=== PATIENT | male | born 1950 | race Caucasian/White ===

== ENCOUNTER → 2018-03-21 10:14 | Outpatient (BNVA) | payer MEDICARE, BC, SELFPAY | PROVIDERS: PCP Nurse Practitioner Family; Visit Provider Student in an Organized Health Care Education/Training Program | DX: I25.10 Atherosclerotic heart disease of native coronary artery without angina pectoris (principal); I10 Essential (primary) hypertension; E78.5 Hyperlipidemia, unspecified | CPT/HCPCS: 99214 ==

== ENCOUNTER → 2018-05-04 09:01 | Outpatient (BNVA) | payer MEDICARE, BC, SELFPAY | PROVIDERS: PCP Nurse Practitioner Family; Visit Provider Student in an Organized Health Care Education/Training Program | DX: I25.810 Atherosclerosis of coronary artery bypass graft(s) without angina pectoris (principal); Z95.818 Presence of other cardiac implants and grafts; I10 Essential (primary) hypertension | CPT/HCPCS: 99214 ==

== ENCOUNTER 2018-11-01 08:28 | Outpatient (CLI) | payer MEDICARE, BC, SELFPAY ==
[2018-11-01 09:48] LABS: Anion Gap 5.4 mmol/L (3-11); BUN 15 mg/dL (7-18); CO2 30.6 mmol/L (21.0-32.0); CREATININE 1.19 mg/dL (0.70-1.30); Chloride 102 mmol/L (98-107); Cholesterol 136 mg/dL (50-200); Glucose 99 mg/dL (70-100); HDL Cholesterol 41 mg/dL (40-60); LDL CHOLESTEROL 83 mg/dL (<100); Potassium 4.2 mmol/L (3.5-5.1); Sodium 138 mmol/L (136-145); Triglyceride 59 mg/dL (30-150)
== END 2018-11-01 08:48 ==
PROVIDERS: PCP Nurse Practitioner Family; Visit Provider Nurse Practitioner Family
DX: I25.10 Atherosclerotic heart disease of native coronary artery without angina pectoris (principal); I10 Essential (primary) hypertension
CPT/HCPCS: 80048; 80061; 83721

== ENCOUNTER → 2018-12-21 14:04 | Outpatient (BNVA) | payer MEDICARE, BC, SELFPAY | PROVIDERS: PCP Nurse Practitioner Family; Visit Provider Student in an Organized Health Care Education/Training Program | DX: I20.8 Other forms of angina pectoris (principal); I25.10 Atherosclerotic heart disease of native coronary artery without angina pectoris; Z95.1 Presence of aortocoronary bypass graft; Z95.5 Presence of coronary angioplasty implant and graft; I10 Essential (primary) hypertension | CPT/HCPCS: 99214 ==

== ENCOUNTER 2019-12-19 03:48 | Outpatient (CLI) | payer MEDICARE, BC, SELFPAY ==
[2019-12-19 09:39] LABS: Anion Gap 5.3 mmol/L (3-11); BUN 19 mg/dL (7-18); CO2 31.7 mmol/L (21.0-32.0); CREATININE 1.14 mg/dL (0.70-1.30); Calcium 8.6 mg/dL (8.5-10.1); Calculated LDL 80 mg/dL (<100); Chloride 106 mmol/L (98-107); Cholesterol 140 mg/dL (<200); Glucose 103 mg/dL (74-106); HDL Cholesterol 46 mg/dL (40-60); Potassium 4.4 mmol/L (3.5-5.1); Sodium 143 mmol/L (136-145); Triglyceride 72 mg/dL (<150)
== END 2019-12-19 04:08 ==
PROVIDERS: PCP Nurse Practitioner Family; Visit Provider Nurse Practitioner Family
DX: I10 Essential (primary) hypertension (principal); E78.5 Hyperlipidemia, unspecified
CPT/HCPCS: 36415; 80048; 80061

== ENCOUNTER → 2019-12-28 11:09 | Outpatient (BNVA) | payer MEDICARE, BC, SELFPAY | PROVIDERS: PCP Nurse Practitioner Family; Referring Provider Nurse Practitioner Family; Visit Provider Internal Medicine Cardiovascular Disease | DX: I25.10 Atherosclerotic heart disease of native coronary artery without angina pectoris (principal); E78.5 Hyperlipidemia, unspecified; I10 Essential (primary) hypertension | CPT/HCPCS: 99204; 99215 ==

== ENCOUNTER 2020-04-10 02:58 | Outpatient (CLI) | payer MEDICARE, BC, SELFPAY ==
--- NOTE | 2020-04-10 15:49 | DI.RAD_ITS ---
EXAM: XR LUMBAR SPINE COMPLETE CLINICAL HISTORY: Pain after lifting, r/o compression fX,M54.5,LUMBAGO. TECHNIQUE: 2D digital imaging was performed. COMPARISON: No exams were available for comparison FINDINGS: The vertebral bodies are well maintained in height. There is mild narrowing of the L3-4 disc space. There are small endplate osteophytes at this level. There are mild facet joint degenerative changes . No spondylolysis, spondylolisthesis or scoliosis is seen. IMPRESSION: Degenerative disc changes at L 3- 4. DATA REPOSITORY: RADIATION DOSE DELIVERED:
== END 2020-04-10 03:18 ==
PROVIDERS: PCP Nurse Practitioner Family; Visit Provider Family Medicine
DX: M47.816 Spondylosis without myelopathy or radiculopathy, lumbar region (principal); M25.78 Osteophyte, vertebrae; M48.061 Spinal stenosis, lumbar region without neurogenic claudication
CPT/HCPCS: 72110

== ENCOUNTER → 2020-12-12 10:57 | Outpatient (BNVA) | payer MEDICARE, BC, SELFPAY | PROVIDERS: PCP Nurse Practitioner Family; Referring Provider Nurse Practitioner Family; Visit Provider Internal Medicine Cardiovascular Disease | DX: I25.10 Atherosclerotic heart disease of native coronary artery without angina pectoris (principal); E78.5 Hyperlipidemia, unspecified; I45.10 Unspecified right bundle-branch block; I10 Essential (primary) hypertension; Z79.899 Other long term (current) drug therapy | CPT/HCPCS: 99214 ==

== ENCOUNTER 2021-05-22 02:21 | Outpatient (CLI) | payer MEDICARE, BC, SELFPAY ==
[2021-05-22 07:26] LABS: HCT 45.2 % (40.0-50.0); HGB 14.9 g/dL (13.5-17.5); MCH 28.7 pg (27.0-33.0); MCV 86.9 fL (80-95); Platelet Count 252 10^3/uL (130-400); RDW 11.9 % (11.8-14.1); RDW-SD 38.2 fL; WBC 9.06 10^3/uL (4.4-10.8)
[2021-05-22 08:10] LABS: BUN 19 mg/dL (7-18); CREATININE 1.2 mg/dL (0.70-1.30); Calcium 8.8 mg/dL (8.5-10.1); Calculated LDL 72 mg/dL (<100); Chloride 102 mmol/L (98-107); Cholesterol 131 mg/dL (<200); Estimated GFR 59.86 (mL/min/1.73m2); Glucose 97 mg/dL (74-106); HDL Cholesterol 41 mg/dL (40-60); Potassium 4.4 mmol/L (3.5-5.1); Sodium 141 mmol/L (136-145); Triglyceride 92 mg/dL (<150)
== END 2021-05-22 02:22 | disposition home or self-care (01) ==
LOC: LBO 02:21
PROVIDERS: PCP Nurse Practitioner Family; Visit Provider Nurse Practitioner Family
DX: I10 Essential (primary) hypertension (principal); E78.5 Hyperlipidemia, unspecified; Z51.81 Encounter for therapeutic drug level monitoring
CPT/HCPCS: 36415; 80048; 80061; 85027

== ENCOUNTER → 2021-12-11 10:56 | Outpatient (BNVA) | payer MEDICARE, SELFPAY | PROVIDERS: PCP Nurse Practitioner Family; Visit Provider Internal Medicine Cardiovascular Disease | DX: I10 Essential (primary) hypertension (principal); I25.10 Atherosclerotic heart disease of native coronary artery without angina pectoris; Z71.89 Other specified counseling | CPT/HCPCS: 99214; 99213 ==

== ENCOUNTER 2022-05-21 08:50 | Outpatient (CLI) | payer MEDICARE, SELFPAY ==
[2022-05-21 08:23] LABS: Abs Immature Grans 0.03 10^3/uL (0.0-0.06); Absolute Basophil Count 0.06 10^3/uL (0.0-0.2); Absolute Eosinophil Count 0.32 10^3/uL (0.0-0.7); Absolute Lymphocyte Count 2.15 10^3/uL (1.2-3.4); Absolute Monocyte Count 0.71 10^3/uL (0.1-0.8); Absolute Neutrophil Count 5.36 10^3/uL (1.2-6.7); Basophils % 0.7; Eosinophils % 3.7; HCT 45.4 % (40.0-50.0); HGB 15.2 g/dL (13.5-17.5); Immature Grans % 0.3; Lymphocytes % 24.9; MCHC 33.5 % (32.0-36.0); MCV 87 fL (80-95); MPV 9.9 fL (8.0-11.0); Monocytes % 8.2; Neutrophils % 62.2; Platelet Count 219 10^3/uL (130-400); RBC 5.24 10^6/uL (4.36-5.78); RDW-SD 38.3 fL; WBC 8.63 10^3/uL (4.4-10.8)
[2022-05-21 08:52] LABS: Anion Gap 4.2 mmol/L (3-11); BUN 20 mg/dL (7-18); CO2 31.8 mmol/L (21.0-32.0); CREATININE 1.4 mg/dL (0.70-1.30); Calcium 8.8 mg/dL (8.5-10.1); Calculated LDL 67 mg/dL (<100); Chloride 100 mmol/L (98-107); Cholesterol 128 mg/dL (<200); Estimated GFR 53.74 (mL/min/1.73m2); Glucose 104 mg/dL (74-106); HDL Cholesterol 48 mg/dL (40-60); Potassium 3.8 mmol/L (3.5-5.1); Sodium 136 mmol/L (136-145); Triglyceride 67 mg/dL (<150)
--- OUTSIDE RECORDS SUMMARY | 2022-05-21 09:02 | XMS_ITS | Encounter Summary ---
:1950 Author Organization [facility] [place] [address] Care Team Providers Name Role Phone Yvonne Nolen MD, Rupert Bhatti Primary Care Provider Encounter Details Date Type Department Care Team Description 12/12/2014 [place] [facility] [place] Sanders, [place] [address] Social History Tobacco Use Types Packs/Day Years Used Date Never Smoker Smokeless Tobacco: Never Used Alcohol Use Standard Drinks/Week Comments Yes 3 (1 standard drink = 0.6 oz pure alcoho l) social Alcohol Habits Answer Date Recorded How often do you have a drink containing alcohol? Not asked How many drinks containing alcohol do you have on a typical Not asked day when you are drinking? How often do you have six or more drinks on one occasion? No t asked Comment: social 01/29/2014 Sex Assigned at Date Recorded Not on file documented as of this encounter Miscellaneous Notes Telephone Encounter - Darby Sanders RN - 12/12/2014 4:10 PM EDT Blayne had a CABG March 2014. He called to say he was doing fine except has a concern about hisincision. 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 Says the site is not red, does not have any grinding or clicking sounds. Feels the sternal bone is solid. Would like advise about what to do. Please call on home #. Not urgent. documented in this encounter Plan of Treatment Not on filedocumented as of this encounter Visit Diagnoses Not on filedocumented in this encounter Care Teams Systems Programmer Analyst Relationship Specialty Start Date End Date Rupert Russell Jr., MD PCP - General 06/03/10 07/21/[address] [facility] [address] [facility] [address] documented as of this encounter
--- OUTSIDE RECORDS SUMMARY | 2022-05-21 09:02 | XMS_ITS | Encounter Summary ---
:1950 Author Organization [facility] Address [address] [place] [address] Care Team Providers Name Role Phone Yvonne Nolen MD, Rupert Bhatti Primary Care Provider Encounter Details Date Type Department Care Team Description 04/24/2014 [place] [facility] [place] x [address] [place] [address] Social History Tobacco Use Types Packs/Day [...] on file documented as of this encounter Medications at Time of Discharge Medication Sig Dispensed Refills Start Date End Date acetaminophen (TYLENOL) Take 1,000 mg by 0 500 mg Tablet mouth every 6 hours as needed. ticagrelor (BRILINTA) 90 Take 1 tablet by 180 tablet 3 04/03 mg Tablet mouth 2 times daily. Psyllium Seed-Sucrose Take 36 g by mouth 0 Powder daily. atorvastatin (LIPITOR) 80 Take 1 tablet by 90 tablet 4 01/10 mg tablet mouth every evening. metoprolol tartrate Take 1 tablet by 60 tablet 12 01/22/2014 (LOPRESSOR) 25 mg tablet mouth 2 times daily. nitroGLYcerin (NITROSTAT) Place 1 tablet under 25 tablet 1 01/15/2014 0.4 mg SL tablet the tongue every 5 minutes as needed for Chest pain. X 3. aspirin 81 mg EC tablet Take 81 mg by mouth 0 daily. documented as of this encounter Plan of Treatment Not on filedocumented as of this encounter Procedures Procedure Name Priority Date/Time Associated Diagnosis Comme nts XR CHEST PA AND Routine 04/24/2014 1:15 PM S/P CABG x 1 Result s for this LATERAL EDT procedure are i n the results section. documented in this encounter Results XR chest routine PA & lateral (04/24/2014 1:15 PM EDT) Anatomical Region Laterality Modality Chest N/A Radiographic Imaging Specimen (Source) Anatomical Collection Method Collection Time Re ceived Time Location / / Volume Laterality 04/24/2014 1:15 PM EDT Narrative 04/24/2014 4:29 PM EDT Examination CHEST ROUTINE 2 VIEWS Clinical History s/p cabg Comparison PA and lateral chest radiograph on 04/01 ?? Technique PA and lateral chest radiograph Findings Improvement in size of bilateral pleural effusions. There is still a small residual left pleural effusion. Remainin g lungs are clear. The cardiomediastinal silhouette, laura, and pulmonary vasculature are unchanged. Again seen are the sternotomy wires and anterior mediastinal surgical clips which are unchanged. Impression Improvement in size of bilateral pleural effusions. Residual small left-sided pleural effusion. Film and interpretation reviewed by the attending Procedure Note Mariela Carpio MD - 04/24/2014Formatt ing of this note might be different from the original. Examination CHEST ROUTINE 2 VIEWS Clinical History s/p cabg Comparison PA and lateral chest radiograph on 04/01 Technique PA and lateral chest radiograph Findings Improvement in size of bilateral pleural effusions. There is still a small residual left pleural effusion. Remainin g lungs are clear. The cardiomediastinal silhouette, laura, and pulmonary vasculature are unchanged. Again seen are the sternotomy wires and anterior mediastinal surgical clips which are unchanged. Impression Improvement in size of bilateral pleural effusions. Residual small left-sided pleural effusion. Film and interpretation reviewed by the attending Pa Morejon MD IMG DX ORDERABLES documented in this encounter Visit Diagnoses Diagnosis S/P CABG x 1 Postsurgical aortocoronary bypass status documented in this encounter Care Teams Semiconductor Development Technician Relationship Specialty Start Date End Date Rupert Russell Jr., MD PCP - General 06/03/10 07/21/[address] [facility] [address] [facility] [address] documented as of this encounter
--- OUTSIDE RECORDS SUMMARY | 2022-05-21 09:02 | XMS_ITS | Encounter Summary ---
:1950 Author Organization [facility] [place] [address] Care Team Providers Name Role Phone Yvonne Nolen MD, Rupert Bhatti Primary Care Provider Reason for Visit Reason Onset Date Comments Other 02/26/2015 PT DECLINES CARDIOLO GY F/UP Encounter Details Date Type Department Care Team Description 02/26/2015 Telephone Cardiology [place] [facility] [place]iz Leal Other (PT DECLINES [facility] CARDIOLOG Y F/[place] [address] Social History Tobacco Use Types Packs/Day [...] this encounter Miscellaneous Notes Telephone Encounter - Moiz Leal - 02/26/2015 2:14 PM EDT I called patient to schedule his one year follow-up appointment. He declined, stating he has transferred his cardiac care to a local Home Economist. documented in this encounter Plan of Treatment Not on filedocumented as of this encounter Visit Diagnoses Not on filedocumented in this encounter Care Teams Capacity Planning Engineer Relationship Specialty Start Date End Date Rupert Russell Jr., MD PCP - General 06/03/10 07/21/[address] [facility] [address] [facility] [place] [phone] documented as of this encounter
--- OUTSIDE RECORDS SUMMARY | 2022-05-21 09:02 | XMS_ITS | Encounter Summary ---
:1950 Author Organization [facility] [place] [address] Care Team Providers Name Role Phone Yvonne Nolen MD, Rupert Bhatti Primary Care Provider Encounter Details Date Type Department Care Team Description 04/24/2014 Office Visit Cardiothoracic Surge ry Pa Morejon MD [facility] [place] [address] S/P CABG x 1 [facility] Yves Childers, MONI [facility] [place] [address] [place] [address] Social History Tobacco Use Types Packs/Day Years [...] on file documented as of this encounter Last Filed Vital Signs Vital Sign Reading Time Taken Comments Blood Pressure 104/70 04/24/2014 1:45 PM EDT Pulse 61 04/24/2014 1:45 PM EDT Temperature - - Respiratory Rate - - Oxygen Saturation 97% 04/24/2014 1:45 PM EDT Inhaled Oxygen Concentration - - Weight 74.4 kg (164 lb) 04/24/2014 1:45 PM EDT Height 175.3 cm (5' 9) 04/24/2014 1:45 PM EDT Body Mass Index 24.22 04/24/2014 1:45 PM EDT documented in this encounter Progress Notes Yves Arias PA - 04/24/2014 2:13 PM EDT Blayne Zapata is seeing me today for one month follow-up after having undergone SETHI-LAD CABG withDr. Morejon. HPI: Mr. Zapata has been doing very well since his discharge. He is increasing his activities. He still has some sternal pain. CXR shows no acute cardiopulmonary processes. EKG shows sinus rhythm with an old RBBB. Outpatient Prescriptions Marked as Taking for the 04/24/14 encounter (Office Visit) with Yves Arias PA Medication Sig Dispense Refill ??? acetaminophen (TYLENOL) 500 mg Tablet Take 1,000 mg by mouth every 6 hours as needed. ??? ticagrelor (BRILINTA) 90 mg Tablet Take 1 tablet by mouth 2 times daily. 180 tablet 3 ??? Psyllium Seed-Sucrose Powder Take 36 g by mouth daily. ??? atorvastatin (LIPITOR) 80 mg tablet Take 1 tablet by mouth every evening. 90 tablet 4 ??? metoprolol tartrate (LOPRESSOR) 25 mg tablet Take 1 tablet by mouth 2 times daily. 60 tablet 12 ??? nitroGLYcerin (NITROSTAT) 0.[address] 1 tablet under the tongue every 5 minutes as needed for Chest pain. X 3. 25 tablet 1 ??? aspirin 81 mg EC tablet Take 81 mg by mouth daily. Physical Examination: BP 104/70 Pulse 61 Ht 175.3 cm (5' 9) Wt 74.39 kg (164 lb) BMI 24.21 kg/m2 SpO2 97% General: appears well, can't sit still Lungs: ctab Heart: RRR, s1/s2 present, no m/r/g Abdomen: +bs Neuro: no focal deficits Extremities: no edema Incisions: healing well Assessment and Plan: Mr. Zapata may driving. He may lift up to 20 lbs for the next month and then will have no restrictions. He started cardiac rehab two weeks ago. He needs to follow up with his PCP. He has an appointment with his casing builder in two weeks. He does not have come back to see me unless any specific issues arise. documented in this encounter Plan of Treatment Not on filedocumented as of this encounter Procedures Procedure Name Priority Date/Time Associated Diagnosis Comme nts EKG 12-LEAD Routine 04/24/2014 1:47 PM S/P CABG x 1 Results f or this EDT procedure are i n the results section . documented in this encounter Results EKG 12 Lead (04/24/2014 1:47 PM EDT) Component Value Ref Range Test Analysis Performed Pathologis t Method Time At Signature Ventricular rate 60 BPM MUSE SYSTEM Atrial Rate 60 BPM MUSE SYSTEM P-R Interval 146 ms MUSE SYSTEM QRS Duration 126 ms MUSE SYSTEM Q-T Interval 420 ms MUSE SYSTEM QTC Calculated 420 ms MUSE SYSTEM (Bezet) Calculated P [place] 70 degrees MUSE SYSTEM Calculated R [place] 75 degrees MUSE SYSTEM Calculated T [place] 73 degrees MUSE SYSTEM INTERPRETATION Normal sinus rhythm MUSE SYSTEM Right bundle branch block Abnormal ECG When compared with ECG of 29-MAR-2014 11:23, No significant change was found Confirmed by MD ANTHONY, TOMÁS ([id number]) on 04/24/2014 9:25:13 PM Specimen Anatomical Collection Method Collection Time Receive d Time (Source) Location / / Volume Laterality 04/24/2014 1:47 PM 9:25 EDT PM EDT Pa Morejon MD ECG ORDERABLES Performing Organization Address City/State/ZIP Code Phon e Number MUSE SYSTEM documented in this encounter Visit Diagnoses Diagnosis S/P CABG x 1 Postsurgical aortocoronary bypass status documented in this encounter Care Teams Program Supervisor Relationship Specialty Start Date End Date Rupert Russell Jr., MD PCP - General 06/03/10 07/21/[address] [facility] [address] [facility] [address] documented as of this encounter
--- OUTSIDE RECORDS SUMMARY | 2022-05-21 09:02 | XMS_ITS | Encounter Summary ---
:1950 Author Organization [facility] [place] [address] Care Team Providers Name Role Phone Yvonne Nolen MD, Rupert Bhatti Primary Care Provider Encounter Details Date Type Department Care Team Description 04/06/2014 Telephone Cardiothoracic Surge ry Chandler Powell III, [facility] Mar MONTENEGRO [address] [phone] CARDIOTHORACIC S [place] [address] (Wo rk) Social History Tobacco Use Types Packs/Day Years [...] this encounter Miscellaneous Notes Telephone Encounter - Chandler Powell III, MONI - 04/06/2014 12:20 PM EDT Cardiac Surgery Routine Discharge Follow-up Call Note ID: [id number] 63 year old man. Primary Diagnoses: Coronary Artery Disease s/p cabg x 1 03/29/14 Blayne Zapata was called today at 1220. He indicates that his discharge occurred without issue. Hehas all necessary medications and instructions. He indicates that he is doing well overall. No issues identified. All new questions were answered. He will call our office with any problems. Signed: Chandler Powell III, MS, PA-C [facility] Section of Cardiothoracic Surgery Date: 04/06/2014 documented in this encounter Plan of Treatment Not on filedocumented as of this encounter Visit Diagnoses Not on filedocumented in this encounter Care Teams Script Writer Relationship Specialty Start Date End Date Rupert Russell Jr., MD PCP - General 06/03/10 07/21/[address] [facility] [address] [facility] [address] documented as of this encounter
--- OUTSIDE RECORDS SUMMARY | 2022-05-21 09:02 | XMS_ITS | Encounter Summary ---
:1950 Author Organization [facility] [place] [address] Care Team Providers Name Role Phone Yvonne Nolen MD, Rupert Bhatti Primary Care Provider Encounter Details Date Type Department Care Team Description 04/04/2014 Telephone Family Medicine at [facility] Josefina Wooten [address] [place] [address] Social History Tobacco Use Types Packs/Day Years [...] this encounter Miscellaneous Notes Telephone Encounter - Lilibeth Martinez LPN - 04/04/2014 4:32 PM EDT Called back and reached the answering service. Left message to return call to clinic. documented in this encounter Plan of Treatment Not on filedocumented as of this encounter Visit Diagnoses Not on filedocumented in this encounter Care Teams Warehouse Engineer Relationship Specialty Start Date End Date Rupert Russell Jr., MD PCP - General 06/03/10 07/21/[address] [facility] [address] [facility] [place] [address] documented as of this encounter
--- OUTSIDE RECORDS SUMMARY | 2022-05-21 09:02 | XMS_ITS | Encounter Summary ---
:1950 Author Organization [facility] [place] [address] Care Team Providers Name Role Phone Yvonne Nolen MD, Louis A Primary Care Provider Encounter Details Date Type Department Care Team Description 05/09/2014 Office Visit Family Medicine at [facility] CAD (co ronary artery disease) (Primary Dx); Arnold Grimm Jr., MD Anemia [address] [place] [address] [facility] [phone] PR[facility] [place] [id number] Social History Tobacco Use Types Packs/Day Years [...] Sign Reading Time Taken Comments Blood Pressure 109/77 05/09/2014 1:56 PM EDT Pulse 64 05/09/2014 1:56 PM EDT Temperature 36.3 ??C (97.3 ??F) 05/09/2014 1:56 PM EDT Respiratory Rate 14 05/09/2014 1:56 PM EDT Oxygen Saturation 99% 05/09/2014 1:56 PM EDT Inhaled Oxygen Concentration - - Weight 74.9 kg (165 lb 3.2 oz) 05/09/2014 1:56 PM EDT Height 174.5 cm (5' 8.7) 05/09/2014 1:56 PM EDT Body Mass Index 24.61 05/09/2014 1:56 PM EDT documented in this encounter Progress Notes Rupert Russell Jr., MD - 05/09/2014 4:07 PM EDT Subjective: Mr. Zapata is a 63-year-old who comes in with his for followup of open-heart surgery. Has an appointment in Cardiology today. Is pleased with his progress. He is regaining his stamina. Is meticulously compliant with his rehab program. Is making lifestyle changes. Always felt that he had a reasonably healthy diet and now is fine-tuning that. His has diabetes and so she is very careful about what she eats as well. They are reading some books about healthy eating. Will be going to [place] after and returning in October. Hopes to work his way back into jogging while there. Not excited about being on medication long-term. He would like to make changes to regain his health to where he may not need to be on medicine or not as much. Currently, without side effects except he notices a little decrease in his exercise tolerance, he is assuming is due to metoprolol. Objective: Appears well and in usual health. Blood pressure is 109/77. Pulse is 64 and regular. Respirations are 14. O2 sat 99%. Lungs are clear. Heart regular rate and rhythm without murmur. No S3 or S4. Carotids without bruits. Sternal scar is red, but narrow. Assessment: Doing well status post CABG. Plan: During this 40-minute visit, 36 minutes were spent [id number] in discussion of medical events this year, current treatment, what to expect in the coming months, and developing a shared future vision to work towards. He will add co-enzyme Q-10 supplementation. Will check CBC. He will avoid prolonged, strenuous exercise at the level he was doing years ago. Other lifestyle changes discussed in great detail. Questions answered. Supportive discussion. Follow up when he returns. [Scar pain. Re-examine when return from [place].] documented in this encounter Plan of Treatment Not on filedocumented as of this encounter Visit Diagnoses Diagnosis CAD (coronary artery disease) - Primary Coronary atherosclerosis of unspecified type of vessel, [place] or graft Anemia Anemia, unspecified documented in this encounter Care Teams Industrial Psychology Professor Relationship Specialty Start Date End Date Rupert Russell Jr., MD PCP - General 06/03/10 07/21/[address] [facility] [address] [facility] [place] [address] documented as of this encounter
--- OUTSIDE RECORDS SUMMARY | 2022-05-21 09:03 | XMS_ITS | Encounter Summary ---
:1950 Author Organization [facility] Address [facility] [place] [address] Care Team Providers Name Role Phone Yvonne Nolen MD, Rupert Bhatti Primary Care Provider Reason for Visit Reason Comments Chest Pain Encounter Details Date Type Department Care Team Description 01/22/2014 Office Visit Cardiology at [facility] Elías Zendejas, Bundle branch block (Primary Dx); [facility] [place] [address] CARDIOLOGY DEPT. [phone] [place], [place] [address] Social History Tobacco Use Types Packs/Day Years Used Date Never Smoker Smokeless Tobacco: Never Used Alcohol Use Standard Drinks/Week Comments Yes 3 (1 standard drink = 0.6 oz pure alcoho l) Sex Assigned at Date Recorded Not on file documented as of this encounter Last Filed Vital Signs Vital Sign Reading Time Taken Comments Blood Pressure 140/76 01/22/2014 1:12 PM EDT Pulse 65 01/22/2014 1:12 PM EDT reg Temperature - - Respiratory Rate 16 01/22/2014 1:12 PM EDT Oxygen Saturation 97% 01/22/2014 1:12 PM EDT Inhaled Oxygen Concentration - - Weight 75.3 kg (166 lb) 01/22/2014 1:12 PM EDT Height 174.6 cm (5' 8.75) 01/22/2014 1:12 PM EDT Body Mass Index 24.69 01/22/2014 1:12 PM EDT documented in this encounter Progress Notes Elías Zendejas MD - 01/22/2014 2:36 PM EDT Images from the original note were not included. Cardiology Staff Addendum: This patient was seen today and personally interviewed and examined. Agree with documentation by , which I have reviewed and independently confirmed. 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 He has been somewhat Inactive over the winter owing to changes in his lifestyle and having his parents movement. He has been more fatigued over the winter. About 2 weeks ago he began having episodic chest discomfort which has been occurring in his central chest and with moderate activities. It is been fairly stable. He was referred for a stress echocardiogram which was performed earlier today and which well not showing echocardiographic evidence of ischemia during submaximal exercise, didn't elicit typical symptoms, ST segment changes, and a 9 beat run of ventricular tachycardia which precipitated the discontinuation of the test. His past medical history is notable only for hypertension and hyperlipidemia. He is treated with Mevacor and Norvasc. His physical examination today is unremarkable. He has no jugular venous distention or bruits. His lungs are clear. His heart exam reveals a regular rhythm without murmurs, rubs, or gallops. Assessment: Although there is some uncertainty as result of his exercise echocardiogram showing no evidence of ischemia at peak exercise, his symptoms, clinical pattern, and EKG findings, as well as his ventricular tachycardia with exercise, are very concerning and do strongly suggest the possibility of underlying coronary artery disease. We reviewed the situation, including its vagaries, in detail. We recommend proceeding with heart catheterization and coronary angiography to definitively determinethe status of his coronary arteries. Elías Zendejas MD, FAHA, FACC Garret Moe MD - 01/22/2014 1:10 PM EDT CARDIOLOGY CLINIC INITIAL VISIT NOTE Blayne Zapata is a 63 y.o. male PCP: RUPERT RUSSELL JR, MD Cardiology Attending for today's visit: Reason for Visit: Exertional chest discomfort History of Present Illness: Blayne Zapata is a 63 y.o. male with h/o hypertension and hyperlipidemia who presents with exertional chest discomfort. About 10 days ago, while going up on a moderate uphill, he noticed soreness andtightness in lower substernal region. He stopped for a minute and started walking back and started feeling better within a minute or so. 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 He has had these symptoms a few times since than with similar activity. He denies any associated shortness of breath, palpitations or diaphoresis with these symptoms. He denies any chest pain with his other usual ADLs. His parents have recently moved to a [place] about 2 weeks. He was taking care of them for the last 5 months and thinks he was sleep deprived. He also admits to being under a lot of stress taking care of his parents. But he is now concerned that the chest pain has persisted even after his parents moved to a [place]. He also noticed dizziness when he gets up from lying down position. Denies any dizziness when sitting. Denies orthopnea or PND. He had an exercise stress echo last week where he did not reach target heart rate after 7mts of exercise. The test was terminated enedelia had an episode of non sustained vtach(9 beat run). He started noticing substernal chest pain while getting stress echo imaging, but his stress imaging did not show any new wall motion abnormalities.He also had 1.5mm down sloping ST depressions in leads II, V3-V6. His baseline echo was normal with normal LVEF and no wall motion or vavlular abnormalities. 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 He ran marathons on a regular basis. Recently he thinks he is out of shape a little bit and was not as active as he used to be this winter. He is getting tired more easily than usual. Prior cardiac testing: Stress echo/01/15/14 SUMMARY: 1. BASELINE: Normal global and segmental biventricular systolic function with an estimated left ventricular ejection fraction of 65%. 2. STRESS: Patient followed a Luis protocol. The patient exercised into stage 3. The total exercise duration was:7:01. The study was terminated because of arrhythmia. The study was terminated because of chest pain. Maximum heart rate achieved was 100, which is 64% of the maximum(157 beats/min). The target heart rate was not achieved. The patient expressed feelings of chest discomfort. The blood pressure response was normal. Exercise capacity was average. There were occasional atrial premature contractions. There were occasional ventricular premature beats. There was a run of ventricular tachycardia.9-beat run at approximately 150 bpm. There were ventricular couplets. There was ST segment depression noted.1.[address] depression in leads II, V3, V4, and V5. The electrocardiographic response is indeterminate for ischemia: failed to achieve target heart rate. 3. ECHOCARDIOGRAPHIC FINDINGS: There are no left ventricular segmental wall motion abnormalities. 4. IMPRESSION: Indeterminate exercise echocardiogram, target heart rate was not achieved. Test stopped prematurely for 9 beat run of NSVT which was self terminating. The patient reported chest discomfort during the arrythmia. There is no echocardiographic evidence of ischemia at this level of stress. Cardiac cath at [facility] in 2005 for chest pain: Non obstructive disease(mild diffuse), normal LVEF Patient Active Problem List Diagnosis ??? Health maintenance examination ??? Hypertension ??? RBBB ??? Dry eyes ??? Hyperopia with astigmatism and presbyopia ??? Amblyopia of right eye ??? PVD (posterior vitreous detachment) Past Medical History Diagnosis Date ??? Hyperlipidemia ??? Hypertension ??? Amblyopia OD w/ h/o patching Grandfather of heart attack in his late 60s, he was a smoker Family History Problem Relation Age of Onset ??? Cataracts Mother ??? Hypertension Mother ??? Hypertension Father ??? Amblyopia Neg Hx ??? Blindness Neg Hx ??? Cancer Neg Hx ??? Diabetes Neg Hx ??? Glaucoma Neg Hx ??? Macular Degeneration Neg Hx ??? Retinal Detachment Neg Hx ??? Strabismus Neg Hx ??? Stroke Neg Hx ??? Thyroid Disease Neg Hx ??? Heart Disease Neg Hx History Social History ??? Marital Status: Spouse Name: N/A Number of Children: N/A ??? Years of Education: N/A Occupational History ??? Not on file. Social History Main Topics ??? Smoking status: Never Smoker ??? Smokeless tobacco: Never Used ??? Alcohol Use: 1.8 oz/week 3 Glasses of wine per week ??? Drug Use: ??? Sexually Active: Other Topics Concern ??? Not on file Social History Narrative ??? No narrative on file No recreational drug use Medications: Norvasc 2.5mg qd Aspirin 81mg qd Lovastatin 10mg qd No Known Allergies ROS: Filed Vitals: 01/22/14 1312 BP: 140/76 Pulse: 65 Resp: 16 Constitutional: Appetite is good, no wt loss or wt gain. HEENT: No visual symptoms. No nasal or ear discharge. Denies any headaches.(- ) cough. CVS: as per HPI Pulmonary: (- )cough, ( -)shortness of breath, no wheezing. GI: Denies nasea, emesis, no abdominal pain, no diarrhea or constipation, no bleeding per rectum or black stools. Genitourinary: Denies dysuria, difficulty urination or blood in the urine Hematology: denies easy bruising or bleeding Musculoskeletal: (- ) Joint aches, ( -) Joint swelling, Denies any bony pain Endocrine: (+ ) Fatigue, No heat or cold intolerance, polyuria or polydypsia Neuro: denies any visual symptoms, no focal weakness or parasthesias. ( +) Dizziness. No involuntarymovements. Skin: No rashes or easy bruising Psychiatry: Denies being depressed, denies anxiety. Physical Constitutional: well built, lying in bed in no apparent distress HENT:head normocephalic, no evidence of trauma, no nasal or aural discharge, no exudates in oral cavity, oral mucosa appears moist Eyes: EOMI, no icterus or pallor, Neck: supple, no thyromegaly or lymphadenopathy CVS: RRR, normal S1and S2, no murmur, no gallop or rub, JVP not distended, Radial, femoral and pedalpulses 3+ bilaterally Pulmonary: good air entry bilaterally,CTAB. GI: abdomen soft, NTND, bowel sounds positive, no rebound or gaurding, no organomegaly Musculoskeletal: no joint swellings or deformities Extremities: no edema Skin: no rashes noted Neuro: no gross focal deficits on limited neuro exam Psych: mood and affect normal. Not anxious looking. Testing: Stress echo as above. EKG today: NSR, RBBB, no ischemic changes Impression: Blayne Zapata is a 63 y.o. male with hypertension, hyperlipidemia with new exertional chest discomfort relieved with rest. He had an incomplete stress echo as his peak heart rate was only in mid 60s,but with concerning EKG changes and an episode of non sustained VT. Surprisingly despite his chest pain, he did not have any WMAs on his stress echocardiogram. Overall, although there are some atypicalfeatures to his presentations(normal imaging despite chest pain), there are enough features that makes obstructive coronary artery disease reasonably possible(exertional chest pain relieved by rest, EKG changes and nonsustained vtach, age, risk factors). Given the above and after discussing options, he prefers cardiac cath as opposed to another modality of stress test like regadenoson nuclear scan. The indications, expected benefits and potential risks of heart catheterization were reviewed in detail with the patient. The potential for , heart attack, stroke, kidney failure, hemorrhage, allergic reaction, vascular complications and infection were reviewed in detail. The possibility of stenting and other percutaneous intervention with associated risk was reviewed. The possible need for emergent coronary artery bypass surgery was reviewed. After a discussion about the above, and having answered all questions posed, the patient was provided with a consent which was reviewed and signed. Plan: Exertional chest pain: cardiac cath as an outpatient. Will arrange through same day. Continue aspirin, norvasc, statin and start betablocker(given non sustained VT with stress test). The indications, expected benefits and potential risks of heart catheterization were reviewed in detail with the patient. The potential for , heart attack, stroke, kidney failure, hemorrhage, allergic reaction, vascular complications and infection were reviewed in detail. The possibility of stenting and other percutaneous intervention with associated risk was reviewed. The possible need for emergent coronary artery bypass surgery was reviewed. After a discussion about the above, and having answered all questions posed, the patient was provided with a consent which was reviewed and signed. garret Moe MD Deputy Brand Inspector Pager([id number]) documented in this encounter Plan of Treatment Not on filedocumented as of this encounter Procedures Procedure Name Priority Date/Time Associated Diagnosis Comme nts EKG 12-LEAD Routine 01/22/2014 1:27 PM Bundle branch block Re sults for this EDT procedure are i n the results section . documented in this encounter Results EKG 12 Lead (01/22/2014 1:27 PM EDT) Component Value Ref Range Test Analysis Performed Pathologis t Method Time At Signature Ventricular rate 58 BPM MUSE SYSTEM Atrial Rate 58 BPM MUSE SYSTEM P-R Interval 146 ms MUSE SYSTEM QRS Duration 134 ms MUSE SYSTEM Q-T Interval 414 ms MUSE SYSTEM QTC Calculated 406 ms MUSE SYSTEM (Bezet) Calculated P [place] 72 degrees MUSE SYSTEM Calculated R [place] 84 degrees MUSE SYSTEM Calculated T [place] 39 degrees MUSE SYSTEM INTERPRETATION Sinus bradycardia MUSE SY STEM Right bundle branch block Abnormal ECG When compared with ECG of 14-JAN-2006 08:56, No significant change was found Confirmed by MD ROMERO, LUIS ([id number]) on 01/22/2014 7:10:39 PM Specimen Anatomical Collection Method Collection Time Receive d Time (Source) Location / / Volume Laterality 01/22/2014 1:27 PM 4 7:10 EDT PM EDT Elías Zendejas MD ECG ORDERABLES Performing Organization Address City/State/ZIP Code Phon e Number MUSE SYSTEM documented in this encounter Visit Diagnoses Diagnosis Bundle branch block - Primary Bundle branch block, unspecified Chest pain Chest pain, unspecified documented in this encounter Care Teams Fender Mechanic Relationship Specialty Start Date End Date Rupert Russell Jr., MD PCP - General 06/03/10 07/21/17 [facility] [address] [facility] [place] [address] documented as of this encounter
--- OUTSIDE RECORDS SUMMARY | 2022-05-21 09:03 | XMS_ITS | Encounter Summary ---
:1950 Author Organization [facility] [place] [address] Care Team Providers Name Role Phone Yvonne Nolen MD, Rupert Bhatti Primary Care Provider Reason for Visit Reason Comments Coronary Artery Disease Encounter Details Date Type Department Care Team Description 03/05/2014 Office Visit Cardiothoracic Surge ry Pa Morejon CAD (coronary artery [facility] D sandro Yao MD disease) ([place] [address] [facility]) [phone] [facility] [place] [address] Social History Tobacco Use Types Packs/Day Years [...] Sign Reading Time Taken Comments Blood Pressure 110/72 03/05/2014 2:33 PM EDT Pulse 64 03/05/2014 2:33 PM EDT regular, radial Temperature - - Respiratory Rate - - Oxygen Saturation 98% 03/05/2014 2:33 PM EDT Inhaled Oxygen Concentration - - Weight 76.2 kg (168 lb) 03/05/2014 2:33 PM EDT Height 175.3 cm (5' 9) 03/05/2014 2:33 PM EDT Body Mass Index 24.81 03/05/2014 2:33 PM EDT documented in this encounter Progress Notes Pa Morejon MD - 03/05/2014 3:08 PM EDT This is a patient being referred by Dr. Zendejas and Dr. Orosco for consideration of coronary artery bypass grafting. Mr. Castrejon is a healthy gentleman who is retired and enjoys running but had been having increasing amounts of chest pressure and pain, and he was taken to cath ultimately and found to have severe disease of his right coronary artery, which Dr. Orosco put a stent in. However, his LAD lesion was so proximal and his left main was so short that stenting his LAD may create a left main stent as well as plaque shift into his circ. He was taken off the table for a thoughtful decision of whether a SETHI to LAD might be better for him. After speaking with Mr. Castrejon, his symptoms have not fully resolved, and certainly the beta-joni side effects are affecting him with fatigue, but he still does feel some chest pressure. His past medical history is significant for hypertension, hypercholesterolemia. No diabetes. He has not had any surgery except some oral surgery. He has no known drug allergies. He currently is on his aspirin and Brilinta, and he is one month out of his stent. 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 His vital signs are stable. On physical exam, he is a slender gentleman. His lungs are clear. I do not hear any murmurs. He has no pectus, no scars over his chest. He has no swelling in his legs, and no varicosities. His cardiac cath I described above. He has no , and his EF is normal. Impression: Mr. Castrejon has single-vessel disease and fresh stents in the right. He still has symptoms and is here for completion revascularization with a SETHI to LAD. He had the opportunity to ask questions and has elected to go with CABG surgery. The risks include but are not limited to bleeding, infection, organ failure, stroke, . I will talk to Dr. Orosco about the possibility of any further grafting, but it is both our understanding in looking at the angiogram that it will be a SETHI to LAD. documented in this encounter Miscellaneous Notes Addendum Note - Bc Kaiser - 03/05/2014 3:57 PM EDT Addended by: BC KAISER on: 03/05/2014 03:57 PM Modules accepted: Orders documented in this encounter Plan of Treatment Not on filedocumented as of this encounter Procedures Procedure Name Priority Date/Time Associated Diagnosis Comme nts HEMOGRAM Routine 03/05/2014 3:30 PM CAD (coronary artery R esults for this EDT disease) procedure are i n the results section. DIFFERENTIAL, Routine 03/05/2014 3:30 PM CAD (coronary artery Results for this AUTOMATED EDT disease) procedure are i n the results section. TYPE AND SCREEN, Routine 03/05/2014 3:30 PM CAD (coronary glenn ry SDP (FUTURE EDT disease) SURGERY, [facility] SAME DAY PROGRAM ONLY) ABO/RH TYPING Routine 03/05/2014 3:30 PM CAD (coronary artery Results for this EDT disease) procedure are i n the results section. CBC (WITH DIFF) Routine 03/05/2014 3:30 PM CAD (coronary arter y EDT disease) ANTIBODY SCREEN Routine 03/05/2014 3:30 PM CAD (coronary arter y Results for this EDT disease) procedure are i n the results section. @CABG,USING Routine 03/05/2014 3:01 PM CAD (coronary artery ARTERIAL EDT disease) GRAFT;SINGLE ARTERIAL GRAFT documented in this encounter Results EKG 12 Lead (03/05/2014 3:54 PM EDT) Component Value Ref Range Test Analysis Performed Pathologis t Method Time At Signature Ventricular rate 49 BPM MUSE SYSTEM Atrial Rate 49 BPM MUSE SYSTEM P-R Interval 156 ms MUSE SYSTEM QRS Duration 134 ms MUSE SYSTEM Q-T Interval 436 ms MUSE SYSTEM QTC Calculated 393 ms MUSE SYSTEM (Bezet) Calculated P [place] 74 degrees MUSE SYSTEM Calculated R [place] 78 degrees MUSE SYSTEM Calculated T [place] 46 degrees MUSE SYSTEM INTERPRETATION Marked sinus bradycardia MUSE SYSTEM Right bundle branch block Abnormal ECG When compared with ECG of 30-JAN-2014 13:36, No significant change was found Confirmed by MD Jayashree, Radha ([id number]) on 03/06/2014 6:4 0:32 PM Specimen Anatomical Collection Method Collection Time Receive d Time (Source) Location / / Volume Laterality 03/05/2014 3:54 PM 4 6:40 EDT PM EDT Pa Morejon MD ECG ORDERABLES Performing Organization Address City/State/ZIP Code Phon e Number MUSE SYSTEM (ABNORMAL) Differential, Automated (03/05/2014 3:30 PM EDT) [facility] gist Method Time Signature Neutrophils % 62.0 34.0 - [place] 71.0 % [place] Neutr Abs (ANC) 5.26 1.50 - [place] 6.30 [place] x10(3)/mcL Lymphocytes % 21.7 19.0 - [place] 53.0 % [place] Lymphocytes Abs 1.8 1.0 - 3.6 [place] x10(3)/mcL [place] Monocytes % 9.0 4.0 - 13.0 [place] % [place] Monocyte Abs 0.8 0.2 - 1.0 [place] x10(3)/mcL [place] Eosinophils % 6.6 0.0 - 7.0 [place] % [place] Eosinophils Abs 0.6 (H) 0.0 - 0.5 [place] x10(3)/mcL [place] Basophils % 0.6 0.0 - 2.0 [place] % [place] Basophils Abs 0.0 0.0 - 0.2 [place] x10(3)/mcL [place] Immature Gran % 0.10 0.00 - [place] 0.66 % [place] Comment: Immature granulocytes(IG's)percentage an d absolute count will include metamyelocytes, myelocytes, and promyelo cytes. Blood smears from CBCs yielding IG's will be scanned manually for concor dance. If this scan disagrees with the automated IG or if promyelocytes are not ed, a manual differential will be performed. Bell Gran Abs 0.01 0.00 - 0.05 x10(3)/mcL CER NER [place]UM Specimen Anatomical Collection Method Collection Time Receive d Time (Source) Location / / Volume Laterality Blood specimen 03/05/2014 3:30 PM 014 3:58 (specimen) EDT PM EDT Resulting Agency Comment Spec In Lab Pa Morejon MD HEMATOLOGY ORDERABLES Performing Organization Address City/[facility]/ZIP Code [place] [address] [facility] M[facility]NI[facility] Hemogram (03/05/2014 3:30 PM EDT) P athologist Signature WBC 8.5 4.0 - 10.0 [place] x10(3)/mcL [place] RBC 5.25 4.63 - 6.08 [place] x10(6)/mcL [place] Hemoglobin 15.6 13.7 - 17.5 [place] gm/dL [place] Hematocrit 45.8 40.0 - 51.0 [place] % [place] MCV 87.2 79.0 - 92.0 [place] fL [place] MCH 29.7 25.6 - 32.2 [place] pg [place] MCHC 34.1 32.0 - 36.5 [place] gm/dL [place] Platelets 189 145 - 370 [place] x10(3)/mcL [place] RDWSD 39.8 35.0 - 46.0 [place] fL [place] RDWCV 12.6 10.9 - 14.4 [place] % [facility] MPV 10.8 9.0 - 12.0 [facility] fL [place] Specimen Anatomical Collection Method Collection Time Receive d Time (Source) Location / / Volume Laterality Blood specimen 03/05/2014 3:30 PM 014 3:58 (specimen) EDT PM EDT Resulting Agency Comment Spec In Lab Pa Morejon MD HEMATOLOGY ORDERABLES Performing Organization Address City/State/ZIP Code [place] [address] [facility] MILLENNIUM Antibody screen (03/05/2014 3:30 PM EDT) Analysis Performed At Patho logist Time Signature Ab Screen Negative [facility] Interp MILLENNIUM Expires at [phone] [facility] on: [place] Specimen Anatomical Collection Method Collection Time Receive d Time (Source) Location / / Volume Laterality Blood specimen 03/05/2014 3:30 PM 014 4:16 (specimen) EDT PM EDT Resulting Agency Comment Spec In Lab Pa Morejon MD BLOOD BANK ORDERABLES Performing Organization Address City/State/ZIP Code Phon e Number [address] [facility] ABO/Rh Typing (03/05/2014 3:30 PM EDT) athologist Signature ABORh Type A Pos [facility] Specimen Anatomical Collection Method Collection Time Receive d Time (Source) Location / / Volume Laterality Blood specimen 03/05/2014 3:30 PM 014 4:16 (specimen) EDT PM EDT Resulting Agency Comment Spec In Lab Pa Morejon MD BLOOD BANK ORDERABLES Performing Organization Address City/[facility]/ZIP Code Phon e Number [address] [facility] documented in this encounter Visit Diagnoses Diagnosis CAD (coronary artery disease) - Primary Coronary atherosclerosis of unspecified type of vessel, [place] or graft documented in this encounter Care Teams Manager Interventional Relationship Specialty Start Date End Date Rupert Russell Jr., MD PCP - General 06/03/10 07/21/[address] [facility] [address] [facility] [place] [address] documented as of this encounter
--- OUTSIDE RECORDS SUMMARY | 2022-05-21 09:03 | XMS_ITS | Encounter Summary ---
:1950 Author Organization [facility] [place] [address] Care Team Providers Name Role Phone Yvonne Nolen MD, Rupert Bhatti Primary Care Provider Encounter Details Date Type Department Care Team Description 03/02/2014 Telephone Cardiology Garret Moe MD [facility] [place] [id number] CARDIOLOGY DEPT [phone] [place] [id number] (Wo rk) Social History Tobacco Use Types [...] this encounter Miscellaneous Notes Telephone Encounter - Garret Moe MD - 03/02/2014 8:01 AM EDT Called and discussed upcoming appointment with for planning CABG. All questions answered. documented in this encounter Plan of Treatment Not on filedocumented as of this encounter Visit Diagnoses Not on filedocumented in this encounter Care Teams Implementation Manager Relationship Specialty Start Date End Date Rupert Russell Jr., MD PCP - General 06/03/10 07/21/[address] [facility] [address] [facility] [address] documented as of this encounter
--- OUTSIDE RECORDS SUMMARY | 2022-05-21 09:03 | XMS_ITS | Encounter Summary ---
:1950 Author Organization [place] [address] Care Team Providers Name Role Phone Yvonne Nolen MD, Rupert Bhatti Primary Care Provider Reason for Referral (Routine) - Closed by system - Referral Specialty Diagnoses / Procedures Referred By Contact Refer red To Contact Cardiac Rehabilitation Diagnoses S/P CABG x 1 Pa Morejon MD [facility] [place] [address] Referral ID Status Reason Start Expiration Visits Visits Date Date Requested Authorized [id number] Closed by Evaluate and 04/03/2014 09/30/2014 1 1 system - Treat Referral Encounter Details Date Type Department Care Team Description 03/29/2014 - Hospital Encounter Intermediate Cardiac Rikki Morejon (coronary artery disease); 04/03/2014 Care Unit Gabbi Yao MD S/P CABG x 1 [facility] [place] [id number] [phone] Social History Tobacco Use Types Packs/Day Years [...] Sign Reading Time Taken Comments Blood Pressure 112/72 04/03/2014 7:09 AM EDT Pulse 70 04/03/2014 7:09 AM EDT Temperature 37.1 ??C (98.8 ??F) 04/03/2014 7:09 AM EDT Respiratory Rate 18 04/03/2014 7:09 AM EDT Oxygen Saturation 97% 04/03/2014 7:09 AM EDT Inhaled Oxygen Concentration - - Weight 72.3 kg (159 lb 6.3 oz) 04/03/2014 5:29 AM EDT Height 175.3 cm (5' 9) 03/29/2014 6:14 AM EDT Body Mass Index 23.54 03/29/2014 6:14 AM EDT documented in this encounter Discharge Instructions Patient InstructionsCoteWilton PA - 04/03/2014 10:41 AM EDT Discharge Instructions: Call your doctor if: You have a fever of greater than 101 degrees, shaking chills, if you develop redness or drainage from your incision sites, or if you have questions. Please call your surgeon's office if you have any discharge or drainage from your chest incision. Your surgeon, Dr. Pa Morejon and/or the Cardiac Surgery Physician Physician Industrial Team may be reached at . Weight: Weigh yourself daily. Please call the office if you notice increasing weight, increasing fluid retention (edema), and/or SOB. Sternal (breast bone) precautions: No lifting greater than 7-10 pounds; no pushing or pulling with upper extremities; no excessive chest stretching for the first 4 weeks. Further instructions will be given to you at your follow-up appointment. Activity level: Walk three times a day. You should continue to increase your walks by 1-2 minutes each day. It is expected that you will be walking 20-30 minutes twice a day within 3-4 weeks after discharge to home. Rest between activities and after meals. Use common sense, don't exhaust yourself. Biking: You may use a stationary bicycle whenever you are comfortable enough to permit this. Tightenthe resistance slightly. Increase the amount of time on the bicycle as you would do for your walks, a minute or two each day. No biking outside until after your return appointment with Dr. Pa Morejon. You may use a [employer] or treadmill but avoid any pulling motion with the arms. Home activities: You may do light housework, e.g. dusting, setting the table, washing dishes, preparing a meal. Light carpentry and gardening are allowed. Avoid trying to open tight jars and stuck windows. No vacuuming, mopping, raking, shoveling, digging or hoeing until after your return visit with the surgeon. Sexual activity: You may engage in sexual activity when you feel ready. Use a position that protectsyour sternum (breastbone). Do not have your partner lie on your chest. Stairs: There are no restrictions on stair climbing. Use common sense. Don't exhaust yourself. Activities outside the home: After the first week home you may go out to dinner, visit friends, go to a movie, go to jehovah's witness, etc. Heavy activities: No hunting, skiing, jogging, snow shoveling, snowmobiling, lawn mowing, swimming, golf or tennis until after your return appointment with the surgeon. Do not ride motorcycles, [employer]'s tractors or horses. Avoid the use of a rifle with kickback against the shoulder for six months. Sleep: Try to establish normal sleep patterns. Long naps during the day may make it hard for you to sleep at night. Use the pain medication at bedtime for the first week at home. If you have nightmares, contact us. Some medications make this worse and these can be changed. Smoking: It is very important that you not smoke after surgery. Smoking cessation education was provided as appropriate. If you need further assistance with this please call and you will be referred toa smoking cessation specialist. Medications: Take only those medications listed on your discharge information. Keep your pain under control so you can be active, do your coughing and breathing exercises and sleep. Contact us if the pain medication isn't working for you. Do not take any herbal preparations until after you return to see the surgeon. DO NOT USE ANY IBUPROFEN (ADVIL, MOTRIN, ETC) OR OTHER NSAIDS (NONSTEROIDAL ANTI-INFLAMMATORY DRUGS)FOR A TOTAL OF 10 DAYS AFTER SURGERY. PLEASE CONTACT THE CARDIOTHORACIC SURGERY OFFICE IF YOU HAVE QUESTIONS ABOUT WHICH DRUGS YOU SHOULD NOT USE. . Diet: You should follow a regular diet until your appetite returns to normal. At that point in time you should resume a low fat, low cholesterol, [place] [employer] Diet. Driving: No driving until cleared by your surgeon. Avoid long trips if possible. If you must go on along trip, stop the car and walk every hour. Shower/Bath: You may shower daily. No baths, soaking, or swimming until cleared by your surgeon. Wound care: Wash your incisions daily with antibacterial soap and rinse well, pat dry. Assess for any signs of infection such as increased redness, pain, warmth or drainage. Please call your surgeon's office if you have any discharge or drainage from your chest incision. If there is a lot of swelling,apply nelly wraps during the day and remove at bedtime. Elevate your legs when you are sitting. Follow up appointments: You should arrange to see your primary care physician, RUPERT RUSSELL JR, MD,in two weeks or as soon as possible. You will return to clinic to see Dr. Pa Morejon or a Cardiac Surgery PA in ~4 weeks and will have a CXR andEKG at that time. A letter will be mailed to you with your appointment information. Cardiac Rehabilitation: Trav Hawkins was seen today regarding participation in outpatient Phase 2 Cardiac Rehabilitation at [facility] . A referral will be sent to this program. The patient was given contact information and should expect to be contacted by the program within 1-2 weeks after [place] [facility] documented in this encounter Medications at Time of Discharge Medication Sig Dispensed Refills Start Date End Date ticagrelor (BRILINTA) 90 Take 1 tablet by [...] times daily. nitroGLYcerin (NITROSTAT) Place 1 tablet 25 tablet 1 2013 0.4 mg SL tablet under the tongue every 5 minutes as needed for Chest pain. X 3. aspirin 81 mg EC tablet Take 81 mg by mouth 0 daily. acetaminophen (TYLENOL) Take 2 tablets by 0 04/0304/24/2014 500 mg Tablet mouth every 6 hours. oxyCODONE (ROXICODONE) 5 Take 1-2 tablets by 100 tablet 0 04/24/2014 mg Tablet mouth every 4 hours as needed for Pain. senna-docusate Take 2 tablets by 0 04/03/2014 (PERICOLACE) 8.6-50 mg mouth daily. Tablet documented as of this encounter Progress Notes Lloyd Agarwal RN - 04/03/2014 11:40 AM EDT Discharge orders written, patient understands instructions and follow up visits, patient discharge to home with . Chantell Thompson PTA - 04/03/2014 11:36 AM EDT Physical Therapy Treatment Note Visit #: 3 Patient Dx: Patient is a 63 y.o. male of Pa Crowe MD, admitted on 03/29/2014. Patient underwent CABG x 1 on 03/29/14. Post-op course remarkable for nausea and vomiting. Precautions: sternal (no lifting >7-10 lbs.; no pushing or pulling with UE's; no excessive chest stretching); anxiety; full code; potential to fall; universal. Staff communication/Mobility Recommendations: Ambulate frequently with supervision Interval History: no acute events S: I feel better than yesterday, still have low energy. O: Patient seen for 23 mins for transfers, gait, bed mobility, stairs and pt ed to address goals. Ptdemonstrated the following: ?? Supine><sit with HOB flat, no railings, indep within precautions. ?? Sit to stand without U/E indep ?? Ambulation with FWW, 100 feet with supervision/indep. ?? Up and down 3 steps with rail for balance with supervision/indep. ?? Pt and on sternal precautions and ambulating with FWW for now. Pain: just fatigue Education: Pt/family education ongoing. A: Pt has improved with ambulation although feels more comfortable with FWW, for longer distance. Bed to bathroom without AD, balance good. Only ambulating 100 feet with supervision. Understands sternal precautions. Bed mobility performed within precautions. Steps performed satisfactory. Physical Therapy Goals: To be achieved by 04/02/14. 1. Pt will ambulate independently >300 ft. without an assistive device to allow for a safe d/c. 2. Pt will perform all post op cardiac surgery exercises adequately.MET 3. Pt will demonstrate independence with incentive spirometer and/or threshold PEP to promote lung function. 4. Pt will demonstrate understanding of sternal precautions to allow for a safe d/c.MET 5. Pt will be able to transfer sit <-> stand independently while maintaining sternal precautions to allow for a safe d/c.MET 6. Pt will be able to go supine <-> sit independently while maintaining sternal precautions toallow for a safe d/c.MET 7. Pt will be able to go up and down 3 stairs using a rail for balance only independently to preparefor a safe d/c.MET Discharge Recommendations: D/C home with support. Pt has a FWW he can use. P: Cont per POC as outlined on 03/30/14. Total time spent with patient: 23 minutes Total timed interventions: 23 minutes Pager: [phone] CHANTELL THOMPSON PTA Physical Therapy Rehabilitation Department Alicia Gomez RN - 04/03/2014 9:47 AM EDT Office of Care Management (OCM) / Clinical Recruiter Account Manager (CRC)/ Initial Assessment Discussed patient with Provider Team and in multidisciplinary discharge-planning rounds. Reviewed record and interviewed patient. Introduced/reviewed CRC role and services accepted. 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 PRIMARY CARE PHYSICIAN: RUPERT RUSSELL JR, MD [facility]* [phone] POTENTIAL DISCHARGE NEEDS: Open to VN A list of analog ic design architect/DMEs which serve the geographic area which the patient resides or the geographic arearequested by the patient/customer retention representative was made available.Full Disclosure Statement provided, as appropriate. Patient requests referral to [facility] [employer]. PHONE: [phone] FAX: [phone] Referrals sent via [employer] by Law Office Assistant. VN Orders pended, demos to be e-faxed by RS office PATIENT/FAMILY EDUCATION NEEDS: Reinforce teaching regarding diagnosis, treatment plan and d/c planning. ANTICIPATED BARRIERS TO DISCHARGE: none TRANSPORTATION @ D/C: PLAN: CRC will continue to monitor progress, follow for continuity of care and assist with dischargeplanning while hospitalized . Wilton Lopez PA - 04/03/2014 8:23 AM EDT Cardiac Surgery Inpatient Progress Note ID: Trav Hawkins is a 63 y.o. male POD#5 s/p CABG x1. 24hr events: - no acute events overnight Subjective: Feels well, some burning w/ urination, no flank pain or fevers, pain controlled, no sob, n/v. Ambulating independently slowly. +BM O: Last value Range last 24hrs Temperature Temp: 37.1 ??C (98.8 ??F) Temp: [36.5 ??C (97.7 ??F)-37.4 ??C (99.3 ??F)] Heart Rate Heart Rate: 70 Heart Rate: [70-88] Blood Pressure BP: 112/72 mmHg BP: (101-121)/(64-79) Respiratory Rate Resp: 18 Resp: [16-18] SpO2 SpO2: 97 % SpO2: [95 %-98 %] on RA 04/02 07 - 04/03 0700 In: 860 [P.O.:860] Out: 1451 [Urine:1351] Patient Vitals for the past 168 hrs: Weight 04/03/14 0529 72.3 kg (159 lb 6.3 oz) 04/02/14 0649 73.4 kg (161 lb 13.1 oz) 04/01/14 0659 73.7 kg (162 lb 7.7 oz) 03/31/14 0614 75.5 kg (166 lb 7.2 oz) 03/30/14 0400 76.7 kg (169 lb 1.5 oz) 03/29/14 0614 73.5 kg (162 lb 0.6 oz) Physical Exam: General: NAD, in bed CVS: RRR, s1,s2, no m/r Incision: c/d/i Pulm: clear to auscultation bilaterally Abd: soft, non-tender, non-distended, no flank tenderness, suprapubic pain Skin: warm and dry Ext: no cyanosis or edema Neuro: CN II-XII grossly intact, moving all four extremities spontaneously Recent Labs Basename 04/01/14 0516 03/30/14 0417 03/29/14 1600 03/29/14 0958 WBC 13.5* 19.0* -- 7.8 HGB 12.7* 13.3* 13.4* -- HCT 38.4* 39.9* -- 23.9* PLATELET 144* 193 -- 100* Recent Labs Basename 04/02/14 0834 04/01/14 0516 03/31/14 0948 03/30/14 0417 01/30/14 0419 01/29/14 0836 NA -- 143 -- -- 140 141 K 3.4* 3.9 3.8 -- -- -- CL -- 103 -- -- 105 104 CO2 -- 32* -- -- 26 30 BUN -- 23* -- 16 19 -- CREATININE -- 1.04 -- 1.00 0.95 -- Recent Labs Basename 04/01/14 0516 CALCIUM 8.3* PHOS -- Recent Labs Basename 03/29/14 0958 PT 19.8* INR 1.6* PTT 39* NEW IMAGING: None ASSESSMENT: Trav Hawkins is a 63 y.o. male POD#5 s/p CABG x1, doing well, discharge home today. PLAN: NEURO: Tylenol and oxycodone for pain control. Ativan PRN for anxiety. CV: ASA 81mg daily and ticagrelor 90mg BID. Metoprolol 25mg BID. Holding home amlodipine. Continue atorvastatin 80mg daily. PULM: Sating well on RA. Encourage IS and ambulation GI: Regular diet : Lasix 20mg BID, adequate UOP FEK: Replete K for goal > 4 ID: Afebrile with no signs of infection. HEME: ASA and ticagrelor ENDO: No history of DM PROPHYLAXIS: Nexium DISPO: ICCU, home today Plan discussed with Dr. Morejon. Chantell Thompson, SCREEN PRINTING STENCIL PREPARER - 04/02/2014 4:20 PM EDT Physical Therapy Treatment Note Visit #: 2 Patient Dx: Patient is a 63 [address] of Dr. Morejon, Pa Yao MD, admitted on 03/29/2014. Patient underwent CABG x 1 on 03/29/14. Post-op course remarkable for nausea and vomiting. Precautions: sternal (no lifting >7-10 lbs.; no pushing or pulling with UE's; no excessive chest stretching); anxiety; full code; potential to fall; universal. Staff communication/Mobility Recommendations: Ambulate frequently with supervision Interval History: having some constipation. S: My belly hurt, I have no energy. O: Patient seen for 14 mins for transfers, gait, bed mobility, and pt ed to address goals. Pt demonstrated the following: ?? Supine><sit with HOB flat, no railings with supervision within precautions. ?? Ambulation with FWW, 50 feet with supervision. ?? Standing attempted to use urinal unable to urinate. ?? Into bathroom, unable to go, pt returned back to bed. Pain: just fatigue Education: Pt/family education ongoing. A: Pt having difficulties with ambulation distance secondary to belly discomfort and need to void. Pt very lethargic today. Pt will benefit from ongoing therapeutic interventions to achieve therapy goals Physical Therapy Goals: To be achieved by 04/02/14. 1. Pt will ambulate independently >300 ft. without an assistive device to allow for a safe d/c. 2. Pt will perform all post op cardiac surgery exercises adequately. 3. Pt will demonstrate independence with incentive spirometer and/or threshold PEP to promote lung function. 4. Pt will demonstrate understanding of sternal precautions to allow for a safe d/c. 5. Pt will be able to transfer sit <-> stand independently while maintaining sternal precautions to allow for a safe d/c. 6. Pt will be able to go supine <-> sit independently while maintaining sternal precautions toallow for a safe d/c. 7. Pt will be able to go up and down 3 stairs using a rail for balance only independently to preparefor a safe d/c. Discharge Recommendations: Will follow up with patient in AM, Hopefully is moving better at that point for D/C home. P: Cont per POC as outlined on 03/30/14. Total time spent with patient: 14 minutes Total timed interventions: 14 minutes Pager: [phone] CHANTELL THOMPSON PTA Physical Therapy Rehabilitation Department Lauren Griffin MD - 04/02/2014 7:13 AM EDT Cardiac Surgery Inpatient Progress Note ID: Trav Hawkins is a 63 y.o. male POD#4 s/p CABG x1. 24hr events: - PW removed - CXR yesterday - no acute events overnight Subjective: Reports that he had been feeling better overnight, ambulated. Nausea is improved, tolerating PO. Allyn lightheaded when OOB. Still has not had a bowel movement. O: Last value Range last 24hrs Temperature Temp: 37.1 ??C (98.8 ??F) Temp: [36.7 ??C (98.1 ??F)-37.3 ??C (99.1 ??F)] Heart Rate Heart Rate: 69 Heart Rate: [69-85] Blood Pressure BP: 113/74 mmHg BP: (97-113)/(60-74) Respiratory Rate Resp: 16 Resp: [16-18] SpO2 SpO2: 96 % SpO2: [94 %-97 %] on RA 04/01 0701 - 04/02 0700 In: 970 [P.O.:970] Out: 975 [Urine:975] Patient Vitals for the past 168 hrs: Weight 04/02/14 0649 73.4 kg (161 lb 13.1 oz) 04/01/14 0659 73.7 kg (162 lb 7.7 oz) 03/31/14 0614 75.5 kg (166 lb 7.2 oz) 03/30/14 0400 76.7 kg (169 lb 1.5 oz) 03/29/14 0614 73.5 kg (162 lb 0.6 oz) Physical Exam: General: NAD, sitting up in chair HEENT: no scleral icterus, moist mucous membranes CVS: regular rate and rhythm Incision: well approximated, c/d/i Pulm: clear to auscultation bilaterally Abd: soft, non-tender, non-distende Skin: warm and dry Ext: no cyanosis or edema Neuro: CN II-XII grossly intact, moving all four extremities spontaneously Recent Labs Basename 04/01/14 0516 03/30/14 0417 03/29/14 1600 03/29/14 0958 WBC 13.5* 19.0* -- 7.8 HGB 12.7* 13.3* 13.4* -- HCT 38.4* 39.9* -- 23.9* PLATELET 144* 193 -- 100* Recent Labs Basename 04/01/14 0516 03/31/14 0948 03/30/14 0417 01/30/14 0419 01/29/14 0836 NA 143 -- -- 140 141 K 3.9 3.8 4.7 -- -- CL 103 -- -- 105 104 CO2 32* -- -- 26 30 BUN 23* -- 16 19 -- CREATININE 1.04 -- 1.00 0.95 -- Recent Labs Basename 04/01/14 0516 CALCIUM 8.3* PHOS -- Recent Labs Basename 03/29/14 0958 PT 19.8* INR 1.6* PTT 39* NEW IMAGING: CXR (04/01/14): Lungs are well inflated and clear. There is small bilateral pleural effusions. There is no pneumothorax. Postsurgical changes of CABG are again noted with stable cardiomediastinal silhouette. Bones are unchanged. Impression: Small bilateral pleural effusions. ASSESSMENT: Trav Hawkins is a 63 y.o. male POD#4 s/p CABG x1, doing well, improving slowly. Has increased anxiety surrounding surgery. Need to have BM today. Will resume home ticagrelor since stentsnot bypassed. Plan to discharge home tomorrow. PLAN: NEURO: Tylenol and oxycodone for pain control. Ativan PRN for anxiety. CV: ASA 81mg daily and ticagrelor 90mg BID. Metoprolol 25mg BID. Holding home amlodipine. Continue atorvastatin 80mg daily. PULM: Sating well on RA. Encourage IS and ambulation GI: Regular diet : Lasix 20mg BID, adequate UOP FEK: Replete K for goal > 4 ID: Rocco-operative antibiotics completed. Post-op leukocytosis trending down. Remains afebrile with no signs of infection. HEME: ASA and ticagrelor ENDO: No history of DM PROPHYLAXIS: Nexium DISPO: ICCU, likely discharge home tomorrow Plan discussed with Dr. Morejon. LAUREN GRIFFIN MD Garry Guzmán MD - 04/01/2014 10:03 AM EDT Cardiac Surgery Progress Note: ID: [id number] 63 yo M POD 3 s/p CABG x 1, polanco-lad 24 Hour Events: -anxiety better controlled with ativan O: Temperature Temp: 36.3 ??C (97.3 ??F) Temp: [36.3 ??C (97.3 ??F)-37 ??C (98.6 ??F)] Heart Rate Heart Rate: 79 Heart Rate: [61-79] Blood Pressure BP: 108/74 mmHg BP: (97-126)/(58-82) Respiratory Rate Resp: 20 Resp: [18-22] SpO2 SpO2: 97 % SpO2: [91 %-98 %] In: 460-PO + 124-IV Out: 1.7-UOP Admit weight 73.50 kg Current Weight Weight - Scale: 73.7 kg (162 lb 7.7 oz) Patient Vitals for the past 168 hrs: Weight 04/01/14 0659 73.7 kg (162 lb 7.7 oz) 03/31/14 0614 75.5 kg (166 lb 7.2 oz) 03/30/14 0400 76.7 kg (169 lb 1.5 oz) 03/29/14 0614 73.5 kg (162 lb 0.6 oz) Physical exam: General: In chair, appears uncomfortable, conversant Neuro: Alert, moves all extremities Lungs: Decreased bases b/l, shallow inspiration Heart: RRR Abdomen: snt/nd, +BS Ext: Warm, 1+ b/l FATOU Incisions: Dressing c/d Tubes/Lines/Drains: morro COUCH PW LABS: Recent Labs Basename 04/01/1451503/30/1441603/29/14 1600 WBC 13.5* 19.0* -- HGB 12.7* 13.3* 13.4* HCT 38.4* 39.9* -- PLATELET 144* 193 -- PT -- -- -- INR -- -- -- PTT -- -- -- FIBRINOGEN -- -- -- Recent Labs Basename 04/01/14 0503/31/14 0948 03/30/1441603/29/14 1600 NA 143 -- -- -- K 3.9 -- 4.7 4.0 CL 103 -- -- -- CO2 32* -- -- -- BUN 23* -- 16 -- CREATININE 1.04 -- 1.00 -- GLUCOSE 99 -- -- -- CALCIUM 8.3* 8.8 -- -- MAGNESIUM -- -- -- -- PHOS -- -- -- -- ABG (Arterial Blood Gas) No results found for this basename: phart, po2art, [id number] Assessment/Plan: 63 yo M POD3 s/p CABG x 1, polanco-lad, pathway. Remove wires lasix 20'' Ana Morin - 03/31/2014 3:24 PM EDT Nutrition Services - Education Note Trav Hawkins : 1950 AGE: 63 y.o. Patient Active Problem List Diagnosis Date Noted ??? Health maintenance examination 09/04/2013 ??? Hypertension Chronic ??? RBBB Chronic ??? Dry eyes 09/30/2012 ??? Hyperopia with astigmatism and presbyopia 09/30/2012 ??? Amblyopia of right eye 05/20/2011 ??? PVD (posterior vitreous detachment) 05/20/2011 Reason for Nutrition Intervention: Consult Diet Order: Regular Appetite: fair Food allergies: NKFA Chewing/Swallowing difficulty: none Height: 175.3 cm Weight: 75.5 kg Body mass index is 24.57 kg/(m^2). Vitamins/Minerals: Tums noted Education: Nutrition After Heart Surgery dietary guidelines. Verbalized good understanding. Education material, with means of contact provided. Assessment: Patient ate all of his lunch, though it was a small lunch. His appetite is returning andhe nausea is resolving. Patient verbalized good understanding of protein needs following heart surgery. Provided patient with copy of Guidelines for a Heart Healthy Lifestyle booklet, with emphasis on the page, Nutrition After Heart Surgery. Patient requested snacks, denies need for supplements. No further questions or concerns at this time. Nutrition Plan: Continue Regular diet. Recommend Daily Multi Vitamins. Added high protein snacks. Encourage good po intake. Monitor weight. Support and encouragement provided. Nutrition services to follow weekly thru hospital course unless consulted in the interim. NGUYỄN MICHAEL Gregoria Merino MD - 03/31/2014 10:52 AM EDT Cardiac Surgery Progress Note: ID: [id number] 63 yo M POD 2 s/p CABG x 1, polanco-lad 24 Hour Events: -CT removed -transferred to floor S: Nauseated this a.m., some perioral numbness. Pain well controlled. +flatus/-BM. O: Temperature Temp: 36.7 ??C (98.1 ??F) Temp: [36.6 ??C (97.9 ??F)-36.9 ??C (98.4 ??F)] Heart Rate Heart Rate: 72 Heart Rate: [65-73] Blood Pressure BP: 118/75 mmHg BP: (102-122)/(61-77) Respiratory Rate Resp: 18 Resp: [16-18] SpO2 SpO2: 97 % SpO2: [91 %-100 %] In: 460-PO + 124-IV Out: 1.7-UOP Admit weight 73.50 kg Current Weight Weight - Scale: 75.5 kg (166 lb 7.2 oz) Patient Vitals for the past 168 hrs: Weight 03/31/14 0614 75.5 kg (166 lb 7.2 oz) 03/30/14 0400 76.7 kg (169 lb 1.5 oz) 03/29/14 0614 73.5 kg (162 lb 0.6 oz) Physical exam: General: In chair, appears uncomfortable, conversant Neuro: Alert, moves all extremities Lungs: Decreased bases b/l, shallow inspiration Heart: RRR Abdomen: snt/nd, +BS Ext: Warm, 1+ b/l FATOU Incisions: Dressing c/d Tubes/Lines/Drains: PIV, hooker, PW LABS: Recent Labs Basename 03/30/14 0417 03/29/14 1600 03/29/14 0958 03/29/14 0929 WBC 19.0* -- 7.8 -- HGB 13.3* 13.4* 8.2* 8.6* HCT 39.9* -- 23.9* 25.2* PLATELET 193 -- 100* 119* PT -- -- 19.8* -- INR -- -- 1.6* -- PTT -- -- 39* -- FIBRINOGEN -- -- 159* 165* Recent Labs Basename 03/31/14 0948 03/30/14 0417 03/29/14 1600 NA -- -- -- K -- 4.7 4.0 CL -- -- -- CO2 -- -- -- BUN -- 16 -- CREATININE -- 1.00 -- GLUCOSE -- -- -- CALCIUM 8.8 -- -- MAGNESIUM -- -- -- PHOS -- -- -- ABG (Arterial Blood Gas) No results found for this basename: phart, po2art, [id number] Assessment/Plan: 63 yo M POD 2 s/p CABG x 1, polanco-lad, pathway. Remove wires, hooker. Draw albumin and calcium to check ionized calcium causing perioral numbness. CXR tomorrow. Start home Ticagrelor. Neuro: Oxycodone, tylenol CV: metop 25'', lipitor 80. Start Ticagrelor Resp: RA GI: ADAT, nexium, rbo's : voiding spontaneously Renal: lasix 20'', K. Albumin and calcium to check ionized calcium ID: rocco-op abx Heme: ASA Endo: SSI Dispo: ICCU Lisa Escoto RN - 03/31/2014 9:41 AM EDT Pt sitting up in chair finishing breakfast reports feeling dizzy/lightheaded. Pt legs elevated back in chair, VS complete (see below). Pt coughing up clear, thick sputum. Pt pale and diaphoretic. Reports feeling numbness around mouth and nose. MD team notified and to bedside. Pt reports numbness is getting better with supine position. I think I might just be a bit anxious, I've felt this way since my surgery. Orders for labs, tums, and ativan. Call powell in reach. Will continue to monitor Primary RN notified on changes. . 03/31/14 0930 Adult Vital Signs Heart Rate 72 BP 118/75 mmHg BP Method Automatic Resp 18 SpO2 97 % Oxygen Therapy O2 Device RA Wilton Lopez PA - 03/30/2014 8:37 AM EDT Cardiac Surgery Progress Note: ID: [id number] 63 yo M POD s/p CABG x 1, polanco-lad 24 Hour Events: From OR Extubated at 1430 No acute events S: Nauseated this a.m., pain in back. O: Temperature Temp: 37.8 ??C (100 ??F) Temp: [35.4 ??C (95.7 ??F)-38.1 ??C (100.6 ??F)] Heart Rate Heart Rate: 73 Heart Rate: [54-85] Blood Pressure BP: 127/78 mmHg (left arm) BP: -- Respiratory Rate Resp: 16 Resp: [5-19] SpO2 SpO2: 96 % SpO2: [94 %-100 %] Drips: None I/O last 3 completed shifts: In: 3356.1 [P.O.:100; I.V.:1712.1; Blood:1344; IV Piggyback:200] Out: 2145 [Urine:250; Other:1895] I-3.4 O-2.2 Net +1.2 Admit weight 73.50 kg Current Weight Weight - Scale: 76.7 kg (169 lb 1.5 oz) Patient Vitals for the past 168 hrs: Weight 03/30/14 0400 76.7 kg (169 lb 1.5 oz) 03/29/14 0614 73.5 kg (162 lb 0.6 oz) Physical exam: General: In chair, appears uncomfortable, conversant Neuro: Alert, moves all extremities Lungs: Decreased bases b/l, shallow inspiration Heart: RRR Abdomen: snt/nd, +BS Ext: Warm, 1+ b/l FATOU Incisions: Dressing c/d Tubes/Lines/Drains: KHOA, ZULEMA hooker LABS: Recent Labs Basename 03/30/14 0417 03/29/14 1600 03/29/14 0958 03/29/14 0929 WBC 19.0* -- 7.8 -- HGB 13.3* 13.4* 8.2* 8.6* HCT 39.9* -- 23.9* 25.2* PLATELET 193 -- 100* 119* PT -- -- 19.8* -- INR -- -- 1.6* -- PTT -- -- 39* -- FIBRINOGEN -- -- 159* 165* Recent Labs Basename 03/30/14 0417 03/29/14 1600 NA -- -- K 4.7 4.0 CL -- -- CO2 -- -- BUN 16 -- CREATININE 1.00 -- GLUCOSE -- -- CALCIUM -- -- MAGNESIUM -- -- PHOS -- -- ABG (Arterial Blood Gas) Lab Results Component Value Date pH Art 7.41 03/29/2014 pO2 Art 174* 03/29/2014 pCO2 Art 34* 03/29/2014 Assessment/Plan: 63 yo M POD s/p CABG x 1, polanco-lad, pathway Neuro: Oxycodone, tylenol CV: metop 25'', lipitor 80 Resp: RA -d/c CT GI: ADAT, nexium, rbo's : Hooker Renal: lasix 20'', K ID: rocco-op abx Heme: ASA Endo: ins. gtt Dispo: transfer to floor documented in this encounter H&P Notes Pa Morejon MD - 03/29/2014 7:05 AM EDT No interval change. Pt seen and is ready. Source Note - Pa Morejon MD - 03/29/2014 7:05 AM EDT Mr. Castrejon is a healthy gentleman who [...] for a thoughtful decision of whether a POLANCO to LAD might be better for him. [...] is here for completion revascularization with a POLANCO to LAD. He had the opportunity to ask questions and has elected to go with CABG surgery. The risks include but are not limited to bleeding, infection, organ failure, stroke, . I will talk to Dr. Orosco about the possibility of any further grafting, but it is both our understanding in looking at the angiogram that it will be a POLANCO to LAD. Pa Morejon MD - 03/29/2014 7:05 AM EDT Mr. Castrejon is a healthy gentleman who [...] for a thoughtful decision of whether a POLANCO to LAD might be better for him. [...] is here for completion revascularization with a POLANCO to LAD. He had the opportunity to ask questions and has elected to go with CABG surgery. The risks include but are not limited to bleeding, infection, organ failure, stroke, . I will talk to Dr. Orosco about the possibility of any further grafting, but it is both our understanding in looking at the angiogram that it will be a POLANCO to LAD. documented in this encounter Procedure Notes Provider, Scanning - 04/04/2014 12:45 PM EDTAssociated Order(s): SCAN DOC: IT AUDITOR Provider, Scanning - 04/04/2014 12:45 PM EDTAssociated Order(s): SCAN DOC: LAB documented in this encounter Miscellaneous Notes Miscellaneous - Provider, Scanning - 04/04/2014 12:45 PM EDT Miscellaneous - Provider, Scanning - 04/04/2014 12:45 PM EDT Miscellaneous - Provider, Scanning - 04/04/2014 12:45 PM EDT Miscellaneous - Provider, Scanning - 04/04/2014 12:45 PM EDT Miscellaneous - Provider, Scanning - 04/04/2014 12:45 PM EDT Plan of Care - Fawn Valdez RN - 04/02/2014 3:53 PM EDT Problem: Cardiac Surgery (Adult) Intervention: Bowel Function Promotion Mr. Hawkins was up in chair at 0800 and reported feeling constipated w/some cramping. Pt was given scheduled MOM and a prn Dulcolax suppository. He sat on the commode for a period of time and drank warm prune juice mixed w/apple juice. No results. Pt encouraged to walk but felt too weak. Subsequently ptreceived a soap-suds enema (approx. 400 ml). Pt able to retain some but not all of enema. Transferred to BSC when pt felt urge. Again, no results. reports giving pt a second cup of prune juice. 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 Pt educated about the importance of ambulation s/p surgery. Pt able to ambulate 45 feet using front-wheel walker. Stated he couldn't do more and ambulated back to bed. 1700) Pt passed several small, soft formed stools; updated. 1715) Pt reports having urge to void after urinating 100 ml; bladder scanned for 749 ml; MD updated; no new orders received. 1800) Pt had another small stool. Pt has voided x2 small amounts. Initial Assessments - Mi Pearson, PT - 03/30/2014 2:15 PM EDT Physical Therapy Evaluation Cardiac Surgery Patient Profile: Patient is a 63 y.o. male of Pa Crowe MD, admitted on 03/29/2014. Patient underwent CABG x 1 on 03/29/14. Post-op course remarkable for nausea and vomiting. PT consulted Precautions: sternal (no lifting >7-10 lbs.; no pushing or pulling with UE's; no excessive chest stretching); anxiety; full code; potential to fall; universal. PMH: Past Medical History Diagnosis Date ??? Hyperlipidemia ??? Hypertension ??? Amblyopia OD w/ h/o patching Past Surgical History Procedure Date ??? Created by interface COLONOSCOPY (ENDO) Procedure Date: 02/08/2006 ??? Cabg, arterial, single 03/29/2014 @CABG, USING ARTERIAL GRAFT;SINGLE ARTERIAL GRAFT performed by Pa Morejon MD at [facility] MAIN OR PCI January 2014 Social History: Patient lives with their spouse in a one story home. 2 adult children. Stairs: 3 with a rail to enter. 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 Equipment at home: None Subjective: I am just starting to feel better. I vomited most of the morning. I better not push it.My anxiety is also getting the best of me. Objective: Seen for evaluation, pt ed, ex, mobility training, sternal precautions; deep breathing and splinted coughing. Pain: Sternal pain 4-5/10 Vital Signs/Cardiopulmonary Status: SpO2: >96% on RA HR: 70s BP 112/74 to 118/72 Incentive Spirometer: Volume: 750-1000 ml Quality: fair Mental Status/Behavior: alert, oriented to person, place, and time Skin: CDI sternal incision. No leg incisions as SVG not needed. Sensation: normal ROM: Cervical AROM wfls. SHoulder flex actively to 90 sittting and wfls, more distally. BLE AROM grossly wfls. Strength: moving extremities fair against gravity. Bed Mobility: Supine to Sit: HOB 50 degrees, rolling right to min assist.. Sit to Supine: same as above Pt needed cues to maintain sternal precautions. Transfers: Sit to Stand: min assist Stand to Sit: min assist Pt needed cues to maintain sternal precautions. Gait: Distance: Took ~3-4 steps to the right Device used: no assistive device Level of assist: minimal assist Balance: fair sitting. Needs min assist with standing. Informed Consent: The patient agrees to and understands the PT treatment plan and goals. Education: Pt was educated on post-op sternal precautions, use of incentive spirometer, splinted cough, the importance of deep breathing, and post-op cardiac exercises. Pt performed 3 reps of the following exercises today: head nod, head twist, shoulder flexion, knee extension, ankle circles, and ankle pumps. Pt was given a written list of exercises and precautions. Pt sat EOB for exercises. He was supine in bed prior to PT. Pt's status, treatment, and mobility recommendations were discussed with the nursing staff. Pt left in bed per request. Assessment: Pt is s/p CABG x 1, POD 1. Functional mobility is limited by post op pain and resolving nausea. Pt would benefit from continued physical therapy to maximize functional mobility, independence and safety. Pt has good rehab potential. Expect good progress with dc to home with 's support. Outpt cardiac rehab will be beneficial. Pt can progress ambulation with nursing on Wednesday and PT tofollow up Wednesday or Wednesday.. Equipment needs: none Goals: To be achieved by 04/02/14. 1. Pt will ambulate independently >300 ft. without an assistive device to allow for a safe d/c. 2. Pt will perform all post op cardiac surgery exercises adequately. 3. Pt will demonstrate independence with incentive spirometer and/or threshold PEP to promote lung function. 4. Pt will demonstrate understanding of sternal precautions to allow for a safe d/c. 5. Pt will be able to transfer sit <-> stand independently while maintaining sternal precautions to allow for a safe d/c. 6. Pt will be able to go supine <-> sit independently while maintaining sternal precautions toallow for a safe d/c. 7. Pt will be able to go up and down 3 stairs using a rail for balance only independently to preparefor a safe d/c. Treatment Plan: Pt to be seen 2-3x for patient and family/caregiver education and training on sternal precautions, functional mobility, gait, stairs, exercise, safety awareness, endurance & energy conservation, and d/c planning. Tentative D/C Plan: Home with support/assistance Pt understands and agrees with PT plan, goals, and tentative discharge plan: Yes Total time spent with patient: 25 minutes EV Total timed interventions: 0 minutes MI PEARSON, PT Pager: [phone] Physical Therapy Rehabilitation Department Discharge Summary - Wilton Lopez PA - 03/30/2014 12:39 PM EDT Inpatient - Discharge Summary Patient Name: Trav Hawkins Patient Age: 63 y.o. Birthdate: 1950 Language: Maldivian Race: White Ethnicity: Not nor Admit Date: 03/29/2014 Discharge Date and Time: 04/03/14 Attending Physician: Pa Morejon MD Follow-up Recommendations for Providers: Please continue routine management of cardiovascular risk factors including blood pressure, lipids, glucose, etc. Please note any changes to medications. Inpatient Provider Contact Information: [facility] Section of Cardiothoracic Surgery [facility] [place] [id number] FAX [phone] Discharge Diagnoses (Hospital Problems) Primary Diagnoses: Coronary Artery Disease s/p cabg x 1 03/29/14 Other Diagnoses (Chronic Problems): Active Non-Hospital Problems Diagnosis ??? Health maintenance examination ??? Hypertension Chronic ??? RBBB Chronic ??? Dry eyes ??? Hyperopia with astigmatism and presbyopia ??? Amblyopia of right eye ??? PVD (posterior vitreous detachment) Discharged to: Patient discharged to home Functional and Cognitive Status: Normal, alert Discharge Conditions/Prognosis: Stable, improving Past Medical History Diagnosis Date ??? Hyperlipidemia ??? Hypertension ??? Amblyopia OD w/ h/o patching Past Surgical History Procedure Date ??? Created by interface COLONOSCOPY (ENDO) Procedure Date: 02/08/2006 ??? Cabg, arterial, single 03/29/2014 @CABG, USING ARTERIAL GRAFT;SINGLE ARTERIAL GRAFT performed by Pa Morejon MD at [facility] MAIN OR Prior To Admission Medications Prescriptions prior to admission Medication Sig Dispense Refill ??? Psyllium Seed-Sucrose Powder Take 36 g by mouth daily. ??? [DISCONTINUED] chlorhexidine (HIBICLENS) 4 % external liquid Apply topically daily as needed. Shower from head to toe with Chlorhexidine the night before surgery . 120 mL 0 ??? atorvastatin (LIPITOR) 80 mg tablet Take 1 tablet by mouth every evening. 90 tablet 4 ??? [DISCONTINUED] ticagrelor (BRILINTA) 90 mg Tab tablet Take 1 tablet by mouth 2 times daily. 60 tablet 6 ??? amLODIPine (NORVASC) 10 mg tablet Take 2.5 mg by mouth daily. ??? metoprolol tartrate (LOPRESSOR) 25 mg tablet Take 1 tablet by mouth 2 times daily. 60 tablet 12 ??? nitroGLYcerin (NITROSTAT) 0.[address] 1 tablet under the tongue every 5 minutes as needed for Chest pain. X 3. 25 tablet 1 ??? aspirin 81 mg EC tablet Take 81 mg by mouth daily. Updated Allergies/ADRs: No Known Allergies History of Presentation: This is a patient being referred by Dr. Zendejas and Dr. Orosco for consideration of coronary artery bypass grafting. Mr. Castrejon is a healthy gentleman who is retired and enjoys running but had beenhaving increasing amounts of chest pressure and pain, and he was taken to cath ultimately and found to have severe disease of his right coronary artery, which Dr. Orosco put a stent in. However, his LADlesion was so proximal and his left main was so short that stenting his LAD may create a left main stent as well as plaque shift into his circ. He was taken off the table for a thoughtful decision of whether a POLANCO to LAD might be betterfor him. After speaking with Mr. Castrejon, his symptoms have not fully resolved, and certainly the beta-joni side effects are affecting him with fatigue, but he still does feel some chest pressure. Major Procedures/Operations: 03/29/14 Coronary Artery Bypass Grafting (POLANCO-LAD) Hospital Course: Trav Hawkins was admitted to [facility] on 03/29/2014 via the Same Day Program. He was brought to the operating room where Dr. Pa Morejon performed CABG x1. He tolerated the procedure and was brought to the Cardiovascular Intensive Care Unit for recovery. He initiallyrequired the pharmacologic support of intravenous neosynephrine. He was extubated from the ventilator on the day of surgery. Overnight he did well. Diuretics were started and he responded appropriately. He was started on betablockade and this was optimized. Routine postoperative and home medications were started and a diet was advanced. By postoperative day # 1 all drips were weaned to off and he was transferred to the Intermediate Cardiac Care Unit for continued rehabilitation. All tubes, lines, and epicardial pacing wires were removed without incident. He voided normally after his Hooker was removed. He was seen by Physical Therapy and Cardiac Rehabilitation. Sternal precaution education was provided. The remainder of the his hospital course was uneventful and by postoperative day #5 he had met all criteria for discharge to home. Pain was controlled on oral medications. He had walked 5 minutes and gone up and down stairs. He was tolerating a regular diet and had a bowel movement. Vital Signs at Discharge: Last set of vitals: BP 112/72 Pulse 70 Temp 37.1 ??C (98.8 ??F) (Oral) Resp 18 Ht 175.3 cm (5' 9) Wt 72.3 kg (159 lb 6.3 oz) BMI 23.53 kg/m2 SpO2 97% Patient Vitals for the past 168 hrs: Weight 04/03/14 0529 72.3 kg (159 lb 6.3 oz) 04/02/14 0649 73.4 kg (161 lb 13.1 oz) 04/01/14 0659 73.7 kg (162 lb 7.7 oz) 03/31/14 0614 75.5 kg (166 lb 7.2 oz) 03/30/14 0400 76.7 kg (169 lb 1.5 oz) 03/29/14 0614 73.5 kg (162 lb 0.6 oz) Current weight: 72.3 kg Admit weight: 73.5 kg Pertinent physical exam findings prior to discharge: General: NAD, in bed CVS: RRR, s1,s2, no m/r Incision: c/d/i Pulm: clear to auscultation bilaterally Abd: soft, non-tender, non-distended, no flank tenderness, suprapubic pain Skin: warm and dry Ext: no cyanosis or edema Neuro: CN II-XII grossly intact, moving all four extremities spontaneously Important Studies and Lab Data: Lab Results Component Value Date WBC 13.5* 04/01/2014 RBC 4.29* 04/01/2014 HGB 12.7* 04/01/2014 HCT 38.4* 04/01/2014 PLATELET 144* 04/01/2014 Recent Labs Basename 03/29/14 0958 INR 1.6* Lab Results Component Value Date NA 143 04/01/2014 K 3.9 04/03/2014 CL 103 04/01/2014 CO2 32* 04/01/2014 BUN 23* 04/01/2014 CREATININE 1.04 04/01/2014 Pending Studies and Lab Data: None Immunizations Given this Hospitalization: Immunization History Administered Date(s) Administered ??? Tdap Vaccine 09/07/2013 Smoking Status at Discharge: History Smoking status ??? Never Smoker Smokeless tobacco ??? Never Used Discharge Medications: Your Medications As of 04/03/2014 10:58 AM New Medications Dose Details acetaminophen 500 mg Tab Commonly known as: TYLENOL Take 2 tablets by mouth every 6 hours. 1000 mg Refills: 0 oxyCODONE 5 mg Tab Commonly known as: ROXICODONE Take 1-2 tablets by mouth every 4 hours as needed for Pain. 5-10 mg Quantity: 100 tablet Refills: 0 senna-docusate 8.6-50 mg Tab Commonly known as: PERICOLACE Take 2 tablets by mouth daily. 2 tablet Refills: 0 Continued medications, unchanged Dose Details aspirin 81 mg Tbec Take 81 mg by mouth daily. 81 mg Refills: 0 atorvastatin 80 mg Tab Commonly known as: LIPITOR Take 1 tablet by mouth every evening. 80 mg Quantity: 90 tablet Refills: 4 metoprolol tartrate 25 mg Tab Commonly known as: LOPRESSOR Take 1 tablet by mouth 2 times daily. 25 mg Quantity: 60 tablet Refills: 12 nitroGLYcerin 0.4 mg Subl Commonly known as: NITROSTAT Place 1 tablet under the tongue every 5 minutes as needed for Chest pain. X 3. 0.4 mg Quantity: 25 tablet Refills: 1 Psyllium Seed-Sucrose Powd Take 36 g by mouth daily. 36 g Refills: 0 ticagrelor 90 mg Tab Commonly known as: BRILINTA Take 1 tablet by mouth 2 times daily. 90 mg Quantity: 180 tablet Refills: 3 STOPPED Medications amLODIPine 10 mg Tab Commonly known as: NORVASC chlorhexidine 4 % Liqd Commonly known as: HIBICLENS Discharge Instructions: Call your doctor if: You have a fever of greater than 101 degrees, shaking chills, if you develop redness or drainage from your incision sites, or if you have questions. Please call your surgeon's office if you have any discharge or drainage from your chest incision. Your surgeon, Dr. Pa Morejon and/or the Cardiac Surgery Physician Physician Industrial Team may be reached at . Weight: Weigh yourself daily. Please call the office if you notice increasing weight, increasing fluid retention (edema), and/or SOB. Sternal (breast bone) precautions: No lifting greater than 7-10 pounds; no pushing or pulling with upper extremities; no excessive chest stretching for the first 4 weeks. Further instructions will be given to you at your follow-up appointment. Activity level: Walk three times a day. You should continue to increase your walks by 1-2 minutes each day. It is expected that you will be walking 20-30 minutes twice a day within 3-4 weeks after discharge to home. Rest between activities and after meals. Use common sense, don't exhaust yourself. Biking: You may use a stationary bicycle whenever you are comfortable enough to permit this. Tightenthe resistance slightly. Increase the amount of time on the bicycle as you would do for your walks, a minute or two each day. No biking outside until after your return appointment with Dr. Pa Morejon. You may use a [place] Track or treadmill but avoid any pulling motion with the arms. Home activities: You may do light housework, e.g. dusting, setting the table, washing dishes, preparing a meal. Light carpentry and gardening are allowed. Avoid trying to open tight jars and stuck windows. No vacuuming, mopping, raking, shoveling, digging or hoeing until after your return visit with the surgeon. Sexual activity: You may engage in sexual activity when you feel ready. Use a position that protectsyour sternum (breastbone). Do not have your partner lie on your chest. Stairs: There are no restrictions on stair climbing. Use common sense. Don't exhaust yourself. Activities outside the home: After the first week home you may go out to dinner, visit friends, go to a movie, go to jehovah's witness, etc. Heavy activities: No hunting, skiing, jogging, snow shoveling, snowmobiling, lawn mowing, swimming, golf or tennis until after your return appointment with the surgeon. Do not ride motorcycles, [employer] tractors or horses. Avoid the use of a rifle with kickback against the shoulder for six months. Sleep: Try to establish normal sleep patterns. Long naps during the day may make it hard for you to sleep at night. Use the pain medication at bedtime for the first week at home. If you have nightmares, contact us. Some medications make this worse and these can be changed. Smoking: It is very important that you not smoke after surgery. Smoking cessation education was provided as appropriate. If you need further assistance with this please call and you will be referred toa smoking cessation specialist. Medications: Take only those medications listed on your discharge information. Keep your pain under control so you can be active, do your coughing and breathing exercises and sleep. Contact us if the pain medication isn't working for you. Do not take any herbal preparations until after you return to see the surgeon. DO NOT USE ANY IBUPROFEN (ADVIL, MOTRIN, ETC) OR OTHER NSAIDS (NONSTEROIDAL ANTI-INFLAMMATORY DRUGS)FOR A TOTAL OF 10 DAYS AFTER SURGERY. PLEASE CONTACT THE CARDIOTHORACIC SURGERY OFFICE IF YOU HAVE QUESTIONS ABOUT WHICH DRUGS YOU SHOULD NOT USE. . Diet: You should follow a regular diet until your appetite returns to normal. At that point in time you should resume a low fat, low cholesterol, [place] [employer] Diet. Driving: No driving until cleared by your surgeon. Avoid long trips if possible. If you must go on along trip, stop the car and walk every hour. Shower/Bath: You may shower daily. No baths, soaking, or swimming until cleared by your surgeon. Wound care: Wash your incisions daily with antibacterial soap and rinse well, pat dry. Assess for any signs of infection such as increased redness, pain, warmth or drainage. Please call your surgeon's office if you have any discharge or drainage from your chest incision. If there is a lot of swelling,apply nelly wraps during the day and remove at bedtime. Elevate your legs when you are sitting. Follow up appointments: You should arrange to see your primary care physician, RUPERT RUSSELL JR, MD,in two weeks or as soon as possible. You will return to clinic to see Dr. Pa Morejon or a Cardiac Surgery PA in ~4 weeks and will have a CXR andEKG at that time. A letter will be mailed to you with your appointment information. Cardiac Rehabilitation: Trav Hawkins was seen today regarding participation in outpatient Phase 2 Cardiac Rehabilitation at [facility] . A referral will be sent to this program. The patient was given contact information and should expect to be contacted by the program within 1-2 weeks after [place] [facility] Future Appointments and Orders Future Appointments: Provider: Department: Dept Phone: Center: 05/09/2014 4:10 PM Garret Moe MD Cardiology [phone] [facility] Joint Appt Nurse One Cardiology Intake, ANDERS HAGAN [phone] [facility] Future Orders Please Complete By Expires XR chest routine PA & lateral [[id number] Custom] 05/03/14 04/03/15 Process Instructions: Scheduling Instructions: Comments: Questions: Responses: Portable exam? Reason for exam and clinical history: s/p cabg Other pertinent information: Where will study be performed? [facility] Radiology Stat read required? Should this service/procedure be billed to the research sponsor? Requested Time Date of injury if applicable: Referral to Cardiac Rehab [[id number] Custom] Process Instructions: If no progress note charted, please enter Clinical details in comments. Scheduling Instructions: Comments: Cardiac rehab @ [facility] Questions: Responses: My question or request is: s/p CABG Referral to Home Health - at DISCHARGE [[id number] CPT(R)] Process Instructions: Scheduling Instructions: Comments: DOCUMENTATION FOR VNA SERVICES (INCLUDING THOSE PATIENTS WITH MEDICARE COVERAGE REQUIRING HOME VNA SERVICES AND/OR HOSPICE SERVICES) PATIENT'S LOCATION: Trav Hawkins [address] [facility] [phone] (home) No relevant phone numbers on file. 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 In discussion with the attending physician, it is certified that this patient is under their care and that they, or a Nurse Practitioner, or Physician Physician Industrial who is working directly with them, had aface to face encounter that meets the physician face to face encounter requirements with this patient on 04/03/2014 The encounter with the patient was in whole, or in part, for the following medical condition, which is the primary reason for home health care services: CABGx1 In discussion with the provider, it is certified that, based on their findings, the following services are medically necessary for home health services. To provide the following care/treatments with the clinical findings supporting the need for servicesas follows: HOME HEALTH AGENCY: [facility] PHONE: [phone] FAX: [phone] RN orders: Cardiopulmonary assessment, incisional assessment, assess vital signs, assessment of rehab progress, medication management and effectiveness, home safety evaluation.1-2x/wk and prn PT ORDERS: Continue rehab for endurance, gait stability and strength with mobility and transfers. Home safety evaluation. Home exercise program if appropriate. Start of Care Date:24 hours after d/c SPECIAL INSTRUCTIONS: For any follow up questions, needs, or issues please call the Cardiac Surgery Office at [phone] FOR MEDICARE ONLY: (please delete this section if not Medicare) In discussion with the attending physician, it is certified that the clinical findings support that this patient is homebound i.e. absences from home require considerable and taxing effort due to: Restricted mobility and poor activity tolerance due to recent cardiac surgery Home Health agencies which cover the area of patient's residence have been reviewed, either verballyor in writing, and patient/family have chosen the agency as noted. . Questions: Responses: Agency name and contact information [facility] Patient location post discharge Home What services are requested Registered Nurse Physical Therapy Start date Responsible MD post discharge contact info CT team EKG 12 Lead [EKG1 Custom] 05/03/14 04/03/15 Process Instructions: Scheduling Instructions: Comments: Questions: Responses: Is a rhythm strip needed? No Which location will this be performed? [place] Should this service/procedure be billed to the research sponsor? If EKG Reason is Pre-op Evaluation, indicate diagnosis for surgery. Arrangements for VNA/home care: As above. VN RN OR PCP TO PLEASE REMOVE CHEST TUBE SUTURES ON OR AFTER 04/08/14. Home oxygen therapy: N/A Signed: Wilton Lopez PA-C [facility] Section of Cardiothoracic Surgery Date: 04/03/2014 CC: MD Cristiana MYERS JR, Jon, MD [facility] [place] [address] Consult Note - Hailee Holbrook RN - 03/30/2014 12:28 PM EDT [facility] Trav Hawkins was seen today regarding participation in outpatient Phase 2 Cardiac Rehabilitation at [facility] . A referral will be sent to this program. The patient was given contact information and should expect to be contacted by the program within 1-2 weeks after discharge [place] [facility] Op Note - Pa Morejon MD - 03/29/2014 10:43 AM EDT 03/29/2014 Trav Hawkins 1950 [id number] Preoperative Diagnosis: Coronary artery disease Stable Angina Postoperative Diagnosis: Coronary artery diseaseStable Angina Procedure: CABG times 1: POLANCO to LAD. Endoscopic vein harvest Surgeon: Pa Morejon M.D. Physician Industrial: Az Arias PA-C Anesthesia: General endotracheal anesthesia Drains: Two mediastinal tubes Pacing Wires: Two A-wires, two V-wires. EBL: 300 mL Findings: excellent target, excellent chelita, nl function Procedure: The patient was taken to the Operating Room and had a radial A-line placed. All the proper lines and monitors were placed by Anesthesia. The patient was then prepped and draped in the normalsterile fashion. The chest was opened along the midline. Cautery was used on the sternal edges and bone wax was lightly applied to the divided marrow of the sternum. The left jessica-sternum was elevated. The pleura were taken down, and the mammary artery was dissected free clipping all side branches. Heparin was given. Several minutes later the distal end of the mammary was clipped and tied on the chest wall, and the bleeding end had a bulldog placed across it. It was prepared for bypass by spatulating it open, injecting it with verapamil, and rolling it up into a nitroglycerin-soaked sponge. The CHELITA had excellent flow. The Rultract was removed. Two antibiotic-soaked towels were used to bumper the sternum. The sternal retractor was used to openthe sternum. The overlying pericardium was opened in an inverse-T fashion and hung to the edge of the sternal retractor. Full-dose heparin was given. The aorta was cannulated. The right atrium had the venous cannula placed through the IVC. A retrograde was placed through the right atrium into the coronary sinus. The antegrade was place mid ascending aorta which also doubled as the root vent. With theACT above 450, we went on bypass. The targets were inspected. The aorta was crossclamped and the heart was arrested with cold blood cardioplegia antegrade and retrograde. We drifted to 32 degrees Celsius. The bypasses were as follows: The chelita was taken out of the left chest and a slit was created in the L side of the pericardium making sure to identify the L phrenic nerve. The chelita was anastomosed to the LAD with a running 8-0 prolene. The bulldog was removed to test the graft then replaced. At this point, hotshots were given. The heart began beating in a sinus rhythm. The crossclamp was removed. The grafts were inspected. The heart was allowed to re-perfuse. The retrograde was removed andoversewn; so was the antegrade. An angled chest tube was placed behind the heart. Both chests were suctioned out, and the lungs were re-inflated. After a period of rewarming and allowing the heart to re-perfuse, we from bypass. The venous cannula was removed and the pursestring was tied downand oversewn. Protamine was given. The aortic cannula was removed. Both pursestrings were tied down and oversewn. We had no further bleeding. A straight chest tube was placed in front of the heart. Vanco paste was applied to the sternum. Interrupted steel cables were used to close the chest, several layers of Vicryl, and a 4-0 Monocryl were used to close the overlying soft tissue. Glue and clean dry sterile dressings were applied. The patient was transported to the [facility] on [address]. All counts were correct. OR Attestation - Pa Morejon MD - 03/29/2014 10:43 AM EDT Attestation: Case Date: 03/29/2014 I performed this procedure without the involvement of a resident. PA MOREJON MD 03/29/2014 Brief Op Note - Pa Morejon MD - 03/29/2014 10:41 AM EDT Brief Operative Note Patient Name: Trav Hawkins : [id number] MR#: [id number] Case Date: 03/29/2014 Surgeon: Surgeon(s) and Role: * Pa Morejon MD - Primary * Yves Arias PA - Physician Physician Industrial Preoperative diagnosis: cad Postoperative diagnosis: cad Procedure(s): @CABG, USING ARTERIAL GRAFT;SINGLE ARTERIAL GRAFT Anesthesia: General Findings: good target, good polanco Complications: none Fluids: 1 plts Estimated Blood Loss: 300cc Drains: 2 med tubes Disposition: taken directly to the ICU, intubated and in a critical condition. Condition: doing well without problems (Please see the Surgical Encounter Summary for any Implant and Specimen details pertinent to this patient.) Miscellaneous - Provider, Félix - 03/29/2014 7:43 AM EDT documented in this encounter Plan of Treatment Scheduled Referrals Name Type Priority Associated Diagnoses Order S chedule Referral to Outpatient Referral Routine S/P CABG x 1 Ordered: Cardiac Rehab 04/03/2014 documented as of this encounter Procedures Procedure Name Priority Date/Time Associated Comments Diagnosis LAB SCAN 04/04/2014 12:45 Results for this PM EDT procedure are i n the results section. IT AUDITOR SCAN 04/04/2014 12:45 Res ults for this PM EDT procedure are i n the results section. URINALYSIS WITH Routine 04/03/2014 9:39 AM Result s for this REFLEX CULTURE EDT procedure are in the results section. URINE CULTURE Routine 04/03/2014 9:38 AM Results for this EDT procedure are i n the results section. POTASSIUM STAT 04/03/2014 8:22 AM Results f or this EDT procedure are i n the results section. POCT GLUCOSE Routine 04/02/2014 7:48 PM Results f or this EDT procedure are i n the results section. POCT GLUCOSE Routine 04/02/2014 4:59 PM Results f or this EDT procedure are i n the results section. POCT GLUCOSE Routine 04/02/2014 11:57 Results for this AM EDT procedure are i n the results section. POTASSIUM STAT 04/02/2014 8:34 AM Results f or this EDT procedure are i n the results section. POCT GLUCOSE Routine 04/02/2014 8:08 AM Results f or this EDT procedure are i n the results section. POCT GLUCOSE Routine 04/02/2014 3:45 AM Results f or this EDT procedure are i n the results section. POCT GLUCOSE Routine 04/01/2014 11:49 Results for this PM EDT procedure are i n the results section. POCT GLUCOSE Routine 04/01/2014 7:58 PM Results f or this EDT procedure are i n the results section. POCT GLUCOSE Routine 04/01/2014 4:24 PM Results f or this EDT procedure are i n the results section. POCT GLUCOSE Routine 04/01/2014 11:20 Results for this AM EDT procedure are i n the results section. POCT GLUCOSE Routine 04/01/2014 7:13 AM Results f or this EDT procedure are i n the results section. XR CHEST PA AND Routine 04/01/2014 6:30 AM Result s for this LATERAL EDT procedure are i n the results section. HEMOGRAM Routine 04/01/2014 5:16 AM Results f or this EDT procedure are i n the results section. DIFFERENTIAL, Routine 04/01/2014 5:16 AM Results for this AUTOMATED EDT procedure are i n the results section. CBC (WITH DIFF) Routine 04/01/2014 5:16 AM EDT BASIC METABOLIC PANEL Routine 04/01/2014 5:16 AM Results for this (NON-FASTING) EDT procedure are in the results section. POCT GLUCOSE Routine 04/01/2014 3:59 AM Results f or this EDT procedure are i n the results section. POCT GLUCOSE Routine 03/31/2014 11:17 Results for this PM EDT procedure are i n the results section. POCT GLUCOSE Routine 03/31/2014 8:16 PM Results f or this EDT procedure are i n the results section. POCT GLUCOSE Routine 03/31/2014 4:04 PM Results f or this EDT procedure are i n the results section. POCT GLUCOSE Routine 03/31/2014 11:13 Results for this AM EDT procedure are i n the results section. POTASSIUM STAT 03/31/2014 9:48 AM Results f or this EDT procedure are i n the results section. CALCIUM STAT 03/31/2014 9:48 AM Results f or this EDT procedure are i n the results section. ALBUMIN LEVEL STAT 03/31/2014 9:48 AM Results for this EDT procedure are i n the results section. POCT GLUCOSE Routine 03/31/2014 7:35 AM Results f or this EDT procedure are i n the results section. POCT GLUCOSE Routine 03/31/2014 4:24 AM Results f or this EDT procedure are i n the results section. POCT GLUCOSE Routine 03/30/2014 11:51 Results for this PM EDT procedure are i n the results section. POCT GLUCOSE Routine 03/30/2014 7:42 PM Results f or this EDT procedure are i n the results section. POCT GLUCOSE Routine 03/30/2014 4:38 PM Results f or this EDT procedure are i n the results section. POCT GLUCOSE Routine 03/30/2014 10:48 Results for this AM EDT procedure are i n the results section. POCT GLUCOSE Routine 03/30/2014 9:02 AM Results f or this EDT procedure are i n the results section. POCT GLUCOSE Routine 03/30/2014 7:56 AM Results f or this EDT procedure are i n the results section. POCT GLUCOSE Routine 03/30/2014 6:00 AM Results f or this EDT procedure are i n the results section. POCT GLUCOSE Routine 03/30/2014 4:17 AM Results f or this EDT procedure are i n the results section. HEMOGRAM Routine 03/30/2014 4:17 AM Results f or this EDT procedure are i n the results section. DIFFERENTIAL, Routine 03/30/2014 4:17 AM Results for this AUTOMATED EDT procedure are i n the results section. CARDIAC ENZYMES Routine 03/30/2014 4:17 AM Result s for this (MC/CGP) EDT procedure are i n the results section. CREATININE Routine 03/30/2014 4:17 AM Results f or this EDT procedure are i n the results section. CBC (WITH DIFF) Routine 03/30/2014 4:17 AM EDT BUN Routine 03/30/2014 4:17 AM Results f or this EDT procedure are i n the results section. POTASSIUM Routine 03/30/2014 4:17 AM Results f or this EDT procedure are i n the results section. GLUCOSE, FASTING Routine 03/30/2014 4:17 AM Resul ts for this EDT procedure are i n the results section. POCT GLUCOSE Routine 03/30/2014 1:50 AM Results f or this EDT procedure are i n the results section. POCT GLUCOSE Routine 03/30/2014 12:35 Results for this AM EDT procedure are i n the results section. POCT GLUCOSE Routine 03/29/2014 11:02 Results for this PM EDT procedure are i n the results section. POCT GLUCOSE Routine 03/29/2014 10:12 Results for this PM EDT procedure are i n the results section. POCT GLUCOSE Routine 03/29/2014 8:01 PM Results f or this EDT procedure are i n the results section. POCT GLUCOSE Routine 03/29/2014 4:02 PM Results f or this EDT procedure are i n the results section. HEMOGLOBIN Routine 03/29/2014 4:00 PM Results f or this EDT procedure are i n the results section. POTASSIUM Routine 03/29/2014 4:00 PM Results f or this EDT procedure are i n the results section. EXTUBATE Routine 03/29/2014 2:29 PM EDT BLOOD GAS 2 ARTERIAL Routine 03/29/2014 2:25 PM R esults for this EDT procedure are i n the results section. BLOOD GAS 2 ARTERIAL Routine 03/29/2014 11:39 Res ults for this AM EDT procedure are i n the results section. EKG 12-LEAD STAT 03/29/2014 11:23 S/P CABG x 1 Results for this AM EDT procedure are i n the results section. XR CHEST ONE VIEW STAT 03/29/2014 11:18 Result s for this AM EDT procedure are i n the results section. CARDIAC SURGERY VENT Routine 03/29/2014 10:59 WEANING - PROTOCOL AM EDT PREPARE PLATELETS, STAT 03/29/2014 10:20 Resul ts for this APHERESIS AM EDT procedure are i n the results section. HEMOGRAM STAT 03/29/2014 9:58 AM Results f or this EDT procedure are i n the results section. DIFFERENTIAL, STAT 03/29/2014 9:58 AM Results for this AUTOMATED EDT procedure are i n the results section. APTT STAT 03/29/2014 9:58 AM Results f or this EDT procedure are i n the results section. THROMBIN TIME STAT 03/29/2014 9:58 AM Results for this EDT procedure are i n the results section. PROTHROMBIN TIME STAT 03/29/2014 9:58 AM Resul ts for this EDT procedure are i n the results section. FIBRINOGEN STAT 03/29/2014 9:58 AM Results f or this EDT procedure are i n the results section. BLOOD GAS 2 ARTERIAL Routine 03/29/2014 9:54 AM R esults for this EDT procedure are i n the results section. FIBRINOGEN STAT 03/29/2014 9:29 AM Results f or this EDT procedure are i n the results section. PLATELET COUNT STAT 03/29/2014 9:29 AM Results for this EDT procedure are i n the results section. HEMOGLOBIN STAT 03/29/2014 9:29 AM Results f or this EDT procedure are i n the results section. HEMATOCRIT STAT 03/29/2014 9:29 AM Results f or this EDT procedure are i n the results section. BLOOD GAS 2 ARTERIAL Routine 03/29/2014 9:21 AM R esults for this EDT procedure are i n the results section. BLOOD GAS 2 ARTERIAL Routine 03/29/2014 8:12 AM R esults for this EDT procedure are i n the results section. @CABG, USING ARTERIAL 03/29/2014 7:23 AM CAD (coronary GRAFT;SINGLE ARTERIAL EDT artery disease) GRAFT (WRVU 33.75) PREPARE RBC STAT 03/29/2014 6:40 AM Results f or this EDT procedure are i n the results section. documented in this encounter Results EKG 12 [...] 420 ms MUSE SYSTEM (Bezet) Calculated P [place] 70 degrees MUSE SYSTEM Calculated R [place] 75 degrees MUSE SYSTEM Calculated T [place] 73 degrees MUSE SYSTEM INTERPRETATION Normal sinus [...] City/State/ZIP Code Phon e Number MUSE SYSTEM XR chest routine PA & lateral (04/24/2014 [...] attending Pa Morejon MD IMG DX ORDERABLES SCAN DOC: IT AUDITOR (04/04/2014 12:45 PM EDT) Narrative 04/04/2014 1:11 PM EDT Procedure Note Provider, Scanning - 04/04/2014 12:45 PM EDT Scanning Provider MEDIA MGR SCAN EXT ORDR/RSLT SCAN DOC: LAB (04/04/2014 12:45 PM EDT) Narrative 04/04/2014 12:45 PM EDT Procedure Note Provider, Scanning - 04/04/2014 12:45 PM EDT Scanning Provider MEDIA MGR SCAN EXT ORDR/RSLT (ABNORMAL) Urinalysis with microscopic (04/03/2014 9:39 AM EDT) [facility] Method Time Signature Glucose UA Negative Negative CERNER mg/dL MILLENNIUM Protein UA 30 (A) Negative CERNER mg/dL MILLENNIUM Bilirubin UA Negative Negative CERNER mg/dL MILLENNIUM Comment: Clinical correlation required for positi ve Urine Bilirubin results as false positive may occur with some drugs and d rug related products. If a false positive is suspected a serum total bili bain should be considered if clinically indicated. Urobilinogen UA Normal Normal mg/dL CERNER MILL ENNIUM pH UA 7.0 5.0 - 8.0 CERNER MILLENNIUM Blood UA Negative Negative mg/dL CERNER MILLENNI UM Ketones UA 5 (A) Negative mg/dL CERNER MILLENN IUM Nitrite UA Negative Negative CERNER MILLENNIUM Leukocytes UA Negative Negative mcL CERNER EDWARD NIUM Appearance UA Clear Clear CERNER MILLENNIU M Spec [place] UA 1.024 1.002 - 1.030 CERNER MIL LENNIUM Color UA Yellow Yellow CERNER MILLENNIUM RBC UA 1 0 - 3 /HPF CERNER MILLENNIUM WBC UA 1 0 - 3 /HPF CERNER MILLENNIUM Squam Epith UA <1 <=4 /HPF CERNER MILLENNI UM Specimen Anatomical Collection Method Collection Time Receive d Time (Source) Location / / Volume Laterality Urine specimen 04/03/2014 9:39 AM 014 (specimen) EDT 10:04 AM EDT Resulting Agency Comment Spec In Lab Pa Morejon MD URINE ORDERABLES Performing Organization Address City/State/[place] [address] CERNER MILLENNIUM Urine culture Clean Catch Urine (04/03/2014 9:38 AM EDT) [facility] Method Time Signature Urine Culture CERNER ? Patient Name: TRAV HAWKINS ? O rdered By: PA MOREJON MILLENNIUM ? MR#: [id number] ?LOC: ??[facility] ? /Sex: ??1950 (63 years), ? Male ? PROCEDURE: Urine Culture ?SOURCE: U CC ? COLLECTED: 04/03/2014 09:38 ? STARTED: 04/03/2014 10:27 ? FINAL REPORT ? Final Report ? Verified:04/04/2014 07:51 ? No growth (Less than 1,000 cfu/ml). ? Specimen (Source) Anatomical Collection Method Collection Time Re ceived Time Location / / Volume Laterality Urine specimen 04/03/2014 9:38 04/03/2014 obtained by clean AM EDT 10:27 AM E DT catch procedure (specimen) Resulting Agency Comment Spec In Lab Pa Morjeon MD MICROBIOLOGY - GENERAL ORDER SCOTT Performing Organization Address City/[facility] Phon e Number [address] CERNER MILLENNIUM Potassium (04/03/2014 8:22 AM EDT) athologist Signature Potassium 3.9 3.5 - 5.0 CERNER mmol/L MILLENNIUM Comment: Please note: ??Patients with WBC >100,00 0 may have falsely elevated Potassium levels. ??For accurate Potassium quantif ication in these patients send serum separator tube (gold top) for subsequent determinations. ??Contact the Clinical Chemistry Laboratory if there are any qu estions. Specimen Anatomical Collection Method Collection Time Receive d Time (Source) Location / / Volume Laterality Blood specimen 04/03/2014 8:22 AM 014 8:36 (specimen) EDT AM EDT Resulting Agency Comment Spec In Lab Pa Morejon MD CHEMISTRY ORDERABLES Performing Organization Address [facility] Phon e Number [address] CERNER MILLENNIUM POCT Glucose (04/02/2014 7:48 PM EDT) athologist Signature POC Glucose 147 60 - 199 CERNER mg/dL MILLENNIUM Comment: Supplemental ranges: <140 mg/dL before meals <180 mg/dL all other times of the day Specimen Anatomical Collection Method Collection Time Receive d Time (Source) Location / / Volume Laterality Blood specimen 04/02/2014 7:48 PM 014 7:48 (specimen) EDT PM EDT Pa Morejon MD POINT OF CARE TEST ORDERABLE S Performing Organization Address City/State/ZIP Code Phon e Number [address] CERNER MILLENNIUM POCT Glucose (04/02/2014 4:59 PM EDT) athologist Signature POC Glucose 124 60 - 199 CERNER mg/dL ENNIUM Comment: Supplemental ranges: <140 mg/dL before meals <180 mg/dL all other times of the day Specimen Anatomical Collection Method Collection Time Receive d Time (Source) Location / / Volume Laterality Blood specimen 04/02/2014 4:59 PM 014 4:59 (specimen) EDT PM EDT Pa Morejon MD POINT OF CARE TEST ORDERABLE S Performing Organization Address City/[facility]/ZIP Code Phon e Number [address] CERNER MILLENNIUM POCT Glucose (04/02/2014 11:57 AM EDT) athologist Signature POC Glucose 162 60 - 199 [facility] mg[facility]dL [facility] Comment: Supplemental ranges: <140 mg/dL before meals <180 mg/dL all other times of the day Specimen Anatomical Collection Method Collection Time Receive d Time (Source) Location / / Volume Laterality Blood specimen 04/02/2014 11:57 4 (specimen) AM EDT 11:57 AM EDT Pa Morejon MD POINT OF CARE TEST ORDERABLE S Performing Organization Address City/State/ZIP Code Phon e Number [address] CERNER MILLENNIUM (ABNORMAL) Potassium (04/02/2014 8:34 AM EDT) athologist Signature Potassium 3.4 (L) 3.5 - 5.0 CERNER mmol/L MILLENNIUM Comment: Please note: ??Patients with WBC >100,00 0 may have falsely elevated Potassium levels. ??For accurate Potassium quantif ication in these patients send serum separator tube (gold top) for subsequent determinations. ??Contact the Clinical Chemistry Laboratory if there are any qu estions. Specimen Anatomical Collection Method Collection Time Receive d Time (Source) Location / / Volume Laterality Blood specimen 04/02/2014 8:34 AM 014 8:44 (specimen) EDT AM EDT Resulting Agency Comment Spec In Lab Pa Morejon MD CHEMISTRY ORDERABLES Performing Organization Address City/[facility]/ZIP [facility] Phon e Number [address] CERNER MILLENNIUM POCT Glucose (04/02/2014 8:08 AM EDT) athologist Signature POC Glucose 129 60 - 199 CERNER mg/dL MILLENNIUM Comment: Supplemental ranges: <140 mg/dL before meals <180 mg/dL all other times of the day Specimen Anatomical Collection Method Collection Time Receive d Time (Source) Location / / Volume Laterality Blood specimen 04/02/2014 8:08 AM 014 8:08 (specimen) EDT AM EDT Pa Morejon MD POINT OF CARE TEST ORDERABLE S Performing Organization Address [facility] Code Phon e Number [address] CERNER MILLENNIUM POCT Glucose (04/02/2014 3:45 AM EDT) athologist Signature POC Glucose 134 60 - 199 CERNER mg/dL MILLENNIUM Comment: Supplemental ranges: <140 mg/dL before meals <180 mg/dL all other times of the day Specimen Anatomical Collection Method Collection Time Receive d Time (Source) Location / / Volume Laterality Blood specimen 04/02/2014 3:45 AM 014 3:45 (specimen) EDT AM EDT Pa Morejon MD POINT OF CARE TEST ORDERABLE S Performing Organization Address City/[facility]/[place] [address] CERNER MILLENNIUM POCT Glucose (04/01/2014 11:49 PM EDT) athologist Signature POC Glucose 131 60 - 199 CERNER mg/dL MILLENNIUM Comment: Supplemental ranges: <140 mg/dL before meals <180 mg/dL all other times of the day Specimen Anatomical Collection Method Collection Time Receive d Time (Source) Location / / Volume Laterality Blood specimen 04/01/2014 11:49 4 (specimen) PM EDT 11:49 PM EDT Pa Morejon MD POINT OF CARE TEST ORDERABLE S Performing Organization Address City/State/ZIP Code Phon e Number [address] CERNER MILLENNIUM POCT Glucose (04/01/2014 7:58 PM EDT) athologist Signature POC Glucose 152 60 - 199 CERNER mg/dL MILLENNIUM Comment: Supplemental ranges: <140 mg/dL before meals <180 mg/dL all other times of the day Specimen Anatomical Collection Method Collection Time Receive d Time (Source) Location / / Volume Laterality Blood specimen 04/01/2014 7:58 PM 014 7:58 (specimen) EDT PM EDT Pa Morejon MD POINT OF CARE TEST ORDERABLE S Performing Organization Address City/[facility]/ZIP Code Phon e Number [address] CERNER MILLENNIUM POCT Glucose (04/01/2014 4:24 PM EDT) athologist Signature POC Glucose 126 60 - 199 CERNER mg/dL MILLENNIUM Comment: Supplemental ranges: <140 mg/dL before meals <180 mg/dL all other times of the day Specimen Anatomical Collection Method Collection Time Receive d Time (Source) Location / / Volume Laterality Blood specimen 04/01/2014 4:24 PM 014 4:24 (specimen) EDT PM EDT Pa Morejon MD POINT OF CARE TEST ORDERABLE S Performing Organization Address City/State/[place] [address] CERNER MILLENNIUM POCT Glucose (04/01/2014 11:20 AM EDT) athologist Signature POC Glucose 153 60 - 199 CERNER mg/dL [facility] Comment: Supplemental ranges: <140 mg/dL before meals <180 mg/dL all other times of the day Specimen Anatomical Collection Method Collection Time Receive d Time (Source) Location / / Volume Laterality Blood specimen 04/01/2014 11:20 4 (specimen) AM EDT 11:20 AM EDT Pa Morejon MD POINT OF CARE TEST ORDERABLE S Performing Organization Address City/[facility]/ZIP Code Phon e Number [address] CERNER MILLENNIUM POCT Glucose (04/01/2014 7:13 AM EDT) athologist Signature POC Glucose 160 60 - 199 CERNER mg/dL [facility] Comment: Supplemental ranges: <140 mg/dL before meals <180 mg/dL all other times of the day Specimen Anatomical Collection Method Collection Time Receive d Time (Source) Location / / Volume Laterality Blood specimen 04/01/2014 7:13 AM 014 7:13 (specimen) EDT AM EDT Pa Morejon MD POINT OF CARE TEST ORDERABLE S Performing Organization Address City/[facility]/ZIP Code Phon e Number [address] [facility] [employer]IUM XR chest routine PA & lateral (04/01/2014 6:30 AM EDT) Anatomical Region Laterality Modality Chest N/A Radiographic Imaging Specimen (Source) Anatomical Collection Method Collection Time Re ceived Time Location / / Volume Laterality 04/01/2014 6:30 AM EDT Narrative 04/01/2014 8:01 AM EDT Examination CHEST ROUTINE 2 VIEWS Clinical History pod 3 s/p cabg Comparison April 01 2014 Technique PA and lateral chest radiograph Findings Lungs are well inflated and clear. There is small bilateral pleural effusions. There is no pneumothorax. Postsurgical c hanges of CABG are again noted with stable cardiomediastinal silhouette. Bon es are unchanged. Impression Small bilateral pleural effusions. Procedure Note Yasmin Christopher MD - 04/01/2014 Examination CHEST ROUTINE 2 VIEWS Clinical History pod 3 s/p cabg Comparison April 01 2014 Technique PA and lateral chest radiograph Findings Lungs are well inflated and clear. There is small bilateral pleural effusions. There is no pneumothorax. Postsurgical c hanges of CABG are again noted with stable cardiomediastinal silhouette. Bon es are unchanged. Impression Small bilateral pleural effusions. Pa Morejon MD IMG DX ORDERABLES (ABNORMAL) Differential, Automated (04/01/2014 5:16 AM EDT) [facility] Method Time Signature Neutrophils % 77.5 (H) 34.0 - CERNER 71.0 % MILLENNIUM Neutr Abs (ANC) 10.48 (H) 1.50 - CERNER 6.30 MILLENNIUM x10(3)/mc L Lymphocytes % 13.2 (L) 19.0 - CERNER 53.0 % MILLENNIUM Lymphocytes Abs 1.8 1.0 - 3.6 CERNER x10(3)/mc MILLENNIUM L Monocytes % 8.0 4.0 - CERNER 13.0 % MILLENNIUM Monocyte Abs 1.1 (H) 0.2 - 1.0 CERNER x10(3)/mc MILLENNIUM L Eosinophils % 1.0 0.0 - 7.0 CERNER % MILLENNIUM Eosinophils Abs 0.1 0.0 - 0.5 CERNER x10(3)/mc MILLENNIUM L Basophils % 0.2 0.0 - 2.0 CERNER % MILLENNIUM Basophils Abs 0.0 0.0 - 0.2 CERNER x10(3)/mc MILLENNIUM L Immature Gran % 0.10 0.00 - CERNER [...] Location / / Volume Laterality Blood specimen 04/01/2014 5:16 AM 014 5:43 (specimen) EDT AM EDT Resulting Agency Comment Spec In Lab Pa Morejon MD HEMATOLOGY ORDERABLES Performing Organization Address City/[facility]/[place] [address] CERNER MILLENNIUM (ABNORMAL) Hemogram (04/01/2014 5:16 AM EDT) athologist Signature WBC 13.5 (H) 4.0 - 10.0 CERNER x10(3)/mcL MILLENNIUM RBC 4.29 (L) 4.63 - CERNER 6.08 MILLENNIUM x10(6)/mcL Hemoglobin 12.7 (L) 13.7 - CERNER 17.5 gm/dL MILLENNIUM Hematocrit 38.4 (L) 40.0 - CERNER 51.0 % MILLENNIUM MCV 89.5 79.0 - CERNER 92.0 fL MILLENNIUM MCH 29.6 25.6 - CERNER 32.2 pg MILLENNIUM MCHC 33.1 32.0 - CERNER 36.5 gm/dL MILLENNIUM Platelets 144 (L) 145 - 370 CERNER x10(3)/mcL MILLENNIUM RDWSD 43.1 35.0 - CERNER 46.0 fL MILLENNIUM RDWCV 13.3 10.9 - CERNER 14.4 % MILLENNIUM MPV 10.6 9.0 - 12.0 CERNER fL MILLENNIUM Specimen Anatomical Collection Method Collection Time Receive d Time (Source) Location / / Volume Laterality Blood specimen 04/01/2014 5:16 AM 014 5:43 (specimen) EDT AM EDT Resulting Agency Comment Spec In Lab Pa Morejon MD HEMATOLOGY ORDERABLES Performing Organization Address City/State/ZIP Code [place] [address] CERNER MILLENNIUM (ABNORMAL) Basic Metabolic Panel (non-fasting) (04/01/2014 5:16 AM EDT) athologist Signature Glucose Lvl 99 60 - 199 CERNER mg/dL MILLENNIUM Comment: Diabetes: >=200 mg/dL plus symp toms BUN 23 (H) 10 - 20 mg/dL CERNER MILLENNIU M Creatinine 1.04 0.80 - 1.50 mg/dL CERNER MILL ENNIUM Comment: Please note that the pediatric reference intervals supplied above were not validated at [facility] Results from pediatri c patients should be interpreted in conjunction to the patient's age, height and muscle mass. Sodium 143 135 - 145 mmol/L CERNER EDWARD NIUM Potassium 3.9 3.5 - 5.0 mmol/L CERNER EDWARD NIUM Comment: Please note: ??Patients with WBC >100,00 0 may have falsely elevated Potassium levels. ??For accurate Potassium quantif ication in these patients send serum separator tube (gold top) for subsequent determinations. ??Contact the Clinical Chemistry Laboratory if there are any qu estions. Chloride 103 98 - 107 mmol/L CERNER MILLENN IUM CO2 32 (H) 22 - 31 mmol/L CERNER MILLENNI UM Anion Gap 8 5 - 15 mmol/L CERNER MILLENNIU M Calcium 8.3 (L) 8.5 - 10.5 mg/dL CERNER EDWARD NIUM Estimated GFR >60 >=60 CERNER MILLENNIU M Comment: This estimated GFR (eGFR) value was calc ulated using the MDRD equation which has been validated on patients between t he ages of 18 and 70. The MDRD should not be used to assess kidney function in patients < 18 years of age or in patients with extremes of body mass, or in patients with acute kidney failure. This value should be multiplied by 1.2 f or patients. For further information please copy and past e the following links into your internet browser. [email or web address] Specimen Anatomical Collection Method Collection Time Receive d Time (Source) Location / / Volume Laterality Blood specimen 04/01/2014 5:16 AM 014 5:43 (specimen) EDT AM EDT Resulting Agency Comment Spec In Lab Pa Morejon MD CHEMISTRY ORDERABLES Performing Organization Address City/State/ZIP [place] [address] CERNER MILLENNIUM POCT Glucose (04/01/2014 3:59 AM EDT) athologist Signature POC Glucose 91 60 - 199 CERNER mg/dL MILLENNIUM Comment: Supplemental ranges: <140 mg/dL before meals <180 mg/dL all other times of the day Specimen Anatomical Collection Method Collection Time Receive d Time (Source) Location / / Volume Laterality Blood specimen 04/01/2014 3:59 AM 014 3:59 (specimen) EDT AM EDT Pa Morejon MD POINT OF CARE TEST ORDERABLE S Performing Organization Address City/State/[place] [address] CERNER MILLENNIUM POCT Glucose (03/31/2014 11:17 PM EDT) athologist Signature POC Glucose 117 60 - 199 CERNER mg/dL MILLENNIUM Comment: Supplemental ranges: <140 mg/dL before meals <180 mg/dL all other times of the day Specimen Anatomical Collection Method Collection Time Receive d Time (Source) Location / / Volume Laterality Blood specimen 03/31/2014 11:17 4 (specimen) PM EDT 11:17 PM EDT Pa Morejon MD POINT OF CARE TEST ORDERABLE S Performing Organization Address City/[facility]/ZIP Code Phon e Number [address] CERNER MILLENNIUM POCT Glucose (03/31/2014 8:16 PM EDT) athologist Signature POC Glucose 131 60 - 199 CERNER mg/dL MILLENNIUM Comment: Supplemental ranges: <140 mg/dL before meals <180 mg/dL all other times of the day Specimen Anatomical Collection Method Collection Time Receive d Time (Source) Location / / Volume Laterality Blood specimen 03/31/2014 8:16 PM 014 8:16 (specimen) EDT PM EDT Pa Morejon MD POINT OF CARE TEST ORDERABLE S Performing Organization Address City/State/[place] [address] CERNER MILLENNIUM POCT Glucose (03/31/2014 4:04 PM EDT) athologist Signature POC Glucose 196 60 - 199 CERNER mg/dL MILLENNIUM Comment: Supplemental ranges: <140 mg/dL before meals <180 mg/dL all other times of the day Specimen Anatomical Collection Method Collection Time Receive d Time (Source) Location / / Volume Laterality Blood specimen 03/31/2014 4:04 PM 014 4:04 (specimen) EDT PM EDT Pa Morejon MD POINT OF CARE TEST ORDERABLE S Performing Organization Address City/[facility] Phon e Number [address] CERNER MILLENNIUM POCT Glucose (03/31/2014 11:13 AM EDT) athologist Signature POC Glucose 132 60 - 199 [facility]ER mg/dL [facility] Comment: Supplemental ranges: <140 mg/dL before meals <180 mg/dL all other times of the day Specimen Anatomical Collection Method Collection Time Receive d Time (Source) Location / / Volume Laterality Blood specimen 03/31/2014 11:13 4 (specimen) AM EDT 11:13 AM EDT Pa Morejon MD POINT OF CARE TEST ORDERABLE S Performing Organization Address [facility] Phon e Number [address] CERNER MILLENNIUM Potassium (03/31/2014 9:48 AM EDT) athologist Signature Potassium 3.8 3.5 - 5.0 CERNER mmol/L [facility] Comment: Please note: ??Patients with WBC >100,00 0 may have falsely elevated Potassium levels. ??For accurate Potassium quantif ication in these patients send serum separator tube (gold top) for subsequent determinations. ??Contact the Clinical Chemistry Laboratory if there are any qu estions. Specimen Anatomical Collection Method Collection Time Receive d Time (Source) Location / / Volume Laterality Blood specimen 03/31/2014 9:48 AM 014 (specimen) EDT 10:06 AM EDT Resulting Agency Comment Spec In Lab Pa Morejon MD CHEMISTRY ORDERABLES Performing Organization Address City/State/[place] [address] CERNER MILLENNIUM (ABNORMAL) Albumin Level (03/31/2014 9:48 AM EDT) athologist Signature Albumin 2.9 (L) 3.2 - 5.2 CERNER gm/dL [facility] Specimen Anatomical Collection Method Collection Time Receive d Time (Source) Location / / Volume Laterality Blood specimen 03/31/2014 9:48 AM 014 (specimen) EDT 10:05 AM EDT Resulting Agency Comment Spec In Lab Pa Morejon MD CHEMISTRY ORDERABLES Performing Organization Address City/[facility]/ZIP Code Phon e Number [address] CERNER MILLENNIUM Calcium (03/31/2014 9:48 AM EDT) athologist Signature Calcium 8.8 8.5 - 10.5 CERNER mg/dL [facility] Specimen Anatomical Collection Method Collection Time Receive d Time (Source) Location / / Volume Laterality Blood specimen 03/31/2014 9:48 AM 014 (specimen) EDT 10:05 AM EDT Resulting Agency Comment Spec In Lab Pa Morejon MD CHEMISTRY ORDERABLES Performing Organization Address City/[facility]/ZIP Code Phon e Number [address] CERNER MILLENNIUM POCT Glucose (03/31/2014 7:35 AM EDT) athologist Signature POC Glucose 99 60 - 199 CERNER mg/dL [facility] Comment: Supplemental ranges: <140 mg/dL before meals <180 mg/dL all other times of the day Specimen Anatomical Collection Method Collection Time Receive d Time (Source) Location / / Volume Laterality Blood specimen 03/31/2014 7:35 AM 014 7:35 (specimen) EDT AM EDT Pa Morejon MD POINT OF CARE TEST ORDERABLE S Performing Organization Address City/State/[place] [address] CERNER MILLENNIUM POCT Glucose (03/31/2014 4:24 AM EDT) athologist Signature POC Glucose 99 60 - 199 CERNER mg/dL MILLENNIUM Comment: Supplemental ranges: <140 mg/dL before meals <180 mg/dL all other times of the day Specimen Anatomical Collection Method Collection Time Receive d Time (Source) Location / / Volume Laterality Blood specimen 03/31/2014 4:24 AM 014 4:24 (specimen) EDT AM EDT Pa Morejon MD POINT OF CARE TEST ORDERABLE S Performing Organization Address City/State/ZIP Code Phon e Number [address] CERNER MILLENNIUM POCT Glucose (03/30/2014 11:51 PM EDT) athologist Signature POC Glucose 125 60 - 199 CERNER mg/dL [facility] Comment: Supplemental ranges: <140 mg/dL before meals <180 mg/dL all other times of the day Specimen Anatomical Collection Method Collection Time Receive d Time (Source) Location / / Volume Laterality Blood specimen 03/30/2014 11:51 4 (specimen) PM EDT 11:51 PM EDT Pa Morejon MD POINT OF CARE TEST ORDERABLE S Performing Organization Address City/[facility]/ZIP Code Phon e Number [address] CERNER MILLENNIUM POCT Glucose (03/30/2014 7:42 PM EDT) athologist Signature POC Glucose 159 60 - 199 CERNER mg/dL [facility] Comment: Supplemental ranges: <140 mg/dL before meals <180 mg/dL all other times of the day Specimen Anatomical Collection Method Collection Time Receive d Time (Source) Location / / Volume Laterality Blood specimen 03/30/2014 7:42 PM 014 7:42 (specimen) EDT PM EDT Pa Morejon MD POINT OF CARE TEST ORDERABLE S Performing Organization Address City/State/[place] [address] CERNER MILLENNIUM POCT Glucose (03/30/2014 4:38 PM EDT) athologist Signature POC Glucose 129 60 - 199 CERNER mg/dL MILLENNIUM Comment: Supplemental ranges: <140 mg/dL before meals <180 mg/dL all other times of the day Specimen Anatomical Collection Method Collection Time Receive d Time (Source) Location / / Volume Laterality Blood specimen 03/30/2014 4:38 PM 014 4:38 (specimen) EDT PM EDT Pa Morejon MD POINT OF CARE TEST ORDERABLE S Performing Organization Address City/State/ZIP Code Phon e Number [address] CERNER MILLENNIUM POCT Glucose (03/30/2014 10:48 AM EDT) athologist Signature POC Glucose 158 60 - 199 CERNER mg/dL [facility] Comment: Supplemental ranges: <140 mg/dL before meals <180 mg/dL all other times of the day Specimen Anatomical Collection Method Collection Time Receive d Time (Source) Location / / Volume Laterality Blood specimen 03/30/2014 10:48 4 (specimen) AM EDT 10:48 AM EDT Pa Morejon MD POINT OF CARE TEST ORDERABLE S Performing Organization Address City/[facility]/ZIP Code Phon e Number [address] CERNER MILLENNIUM POCT Glucose (03/30/2014 9:02 AM EDT) athologist Signature POC Glucose 139 60 - 199 CERNER mg/dL [facility] Comment: Supplemental ranges: <140 mg/dL before meals <180 mg/dL all other times of the day Specimen Anatomical Collection Method Collection Time Receive d Time (Source) Location / / Volume Laterality Blood specimen 03/30/2014 9:02 AM 014 9:02 (specimen) EDT AM EDT aP Morejon MD POINT OF CARE TEST ORDERABLE S Performing Organization Address City/State/[place] [address] CERNER MILLENNIUM POCT Glucose (03/30/2014 7:56 AM EDT) athologist Signature POC Glucose 122 60 - 199 CERNER mg/dL MILLENNIUM Comment: Supplemental ranges: <140 mg/dL before meals <180 mg/dL all other times of the day Specimen Anatomical Collection Method Collection Time Receive d Time (Source) Location / / Volume Laterality Blood specimen 03/30/2014 7:56 AM 014 7:56 (specimen) EDT AM EDT Pa Morejon MD POINT OF CARE TEST ORDERABLE S Performing Organization Address City/[facility]/ZIP Code Phon e Number [address] CERNER MILLENNIUM POCT Glucose (03/30/2014 6:00 AM EDT) athologist Signature POC Glucose 112 60 - 199 CERNER mg/dL MILLENNIUM Comment: Supplemental ranges: <140 mg/dL before meals <180 mg/dL all other times of the day Specimen Anatomical Collection Method Collection Time Receive d Time (Source) Location / / Volume Laterality Blood specimen 03/30/2014 6:00 AM 014 6:00 (specimen) EDT AM EDT Pa Morejon MD POINT OF CARE TEST ORDERABLE S Performing Organization Address City/[facility]/[place] [address] CERNER MILLENNIUM (ABNORMAL) Differential, Automated (03/30/2014 4:17 AM EDT) [facility] gist Method Time Signature Neutrophils % 84.5 (H) 34.0 - CERNER 71.0 % MILLENNIUM Neutr Abs (ANC) 16.03 (H) 1.50 - CERNER 6.30 MILLENNIUM x10(3)/mc L Lymphocytes % 5.2 (L) 19.0 - CERNER 53.0 % MILLENNIUM Lymphocytes Abs 1.0 1.0 - 3.6 CERNER x10(3)/mc MILLENNIUM L Monocytes % 10.0 4.0 - CERNER 13.0 % MILLENNIUM Monocyte Abs 1.9 (H) 0.2 - 1.0 CERNER x10(3)/mc MILLENNIUM L Eosinophils % 0.0 0.0 - 7.0 CERNER % MILLENNIUM Eosinophils Abs 0.0 0.0 - 0.5 CERNER x10(3)/mc MILLENNIUM L Basophils % 0.1 0.0 - 2.0 CERNER % MILLENNIUM Basophils Abs 0.0 0.0 - 0.2 CERNER x10(3)/mc MILLENNIUM L Immature Gran % 0.20 0.00 - CERNER 0.66 % MILLENNIUM Comment: Immature granulocytes(IG's)percentage an d absolute count will include metamyelocytes, myelocytes, and promyelo cytes. Blood smears from CBCs yielding IG's will be scanned manually for concor dance. If this scan disagrees with the automated IG or if promyelocytes are not ed, a manual differential will be performed. Bell Gran Abs 0.03 0.00 - 0.05 x10(3)/mcL CER NER MILLENNIUM Specimen Anatomical Collection Method Collection Time Receive d Time (Source) Location / / Volume Laterality Blood specimen 03/30/2014 4:17 AM 014 4:26 (specimen) EDT AM EDT Resulting Agency Comment Spec In Lab Pa Morejon MD HEMATOLOGY ORDERABLES Performing Organization Address City/State/ZIP Code Phon e Number [place] [id number] CERNER MILLENNIUM (ABNORMAL) Hemogram (03/30/2014 4:17 AM EDT) P athologist Signature WBC 19.0 (H) 4.0 - 10.0 CERNER x10(3)/mcL MILLENNIUM RBC 4.53 (L) 4.63 - CERNER 6.08 MILLENNIUM x10(6)/mcL Hemoglobin 13.3 (L) 13.7 - CERNER 17.5 gm/dL MILLENNIUM Hematocrit 39.9 (L) 40.0 - CERNER 51.0 % MILLENNIUM MCV 88.1 79.0 - CERNER 92.0 fL MILLENNIUM MCH 29.4 25.6 - CERNER 32.2 pg MILLENNIUM MCHC 33.3 32.0 - CERNER 36.5 gm/dL MILLENNIUM Platelets 193 145 - 370 CERNER x10(3)/mcL [facility] RDWSD 42.4 35.0 - CERNER 46.0 fL [facility] RDWCV 13.2 10.9 - CERNER 14.4 % MILLENNIUM MPV 10.8 9.0 - 12.0 CERNER fL [facility] Specimen Anatomical Collection Method Collection Time Receive d Time (Source) Location / / Volume Laterality Blood specimen 03/30/2014 4:17 AM 014 4:26 (specimen) EDT AM EDT Resulting Agency Comment Spec In Lab Pa Morejon MD HEMATOLOGY ORDERABLES Performing Organization Address City/[facility]/ZIP Code Phon e Number [address] CERNER [facility] POCT Glucose (03/30/2014 4:17 AM EDT) athologist Signature POC Glucose 121 60 - 199 CERNER mg/dL [facility] Comment: Supplemental ranges: <140 mg/dL before meals <180 mg/dL all other times of the day Specimen Anatomical Collection Method Collection Time Receive d Time (Source) Location / / Volume Laterality Blood specimen 03/30/2014 4:17 AM 014 4:17 (specimen) EDT AM EDT Pa Morejon MD POINT OF CARE TEST ORDERABLE S Performing Organization Address City/[facility]/ZIP [facility] Phon e Number [address] [facility] Cardiac Enzymes (03/30/2014 4:17 AM EDT) athologist Signature Troponin-T 0.08 (H) <=0.03 CERNER ng/mL [facility] Comment: 0.03 ng/mL: Represents the 99th percenti le upper reference limit for normals. >0.03 ng/mL: Elevated cardiac troponin T level indicative of myocardial damage. Diagnosis of acute, evolving or recent M I requires a typical rise and gradual fall of cTnT with at least ONE of the fo llowing: a) Ischemic symptoms b) Development of pathologic Q waves on the ECG c) ECG changes indicative of eschemia (S -T segment elevation/depression) d) Coronary artery intervention Serial bloods should be obtained for lai ting on admission, at 6 to 9 hrs and again at 12 to 24 hrs if earlier samples are negative and the clinical index of suspicion is high. Reference: [Myocardial infarction redefined? a consensus document of the Joint Society of Cardiology/[place] Committee for the redefinition of myocardial infarction. ? ?Journal of the [employer] 2000; 36: 959-969] CK, Total 275 (H) 0 - 200 unit/L CERNER MILLENNI UM Specimen Anatomical Collection Method Collection Time Receive d Time (Source) Location / / Volume Laterality Blood specimen 03/30/2014 4:17 AM 014 4:26 (specimen) EDT AM EDT Resulting Agency Comment Spec In Lab Pa Morejon MD CHEMISTRY ORDERABLES Performing Organization Address [facility] [place] [address] CERNER MILLENNIUM Potassium (03/30/2014 4:17 AM EDT) athologist Signature Potassium 4.7 3.5 - 5.0 CERNER mmol/L [facility] Comment: Please note: ??Patients with WBC >100,00 0 may have falsely elevated Potassium levels. ??For accurate Potassium quantif ication in these patients send serum separator tube (gold top) for subsequent determinations. ??Contact the Clinical Chemistry Laboratory if there are any qu estions. Specimen Anatomical Collection Method Collection Time Receive d Time (Source) Location / / Volume Laterality Blood specimen 03/30/2014 4:17 AM 014 4:26 (specimen) EDT AM EDT Resulting Agency Comment Spec In Lab Pa Morejon MD CHEMISTRY ORDERABLES Performing Organization Address [facility] [place] [address] CERNER MILLENNIUM (ABNORMAL) Glucose, fasting (03/30/2014 4:17 AM EDT) P athologist Signature Glucose 133 (H) 65 - 99 CERNER Fasting mg/dL [facility] Comment: ?Fasting* Glucose Interpretive C riteria Normal ?65-99 mg/dL Impaired Fasting glucose ?100-125 mg/dL Consistent with Diabetes Mellitus ? >or= 126 mg/dL *Fasting is defined as no caloric intake for at least 8 hours In the absence of unequivocal hypergly cemia a plasma glucose value of >or= 126 mg/dL should be repeated on a subseq uent day. Diagnosis and Classification of Diabetes Mellitus, Position Statement from the [employer]. ??Diabete s Care, Volume 33, Supplement 1, Jul 2009 Specimen Anatomical Collection Method Collection Time Receive d Time (Source) Location / / Volume Laterality Blood specimen 03/30/2014 4:17 AM 014 4:26 (specimen) EDT AM EDT Resulting Agency Comment Spec In Lab Pa Morejon MD CHEMISTRY ORDERABLES Performing Organization Address City/State/[place] [address] IMANI MICHELLEUSAMAIUM Creatinine (03/30/2014 4:17 AM EDT) athologist Signature Creatinine 1.00 0.80 - 1.50 CERNER mg/dL MILLENNIUM Comment: Please note that the pediatric reference intervals supplied above were [place] [facility] Results from pediatri c patients should be interpreted in conjunction to the patient's age, height and muscle mass. Estimated GFR >60 >=60 IMANI Oliver Comment: This estimated GFR (eGFR) value was calc ulated using the MDRD equation which has been validated on patients between t he ages of 18 and 70. The MDRD should not be used to assess kidney function in patients < 18 years of age or in patients with extremes of body mass, or in patients with acute kidney failure. This value should be multiplied by 1.2 f or patients. For further information please copy and past e the following links into your internet browser. [email or web address] Specimen Anatomical Collection Method Collection Time Receive d Time (Source) Location / / Volume Laterality Blood specimen 03/30/2014 4:17 AM 014 4:26 (specimen) EDT AM EDT Resulting Agency Comment Spec In Lab Pa Morejon MD CHEMISTRY ORDERABLES Performing Organization Address City/[facility]/ZIP Code Phon e Number [address] CERNER MILLENNIUM BUN (03/30/2014 4:17 AM EDT) athologist Signature BUN 16 10 - 20 CERNER mg/dL MILLENNIUM Specimen Anatomical Collection Method Collection Time Receive d Time (Source) Location / / Volume Laterality Blood specimen 03/30/2014 4:17 AM 014 4:26 (specimen) EDT AM EDT Resulting Agency Comment Spec In Lab Pa Morejon MD CHEMISTRY ORDERABLES Performing Organization Address City/[facility] Phon e Number [address] CERNER MILLENNIUM POCT Glucose (03/30/2014 1:50 AM EDT) athologist Signature POC Glucose 118 60 - 199 CERNER mg/dL MILLENNIUM Comment: Supplemental ranges: <140 mg/dL before meals <180 mg/dL all other times of the day Specimen Anatomical Collection Method Collection Time Receive d Time (Source) Location / / Volume Laterality Blood specimen 03/30/2014 1:50 AM 014 1:50 (specimen) EDT AM EDT Pa Morejon MD POINT OF CARE TEST ORDERABLE S Performing Organization Address City/[facility]/ZIP [facility] Phon e Number [address] CERNER MILLENNIUM POCT Glucose (03/30/2014 12:35 AM EDT) athologist Signature POC Glucose 126 60 - 199 CERNER mg/dL MILLENNIUM Comment: Supplemental ranges: <140 mg/dL before meals <180 mg/dL all other times of the day Specimen Anatomical Collection Method Collection Time Receive d Time (Source) Location / / Volume Laterality Blood specimen 03/30/2014 12:35 4 (specimen) AM EDT 12:35 AM EDT Pa Morejon MD POINT OF CARE TEST ORDERABLE S Performing Organization Address City/State/ZIP Code Phon e Number [address] CERNER MILLENNIUM POCT Glucose (03/29/2014 11:02 PM EDT) athologist Signature POC Glucose 123 60 - 199 CERNER mg/dL MILLENNIUM Comment: Supplemental ranges: <140 mg/dL before meals <180 mg/dL all other times of the day Specimen Anatomical Collection Method Collection Time Receive d Time (Source) Location / / Volume Laterality Blood specimen 03/29/2014 11:02 4 (specimen) PM EDT 11:02 PM EDT Pa Morejon MD POINT OF CARE TEST ORDERABLE S Performing Organization Address City/[facility]/ZIP Code Phon e Number [address] CERNER MILLENNIUM POCT Glucose (03/29/2014 10:12 PM EDT) athologist Signature POC Glucose 122 60 - 199 CERNER mg/dL MILLENNIUM Comment: Supplemental ranges: <140 mg/dL before meals <180 mg/dL all other times of the day Specimen Anatomical Collection Method Collection Time Receive d Time (Source) Location / / Volume Laterality Blood specimen 03/29/2014 10:12 4 (specimen) PM EDT 10:12 PM EDT Pa Morejon MD POINT OF CARE TEST ORDERABLE S Performing Organization Address City/State/ZIP Code Phon e Number [address] CERNER MILLENNIUM POCT Glucose (03/29/2014 8:01 PM EDT) athologist Signature POC Glucose 114 60 - 199 CERNER mg/dL MILLENNIUM Comment: Supplemental ranges: <140 mg/dL before meals <180 mg/dL all other times of the day Specimen Anatomical Collection Method Collection Time Receive d Time (Source) Location / / Volume Laterality Blood specimen 03/29/2014 8:01 PM 014 8:01 (specimen) EDT PM EDT Pa Morejon MD POINT OF CARE TEST ORDERABLE S Performing Organization Address City/State/ZIP Code Phon e Number [address] CERNER MILLENNIUM POCT Glucose (03/29/2014 4:02 PM EDT) athologist Signature POC Glucose 152 60 - 199 [facility]ER mg/dL [facility] Comment: Supplemental ranges: <140 mg/dL before meals <180 mg/dL all other times of the day Specimen Anatomical Collection Method Collection Time Receive d Time (Source) Location / / Volume Laterality Blood specimen 03/29/2014 4:02 PM 014 4:02 (specimen) EDT PM EDT Pa Morejon MD POINT OF CARE TEST ORDERABLE S Performing Organization Address City/[facility]/ZIP Code Phon e Number [address] CERNER MILLENNIUM (ABNORMAL) Hemoglobin (03/29/2014 4:00 PM EDT) athologist Signature Hemoglobin 13.4 (L) 13.7 - CERNER 17.5 gm/dL MILLENNIUM Specimen Anatomical Collection Method Collection Time Receive d Time (Source) Location / / Volume Laterality Blood specimen 03/29/2014 4:00 PM 014 4:15 (specimen) EDT PM EDT Resulting Agency Comment Spec In Lab Pa Morejon MD HEMATOLOGY ORDERABLES Performing Organization Address City/State/[place] [address] CERNER MILLENNIUM Potassium (03/29/2014 4:00 PM EDT) athologist Signature Potassium 4.0 3.5 - 5.0 CERNER mmol/L MILLENNIUM Comment: Please note: ??Patients with WBC >100,00 0 may have falsely elevated Potassium levels. ??For accurate Potassium quantif ication in these patients send serum separator tube (gold top) for subsequent determinations. ??Contact the Clinical Chemistry Laboratory if there are any qu estions. Specimen Anatomical Collection Method Collection Time Receive d Time (Source) Location / / Volume Laterality Blood specimen 03/29/2014 4:00 PM 2 014 4:15 (specimen) EDT PM EDT Resulting Agency Comment Spec In Lab Pa Morejon MD CHEMISTRY ORDERABLES Performing Organization Address City/State/ZIP Code Phon e Number [place] [phone] CERNER MILLENNIUM (ABNORMAL) BLOOD GAS 2 ARTERIAL (03/29/2014 2:25 PM EDT) Analysis Performed At Patho logist Time Signature pH Art 7.41 7.35 - CERNER 7.45 MILLENNIUM pCO2 Art 34 (L) 35 - 45 CERNER mmHg MILLENNIUM pO2 Art 174 (H) 85 - 104 CERNER mmHg MILLENNIUM HCO3 Art 21.3 20.0 - CERNER 26.0 MILLENNIUM mmol/L BE Art -3.3 (L) -3.0 - 3.0 CERNER mmol/L MILLENNIUM Hgb Blood Gas 14.7 13.7 - CERNER 17.5 gm/dL MILLENNIUM O2HB Art 98.4 (H) 94.0 - CERNER 97.0 % MILLENNIUM COHB Art 0.2 % CERNER MILLENNIUM Comment: Nonsmokers: 0.5-1.5% COHB Smokers: Variable, but usually less than 10% Toxic: 20-30% COHB Lethal: Greater than 60% COHB METHB Art 0.5 <=1.5 % CERNER MILLENNIUM Na Whole Blood 138 135 - 145 mmol/L CERNER M ILLENNIUM K Whole Blood 3.9 3.5 - 5.0 mmol/L CERNER MD LLENNIUM Comment: Please note: Patients with WBC >100,000 may have falsely elevated Potassium levels. Contact the Clinical Chemistry L aboratory if there are any questions. ICa Whole Blood 1.11 (L) 1.15 - 1.33 mmol/L CERNE R MILLENNIUM Comment: Note: ??Total bilirubin higher than 20 m g/dL may lead to falsely low ionized calcium. CL Whole Blood 108 (H) 98 - 107 mmol/L CERNER MD LLENNIUM Gluc Whole Bld 150 60 - 199 mg/dL CERNER MIL LENNIUM Comment: Diabetes: >=200 mg/dL plus symp toms. FIO2 Art 40 % CERNER MILLENNIUM PF Ratio Art 435 CERNER MILLENNIUM Specimen Anatomical Collection Method Collection Time Receive d Time (Source) Location / / Volume Laterality Blood specimen 03/29/2014 2:25 PM 014 2:25 (specimen) EDT PM EDT Pa Morejon MD CHEMISTRY ORDERABLES Performing Organization Address City/State/ZIP [place] [address] CERNER MILLENNIUM (ABNORMAL) BLOOD GAS 2 ARTERIAL (03/29/2014 11:39 AM EDT) Analysis Performed At Patho logist Time Signature pH Art 7.41 7.35 - CERNER 7.45 MILLENNIUM pCO2 Art 36 35 - 45 CERNER mmHg MILLENNIUM pO2 Art 568 (H) 85 - 104 CERNER mmHg MILLENNIUM HCO3 Art 22.5 20.0 - CERNER 26.0 MILLENNIUM mmol/L BE Art -2.1 -3.0 - 3.0 CERNER mmol/L MILLENNIUM Hgb Blood Gas 12.9 (L) 13.7 - CERNER 17.5 gm/dL MILLENNIUM O2HB Art 99.1 (H) 94.0 - CERNER 97.0 % MILLENNIUM COHB Art 0.1 % CERNER MILLENNIUM Comment: Nonsmokers: 0.5-1.5% COHB Smokers: Variable, but usually less than 10% Toxic: 20-30% COHB Lethal: Greater than 60% COHB METHB Art 0.4 <=1.5 % CERNER MILLENNIUM Na Whole Blood 136 135 - 145 mmol/L CERNER M ILLENNIUM K Whole Blood 4.0 3.5 - 5.0 mmol/L CERNER MD LLENNIUM Comment: Please note: Patients with WBC >100,000 may have falsely elevated Potassium levels. Contact the Clinical Chemistry L aboratory if there are any questions. ICa Whole Blood 1.09 (L) 1.15 - 1.33 mmol/L CERNE R MILLENNIUM Comment: Note: ??Total bilirubin higher than 20 m g/dL may lead to falsely low ionized calcium. CL Whole Blood 108 (H) 98 - 107 mmol/L CERNER MD LLENNIUM Gluc Whole Bld 130 60 - 199 mg/dL CERNER MIL LENNIUM Comment: Diabetes: >=200 mg/dL plus symp toms. FIO2 Art 100 % CERNER MILLENNIUM PF Ratio Art 568 CERNER MILLENNIUM Temp Art 35.6 Celsius [facility] MILLEN[facility] Specimen Anatomical Collection Method Collection Time Receive d Time (Source) Location / / Volume Laterality Blood specimen 03/29/2014 11:39 4 (specimen) AM EDT 11:39 AM EDT Pa Morejon MD CHEMISTRY ORDERABLES Performing Organization Address City/State/[place] [address] [facility] [employer]IUM EKG 12 Lead (03/29/2014 11:23 AM EDT) Component Value Ref Range Test Analysis Performed Pathologis t Method Time At Signature Ventricular rate 55 BPM MUSE SYSTEM Atrial Rate 55 BPM MUSE SYSTEM P-R Interval 152 ms MUSE SYSTEM QRS Duration 128 ms MUSE SYSTEM Q-T Interval 456 ms MUSE SYSTEM QTC Calculated 436 ms MUSE SYSTEM (Bezet) Calculated P [place] 73 degrees MUSE SYSTEM Calculated R [place] 90 degrees MUSE SYSTEM Calculated T [place] 62 degrees MUSE SYSTEM INTERPRETATION Sinus bradycardia MUSE SY STEM Right bundle branch block Abnormal ECG When compared with ECG of 05-MAR-2014 15:54, No significant change was found Confirmed by MD ROD, BECCA ([id number]) on 03/29/2014 1:28:35 PM Specimen Anatomical Collection Method Collection Time Receive d Time (Source) Location / / Volume Laterality 03/29/2014 11:23 03/29/2014 1:28 AM EDT PM EDT Pa Morejon MD ECG ORDERABLES Performing Organization Address City/State/ZIP Code Phon e Number MUSE SYSTEM XR chest PA or AP- 1 view (03/29/2014 11:18 AM EDT) Anatomical Region Laterality Modality Chest N/A Radiographic Imaging Specimen (Source) Anatomical Collection Method Collection Time Re ceived Time Location / / Volume Laterality 03/29/2014 11:18 AM EDT Narrative 03/29/2014 11:24 AM EDT Examination CHEST ONE VIEW/XPORT Clinical History ETT, [place] placement *tn Comparison None Technique Portable AP chest radiograph on 03/29/20 14 at 1115 hours. Findings Endotracheal tube is 5 cm above the emilia na. ??Right IJ central venous line tip at the cavoatrial junction. ??There appe ar to be 2 subxiphoid drains, 1 of which appears to extend beyond the superior ma rgin of this radiograph, above the medial ends of the clavicles, by the tho racic inlet. ??The trajectory does not appear to be that of a nasogastric tube. Lung apices are excluded from the radiog raphic field of view, allowing for this, no pneumothorax is identified. No pleural effusion is seen. Unchanged cardiomediastinal silhouette, laura, and vasculature. ??Mediastinal surgical clips and intact median sternotomy wires , consistent with coronary bypass grafting. ?? Impression No pneumothorax seen, allowing for tiny amount of lung apices excluded from the radiographic field of view. Catheter that does not appear to be a na sogastric tube, but rather a subxiphoid drain that extends above the superior ma rgin of this radiograph by the thoracic inlet, thus the tip position is indeterm inate. Procedure Note Mariela Carpio MD - 03/29/2014Formatt ing of this note might be different from the original. Examination CHEST ONE VIEW/XPORT Clinical History ETT, [place] placement *tn Comparison None Technique Portable AP chest radiograph on 03/29/20 14 at 1115 hours. Findings Endotracheal tube is 5 cm above the emilia na. Right IJ central venous line tip at the cavoatrial junction. There appear to be 2 subxiphoid drains, 1 of which appears to extend beyond the superior ma rgin of this radiograph, above the medial ends of the clavicles, by the tho racic inlet. The trajectory does not appear to be that of a nasogastric tube. Lung apices are excluded from the radiog raphic field of view, allowing for this, no pneumothorax is identified. No pleural effusion is seen. Unchanged cardiomediastinal silhouette, laura, and vasculature. Mediastinal surgical clips and intact median sternotomy wires , consistent with coronary bypass grafting. Impression No pneumothorax seen, allowing for tiny amount of lung apices excluded from the radiographic field of view. Catheter that does not appear to be a na sogastric tube, but rather a subxiphoid drain that extends above the superior ma rgin of this radiograph by the thoracic inlet, thus the tip position is indeterm inate. Pa Morejon MD IMG DX ORDERABLES Prepare Platelets, Apheresis (03/29/2014 10:20 AM EDT) P athologist Signature Dispensed? Yes CERNER MILLENNIUM Specimen Anatomical Collection Method Collection Time Receive d Time (Source) Location / / Volume Laterality Blood specimen 03/29/2014 10:20 4 (specimen) AM EDT 10:17 AM EDT Pa Morejon MD BLOOD BANK ORDERABLES Performing Organization Address City/[facility]/[place] [address] CERNER MILLENNIUM Thrombin time (03/29/2014 9:58 AM EDT) P athologist Signature Thrombin Time 19 15 - 20 CERNER sec MILLENNIUM Specimen Anatomical Collection Method Collection Time Receive d Time (Source) Location / / Volume Laterality Blood specimen 03/29/2014 9:58 AM 014 9:59 (specimen) EDT AM EDT Resulting Agency Comment Spec In Lab Pa Morejon MD HEMATOLOGY ORDERABLES Performing Organization Address City/[facility]/[place] [address] CERNER MILLENNIUM (ABNORMAL) Fibrinogen (03/29/2014 9:58 AM EDT) P athologist Signature Fibrinogen 159 (L) 175 - 450 CERNER mg/dL MILLENNIUM Comment: Called by: CEDRIC, Read back by: Violette Ramirez, Date/Time:03/29/14 10:25. Specimen Anatomical Collection Method Collection Time Receive d Time (Source) Location / / Volume Laterality Blood specimen 03/29/2014 9:58 AM 014 9:59 (specimen) EDT AM EDT Resulting Agency Comment Spec In Lab Pa Morejon MD HEMATOLOGY ORDERABLES Performing Organization Address City/[facility]/ZIP [facility] [place] [address] CERNER MILLENNIUM (ABNORMAL) APTT (03/29/2014 9:58 AM EDT) P athologist Signature PTT 39 (H) 25 - 35 sec CERNER MILLENNIUM Comment: Recommended therapeutic PTT range for fu ll dose unfractionated heparin is 80-114 seconds. Specimen Anatomical Collection Method Collection Time Receive d Time (Source) Location / / Volume Laterality Blood specimen 03/29/2014 9:58 AM 014 9:59 (specimen) EDT AM EDT Resulting Agency Comment Spec In Lab Pa Morejon MD HEMATOLOGY ORDERABLES Performing Organization Address [facility] Phon e Number [address] CERNER MILLENNIUM (ABNORMAL) Prothrombin Time (03/29/2014 9:58 AM EDT) P athologist Signature PT 19.8 (H) 12.5 - 15.5 CERNER sec MILLENNIUM Comment: [facility] Transfusion Committee Guidelines: I NR less than 2.0, PTT less than OR equal to 43.5 seconds, or Fibrinogen gre ater than or equal to 100 mg/dl indicate adequate procoagulant activity for hemostasis in patients without underlying bleeding disorders. INR 1.6 (H) 0.9 - 1.1 CERNER MILLENNIUM Specimen Anatomical Collection Method Collection Time Receive d Time (Source) Location / / Volume Laterality Blood specimen 03/29/2014 9:58 AM 014 9:59 (specimen) EDT AM EDT Resulting Agency Comment Spec In Lab Pa Morejon MD HEMATOLOGY ORDERABLES Performing Organization Address [facility] Phon e Number [address] CERNER MILLENNIUM (ABNORMAL) Differential, Automated (03/29/2014 9:58 AM EDT) [facility] Method Time Signature Neutrophils % 79.0 (H) 34.0 - CERNER 71.0 % MILLENNIUM Neutr Abs (ANC) 6.19 1.50 - CERNER 6.30 MILLENNIUM x10(3)/mc L Lymphocytes % 19.2 19.0 - CERNER 53.0 % MILLENNIUM Lymphocytes Abs 1.5 1.0 - 3.6 CERNER x10(3)/mc MILLENNIUM L Monocytes % 0.5 (L) 4.0 - CERNER 13.0 % MILLENNIUM Monocyte Abs 0.0 (L) 0.2 - 1.0 CERNER x10(3)/mc MILLENNIUM L Eosinophils % 0.9 0.0 - 7.0 CERNER % MILLENNIUM Eosinophils Abs 0.1 0.0 - 0.5 CERNER x10(3)/mc MILLENNIUM L Basophils % 0.3 0.0 - 2.0 CERNER % MILLENNIUM Basophils Abs 0.0 0.0 - 0.2 CERNER x10(3)/mc MILLENNIUM L Immature Gran % 0.10 0.00 - CERNER [...] Location / / Volume Laterality Blood specimen 03/29/2014 9:58 AM 014 9:58 (specimen) EDT AM EDT Resulting Agency Comment Spec In Lab Pa Morejon MD HEMATOLOGY ORDERABLES Performing Organization Address City/State/ZIP Code Phon e Number [place] [phone] CERNER MILLENNIUM (ABNORMAL) Hemogram (03/29/2014 9:58 AM EDT) P athologist Signature WBC 7.8 4.0 - 10.0 CERNER x10(3)/mcL MILLENNIUM RBC 2.73 (L) 4.63 - CERNER 6.08 MILLENNIUM x10(6)/mcL Hemoglobin 8.2 (L) 13.7 - CERNER 17.5 gm/dL MILLENNIUM Hematocrit 23.9 (L) 40.0 - CERNER 51.0 % MILLENNIUM MCV 87.5 79.0 - CERNER 92.0 fL MILLENNIUM MCH 30.0 25.6 - CERNER 32.2 pg MILLENNIUM MCHC 34.3 32.0 - CERNER 36.5 gm/dL MILLENNIUM Platelets 100 (L) 145 - 370 CERNER x10(3)/mcL MILLENNIUM RDWSD 40.2 35.0 - CERNER 46.0 fL MILLENNIUM RDWCV 12.6 10.9 - CERNER 14.4 % MILLENNIUM MPV 10.7 9.0 - 12.0 CERNER fL MILLENNIUM Specimen Anatomical Collection Method Collection Time Receive d Time (Source) Location / / Volume Laterality Blood specimen 03/29/2014 9:58 AM 014 9:58 (specimen) EDT AM EDT Resulting Agency Comment Spec In Lab Pa Morejon MD HEMATOLOGY ORDERABLES Performing Organization Address City/State/ZIP Code Phon e Number [place] [phone]OS[address] CERNER MILLENNIUM (ABNORMAL) BLOOD GAS 2 ARTERIAL (03/29/2014 9:54 AM EDT) Analysis Performed At Patho logist Time Signature pH Art 7.41 7.35 - CERNER 7.45 MILLENNIUM pCO2 Art 40 35 - 45 CERNER mmHg MILLENNIUM pO2 Art 273 (H) 85 - 104 CERNER mmHg MILLENNIUM HCO3 Art 25.1 20.0 - CERNER 26.0 MILLENNIUM mmol/L BE Art 0.5 -3.0 - 3.0 CERNER mmol/L MILLENNIUM Hgb Blood Gas 8.6 (L) 13.7 - CERNER 17.5 gm/dL MILLENNIUM O2HB Art 98.3 (H) 94.0 - CERNER 97.0 % MILLENNIUM COHB Art 0.6 % CERNER MILLENNIUM Comment: Nonsmokers: 0.5-1.5% COHB Smokers: Variable, but usually less than 10% Toxic: 20-30% COHB Lethal: Greater than 60% COHB METHB Art 0.4 <=1.5 % CERNER MILLENNIUM Na Whole Blood 126 (L) 135 - 145 mmol/L CERNER M ILLENNIUM K Whole Blood 5.4 (H) 3.5 - 5.0 mmol/L CERNER MD LLENNIUM Comment: Please note: Patients with WBC >100,000 may have falsely elevated Potassium levels. Contact the Clinical Chemistry L aboratory if there are any questions. ICa Whole Blood 1.08 (L) 1.15 - 1.33 mmol/L [facility] Comment: Note: ??Total bilirubin higher than 20 m g/dL may lead to falsely low ionized calcium. CL Whole Blood 101 98 - 107 mmol/L [facility] LLENNIUM Gluc Whole Bld 190 60 - 199 mg/dL [facility] LENNIUM Comment: Diabetes: >=200 mg/dL plus symp toms. Specimen Anatomical Collection Method Collection Time Receive d Time (Source) Location / / Volume Laterality Blood specimen 03/29/2014 9:54 AM 014 9:54 (specimen) EDT AM EDT Pa Morejon MD CHEMISTRY ORDERABLES Performing Organization Address City/[facility]/ZIP Code Phon e Number [address] [facility] (ABNORMAL) Fibrinogen (03/29/2014 9:29 AM EDT) P athologist Signature Fibrinogen 165 (L) 175 - 450 CERNER mg/dL [facility] Comment: Called by: CEDRIC, Read back by: Violette Ramirez, Date/Time:03/29/14 09:47. Specimen Anatomical Collection Method Collection Time Receive d Time (Source) Location / / Volume Laterality Blood specimen 03/29/2014 9:29 AM 014 9:30 (specimen) EDT AM EDT Resulting Agency Comment Spec In Lab Pa Morejon MD HEMATOLOGY ORDERABLES Performing Organization Address City/[facility]/ZIP Code Phon e Number [address] [facility] (ABNORMAL) Platelet count (03/29/2014 9:29 AM EDT) P athologist Signature Platelets 119 (L) 145 - 370 CERNER x10(3)/mcL [facility] Specimen Anatomical Collection Method Collection Time Receive d Time (Source) Location / / Volume Laterality Blood specimen 03/29/2014 9:29 AM 014 9:29 (specimen) EDT AM EDT Resulting Agency Comment Spec In Lab Pa Morejon MD HEMATOLOGY ORDERABLES Performing Organization Address City/[facility]/ZIP Code Phon e Number [address] [facility] Hematocrit (03/29/2014 9:29 AM EDT) athologist Signature Hematocrit 25.2 (L) 40.0 - CERNER 51.0 % MILLENNIUM Specimen Anatomical Collection Method Collection Time Receive d Time (Source) Location / / Volume Laterality Blood specimen 03/29/2014 9:29 AM 014 9:29 (specimen) EDT AM EDT Resulting Agency Comment Spec In Lab Pa Morejon MD HEMATOLOGY ORDERABLES Performing Organization Address City/State/ZIP Code Phon e Number [address] CERNER MILLENNIUM (ABNORMAL) Hemoglobin (03/29/2014 9:29 AM EDT) athologist Signature Hemoglobin 8.6 (L) 13.7 - 17.5 CERNER gm/dL MILLENNIUM Specimen Anatomical Collection Method Collection Time Receive d Time (Source) Location / / Volume Laterality Blood specimen 03/29/2014 9:29 AM 014 9:29 (specimen) EDT AM EDT Resulting Agency Comment Spec In Lab Pa Morejon MD HEMATOLOGY ORDERABLES Performing Organization Address City/[facility]/ZIP Code Phon e Number [address] CERNER MILLENNIUM (ABNORMAL) BLOOD GAS 2 ARTERIAL (03/29/2014 9:21 AM EDT) Analysis Performed At Patho logist Time Signature pH Art 7.34 (L) 7.35 - CERNER 7.45 MILLENNIUM pCO2 Art 49 (H) 35 - 45 CERNER mmHg MILLENNIUM pO2 Art 246 (H) 85 - 104 CERNER mmHg MILLENNIUM HCO3 Art 26.0 20.0 - CERNER 26.0 MILLENNIUM mmol/L BE Art 0.3 -3.0 - 3.0 CERNER mmol/L MILLENNIUM Hgb Blood Gas 9.3 (L) 13.7 - CERNER 17.5 gm/dL MILLENNIUM O2HB Art 98.4 (H) 94.0 - CERNER 97.0 % MILLENNIUM COHB Art 0.5 % CERNER MILLENNIUM Comment: Nonsmokers: 0.5-1.5% COHB Smokers: Variable, but usually less than 10% Toxic: 20-30% COHB Lethal: Greater than 60% COHB METHB Art 0.4 <=1.5 % CERNER MILLENNIUM Na Whole Blood 128 (L) 135 - 145 mmol/L [facility] M ILLEN[facility]UM K Whole Blood 5.7 (H) 3.5 - 5.0 mmol/L [facility] LLENNIUM Comment: Please note: Patients with WBC >100,000 may have falsely elevated Potassium levels. Contact the Clinical Chemistry L aboratory if there are any questions. ICa Whole Blood 0.75 (Critical) 1.15 - 1.33 mmol/L [facility] MILLENNIUM Comment: Note: ??Total bilirubin higher than 20 m g/dL may lead to falsely low ionized calcium. CL Whole Blood 98 98 - 107 mmol/L [facility] LLENNIUM Gluc Whole Bld 203 (H) 60 - 199 mg/dL [facility] MIL LENNIUM Comment: Diabetes: >=200 mg/dL plus symp toms. Specimen Anatomical Collection Method Collection Time Receive d Time (Source) Location / / Volume Laterality Blood specimen 03/29/2014 9:21 AM 014 9:21 (specimen) EDT AM EDT Pa Morejon MD CHEMISTRY ORDERABLES Performing Organization Address City/State/ZIP Code Phon e Number [place] [phone] CERNER MILLENNIUM (ABNORMAL) BLOOD GAS 2 ARTERIAL (03/29/2014 8:12 AM EDT) Analysis Performed At Patho logist Time Signature pH Art 7.47 (H) 7.35 - CERNER 7.45 MILLENNIUM pCO2 Art 37 35 - 45 CERNER mmHg MILLENNIUM pO2 Art 401 (H) 85 - 104 CERNER mmHg MILLENNIUM HCO3 Art 26.5 (H) 20.0 - CERNER 26.0 MILLENNIUM mmol/L BE Art 2.9 -3.0 - 3.0 CERNER mmol/L MILLENNIUM Hgb Blood Gas 13.8 13.7 - CERNER 17.5 gm/dL MILLENNIUM O2HB Art 98.5 (H) 94.0 - CERNER 97.0 % MILLENNIUM COHB Art 0.8 % CERNER MILLENNIUM Comment: Nonsmokers: 0.5-1.5% COHB Smokers: Variable, but usually less than 10% Toxic: 20-30% COHB Lethal: Greater than 60% COHB METHB Art 0.4 <=1.5 % CERNER MILLENNIUM Na Whole Blood 138 135 - 145 mmol/L CERNER M ILLENNIUM K Whole Blood 3.8 3.5 - 5.0 mmol/L CERNER MD LLENNIUM Comment: Please note: Patients with WBC >100,000 may have falsely elevated Potassium levels. Contact the Clinical Chemistry L aboratory if there are any questions. ICa Whole Blood 1.12 (L) 1.15 - 1.33 mmol/L CERNE R MILLENNIUM Comment: Note: ??Total bilirubin higher than 20 m g/dL may lead to falsely low ionized calcium. CL Whole Blood 106 98 - 107 mmol/L CERNER MD LLENNIUM Gluc Whole Bld 89 60 - 199 mg/dL CERNER MIL LENNIUM Comment: Diabetes: >=200 mg/dL plus symp toms. Specimen Anatomical Collection Method Collection Time Receive d Time (Source) Location / / Volume Laterality Blood specimen 03/29/2014 8:12 AM 014 8:12 (specimen) EDT AM EDT Pa Morejon MD CHEMISTRY ORDERABLES Performing Organization Address City/[facility] [place] [address] CERNER MILLENNIUM Prepare RBC (03/29/2014 6:40 AM EDT) athologist Signature Dispensed? 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 bypass status documented in this encounter Administered Medications Inactive Administered Medications - up to 3 most recent administrations Medication Order MAR Action Action Date Dose Rate Site acetaminophen (TYLENOL) tablet Given 04/02/2014 5:58 AM EDT 1,00 0 mg 1,000 mg 1,000 mg, Oral, EVERY 6 HOURS SCHEDULED, First dose on Lindsey 03/29/14 at 1800, Until Discontinued, For pain when taking by mouth , Routine Given 04/02/2014 12:09 AM EDT 1,000 mg Given 04/01/2014 5:48 PM EDT 1,000 mg aspirin chewable tablet 81 mg Given 04/03/2014 9:09 AM EDT 81 mg 81 mg, Oral, DAILY, First dose on Wed03/30/14 at 0900, Until Discontinued, Start on post-op day 1 in the AM., Routine Given 04/02/2014 9:17 AM EDT 81 mg Given 04/01/2014 8:12 AM EDT 81 mg atorvastatin (LIPITOR) tablet 80 mg Given 04/02/2014 4:20 PM EDT 80 mg 80 mg, Oral, EVERY EVENING, First dose on Lindsey 03/29/14 at 1700, Until Discontinued, Routine Given 04/01/2014 5:49 PM EDT 80 mg Given 03/31/2014 6:19 PM EDT 80 mg bisacodyl (DULCOLAX) suppository 10 mg Given 04/02/2014 9:59 AM EDT 10 mg 10 mg, Rectal, DAILY PRN, Starting on Wed04/01/14 at 0000, Until Wed04/03/14 at 1343, Constipation, Starting post-op day 3., Routine calcium carbonate (TUMS) chewable tablet Given 03/30/2014 9:09 P M EDT 1,000 mg 1,000 mg 1,000 mg, Oral, ONCE, 1 dose, On Wed03/30/14 at 2115, STAT calcium carbonate (TUMS) chewable tablet Given 03/31/2014 12 :01 PM EDT 1,000 mg 1,000 mg 1,000 mg, Oral, EVERY 6 HOURS, First dose on 03/31/14 at 1000, Until Discontinued, Routine ceFURoxime (ZINACEF) 750mg vial Given 03/30/2014 9:10 AM EDT 750 mg 200 mL/hr attach to sodium chloride 0.9% 100 mL Mini-Bag Plus 750 mg, Intravenous, EVERY 8 HOURS, 3 doses, First dose on Lindsey 03/29/14 at 1730, Last dose on Wed03/30/14 at 0930, Administer over 30 Minutes, Attach to 100 mL sodium Chloride Mini-bag Plus. Give first dose at 8 hours after dose in operating room., Indication for (Active or Suspected): Prophylaxis Given 03/30/2014 1:30 AM EDT 750 mg 200 mL/hr Given 03/29/2014 5:08 PM EDT 750 mg 200 mL/hr chlorhexidine (PERIDEX) 0.12 % oral solution Given 9:00 PM EDT 15 mLs 15 mL 15 mL, Oral, EVERY 12 HOURS SCHEDULED (2 times per day), First dose on Lindsey 03/29/14 at 1200, Until Discontinued, Mcfaddin teeth., Routine Given 04/01/2014 9:00 AM EDT 15 mLs Given 03/30/2014 8:31 PM EDT 15 mLs esomeprazole (NexIUM) capsule 40 mg Given 04/03/2014 9:09 AM EDT 40 mg 40 mg, Oral, DAILY, First dose on [place] 03/29/14 at 1200, Until Discontinued, If unable to take PO, may give IV, Routine Given 04/02/2014 9:21 AM EDT 40 mg Given 04/01/2014 8:12 AM EDT 40 mg fentaNYL 50 mcg/mL infusion New Bag 03/30/2014 3:07 AM EDT 25 mcg/hr 0.5 mL/hr 0-100 mcg/hr (rounded to 0-2 mL/hr), Intravenous, CONTINUOUS, Starting on Lindsey 03/29/14 at 1115, Until Wed03/30/14 at 0849, Titrate to patient comfort. Dose not to exceed 100 mcg/hour Rate/Dose Verify 03/29/2014 10:00 PM EDT 50 mcg/hr 1 mL/hr Rate/Dose Verify 03/29/2014 8:00 PM EDT 50 mcg/hr 1 mL/hr furosemide (LASIX) injection 20 mg Given 04/02/2014 4:20 PM EDT 20 mg 20 mg, Intravenous, 2 TIMES DAILY, First dose on Wed03/30/14 at 1230, Until Discontinued Given 04/02/2014 9:19 AM EDT 20 mg Given 04/01/2014 5:49 PM EDT 20 mg lactated ringers infusion 1,000 New Bag 03/29/2014 7:20 AM EDT 1,000 mLs 100 mL/hr mL 1,000 mL, at 100 mL/hr, Intravenous, CONTINUOUS, Starting on Lindsey 03/29/14 at 0730, Until [place] 03/29/14 at 1059, Day of Surgery (Day of Procedure) LORazepam (ATIVAN) injection 0.5 mg Given 03/31/2014 10:18 AM EDT 0.5 mg 0.5 mg, Intravenous, ONCE, 1 dose, On 03/31/14 at 1000, Routine LORazepam (ATIVAN) injection 0.5 mg Given 03/31/2014 10:00 PM EDT 0.5 mg 0.5 mg, Intravenous, ONCE, 1 dose, On 03/31/14 at 2200, Routine LORazepam (ATIVAN) injection 0.5 mg Given 04/01/2014 10:30 AM EDT 0.5 mg 0.5 mg, Intravenous, ONCE, 1 dose, On 04/01/14 at 1030, Routine magnesium hydroxide (MILK OF MAGNESIA) oral Given 04/02/2014 9:18 AM EDT 10 mLs suspension 10 mL 10 mL, Oral, DAILY, First dose on 03/31/14 at 0900, Until Discontinued, Post-op day 2. Do not use with renal insufficiency., Routine Given 04/01/2014 8:12 AM EDT 10 mLs Given 03/31/2014 8:48 AM EDT 10 mLs metoprolol tartrate (LOPRESSOR) tablet 2 5 mg Given 04/03/2014 9:09 AM EDT 25 mg 25 mg, Oral, 2 TIMES DAILY, First dose on Wed03/30/14 at 1230, Until Discontinued, Routine Given 04/02/2014 8:42 PM EDT 25 mg Given 04/02/2014 9:18 AM EDT 25 mg nitroGLYcerin 50 mg in Rate/Dose Verify 03/29/2014 6:00 PM 50 mcg/min 15 mL/hr dextrose 5% 250 mL EDT infusion 0-200 mcg/min (rounded to 0-60 mL/hr), Intravenous, CONTINUOUS, Starting on [place] 03/29/14 at 1115, Until Wed03/30/14 at 0925, Titrate to keep systolic blood pressure less than 120 mmHg. Dose not to exceed 200 mcg/minute., Routine Rate/Dose Change 03/29/2014 5:00 PM EDT 50 mcg/min 15 mL/hr Rate/Dose Verify 03/29/2014 4:00 PM EDT 75 mcg/min 22.5 mL/hr ondansetron (ZOFRAN) injection 4 mg Given 04/02/2014 4:22 PM EDT 4 mg 4 mg, Intravenous, EVERY 8 HOURS PRN, Starting on Lindsey 03/29/14 at 1059, Until Wed04/03/14 at 1343, Nausea Given 03/31/2014 8:41 PM EDT 4 mg Given 03/30/2014 6:38 PM EDT 4 mg oxyCODONE (ROXICODONE) immediate release Given 03/30/2014 10:48 AM EDT 10 mg tablet 5-10 mg 5-10 mg, Oral, EVERY 4 HOURS PRN, Starting on Lindsey 03/29/14 at 1059, Until Wed04/03/14 at 1343, Pain, For pain when taking by mouth., Routine Given 03/30/2014 7:56 AM EDT 10 mg Given 03/30/2014 3:04 AM EDT 10 mg potassium chloride (K-DUR/KLOR-CON) extended Given 9:00 AM EDT 20 mEq release tablet 20 mEq 20 mEq, Oral, 2 TIMES DAILY, First dose on Wed04/02/14 at 1100, Until Discontinued, 20 mEq tablet may be dissolved in water for administration, Routine Given 04/02/2014 8:42 PM EDT 20 mEq Given 04/02/2014 4:14 PM EDT 20 mEq potassium chloride (K-DUR/KLOR-CON) extended Given 11:45 AM EDT 40 mEq release tablet 40 mEq 40 mEq, Oral, ONCE, 1 dose, On Wed04/02/14 at 1045, Routine propofol (DIPRIVAN) New Bag 03/29/2014 11:23 AM EDT 50 mcg/kg/min 22.1 mL/hr infusion 0-50 mcg/kg/min ? 73.5 kg (rounded to 0-22.1 mL/hr), Intravenous, CONTINUOUS, Starting on Lindsey 03/29/14 at 1115, Until Wed03/30/14 at 0849, Titrate to sedation level of RASS -1. Dose not to exceed 50 mcg/kg/minute. Discontinue upon extubation., Routine Rate/Dose Verify 03/29/2014 11:21 AM EDT 50 mcg/kg/min 22.1 mL/hr senna-docusate (PERICOLACE) 8.6-50 mg per Given 2013 8:42 PM EDT 2 tablets tablet 2 tablet 2 tablet, Oral, DAILY, First dose on Wed03/30/14 at 2100, Until Discontinued, Post-op day 1, Routine Given 04/01/2014 9:24 PM EDT 2 tablets Given 03/31/2014 9:09 PM EDT 2 tablets sodium chloride 0.9% Rate/Dose Verify 03/29/2014 6:00 PM 150 mL/hr 1 50 mL/hr infusion EDT 0-500 mL/hr, Intravenous, CONTINUOUS, Starting on [place] 03/29/14 at 1115, Until Wed03/30/14 at 0849, As needed for volume replacement to maintain cardiac index greater than or equal to 2.0 L/min/M2. Call warehouse order puller for additional fluid orders: pager #[phone]. Rate/Dose Verify 03/29/2014 5:00 PM EDT 150 mL/hr 150 mL/hr Rate/Dose Verify 03/29/2014 4:00 PM EDT 150 mL/hr 150 mL/hr sodium chloride 0.9% Rate/Dose Verify 03/30/2014 10:00 AM 30 mL/hr 30 mL/hr infusion EDT 10-30 mL/hr, Intravenous, DAILY PRN, Starting on Lindsey 03/29/14 at 1059, Until 03/31/14 at 1058, Side port TKO rate Rate/Dose Verify 03/30/2014 8:00 AM EDT 30 mL/hr 30 mL/hr Rate/Dose Verify 03/30/2014 6:00 AM EDT 30 mL/hr 30 mL/hr ticagrelor (BRILINTA) tablet 90 mg Given 04/03/2014 9:10 AM EDT 90 mg 90 mg, Oral, 2 TIMES DAILY, First dose on 04/02/14 at 0900, Until Discontinued, After initial loading dose of aspirin (usually 325 mg), use ticagrelor with daily maintenance dose of aspirin of 81 mg, Routine, After the initial loading dose of aspirin (usually 325 mg), use ticagrelor with a daily maintenance dose of aspirin 81 mg. Is this patient on 81 mg of aspirin? Yes Given 04/02/2014 4:18 PM EDT 90 mg documented in this encounter Active and Recently Administered Medications Times are shown in EDT. Scheduled Medication Order 04/01/2014 04/02/2014 04/03/2014 acetaminophen (TYLENOL) tablet 1,000 mg 0521 (Given - Provider: Kd Henriquez RN)1200 (Not Given - Provider: Laurent Doyle RN - Reason: See comment - Comment: napping)1748 (Given - Provider: Sariah Sapp RN) 0009 (Given - Provider: Karol Anderson RN)0558 (Given - Provider: Karol Anderson RN)1200 (Not Given - Provider: Fawn Valdez RN - Reason: Patient/family refused - Comment: pt states not needed) 0000 (Not Given - Provider: Chandni Lovelace RN - Reason: Patient/family refused)0600 (Not Given - Provider: Chandni Lovelace RN - Reason: Patient/family refused) 1,000 mg, Oral, EVERY 6 HOURS SCHEDULED, First dose on Wed03/29/14 at 1800, Until Discontinued, For pain when taking by mouth , Routine 1800 (Not Given - Provider: Fawn Valdez RN - Reason: Patient/family refused) aspirin chewable tablet 81 mg (CANCELED) 0812 (Given - Provider: Laurent Doyle RN) 0917 (Given - Provider: Fawn Valdez RN) 0909 (Given - Provider: Lloyd Agarwal RN) 81 mg, Oral, DAILY, First dose on Wed at 0900, Until Discontinued, Start on post-op day 1 in the AM., Routine atorvastatin (LIPITOR) tablet 80 mg (CANCELED) 1749 (Sabina garciaen - Provider: Sariah Sapp, ANDERS) 1620 (Given - Provider: Fawn Valdez RN) 80 mg, Oral, EVERY EVENING, First dose o n [place] 03/29/14 at 1700, Until Discontinued, Routine chlorhexidine (PERIDEX) 0.12 % oral solution 15 mL (CA NCELED) 0900 (Given - Provider: Laurent Doyle RN)2100 (Given - Provider: Sariah Sapp RN) 0900 (Not Given - Provider: Fawn Valdez RN - Reason: Order parameters not met)2100 (Not Given - Provider: Sariah Sapp RN - Reason: Patient/family refused) 15 mL, Oral, EVERY 12 HOURS SCHEDULED (2 times per day), First dose on [place] 03/29/14 at 1200, Until Discontinued, Mcfaddin teeth., Routine esomeprazole (NexIUM) capsule 40 mg (CANCELED) 0812 (G iven - Provider: Laurent Doyle RN) 0921 (Given - Provider: Fawn Valdez RN) 0909 (Given - Provider: Lloyd Agarwal RN) 40 mg, Oral, DAILY, First dose on Lindsey at 1200, Until Discontinued, If unable to take PO, may give IV, Routine furosemide (LASIX) injection 20 mg (CANCELED) 0812 (Gi tasha - Provider: Laurent Doyle RN)1749 (Given - Provider: Sariah Sapp RN) 0919 (Given - Provider: Fawn Valdez RN)1620 (Given - Provider: Fawn Valdez RN) 20 mg, Intravenous, 2 TIMES DAILY, First dose on 03/30/14 at 1230, Until Discontinued, Routine LORazepam (ATIVAN) injection 0.5 mg (COMPLETED) 1030 ( Given - Provider: Laurent Doyle RN) 0.5 mg, Intravenous, ONCE, 1 dose, 04/01/14 at 1030, Routine magnesium hydroxide (MILK OF MAGNESIA) oral suspension 10 mL (CANCELED) 0812 (Given - Provider: Laurent Doyle RN) 0918 (Given - Provider: Fawn Valdez RN) 0900 (Not Given - Provider: Lloyd hart RN - Reason: Patient/family refused) 10 mL, Oral, DAILY, First dose on Wed at 0900, Until Discontinued, Post- op day 2. Do not use with renal insufficiency., Routine metoprolol tartrate (LOPRESSOR) tablet 25 mg (CANCELED ) 08 (Given - Provider: Laurent Doyle RN)2123 (Given - Provider: Sariah Sapp RN) 917 (Given - Provider: Fawn Valdez RN)2041 (Given - Provider: Sariah Sapp RN) 0909 (Given - Provider: Lloyd Agarwal, ANDERS) 25 mg, Oral, 2 TIMES DAILY, First dose o n Wed03/30/14 at 1230, Until Discontinued, Routine potassium chloride (K-DUR/KLOR-CON) extended release tablet 20 mEq (CANCELED) 1613 (Given - Provider: Fawn Valdez RN)2041 (Given - Provider: Sariah Sapp RN) 0900 (Given - Provider: Lloyd Agarwal RN) 20 mEq, Oral, 2 TIMES DAILY, First dose on Wed04/02/14 at 1100, Until Discontinued, 20 mEq tablet may be dissolved in water for administration, Routine potassium chloride (K-DUR/KLOR-CON) extended release tablet 40 mEq (COMPLETED) 1145 (Given - Provider: Fawn Valdez RN) 40 mEq, Oral, ONCE, 1 dose, Wed04/02/14 at 1045, Routine senna-docusate (PERICOLACE) 8.6-50 mg per tablet 2 tab let 2123 (Given - Provider: Sariah Sapp RN) 2041 (Given - Provider: Sariah Sapp RN) 2 tablet, Oral, DAILY, First dose on Wed03/30/14 at 2100, Until Discontinued, Post-op day 1, Routine ticagrelor (BRILINTA) tablet 90 mg (CANCELED) 0900 (Not Given - Provider: Fawn Valdez RN - Reason: Medication not available - Comment: updated)161 (Given - Provider: Fawn Valdez RN)2099 (Not Given - Provider: Sariah Sapp RN - Reason: Contraindicated) 0910 (Given - Provider: Lloyd Agarwal RN) 90 mg, Oral, 2 TIMES DAILY, First dose o n Wed04/02/14 at 0900, Until Discontinued, After initial loading dose of aspirin (usually 325 mg), use ticagrelor with daily maintenance dose of aspirin of 81 mg, Routine PRN Medication Order 04/01/2014 04/02/2014 04/03/2014 bisacodyl (DULCOLAX) suppository 10 mg (CANCELED) 0959 (Given - Provider: Fawn Valdez, RN) 10 mg, Rectal, DAILY PRN, Starting Sun at 0000, Until Tu04/03/14 at 1343, Constipation, Starting post-op day 3., Routine ondansetron (ZOFRAN) injection 4 mg (CANCELED) 1622 (Given - Provider: Fawn Valdez, ANDERS - Comment: nausea when taking pills) 4 mg, Intravenous, EVERY 8 HOURS PRN, [facility] 03/29/14 at 1059, Until Wed04/03/14 at 1343, Nausea, Routine oxyCODONE (ROXICODONE) immediate release tablet 5-10 mg 5-10 mg, Oral, EVERY 4 HOURS [facility], [facility] 03/[facility]14 at 1059, Until Wed04/03/14 at 1343, Pain, For pain when taking by mouth., Routine documented in this encounter Care Teams Non Morse Intercept Technician Relationship Specialty Start Date End Date Rupert Russell Jr., MD PCP - General 06/03/10 07/21/17 [facility] [place] [address] documented as of this encounter
--- OUTSIDE RECORDS SUMMARY | 2022-05-21 09:03 | XMS_ITS | Encounter Summary ---
:1950 Author Organization [facility] [place] [address] Care Team Providers Name Role Phone Yvonne Nolen MD, Rupert Bhatti Primary Care Provider Encounter Details Date Type Department Care Team Description 03/05/2014 Clinical Support Same Day at [facility] [place] (coronary artery [facility] disease) [place] [address] Social History Tobacco Use Types Packs/Day [...] on file documented as of this encounter Progress Notes Collins Mckeon RN - 03/05/2014 3:34 PM EDT PAT questionnaire reviewed with patient and while in Pre Admission testing. Patient had a coronary stent placed in January 2014. Pre-operative instruction booklet reviewed with patient. Reviewed importance of pain control and cough and deep breathing exercise during the post-operative period. Instructed patient on use of Hibiclens soap to shower with the night before surgery or the morning of surgery. Pt verbalizes good understanding of all information reviewed. PLAN Testing: Blood work, EKG, and will get a CXR following this appointment. Special medication instructions: Patient was instructed to stop his brilinta on 03-24-14. Procedure date: 9-18-14 documented in this encounter Plan of Treatment Not on filedocumented as of this encounter Procedures Procedure Name Priority Date/Time Associated Diagnosis Comme nts XR CHEST PA AND Routine 03/05/2014 4:12 PM Result s for this LATERAL EDT procedure are i n the results section. EKG 12-LEAD Routine 03/05/2014 3:54 PM CAD (coronary artery R esults for this EDT disease) procedure are i n the results section. documented in this encounter Results XR chest routine PA & lateral (03/05/2014 4:12 PM EDT) Anatomical Region Laterality Modality Chest N/A Radiographic Imaging Specimen (Source) Anatomical Collection Method Collection Time Re ceived Time Location / / Volume Laterality 03/05/2014 4:12 PM EDT Narrative 03/05/2014 4:50 PM EDT Examination CHEST ROUTINE 2 VIEWS Clinical History pre op HEART BYPASS SURGERY PER PATIENT Comparison 12/15/2005. Technique Findings The lungs are clear. ??The cardiomediast inal silhouette and laura appear normal. ?? No pleural effusion or other significant abnormality is seen. Impression No significant abnormality. Procedure Note Jared England MD - 03/05/2014Formatt ing of this note might be different from the original. Examination CHEST ROUTINE 2 VIEWS Clinical History pre op HEART BYPASS SURGERY PER PATIENT Comparison 12/15/2005. Technique Findings The lungs are clear. The cardiomediastin al silhouette and laura appear normal. No pleural effusion or other significant abnormality is seen. Impression No significant abnormality. Pa Morejon MD IMG DX ORDERABLES EKG 12 Lead (03/05/2014 3:54 PM EDT) Component Value Ref Range Test Analysis Performed Pathologis t Method Time At Signature Ventricular rate 49 BPM MUSE SYSTEM Atrial Rate 49 BPM MUSE SYSTEM P-R Interval 156 ms MUSE SYSTEM QRS Duration 134 ms MUSE SYSTEM Q-T Interval 436 ms MUSE SYSTEM QTC Calculated 393 ms MUSE SYSTEM (Bezet) Calculated P [place] 74 degrees MUSE SYSTEM Calculated R [place] 78 degrees MUSE SYSTEM Calculated T [place] 46 degrees MUSE SYSTEM INTERPRETATION Marked sinus bradycardia MUSE SYSTEM Right bundle branch block Abnormal ECG When compared with ECG of 30-JAN-2014 13:36, No significant change was found Confirmed by MD Jayashree, Radha ([id number]) on 03/06/2014 6:4 0:32 PM Specimen Anatomical Collection Method Collection Time Receive d Time (Source) Location / / Volume Laterality 03/05/2014 3:54 PM 4 6:40 EDT PM EDT Pa Morejon MD ECG ORDERABLES Performing Organization Address City/State/ZIP Code Phon e Number MUSE SYSTEM documented in this encounter Visit Diagnoses Diagnosis CAD (coronary artery disease) Coronary atherosclerosis of unspecified type of vessel, [place] or graft documented in this encounter Care Teams Jewelry Cutter Relationship Specialty Start Date End Date Rupert Russell Jr., MD PCP - General 06/03/10 07/21/[address] [facility] [address] [facility] [place] [address] documented as of this encounter
--- OUTSIDE RECORDS SUMMARY | 2022-05-21 09:03 | XMS_ITS | Encounter Summary ---
:1950 Author Organization [facility] Address [address] [facility] [place] [address] Care Team Providers Name Role Phone Yvonne Nolen MD, Rupert Bhatti Primary Care Provider Encounter Details Date Type Department Care Team Description 03/05/2014 Hospital Encounter XRay at [address] [place] [address] Social History Tobacco Use Types Packs/Day [...] Refills Start Date End Date ticagrelor (BRILINTA) Take 1 tablet by mouth 180 tablet 3 90 mg Tablet 2 times daily. Psyllium Seed-Sucrose Take 36 g by mouth 0 Powder daily. atorvastatin (LIPITOR) Take 1 tablet by mouth 90 tablet 4 0 01/30/2014 80 mg tablet every evening. metoprolol tartrate Take 1 tablet by mouth 60 tablet 12 01/09 (LOPRESSOR) 25 mg 2 times daily. tablet nitroGLYcerin Place 1 tablet under 25 tablet 1 01/15/2014 (NITROSTAT) 0.4 mg SL the tongue every 5 tablet minutes as needed for Chest pain. X 3. aspirin 81 mg EC Take 81 mg by mouth 0 tablet daily. acetaminophen Take 2 tablets by 0 04/03/201404/11 (TYLENOL) 500 mg mouth every 6 hours. Tablet oxyCODONE (ROXICODONE) Take 1-2 tablets by 100 tablet 0 03/1304/24/2014 5 mg Tablet mouth every 4 hours as needed for Pain. senna-docusate Take 2 tablets by 0 04/03/2014 (PERICOLACE) 8.6-50 mg mouth daily. Tablet chlorhexidine Apply topically daily 120 mL 0 03/05/2014 03/29/2014 (HIBICLENS) 4 % as needed. Shower from external head to toe with liquidIndications: CAD Chlorhexidine the (coronary artery night before surgery . disease) ticagrelor (BRILINTA) Take 1 tablet by mouth 60 tablet 6 04/03/2014 90 mg Tab tablet 2 times daily. amLODIPine (NORVASC) Take 2.5 mg by mouth 0 04/03/2014 10 mg tablet daily. documented as of this encounter Plan of Treatment Not on filedocumented as of this encounter Visit Diagnoses Not on filedocumented in this encounter Care Teams Sheet Metal Layout Mechanic Relationship Specialty Start Date End Date Rupert Russell Jr., MD PCP - General 06/03/10 07/21/[address] [facility] [address] [facility] [place] [address] documented as of this encounter
--- OUTSIDE RECORDS SUMMARY | 2022-05-21 09:03 | XMS_ITS | Encounter Summary ---
:1950 Author Organization [facility] [place] [address] Care Team Providers Name Role Phone Yvonne Nolen MD, Rupert Bhatti Primary Care Provider Encounter Details Date Type Department Care Team Description 01/29/2014 Hospital Encounter Laboratory Garret Moe Chest pain; [facility] MD [place], [place] CENTER [id number] CARDIOLOGY DEPT [phone] [place] [address] Social History Tobacco Use Types Packs/Day Years [...] Sig Dispensed Refills Start Date End Date atorvastatin (LIPITOR) 80 Take 1 tablet by [...] Take 81 mg by mouth 0 daily. ticagrelor (BRILINTA) 90 Take 1 tablet by 60 tablet 6 01/3004/03/2014 mg Tab tablet mouth 2 times daily. lovastatin (MEVACOR) 10 mg Take 10 mg by mouth 0 01/30/2014 tablet nightly. amLODIPine (NORVASC) 10 mg Take 2.5 mg by 0 04/03/2014 tablet mouth daily. amLODIPine (NORVASC) 5 mg Take 1 tablet by 90 tablet 4 08/1301/30/2014 tablet mouth daily. documented as of this encounter Plan of Treatment Not on filedocumented as of this encounter Procedures Procedure Name Priority Date/Time Associated Comments Diagnosis HEMOGRAM STAT 01/29/2014 8:36 AM Results f or this EDT procedure are i n the results section. DIFFERENTIAL, STAT 01/29/2014 8:36 AM Results for this AUTOMATED EDT procedure are i n the results section. APTT STAT 01/29/2014 8:36 AM Results f or this EDT procedure are i n the results section. PROTHROMBIN TIME STAT 01/29/2014 8:36 AM Resul ts for this EDT procedure are i n the results section. CBC (WITH DIFF) STAT 01/29/2014 8:36 AM EDT BASIC METABOLIC PANEL Routine 01/29/2014 8:36 AM Chest pain Results for this (NON-FASTING) EDT procedure are in the results section. documented in this encounter Results APTT (01/29/2014 8:36 AM EDT) P athologist Signature PTT 32 25 - 35 sec [facility] MILLENNIUM Comment: Recommended therapeutic PTT range for fu ll dose unfractionated heparin is 80-114 seconds. Specimen Anatomical Collection Method Collection Time Receive d Time (Source) Location / / Volume Laterality Blood specimen 01/29/2014 8:36 AM 014 8:42 (specimen) EDT AM EDT Resulting Agency Comment Spec In Lab Elías Zendejas MD HEMATOLOGY ORDERABLES Performing Organization Address City/State/[place] [address] CERNER MILLENNIUM (ABNORMAL) Differential, Automated (01/29/2014 8:36 AM EDT) [facility] Signature Neutrophils % 60.6 34.0 - CERNER 71.0 % MILLENNIUM Neutr Abs (ANC) 5.37 1.50 - CERNER 6.30 MILLENNIUM x10(3)/mcL Lymphocytes % 25.4 19.0 - CERNER 53.0 % MILLENNIUM Lymphocytes Abs 2.2 1.0 - 3.6 CERNER x10(3)/mcL MILLENNIUM Monocytes % 6.9 4.0 - 13.0 CERNER % MILLENNIUM Monocyte Abs 0.6 0.2 - 1.0 CERNER x10(3)/mcL MILLENNIUM Eosinophils % 6.4 0.0 - 7.0 CERNER % MILLENNIUM Eosinophils Abs 0.6 (H) 0.0 - 0.5 CERNER x10(3)/mcL MILLENNIUM Basophils % 0.5 0.0 - 2.0 CERNER % MILLENNIUM Basophils Abs 0.0 0.0 - 0.2 CERNER x10(3)/mcL MILLENNIUM Immature Gran % 0.20 0.00 - CERNER 0.66 % MILLENNIUM Comment: Immature granulocytes(IG's)percentage an d absolute count will include metamyelocytes, myelocytes, and promyelo cytes. Blood smears from CBCs yielding IG's will be scanned manually for concor dance. If this scan disagrees with the automated IG or if promyelocytes are not ed, a manual differential will be performed. Bell Gran Abs 0.02 0.00 - 0.05 x10(3)/mcL CER NER MILLENNIUM Specimen Anatomical Collection Method Collection Time Receive d Time (Source) Location / / Volume Laterality Blood specimen 01/29/2014 8:36 AM 014 8:43 (specimen) EDT AM EDT Resulting Agency Comment Spec In Lab Elías Zendejas MD HEMATOLOGY ORDERABLES Performing Organization Address City/State/[place] [address] CERNER MILLENNIUM Hemogram (01/29/2014 8:36 AM EDT) P athologist Signature WBC 8.9 4.0 - 10.0 CERNER x10(3)/mcL MILLENNIUM RBC 5.35 4.63 - 6.08 CERNER x10(6)/mcL MILLENNIUM Hemoglobin 16.2 13.7 - 17.5 CERNER gm/dL MILLENNIUM Hematocrit 46.4 40.0 - 51.0 CERNER % MILLENNIUM MCV 86.7 79.0 - 92.0 CERNER fL MILLENNIUM MCH 30.3 25.6 - 32.2 CERNER pg MILLENNIUM MCHC 34.9 32.0 - 36.5 CERNER gm/dL MILLENNIUM Platelets 200 145 - 370 CERNER x10(3)/mcL MILLENNIUM RDWSD 38.7 35.0 - 46.0 CERNER fL MILLENNIUM RDWCV 12.2 10.9 - 14.4 CERNER % MILLENNIUM MPV 10.3 9.0 - 12.0 CERNER fL MILLENNIUM Specimen Anatomical Collection Method Collection Time Receive d Time (Source) Location / / Volume Laterality Blood specimen 01/29/2014 8:36 AM 014 8:43 (specimen) EDT AM EDT Resulting Agency Comment Spec In Lab Elías Zendejas MD HEMATOLOGY ORDERABLES Performing Organization Address City/State/ZIP Code Phon e Number [place] [phone] CERNER MILLENNIUM Basic Metabolic Panel (non-fasting) (01/29/2014 8:36 AM EDT) athologist Signature Glucose Lvl 101 60 - 199 CERNER mg/dL MILLENNIUM Comment: Diabetes: >=200 mg/dL plus symp toms BUN 16 10 - 20 mg/dL CERNER MILLENNIU M Creatinine 1.04 0.80 - 1.50 mg/dL CERNER MILL ENNIUM Comment: Please note that the pediatric reference intervals supplied above were not validated at [facility]. Results from pediatri c patients should be interpreted in conjunction to the patient's age, height and muscle mass. Sodium 141 135 - 145 mmol/L CERNER EDWARD NIUM Potassium 5.0 3.5 - 5.0 mmol/L CERNER EDWARD NIUM Comment: Please note: ??Patients with WBC >100,00 0 may have falsely elevated Potassium levels. ??For accurate Potassium quantif ication in these patients send serum separator tube (gold top) for subsequent determinations. ??Contact the Clinical Chemistry Laboratory if there are any qu estions. Chloride 104 98 - 107 mmol/L CERNER MILLENN IUM CO2 30 22 - 31 mmol/L CERNER MILLENNI UM Anion Gap 7 5 - 15 mmol/L CERNER MILLENNIU M Calcium 9.4 8.5 - 10.5 mg/dL CERNER EDWARD NIUM [...] the following links into your internet browser. [email or web address] Specimen Anatomical Collection Method Collection Time Receive d Time (Source) Location / / Volume Laterality Blood specimen 01/29/2014 8:36 AM 014 8:43 (specimen) EDT AM EDT Resulting Agency Comment Spec In Lab Elías Zendejas MD CHEMISTRY ORDERABLES Performing Organization Address City/[facility]/ZIP Code [place] [address] BANNERROSY MICHELLEENNIUM Prothrombin Time (01/29/2014 8:36 AM EDT) P athologist Signature PT 13.2 12.5 - 15.5 [facility] MILLENNIUM Comment: [facility] Transfusion Committee Guidelines: I NR less than 2.0, PTT less than OR equal to 43.5 seconds, or Fibrinogen gre ater than or equal to 100 mg/dl indicate adequate procoagulant activity for hemostasis in patients without underlying bleeding disorders. INR 0.9 0.9 - 1.1 [facility] Specimen Anatomical Collection Method Collection Time Receive d Time (Source) Location / / Volume Laterality Blood specimen 01/29/2014 8:36 AM 014 8:42 (specimen) EDT AM EDT Resulting Agency Comment Spec In Lab Elías Zendejas MD HEMATOLOGY ORDERABLES Performing Organization Address City/State/ZIP Code Phon e Number [place] [address] [facility] documented in this encounter Visit Diagnoses Diagnosis Chest pain Chest pain, unspecified Bundle branch block Bundle branch block, unspecified documented in this encounter Care Teams Cpc Coder Relationship Specialty Start Date End Date Rupert Russell Jr., MD PCP - General 06/03/10 07/21/[address] [facility] [address] [facility] [place] [address] documented as of this encounter
--- OUTSIDE RECORDS SUMMARY | 2022-05-21 09:03 | XMS_ITS | Encounter Summary ---
:1950 Author Organization [facility] [place] [address] Care Team Providers Name Role Phone Yvonne Nolen MD, Rupert Bhatti Primary Care Provider Reason for Referral Rehabilitation (Routine) - Closed Specialty Diagnoses / Procedures Referred By Contact Refer red To Contact Cardiology Diagnoses Chest pain Rhonda Orosco MD [facility] Cardiac Rehab [facility] [place] [address] [place] [address] Referral ID Status Reason Start Date Expiration Date Visits V isits Requested Authorized [id number] Closed Evaluate and 01/30/2014 07/29/2014 1 1 Treat Encounter Details Date Type Department Care Team Description 01/29/2014 - Hospital Encounter Short Stay Unit at Jeffrey Orosco MD Chest pain 01/30/2014 [facility] CARDIOLOGY DE PT. [address] [phone] (Work) [phone] Social History Tobacco Use Types Packs/Day Years [...] Sign Reading Time Taken Comments Blood Pressure 108/68 01/30/2014 11:39 AM EDT Pulse 52 01/30/2014 11:39 AM EDT Temperature 36.9 ??C (98.4 ??F) 01/30/2014 11:39 AM EDT Respiratory Rate 14 01/30/2014 11:39 AM EDT Oxygen Saturation 95% 01/30/2014 11:39 AM EDT Inhaled Oxygen Concentration - - Weight 75.3 kg (166 lb) 01/29/2014 8:50 AM EDT Height 175.3 cm (5' 9) 01/29/2014 8:50 AM EDT Body Mass Index 24.51 01/29/2014 8:50 AM EDT documented in this encounter Discharge Instructions AttachmentsThe following attachments cannot be sent through Care Everywhere. CORONARY ANGIOGRAM : POSTOP (BRAZILIAN)documented in this encounter Medications at Time of [...] mg Tab tablet mouth 2 times daily. amLODIPine (NORVASC) 10 mg Take 2.5 mg by 0 04/03/2014 tablet mouth daily. documented as of this encounter Progress Notes Liv Cotter RN - 01/30/2014 3:10 PM EDT The patient has met discharge criteria per policy. Discharge instruction reviewed and patient discharged to responsible adult. Patient???s pain level has been assessed and patient states that his/her level is tolerable at this time. The After Visit Summary (AVS) and accompanying hand-outs have been reviewed with the patient; the patient verbalizes understanding at this time. Opportunity for clarification provided. All new medications have been reviewed with the patient and the appropriate hand-outs have been given to the patient. Reportable sign and symptoms have been reviewed with patient. Patient did not have further questions or concerns for CRC regarding new medications. Feels comfortable with insurance coverage. Nino Moe MD - 01/30/2014 2:10 PM EDT Inpatient Cardiology Discharge Day Note Patient Name: Blayne Zapata Service: cardiology Responsible Attending: Rhonda Orosco MD Reason for continued hospitalization: Post PCI monitoring Active Problems: ASCVD Hypertension Hyperlipidemia Interval History: Overnight he remained stable with no arrhythmias or hemodynamic instability. He did not have any episodes of chest pain. His troponins remained normal and his renal function was stable. discussed the pros and cons of various options of managing his proximal LAD disease including PCI and CABG with a SETHI. elected to pursue the option of CABG. His statin was changed from lovastatin tohigh dose atorvastatin and he will be discharged on ticagrelor 80mg BID at least for a months and upto a week before his planned CABG which will be decided at the time of his clinic appointment with CTsurgery. I have a made referral to CT surgery today. Review of Systems: Review of Systems Telemetry: HR: NSR and sinus bradycardia, no arrhythmias Meds: Scheduled Meds: ??? amLODIPine 5 mg Oral Daily ??? aspirin 81 mg Oral Daily ??? metoprolol tartrate 25 mg Oral BID ??? atorvastatin 80 mg Oral QPM ??? ticagrelor 90 mg Oral BID ??? [DISCONTINUED] diaZEPam 5 mg Oral Once ??? [DISCONTINUED] diphenhydrAMINE 25 mg Oral Once ??? [DISCONTINUED] sodium chloride 0.9 % 5 mL Intravenous Q12H ??? [DISCONTINUED] ticagrelor 90 mg Oral BID Physical Exam: Filed Vitals: 01/30/14 1139 BP: 108/68 Pulse: 52 Temp: 36.9 ??C (98.4 ??F) Resp: 14 Physical Exam Alert, o x 3, in no apparent distress CVS: RR, no murmur or gallop Lungs: clear, bilaterally Peripheral pulses: 3+ bilaterally, right radial pulse 2+ no swelling noted at right radial access site Neuro: alert, o x 3, no gross focal deficits Lab Comments: Recent Results (from the past 24 hour(s)) CARDIAC ENZYMES Component Value Range Troponin-T <0.03 <=0.03 ng/mL CK, Total 46 0 - 200 unit/L BMP W/FASTING GLUCOSE Component Value Range Glucose Fasting 96 65 - 99 mg/dL BUN 19 10 - 20 mg/dL Creatinine 0.95 0.80 - 1.50 mg/dL Sodium 140 135 - 145 mmol/L Potassium 4.7 3.5 - 5.0 mmol/L Chloride 105 98 - 107 mmol/L CO2 26 22 - 31 mmol/L Anion Gap 9 5 - 15 mmol/L Calcium 8.8 8.5 - 10.5 mg/dL Estimated GFR >60 >=60 LIPID PANEL (FASTING) Component Value Range Chol, Total 144 <=199 mg/dL Triglycerides 80 <=149 mg/dL HDL 36 (*) >=40 mg/dL LDL Cholesterol 92 <=99 mg/dL Chol/HDL Ratio 4.0 HEMOGLOBIN A1C Component Value Range Hemoglobin A1C 5.5 <=5.6 % Est Avg Gluc 111 HEMOGRAM Component Value Range WBC 10.6 (*) 4.0 - 10.0 x10(3)/mcL RBC 4.95 4.63 - 6.08 x10(6)/mcL Hemoglobin 15.2 13.7 - 17.5 gm/dL Hematocrit 42.9 40.0 - 51.0 % MCV 86.7 79.0 - 92.0 fL MCH 30.7 25.6 - 32.2 pg MCHC 35.4 32.0 - 36.5 gm/dL Platelets 179 145 - 370 x10(3)/mcL RDWSD 38.9 35.0 - 46.0 fL RDWCV 12.3 10.9 - 14.4 % MPV 10.2 9.0 - 12.0 fL DIFFERENTIAL, AUTOMATED Component Value Range Neutrophils % 70.3 34.0 - 71.0 % Neutr Abs (ANC) 7.47 (*) 1.50 - 6.30 x10(3)/mcL Lymphocytes % 18.5 (*) 19.0 - 53.0 % Lymphocytes Abs 2.0 1.0 - 3.6 x10(3)/mcL Monocytes % 6.2 4.0 - 13.0 % Monocyte Abs 0.7 0.2 - 1.0 x10(3)/mcL Eosinophils % 4.3 0.0 - 7.0 % Eosinophils Abs 0.5 0.0 - 0.5 x10(3)/mcL Basophils % 0.3 0.0 - 2.0 % Basophils Abs 0.0 0.0 - 0.2 x10(3)/mcL Immature Gran % 0.40 0.00 - 0.66 % Bell Gran Abs 0.04 0.00 - 0.05 x10(3)/mcL Pertinent Radiographic/Diagnostic Results: EKG 01/30/14: NSR, RBBB(old) Cardiac cath: 01/29/14: 90 % proximal RCA >> AVE to 0% 80% proximal LAD Mild diffuse disease of LCX Discharge Medication Checklist: Aspirin 81mg qd Ticagrelor 90mg BID Beta Silvia Toprol XL 25mg qd Lipid Lowering Atorvastatin 80mg qd Nitroglycerin 0.4mg sl as needed Assessment: Blayne Zapata is a 63 y.o. male Blayne Zapata is a 63 y.o. male with ASCVD, s/p PCI of RCA, with high grade proximal LAD disease that was not intervened on. After discussing options, he has choosen CABG over high risk PCI. He is other lugo hemodynamically stable with no complications periprocedurally. He has been started on ticagrelor and atorvastatin. CT surgery referral made. He has good double product control. Plan: Stable for discharge home. Continue aspirin 81 mg indefinitely, ticagrelor atleat least for a month or until definite plans forCABG are made. Continue atorvastatin 81mg qd, toprol XL 25mg qd Followup with CT surgery as an outpatient for evaluation for CABG. No SHANNA inhibitor as he has normalLVEF, has not had an [place] and his SBP is marginal. NINO MOE MD 01/30/2014 Alicia Gomez RN - 01/30/2014 10:45 AM EDT Care Management(OCM)/Clinical Coating Operator(CRC) CRC Service: Cardiology, Cardiothoracic and Thoracic Surgery QUYNH Her RN Pager # [phone] [phone]: CRC notifed by Dr. Meo that pt may need assistance with Brilinta; CRC obtained Brilinta Coupon from [employer] and gave it to the pt. CRC called pt's Pharmacy [facility], they have Brilinta in stock and will honor the coupon. [facility] will call pt to update him on his co-pay, and will page CRCif PA or other barriers arise. [facility]: [phone] Liv Cotter RN - 01/30/2014 7:16 AM EDT Cardiac walk this am: Pre walk-BP 116/77 HR 55 Sat 97% Post walk-BP 122/72 HR 61 Sat 96% No complaints of chest pain or SOB-no ectopy Rhonda Orosco MD - 01/29/2014 6:18 PM EDT Interventional Cardiology Staff Post-PCI check: Seen on the alicea after PCI to the RCA earlier today, Blayne Zapata appears comfortable. No complaints of chest pain at this time. R radial access site is clean and dry without hematoma. Distal pulses intact. Labs notable for normal initial post-procedure cTnT. Should be ready to mobilize this PM. continue Ticagrelor x minimum 1 month, could then undergo CABG with SETHI to LAD or PCI with AVE to LAD. RHONDA OROSCO MD Diane Garcia RN - 01/29/2014 4:16 PM EDT Pt arrived from cardiac cath recovery on stretcher, alert and oriented x 4, denies chest pain or dyspnea. Ambulated to BR, steady gait, no dizziness. Right radial dressing intact, denies pain numbness or tingling of right hand. Telemetry shows NSR. documented in this encounter H&P Notes Nino Moe MD - 01/29/2014 10:29 AM EDT Complete Adult Pre-Procedural H&P Patient Name: Blayne Zapata : [id number] 63 y.o. MR#: [id number] Chief Complaint: Fatigue and exertional chest discomfort Planned Procedure: Coronary angiogram History of Present Illness: HPI Please refer to clinic note dated 01/22/2014 for details of presentation.In summary, is a 63 y/o male with hypertension and hyperlipidemia, family history of CAD, who presents with exertional chest discomfort relieved by rest. He had positive stress EKG for ischemia with an episode of non sustained VT. I reviewed and updated as necessary the Medical, Surgical, Family, and Social History captured within the EMR. I reviewed and updated as necessary the patient's allergies and current medication list within the EMR. Review of Systems: Review of Systems Physical Exam: Filed Vitals: 01/29/14 0850 BP: 139/88 Pulse: 53 Temp: 36.3 ??C (97.3 ??F) TempSrc: Temporal Resp: 16 Height: 175.3 cm (5' 9) Weight: 75.297 kg (166 lb) SpO2: 99% Physical Exam Radial pulse 2+ bilaterally Femoral 3+ bilaterally Pedal pulses 2+ bilaterally Assessment and Plan: Blayne Zapata is a 63 y.o. male with exertional chest discomfort and positive EKG stress test, nonsustained VT, who presents for coronary angiogram and possible PCI. Labs reviewed. The indications, expected benefits and potential risks [...] a consent which was reviewed and signed. NINO MOE MD 01/29/2014 documented in this encounter Procedure Notes Provider, Scanning - 01/30/2014 10:48 PM EDTAssociated Order(s): SCAN DOC: BRASS CHASER Provider, Scanning - 01/29/2014 1:17 PM EDTAssociated Order(s): CARDIAC CATHETERIZATION documented in this encounter Miscellaneous Notes Miscellaneous - Provider, Scanning - 01/30/2014 10:36 PM EDT Discharge Summary - Nino Moe MD - 01/30/2014 1:38 PM EDT Discharge Summary Patient Name: Blayne Zapata Patient Age: 63 y.o. Language: Belarusian Race: White Ethnicity: Not nor Admit date: 01/29/2014 Discharge date and time: 01/30/14 Attending Physician: Rhonda Orosco MD Discharge Physician: Nino Moe MD Follow-up Recommendations for Providers: Follow up with CT surgery, patient will receive call from CT surgery office with appointment date. Inpatient Provider Contact Information: [phone] Discharge Diagnoses (Hospital Problems) and Secondary Diagnoses (Chronic Problems): ASCVD: s/p PCI to RCA Hyperlipidemia Hypertension Operations/Major Procedures: Procedure(s) with comments: CARDIAC CATHETERIZATION History of Presentation: Blayne Zapata is a 63 y.o. male with h/o hypertension, hyperlipidemia and family history of who was referred to coronary angiogram after a stress echocardiogram for symptoms of exertional chest pain and fatigue. Hospital Course: Blayne Zapata under went elective coronary angiogram as a same day procedure and was found to havehigh grade stenosis of his proximal RCA, collaterals to distal RCA from left system. He was also found to have high grade stenosis of his proximal LAD, close to were a large diag1 was taking off. Afterdiscussing all options, he underwent PCI of his Proximal RCA with a baremetal stent. The plan was tofurther discuss options of dealing with his LAD disease later. Overnight he remained stable with no arrhythmias or hemodynamic instability. His troponins remained normal and his renal function was stable. discussed the pros and cons of various options of managing his proximal LAD disease inclu ding PCI and CABG with a SETHI. elected to pursue the option of CABG. His statin was changedfrom lovastatin to high dose atorvastatin and he will be discharged on ticagrelor 80mg BID at least for a months and upto a week before his planned CABG which will be decided at the time of his clinic appointment with CT surgery. I have a made referral to CT surgery today. Functional and Cognitive Status: Alert and oriented and in no apparent distress. Important Studies and Lab Data: Labs: Lab Results Component Value Date WBC 10.6* 01/30/2014 HGB 15.2 01/30/2014 HCT 42.9 01/30/2014 PLATELET 179 01/30/2014 Recent Labs Basename 01/29/14 0836 INR 0.9 Lab Results Component Value Date NA 140 01/30/2014 K 4.7 01/30/2014 CL 105 01/30/2014 CO2 26 01/30/2014 BUN 19 01/30/2014 CREATININE 0.95 01/30/2014 No results found for this basename: TSH in the last 7068 hours Recent Labs Basename 01/30/14 0419 HA1C 5.5 Recent Labs Basename 01/30/14 0419 01/29/14 1230 CK 46 47 TROPONINT <0.03 <0.03 Lab Results Component Value Date CHLPL 144 01/30/2014 HDL 36* 01/30/2014 CHOLHDL 4.0 01/30/2014 TRIG 80 01/30/2014 LDLCHOL 92 01/30/2014 Studies: EKG: NSR, RBBB(old) Cardiac cath: 01/29/14: 90 % proximal RCA >> AVE to 0% 80% proximal LAD Mild diffuse disease of LCX Discharge Conditions/Prognosis: Stable. Discharge to: Home Updated Allergies/ADRs: No Known Allergies Immunizations Given this Hospitalization: Immunization History Administered Date(s) Administered ??? Tdap Vaccine 09/07/2013 Discharge Medications: Your Medications As of 01/30/2014 2:00 PM New Medications Dose Details atorvastatin 80 mg tablet Commonly known as: LIPITOR Take 1 tablet by mouth every evening. 80 mg Quantity: 90 tablet Refills: 4 ticagrelor 90 mg Tab tablet Commonly known as: BRILINTA Take 1 tablet by mouth 2 times daily. 90 mg Quantity: 60 tablet Refills: 6 Continued medications, unchanged Dose Details amLODIPine 10 mg tablet Commonly known as: NORVASC Take 2.5 mg by mouth daily. 2.5 mg Refills: 0 aspirin 81 mg EC tablet Take 81 mg by mouth daily. 81 mg Refills: 0 metoprolol tartrate 25 mg tablet Commonly known as: LOPRESSOR Take 1 tablet by mouth 2 times daily. 25 mg Quantity: 60 tablet Refills: 12 nitroGLYcerin 0.4 mg SL tablet Commonly known as: NITROSTAT Place 1 tablet under the tongue every 5 minutes as needed for Chest pain. X 3. 0.4 mg Quantity: 25 tablet Refills: 1 STOPPED Medications lovastatin 10 mg tablet Commonly known as: MEVACOR Smoking Status at Discharge: History Smoking status ??? Never Smoker Smokeless tobacco ??? Never Used Instructions Given to Patient at Discharge: You are advised not to exert for more than usual daily chores. Call your doctor if: Chest pain, dyspnea, pain or swelling in legs occurs. If you have non-emergent questions between now and the time of your follow up appointments: During 8am-5pm Wednesday through Wednesday call [phone] to speak with a nurse in the cardiology clinic All other times call [phone] and ask to speak to the cardiology technician phone triage specialist. Return to work: One week Driving: No driving for 48 hours after catheterization. Follow up Appointments: PCP Call for appointment in 1-2 weeks. Hotel Office Manager: You should be seen in 3-4 weeks for follow up. Please call for appointment after you are seen by CT surgery. Nino Moe MD Steel Wool Machine Operator. Consult Note - Angelic Nunez RN - 01/30/2014 8:54 AM EDT Blayne Zapata was seen today by Cardiac Rehabilitation for: ( ) An activity evaluation - Was performed by SS RN-see notes for details (x ) Educational packet regarding CAD, cardiac risk factors, and managing angina given to patient. Reviewed managing angina /use of sl nitroglycerin. Given parameters for home exercise. Mediterranean diet guidelines briefly reviewed. Pt will return in a few weeks for additional work (CABG vs PCI). We discussed importance of keeping his activity low and being quick to address any angina should s/s occur. He understands how to use NTG and the importance of keeping it with him at all times. (x Participation to the outpatient cardiac rehabilitation program at [facility] was discussed. A referral will be sent to the program and the patient will be contacted within 2 weeks. Miscellaneous - Provider, Scanning - 01/29/2014 3:02 PM EDT documented in this encounter Plan of Treatment Scheduled Referrals Name Type Priority Associated Diagnoses Order S chedule Referral to Outpatient Referral Routine Chest pain Ordered: Cardiac Rehab 01/30/2014 documented as of this encounter Procedures Procedure Name Priority Date/Time Associated Comments Diagnosis BRASS CHASER SCAN 01/30/2014 10:48 Res ults for this PM EDT procedure are i n the results section. EKG 12-LEAD Routine 01/30/2014 1:36 Chest pain Results for this PM EDT procedure are i n the results section. BMP W/FASTING GLUCOSE Routine 01/30/2014 4:19 Res ults for this AM EDT procedure are i n the results section. HEMOGRAM Routine 01/30/2014 4:19 Results for this AM EDT procedure are i n the results section. DIFFERENTIAL, AUTOMATED Routine 01/30/2014 4:19 R esults for this AM EDT procedure are i n the results section. CARDIAC ENZYMES Routine 01/30/2014 4:19 Results f or this [place] [place] AM EDT procedure are i n the results section. CBC (WITH DIFF) Routine 01/30/2014 4:19 AM EDT HEMOGLOBIN A1C Routine 01/30/2014 4:19 Results fo r this AM EDT procedure are i n the results section. LIPID PANEL (REFLEX Routine 01/30/2014 4:19 Resul ts for this DIRECT LDL) AM EDT procedure are i n the results section. EKG 12-LEAD Routine 01/29/2014 3:32 Chest pain Results for this PM EDT procedure are i n the results section. CARDIAC CATHETERIZATION Routine 01/29/2014 12:45 Results for this PM EDT procedure are i n the results section. CARDIAC ENZYMES STAT 01/29/2014 12:30 Results for this ([facility]) PM EDT procedure are i n the results section. documented in this encounter Results SCAN DOC: BRASS CHASER (01/30/2014 10:48 PM EDT) Narrative 01/30/2014 11:05 PM EDT Procedure Note Provider, Scanning - 01/30/2014 10:48 PM EDT Scanning Provider MEDIA MGR SCAN EXT ORDR/RSLT EKG 12 Lead (01/30/2014 1:36 PM EDT) Component Value Ref Range Test Analysis Performed Pathologis t Method Time At Signature Ventricular rate 59 BPM MUSE SYSTEM Atrial Rate 59 BPM MUSE SYSTEM P-R Interval 152 ms MUSE SYSTEM QRS Duration 134 ms MUSE SYSTEM Q-T Interval 420 ms MUSE SYSTEM QTC Calculated 415 ms MUSE SYSTEM (Bezet) Calculated P [place] 60 degrees MUSE SYSTEM Calculated R [place] 61 degrees MUSE SYSTEM Calculated T [place] 34 degrees MUSE SYSTEM INTERPRETATION Sinus bradycardia MUSE SY STEM Right bundle branch block Abnormal ECG When compared with ECG of 29-JAN-2014 15:32, No significant change was found Confirmed by MD ANTHONY, TOMÁS ([id number]) on 01/30/2014 3:52:09 PM Specimen Anatomical Collection Method Collection Time Receive d Time (Source) Location / / Volume Laterality 01/30/2014 1:36 PM 4 3:52 EDT PM EDT Rhonda Orosco MD ECG ORDERABLES Performing Organization Address City/State/ZIP Code Phon e Number MUSE SYSTEM (ABNORMAL) Differential, Automated (01/30/2014 4:19 AM EDT) Patholo gist Method Time Signature Neutrophils % 70.3 34.0 - [place] 71.0 % [facility] Neutr Abs (ANC) 7.47 (H) 1.50 - [place] 6.30 [place] x10(3)/mc L Lymphocytes % 18.5 (L) 19.0 - [place] 53.0 % [facility] Lymphocytes Abs 2.0 1.0 - 3.6 [place] x10(3)/mc [place] L Monocytes % 6.2 4.0 - [place] 13.0 % [facility] Monocyte Abs 0.7 0.2 - 1.0 [place] x10(3)/mc [place] L Eosinophils % 4.3 0.0 - 7.0 [place] % [place] Eosinophils Abs 0.5 0.0 - 0.5 [place] x10(3)/mc [place] L Basophils % 0.3 0.0 - 2.0 [place] % [place] Basophils Abs 0.0 0.0 - 0.2 [place] x10(3)/mc [facility] L Immature Gran % 0.40 0.00 - [place] 0.66 % [facility] Comment: Immature granulocytes(IG's)percentage an d absolute count will include metamyelocytes, myelocytes, and promyelo cytes. Blood smears from CBCs yielding IG's will be scanned manually for concor dance. If this scan disagrees with the automated IG or if promyelocytes are not ed, a manual differential will be performed. Bell Gran Abs 0.04 0.00 - 0.05 x10(3)/mcL CER NER [facility] Specimen Anatomical Collection Method Collection Time Receive d Time (Source) Location / / Volume Laterality Blood specimen 01/30/2014 4:19 AM 014 4:19 (specimen) EDT AM EDT Resulting Agency Comment Spec In Lab Rhonda Orosco MD HEMATOLOGY ORDERABLES Performing Organization Address City/State/[place] [address] [place] [facility]ENNIUM (ABNORMAL) Hemogram (01/30/2014 4:19 AM EDT) P athologist Signature WBC 10.6 (H) 4.0 - 10.0 [place] x10(3)/mcL [facility] RBC 4.95 4.63 - [place] 6.08 [facility] x10(6)/mcL Hemoglobin 15.2 13.7 - [place] 17.5 gm/dL [facility] Hematocrit 42.9 40.0 - [place] 51.0 % [facility] MCV 86.7 79.0 - [place] 92.0 fL [facility] MCH 30.7 25.6 - [place] 32.2 pg [facility]NIUM MCHC 35.4 32.0 - [place] 36.5 gm/dL [facility] Platelets 179 145 - 370 [place] x10(3)/mcL [facility] RDWSD 38.9 35.0 - C[facility] 46.0 fL [facility] RDWCV 12.3 10.9 - CERNER 14.4 % [facility] MPV 10.2 9.0 - 12.0 [facility] fL [facility] Specimen Anatomical Collection Method Collection Time Receive d Time (Source) Location / / Volume Laterality Blood specimen 01/30/2014 4:19 AM 014 4:19 (specimen) EDT AM EDT Resulting Agency Comment Spec In Lab Rhonda Orosco MD HEMATOLOGY ORDERABLES Performing Organization Address City/State/[place] [address] [facility] Hemoglobin A1c (01/30/2014 4:19 AM EDT) P athologist Signature Hemoglobin A1C 5.5 <=5.6 % [facility] Comment: Reference Range: 4.3 ? 5.6% 5.7 ? 6.4% - Increased Risk of Developing Diabetes Mellitus 6.5% - Consistent with diagnosis of Diab etes Mellitus In the absence of hyperglycemia (i.e. pl asma glucose > 200 mg/dL) or classic symptoms of hyperglycemia a repeat measu rement of HbA1c should be performed on a separate sample to confirm the diagnos is. Diagnosis and Classification of Diabetes Mellitus, Diabetes Care 2013; 36: Suppl. 1, S67-74 Est Avg Gluc 111 mg/dL [facility] Comment: eAG equivalents for HbA1c percentages: HbA1c(%) ?eAG(mg/dL) 6.0 ?126 6.5 ?140 7.0 ?154 7.5 ?169 8.0 ?183 8.5 ?197 9.0 ?212 9.5 ?226 10.0 ? 240 Limitations: The eAG calculation has not been validated on women, individuals below 18 years old and above 70 years old, and individuals with hemoglobinopathies. Additional resources are available on ADA website: http://[employer]/DHMCadacalc Kiko DEE, Ivis J, Santhosh R, et al. ??Tr anslating the A1C assay into estimated average glucose values. ??Diabetes Care 2008:31(8):4406-2184. Specimen Anatomical Collection Method Collection Time Receive d Time (Source) Location / / Volume Laterality Blood specimen 01/30/2014 4:19 AM 014 4:19 (specimen) EDT AM EDT Resulting Agency Comment Spec In Lab Rhonda Orosco MD CHEMISTRY ORDERABLES Performing Organization Address City/State/[place] [address] [facility] (ABNORMAL) Lipid panel (fasting) (01/30/2014 4:19 AM EDT) athologist Signature Chol, Total 144 <=199 mg/dL [facility] Comment: Recommendations of the NCEP Adult Treatm ent Panel for the following risk cutoff thresholds for the [place] populatio n: Desirable: <200 mg/dL Borderline High: 200-239 mg/dL High: > or = 240 mg/dL Triglycerides 80 <=149 mg/dL [facility] Comment: Reference Range: Normal triglycerides: ??<150 mg/dL Borderline high: ??150-199 mg/dL High: ??200-499 mg/dL Very high: ??>hx=568 mg/dL KEITH 2001; 285(19):8116-4802 HDL 36 (L) >=40 mg/dL IM[facility] SIMMONS Comment: Reference range: ??Low HDL: ?? < 40 mg/dL ??Normal: ?40-60 mg/dL ??Desirable: > 60 mg/dL KEITH 2001; 285(19):6748-6482 LDL Cholesterol 92 <=99 mg/dL IMANI MCGINNIS Comment: Reference range: ?? Optimal: ?<100 mg/dL ?? Near Optimal/Above Optimal: ?? 100-1 29 mg/dL ?? Borderline high: ?130-159 mg/dL ?? High: ? 160-189 mg/dL ?? Very high: ?>jf=015 mg/dL KEITH 2001: 285(19):5788-1312 Chol/HDL Ratio 4.0 ratio IMANI CEBALLOS UM Comment: A Cholesterol to HDL ratio below 4:1 is desirable. ??Studies suggest that increased CAD risk occurs at ratios abov e 5 for females and above 6 for men. ? [place] [employer] Association ??(htt p://www.americanheart.org) ? Blossom Int Med, 1994; 121:641 ? AM J Med, 1998; 105(1A):48S Specimen Anatomical Collection Method Collection Time Receive d Time (Source) Location / / Volume Laterality Blood specimen 01/30/2014 4:19 AM 014 4:19 (specimen) EDT AM EDT Resulting Agency Comment Spec In Lab Rhonda Orosco MD CHEMISTRY ORDERABLES Performing Organization Address City/State/[place] [address] IMANI SIMMONS BMP w/fasting Glucose (01/30/2014 4:19 AM EDT) P athologist Signature Glucose 96 65 - 99 CERNER Fasting mg/dL MILLENNIUM Comment: ?Fasting* Glucose Interpretive C riteria Normal [...] of Diabetes Mellitus, Position Statement from the [place] [employer]. ??Diabete s Care, Volume 33, Supplement 1, Jul 2009 BUN 19 10 - 20 mg/dL CERNER MILLENNIU M Creatinine 0.95 0.80 - 1.50 mg/dL CERNER MILL ENNIUM Comment: Please note that the pediatric reference intervals supplied above were not validated at [facility]. Results from pediatri c patients should be interpreted in conjunction to the patient's age, height and muscle mass. Sodium 140 135 - 145 mmol/L CERNER EDWARD NIUM Potassium 4.7 3.5 - 5.0 mmol/L CERNER EDWARD NIUM Comment: Please note: ??Patients with WBC >100,00 0 may have falsely elevated Potassium levels. ??For accurate Potassium quantif ication in these patients send serum separator tube (gold top) for subsequent determinations. ??Contact the Clinical Chemistry Laboratory if there are any qu estions. Chloride 105 98 - 107 mmol/L CERNER MILLENN IUM CO2 26 22 - 31 mmol/L CERNER MILLENNI UM Anion Gap 9 5 - 15 mmol/L CERNER MILLENNIU M Calcium 8.8 8.5 - 10.5 mg/dL CERNER EDWARD NIUM [...] the following links into your internet browser. http://[employer]/DHnkdep http://[employer]/DHMCnkf Specimen Anatomical Collection Method Collection Time Receive d Time (Source) Location / / Volume Laterality Blood specimen 01/30/2014 4:19 AM 014 4:19 (specimen) EDT AM EDT Resulting Agency Comment Spec In Lab Rhonda Orosco MD CHEMISTRY ORDERABLES Performing Organization Address City/State/[place] [address] IMANI MobuiIUM Cardiac Enzymes (01/30/2014 4:19 AM EDT) P athologist Signature Troponin-T <0.03 <=0.03 CERNER ng/mL [employer] Comment: 0.03 ng/mL: Represents the 99th percenti [...] consensus document of the Joint Society of Cardiology/[place] College o f Cardiology Committee for the redefinition of myocardial infarction. ? ?Journal of the [place] College of [employer]iology 2000; 36: 959-969] CK, Total 46 0 - 200 unit/L ContractuallyROSY MobuiI UM Specimen Anatomical Collection Method Collection Time Receive d Time (Source) Location / / Volume Laterality Blood specimen 01/30/2014 4:19 AM 014 4:19 (specimen) EDT AM EDT Resulting Agency Comment Spec In Lab Rhonda Orosco MD CHEMISTRY ORDERABLES Performing Organization Address City/State/[place] [address] IMANI MobuiIUM EKG 12 Lead (01/29/2014 3:32 PM EDT) Component Value Ref Range Test Analysis Performed Pathologis t Method Time At Signature Ventricular rate 51 BPM MUSE SYSTEM Atrial Rate 51 BPM MUSE SYSTEM P-R Interval 170 ms MUSE SYSTEM QRS Duration 132 ms MUSE SYSTEM Q-T Interval 432 ms MUSE SYSTEM QTC Calculated 398 ms MUSE SYSTEM (Bezet) Calculated P [place] 78 degrees MUSE SYSTEM Calculated R [place] 60 degrees MUSE SYSTEM Calculated T [place] 27 degrees MUSE SYSTEM INTERPRETATION Sinus bradycardia MUSE SY STEM Right bundle branch block Abnormal ECG When compared with ECG of 22-JAN-2014 13:27, No significant change was found Confirmed by MD ANTHONY, TOMÁS ([id number]) on 01/29/2014 10:26:05 PM Specimen Anatomical Collection Method Collection Time Receive d Time (Source) Location / / Volume Laterality 01/29/2014 3:32 PM 4 EDT 10:26 PM EDT Rhonda Orosco MD ECG ORDERABLES Performing Organization Address City/State/ZIP Code Phon e Number MUSE SYSTEM Cardiac Catheterization (01/29/2014 12:45 PM EDT) Anatomical Region Laterality Modality Other Specimen (Source) Anatomical Location Collection Method / Collectio n Time Received Time / Laterality Volume Narrative This result has an attachment that is no t available. Procedure Note Rhonda Orosco MD - 01/29/2014 [facility] Cardiac Catheterization/Intervention Re port Patient Name: Blayne Zapata Procedure Date: 01/29/2014 A #: [id number] Primary Physician: Rhonda Orosco Case #: [id number] File Name: [id number] Catheterization Order Number: [id number] [facility] [employer] Attendant [facility] Final Report [place], [place] Patient Name: Blayne Zapata ID#: [id number] : 1950 Procedure Date: January 29, 2014 Case #: [id number] Room: 2 Case Physician: Rhonda Orosco M.D. Star t: 10:54 Fellow: Nino Moe M.D. Admission: 01/29/2014 Procedures: * Coronary Angiography * Left Heart Catheterization * Coronary Stent Insertion History Blayne Zapata is a 63 year old man. He has hypertension and a family history of coronary artery disease. The patient has hypercholesterolemia managed with lipid therapy. He has unst able angina, unknown troponin and a history of chest pain. The patient vargas s a history of ventricular tachycardia/ventricular fibrillation. Gisel chapman also has a history of an abnormal stress test. Prior to the init iation of this procedure, the patient was designated as ASA Class IV. Patient Status at Catheterization: The patient presented with: unstable an ros. [place] [employer] angina class was III. This stella ent was on beta blockers and calcium thao blockers prior to the pr ocedure. An echo stress test was performed and results were Indeterminan t. Technique: A 6Fr sheath was inserted in the right radial artery utilizing the Seldinger technique. The left coronary artery was injected utilizing a 5Fr TIG 4.0 catheter. A 5Fr TIG 4.0 cat heter was used to inject the right coronary artery. Left ventricular press ure was performed with a 5Fr TIG 4.0 catheter. Coronary stent insertion was performed and the equipment utilized will be described in the inter vention summary section. 8,000 units of heparin were administered. A t otal of 200cc of Omnipaque were opened, 105cc of Omnipaque were adminis tered and 95cc of Omnipaque were wasted. Radiation: Fluoro time was 14.1 minutes, dose area product was 65,051 mGYcm2 and air kerma was 1,384 m GY. The patient received the following medi cations prior to and during the procedure: Aspirin (any), Ticagrelor an d Unfractionated heparin. Hemodynamics: Left Heart Pressures Resting: Syst Diast EDP a v m Ao 124 64 88 LV 130 13 Post Contrast: Syst Diast EDP a v m Ao 133 74 97 LV 131 12 Coronary Angiography: Dominance: Right Left Main The left main was normal. Left Anterior Descending There was an 80% eccentric and calcifie d single discrete stenosis of the ostial segment of the left anterior descending artery (LAD). The proximal segment of the LAD had mil d diffuse disease. There also was mild diffuse disease of the mi d segment of the LAD. There was mild diffuse disease of the p roximal segment of the first diagonal branch (Diag 1) of the LAD. Th e Diag 1 was large. Left Circumflex There was a 20% single discrete stenosi s of the ostial segment of the left circumflex artery (LCX). The p roximal segment of the LCX had mild diffuse disease. There was mild diffuse disease of the p roximal segment of the first obtuse marginal branch (OM1) of the LCX . The OM1 was large. There were multiple discrete 30% stenos es of the proximal segment of the second obtuse marginal branch (OM2) of the LCX. The OM2 was moderate in size. Right Coronary Artery There was mild diffuse disease of the e ntire vessel segment of the right coronary artery (RCA). The proxim al segment of the RCA had a long segmental 90% stenosis. Distal caty w was via the [place] vessel and collaterals from the LCX. Indication for Intervention: Coronary intervention was indicated for treatment of unstable angina. Left ventricular Ejection Fraction was estimated at 65 percent. The priority for the procedure was Elective . The [facility] indication for the procedure was PCI for high risk Non-[place]ESUS [place] or unstable angina. Intervention Summary: Right Coronary Artery Proximal 90% Stent insertion was performed on the 90 % stenosis in the proximal segment of the RCA. This was a de janae lesion. According to the ACC/AHA classification system, this lesion was a type B2 moderate risk lesion. [facility] prevention of restenosis was the indication for stent insertion. Vessel flow pre intervention was JIMMY 2. Stent insertion was accomplished throug h a 6 Fr. JR 4.0 guide. The lesion was predilated with a 2.5mm Sprinter Legend 15mm balloon with a maximum inflation pressu re of 8 atmospheres. A premounted 4.0 x 30 mm Integrity (BMS) was deployed with a maximum inflation pressure of 14 atmosp heres. Following stent deployment, the lesion was dilated usin g a 4.0mm Sprinter NC 15mm balloon with a maximum inflation p ressure of 18 atmospheres. The final outcome was defined as succes sful. There was no residual stenosis following this interv ention. The final JIMMY flow was 3. Typical chest pain with brief balloon i nflations. Conclusions: * Two vessel coronary artery disease (L AD and RCA) * Successful stent insertion of the pro ximal RCA lesion * Bare metal stent (BMS) implanted in R CA. Complications/Events: The patient had no complications during these procedures. Recommendations: The patient's medical regimen was umana ed as follows: Bare metal stent (BMS) implanted. Ticagrelor 180 mg PO a dministered in the supervisor dental laboratory. Continue ASA 81 mg po daily, ticagrelor 90 mg po twice daily x 1-3 mo. The attending physician was present for the entire procedure. Dr. Rhonda Orosco M.D. performed the c oronary angiography, left heart catheterization and [facility]. Rhonda Orosco M.D. Electronically Signed by: Rhonda Orosco M.D. Report Finalized: 01/29/2014 13:01 Transcriptions Provider, Scanning - 01/29/2014 1:17 PM EDT Rhonda Orosco MD CARDIAC CATH ORDERABLES Cardiac Enzymes (01/29/2014 12:30 PM EDT) P athologist Signature Troponin-T <0.03 <=0.03 CERNER ng/mL [facility] Comment: 0.03 ng/mL: Represents the 99th [...] consensus document of the Joint Society of Cardiology/[place] College o f Cardiology Committee for the redefinition of myocardial infarction. ? ?Journal of the [place] College of Cardiology 2000; 36: 959-969] CK, Total 47 0 - 200 unit/L IMANI MONTEZ UM Specimen Anatomical Collection Method Collection Time Receive d Time (Source) Location / / Volume Laterality Blood specimen 01/29/2014 12:30 4 (specimen) PM EDT 12:53 PM EDT Resulting Agency Comment Spec In Lab Rhonda Orosco MD CHEMISTRY ORDERABLES Performing Organization Address City/State/ZIP Code Phon e Number [place] [id number] [facility] documented in this encounter Visit Diagnoses Diagnosis Chest pain Chest pain, unspecified documented in this encounter Administered Medications Inactive Administered Medications - up to 3 most recent administrations Medication Order MAR Action Action Date Dose Rate Site amLODIPine (NORVASC) tablet 5 mg Given 01/30/2014 9:13 AM EDT 5 mg 5 mg, Oral, DAILY, First dose on Wed01/29/14 at 1800, Until Discontinued, Routine Given 01/29/2014 5:51 PM EDT 5 mg aspirin EC tablet 81 mg Given 01/30/2014 9:13 AM EDT 81 mg 81 mg, Oral, DAILY, First dose on Wed01/29/14 at 1800, Until Discontinued, Routine Given 01/29/2014 5:51 PM EDT 81 mg atorvastatin (LIPITOR) tablet 80 mg Given 01/29/2014 5:50 PM EDT 80 mg 80 mg, Oral, EVERY EVENING, First dose on Wed01/29/14 at 1700, Until Discontinued, Routine diaZEPam (VALIUM) tablet 5 mg Given 01/29/2014 9:30 AM EDT 5 mg 5 mg, Oral, ONCE, 1 dose, On Wed01/29/14 at 0930, Cath (Day of Procedure), Routine diphenhydrAMINE (BENADRYL) capsule 25 mg Given 01/29/2014 9:30 AM EDT 25 mg 25 mg, Oral, ONCE, 1 dose, On Wed01/29/14 at 0930, Cath (Day of Procedure), Routine metoprolol tartrate (LOPRESSOR) tablet 2 5 mg Given 01/30/2014 9:13 AM EDT 25 mg 25 mg, Oral, 2 TIMES DAILY, First dose on Wed01/29/14 at 2100, Until Discontinued, Routine Given 01/29/2014 8:30 PM EDT 25 mg sodium chloride 0.9% infusion New Bag 01/29/2014 9:24 AM EDT 200 mL/hr 200 mL/hr 200 mL/hr, Intravenous, CONTINUOUS, Starting on Wed01/29/14 at 0930, Until Wed01/29/14 at 1302, Cath (Day of Procedure) sodium chloride 0.9% infusion New Bag 01/29/2014 3:00 PM EDT 100 mL/hr 100 mL/hr 100 mL/hr, Intravenous, CONTINUOUS PRN, Starting on Wed01/29/14 at 1531, Until Wed01/29/14 at 2330, Cath (Intra-Procedure) ticagrelor (BRILINTA) tablet 90 mg Given 01/30/2014 9:14 AM EDT 90 mg 90 mg, Oral, 2 TIMES DAILY, First dose (after last reorder) on Wed01/29/14 at 2100, Until Discontinued, After initial loading dose of aspirin (usually 325 mg), use ticagrelor with daily maintenance dose of aspirin of 81 mg, Routine, After the initial loading dose of aspirin (usually 325 mg), use ticagrelor with a daily maintenance dose of aspirin 81 mg. Is this patient on 81 mg of aspirin? Yes Given 01/29/2014 8:49 PM EDT 90 mg documented in this encounter Active and Recently Administered Medications Times are shown in EDT. Scheduled Medication Order 01/28/2014 01/29/2014 01/30/2014 amLODIPine (NORVASC) tablet 5 mg (CANCELED) 175 (Given - Provider: Diane Garcia RN) 0913 (Given - Provider: Liv Cotter , ANDERS) 5 mg, Oral, DAILY, First dose on 01/10 at 1800, Until Discontinued, Routine aspirin EC tablet 81 mg (CANCELED) 175 (Given - Provider: Diane Garcia RN) 0913 (Given - Provider: Liv Cotter , ANDERS) 81 mg, Oral, DAILY, First dose on Wed at 1800, Until Discontinued, Routine atorvastatin (LIPITOR) tablet 80 mg 1750 (Given - Provider: Diane Garcia, ANDERS) 80 mg, Oral, EVERY EVENING, First dose o n Wed01/29/14 at 1700, Until Discontinued, Routine diaZEPam (VALIUM) tablet 5 mg (COMPLETED) 929 (Given - Provider: Uvaldo Nelson, ANDERS) 5 mg, Oral, ONCE, 1 dose, Wed01/29/14 at 0930, Cath (D ay of Procedure), Routine diphenhydrAMINE (BENADRYL) capsule 25 mg (COMPLETED) 929 (Given - Provider: Uvaldo Nelson, ANDERS) 25 mg, Oral, ONCE, 1 dose, Wed01/29/14 a t 0930, Cath (Day of Procedure), Routine metoprolol tartrate (LOPRESSOR) tablet 25 mg (CANCELED) 2029 (Given - Provider: Corine Marc, ANDERS) 09 (Given - Provider: Liv Cotter , ANDERS) 25 mg, Oral, 2 TIMES DAILY, First dose o n Wed01/29/14 at 2100, Until Discontinued, Routine ticagrelor (BRILINTA) tablet 90 mg 2048 (Given - Provider: Corine Marc, ANDERS) 0914 (Given - Provider: Liv Cotter , ANDERS) 90 mg, Oral, 2 TIMES DAILY, First dose o n Wed01/29/14 at 2100, Until Discontinued, After initial loading dose of aspirin (usually 325 mg), use ticagrelor with daily maintenance dose of aspirin of 81 mg, Routine Continuous Medication Order 01/28/2014 01/29/2014 01/30/2014 sodium chloride 0.9% infusion (CANCELED) 0924 (New Bag - Provider: Rosi Monzon, ANDERS) 200 mL/hr, at 200 mL/hr, Intravenous, CO NTINUOUS, Starting Wed01/29/14 at 0930, Until Wed01/29/14 at 1302, Cath (Day of Procedure) PRN Medication Order 01/28/2014 01/29/2014 01/30/2014 fentaNYL 50mcg/mL injection (CANCELED) 1 112 (Given - Provider: Chandler Carter RN) ONCE PRN, Starting Wed01/29/14 at 1112, Until Wed01/29/14 at 1244, Pain, Cath (Intra-Procedure), Routine heparin (porcine) injection (CANCELED) 1 134 (Given - Provider: Chandler Carter RN)1215 (Given - Provider: Chandler Carter RN) ONCE PRN, Starting Wed01/29/14 at 1134, Until Wed01/29/14 at 1244, Cath (Intra- Procedure), Routine iohexol (OMNIPAQUE) 350 mg iodine/mL injection (CANCELED) 1238 (Given - Provider: Nino Kenney MD) ONCE PRN, Starting Wed01/29/14 at 1238, Until Wed01/29/14 at 1244, Per Protocol, Cath (Intra-Procedure), Routine lidocaine (XYLOCAINE) 10 mg/mL (1 %) injection (CANCELED) 1127 (Given - Provider: Nino Kenney MD - Comment: right radial area) ONCE PRN, Starting Wed01/29/14 at 1127, Until Wed01/29/14 at 1244, Cath (Intra- Procedure), Routine midazolam (PF) (VERSED) 1 mg/mL injection (CANCELED) 1112 (Given - Provider: Chandler Carter RN) ONCE PRN, Starting Wed01/29/14 at 1112, Until Wed01/29/14 at 1244, Sleep, Cath (Intra-Procedure), Routine nitroGLYCerin 100 mcg/mL intracoronary dilution (CANCELED) 1130 (Given - Provider: Nino Kenney MD) ONCE PRN, Starting Wed01/29/14 at 1130, Until Wed01/29/14 at 1244, Cath (Intra- Procedure), Routine sodium chloride 0.9% infusion (CANCELED) 1207 (New Bag - Provider: Chandler Carter RN - Comment: 500cc IV bolus) CONTINUOUS PRN, Starting Wed01/29/14 at 1207, Until Wed01/29/14 at 1531, Cath (Intra-Procedure) sodium chloride 0.9% infusion 1500 (New Bag - Pr ovider: Noman Choi RN) 100 mL/hr, at 100 mL/hr, Intravenous, CO NTINUOUS PRN, Starting Wed01/29/14 at 1531, Until Wed01/29/14 at 2330, Cath (Intra-Procedure) ticagrelor (BRILINTA) tablet (CANCELED) 1212 (Given - Provider: Chandler Carter RN) ONCE PRN, Starting Wed01/29/14 at 1212, Until Wed01/29/14 at 1244, Cath (Intra- Procedure), Routine verapamil (ISOPTIN) injection (CANCELED) 1130 (Given - Provider: Nino Kenney MD) ONCE PRN, Starting Wed01/29/14 at 1130, Until Wed01/29/14 at 1244, for 2 Minutes, Cath (Intra-Procedure) documented in this encounter Care Teams Cloth Sponger Relationship Specialty Start Date End Date Rupert Russell Jr., MD PCP - General 06/03/10 07/21/[address] [facility] [address] [facility] [place] [address] documented as of this encounter
--- OUTSIDE RECORDS SUMMARY | 2022-05-21 09:03 | XMS_ITS | Encounter Summary ---
:1950 Author Organization [facility] Address [facility] [place] [address] Care Team Providers Name Role Phone Yvonne Nolen MD, Rupert Bhatti Primary Care Provider Encounter Details Date Type Department Care Team Description 03/29/2014 Surgery Main Operating Room Jean-Pierre Pa Maximilian, @ CABG, USING ARTERIAL Gabbi Astudillo MD GRAFT;SINGLE ARTERIAL Hospital [facility] GRAFT (WRVU 33.75) [facility] [address] [place] [address] SURGERY [phone] [place] [id number] (Wo rk) Social History Tobacco Use Types [...] documented in this encounter Discharge Instructions Patient InstructionsWilton Lopez PA - 04/03/2014 10:41 AM EDT Discharge [...] Pa Morejon and/or the Cardiac Surgery Physician Supervisor Electronics Testing Team may be reached at . Weight: [...] Dr. Pa Morejon. You may use a [place] Track or treadmill but avoid any pulling [...] friends, go to a movie, go to taoist, etc. Heavy activities: No hunting, skiing, jogging, snow shoveling, snowmobiling, lawn mowing, swimming, golf or tennis until after your return appointment with the surgeon. Do not ride motorcycles, [employer]'s tractors or horses. Avoid the use of [...] should resume a low fat, low cholesterol, Macanese Heart Association Diet. Driving: No driving until [...] with your appointment information. Cardiac Rehabilitation: Trav Maximilian Dugane was seen today regarding participation in outpatient Phase 2 Cardiac Rehabilitation at [facility] . A referral will be sent to this program. The patient was given contact information and should expect to be contacted by the program within 1-2 weeks after discharge from [facility]. documented in this encounter Medications at Time [...] minutes Total timed interventions: 23 minutes Pager: [phone] CHANTELL THOMPSON PTA Physical Therapy Rehabilitation Department Alicia Alaniz RN - 04/03/2014 9:47 AM EDT Office of Care Management (OCM) / Clinical Wall Man (CRC)/ Initial Assessment Discussed patient with Provider [...] DIRECTIVES: On file HEALTH /PRESCRIPTION COVERAGE: Uses [employer] CURRENT HOME/COMMUNITY SERVICES/EQUIPMENT: DME: Home Health Agency: Other: BUSINESS INFO CONSULTANT REFERRAL: Notified BUSINESS INFO CONSULTANT; not needed - for Support/Financial/Medication Assistance; See BUSINESS INFO CONSULTANT notes for further needs. PRIMARY CARE PHYSICIAN: RUPERT RUSSELL JR, MD [facility]* [phone] POTENTIAL DISCHARGE NEEDS: Open to VN A list of color laboratory technician/DMEs which serve the geographic area which the patient resides or the geographic arearequested by the patient/technical services representative was made available.Full Disclosure Statement provided, as appropriate. Patient requests referral to [facility] [employer]. PHONE: [phone] FAX: [phone] Referrals sent via [employer] by Banking Assistant. VN Orders pended, demos to be [...] SpO2: [95 %-98 %] on RA 04/02 0701 - 09/23 0700 In: 860 [P.O.:860] Out: 1451 [Urine:1351] [...] Plan discussed with Dr. Morejon. Chantell Thompson, BILLING ADMINISTRATOR - 04/02/2014 4:20 PM EDT Physical Therapy [...] minutes Total timed interventions: 14 minutes Pager: [phone] CHANTELL THOMPSON PTA Physical Therapy Rehabilitation Department Lauren Griffin MD - 04/02/2014 7:13 AM EDT Cardiac Surgery Inpatient Progress Note ID: Trav Hawkins is a 63 y.o. male POD#4 s/p CABG x1. 24hr events: - PW removed - CXR yesterday - no acute events overnight Subjective: Reports that he had been feeling better overnight, ambulated. Nausea is improved, tolerating PO. [place] lightheaded when OOB. Still has not had [...] AM EDT Cardiac Surgery Progress Note: ID: [id number] 63 yo M POD 3 s/p CABG [...] morro COUCH PW LABS: Recent Labs Basename 04/01/14 0516 03/30/1441603/29/14 1600 WBC 13.5* 19.0* -- HGB 12.7* 13.3* 13.4* HCT 38.4* 39.9* -- PLATELET 144* 193 -- PT -- -- -- INR -- -- -- PTT -- -- -- FIBRINOGEN -- -- -- Recent Labs Basename 04/01/14 0516 03/31/14 0948 03/30/1441603/29/14 1600 NA 143 -- -- [...] results found for this basename: phart, po2art, [id number] Assessment/Plan: 63 yo M POD3 s/p CABG [...] hospital course unless consulted in the interim. ANA MORIN DT Gregoria Merino MD - 03/31/2014 10:52 AM EDT Cardiac Surgery Progress Note: ID: [id number] 63 yo M POD 2 s/p CABG [...] 76.7 kg (169 lb 1.5 oz) 03/29/14 06 73.5 kg (162 lb 0.6 oz) Physical exam: General: In chair, appears uncomfortable, conversant Neuro: Alert, moves all extremities Lungs: Decreased bases b/l, shallow inspiration Heart: RRR Abdomen: snt/nd, +BS Ext: Warm, 1+ b/l FATOU Incisions: Dressing c/d Tubes/Lines/Drains: morro COUCH PW LABS: Recent Labs Basename 03/30/14 0417 [...] results found for this basename: phart, po2art, [id number] Assessment/Plan: 63 yo M POD 2 s/p [...] AM EDT Cardiac Surgery Progress Note: ID: [id number] 63 yo M POD s/p CABG x [...] 3356.1 [P.O.:100; I.V.:1712.1; Blood:1344; IV Piggyback:200] Out: 2144 [Urine:250; Other:1895] I-3.4 O-2.2 Net +1.2 Admit [...] morro COUCH PW LABS: Recent Labs Basename 03/30/1441603/29/14 1600 03/29/14 0958 03/29/14 0929 WBC 19.0* -- 7.8 -- HGB 13.3* 13.4* 8.2* 8.6* HCT 39.9* -- 23.9* 25.2* PLATELET 193 -- 100* 119* PT -- -- 19.8* -- INR -- -- 1.6* -- PTT -- -- 39* -- FIBRINOGEN -- -- 159* 165* Recent Labs Basename 03/30/1441603/29/14 1600 NA -- -- K 4.7 4.0 [...] 04/04/2014 12:45 PM EDTAssociated Order(s): SCAN DOC: INTERVENTIONAL RADIOLOGY RN Provider, Scanning - 04/04/2014 12:45 PM EDTAssociated [...] juice. Ptrested in bed then awoken by RN/BILLING ADMINISTRATOR at 1500 and ambulated in arreola. Pt educated about the importance of ambulation s/p surgery. Pt able to ambulate 45 feet using front-wheel walker. Stated he couldn't do more and ambulated back to bed. 1700) Pt passed several small, soft formed stools; MD updated. 1715) Pt reports having urge to [...] GRAFT performed by Pa Morejon MD at [facility] MAIN OR PCI January 2014 Social History: Patient lives with their spouse in a one story home. 2 adult children. Stairs: 3 with a rail to enter. 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 Equipment at home: None Subjective: I am [...] interventions: 0 minutes MI PEARSON, PT Pager: [phone] Physical Therapy Rehabilitation Department Discharge Summary - Wilton Lopez PA - 03/30/2014 12:39 PM EDT Inpatient - Discharge Summary Patient Name: Trav Hawkins Patient Age: 63 y.o. Birthdate: 1950 Language: Trinidadian Race: White Ethnicity: Not nor Admit Date: 03/29/2014 Discharge Date and Time: 04/03/14 Attending Physician: Pa Morejon MD Follow-up Recommendations for Providers: Please continue routine management of cardiovascular risk factors including blood pressure, lipids, glucose, etc. Please note any changes to medications. Inpatient Provider Contact Information: [facility] Section of Cardiothoracic Surgery [facility] [address] FAX [phone] Discharge Diagnoses (Hospital Problems) Primary Diagnoses: Coronary [...] GRAFT performed by Pa Morejon MD at [facility] MAIN OR Prior To Admission Medications Prescriptions [...] Pa Morejon and/or the Cardiac Surgery Physician Supervisor Electronics Testing Team may be reached at . Weight: [...] Dr. Pa Morejon. You may use a [place] Track or treadmill but avoid any pulling [...] friends, go to a movie, go to taoist, etc. Heavy activities: No hunting, skiing, jogging, snow shoveling, snowmobiling, lawn mowing, swimming, golf or tennis until after your return appointment with the surgeon. Do not ride motorcycles, ATHer[employer]schmied[employer]'s tractors or horses. Avoid the use of [...] should resume a low fat, low cholesterol, Macanese Heart Association Diet. Driving: No driving until [...] in outpatient Phase 2 Cardiac Rehabilitation at [facility] . A referral will be sent to this program. The patient was given contact information and should expect to be contacted by the program within 1-2 weeks after discharge from [facility]. Future Appointments and Orders Future Appointments: Provider: Department: Dept Phone: Center: 05/09/2014 4:10 PM Garret Moe MD Cardiology [phone] [facility] Joint Appt Nurse One Cardiology Intake, ANDERS HAGAN 4A [phone] [facility] Future Orders Please Complete By Expires XR chest routine PA & lateral [[id number] Custom] 05/03/14 04/03/15 Process Instructions: Scheduling Instructions: Comments: Questions: Responses: Portable exam? Reason for exam and clinical history: s/p cabg Other pertinent information: Where will study be performed? [facility]- Radiology Stat read required? Should this service/procedure be billed to the research sponsor? Requested Time Date of injury if applicable: Referral to Cardiac Rehab [[id number] Custom] Process Instructions: If no progress note charted, please enter Clinical details in comments. Scheduling Instructions: Comments: Cardiac rehab @ [facility] Questions: Responses: My question or request is: s/p CABG Referral to Home Health - at DISCHARGE [[id number] CPT(R)] Process Instructions: Scheduling Instructions: Comments: DOCUMENTATION FOR VNA SERVICES (INCLUDING THOSE PATIENTS WITH MEDICARE COVERAGE REQUIRING HOME VNA SERVICES AND/OR HOSPICE SERVICES) PATIENT'S LOCATION: Trav Hawkins [address] [facility] [id number] (home) No relevant phone numbers on file. Weed Sprayer's Name: Self, and dtr In discussion with the attending physician, it is certified that this patient is under their care and that they, or a Nurse Practitioner, or Physician Supervisor Electronics Testing who is working directly with them, had [...] need for servicesas follows: HOME HEALTH AGENCY: [facility] PHONE: [phone] FAX: [phone] RN orders: Cardiopulmonary assessment, incisional assessment, assess [...] please call the Cardiac Surgery Office at [phone] FOR MEDICARE ONLY: (please delete this section [...] Questions: Responses: Agency name and contact information [place] Patient location post discharge Home What services are requested Registered Nurse Physical Therapy Start date Responsible MD post discharge contact info CT team EKG 12 Lead [EKG1 Custom] 05/03/14 04/03/15 Process Instructions: Scheduling Instructions: Comments: Questions: Responses: Is a rhythm strip needed? No Which [facility] location will this be performed? [place] Should this service/procedure be billed to the research sponsor? If EKG Reason is Pre-op Evaluation, indicate diagnosis for surgery. Arrangements for VNA/home care: As above. VN RN OR PCP TO PLEASE REMOVE CHEST TUBE SUTURES ON OR AFTER 04/08/14. Home oxygen therapy: N/A Signed: Wilton Lopez PA-C [facility] Section of Cardiothoracic Surgery Date: 04/03/2014 CC: MD Cristiana MYERS JR, Jon, MD [facility] [place] [address] Consult Note - Hailee Holbrook RN - 03/30/2014 12:28 PM EDT [facility] CARDIAC REHABILITATION Trav Hawkins was seen today regarding participation in outpatient Phase 2 Cardiac Rehabilitation at [facility] . A referral will be sent to this program. The patient was given contact information and should expect to be contacted by the program within 1-2 weeks after discharge from [facility]. Op Note - Pa Morejon MD - 03/29/2014 10:43 AM EDT 03/29/2014 Trav Hawkins 1950 [id number] Preoperative Diagnosis: Coronary artery disease Stable Angina Postoperative Diagnosis: Coronary artery diseaseStable Angina Procedure: CABG times 1: POLANCO to LAD. Endoscopic vein harvest Surgeon: Pa Morejon M.D. Supervisor Electronics Testing: Az Arias PA-C Anesthesia: General endotracheal anesthesia [...] applied. The patient was transported to the [facility] on agustin. All counts were correct. OR Attestation - Pa Morejon MD - 03/29/2014 10:43 AM EDT Attestation: Case Date: 03/29/2014 I performed this procedure without the involvement of a resident. PA MOREJON MD 03/29/2014 Brief Op Note - Pa Morejon MD - 03/29/2014 10:41 AM EDT Brief Operative Note Patient Name: Trav Hawkins : [id number] MR#: [id number] Case Date: 03/29/2014 Surgeon: Surgeon(s) and Role: * Pa Morejon MD - Primary * Yves Arias PA - Physician Supervisor Electronics Testing Preoperative diagnosis: cad Postoperative diagnosis: cad Procedure(s): [...] procedure are i n the results section. INTERVENTIONAL RADIOLOGY RN SCAN 04/04/2014 12:45 Res ults for this [...] 03/30/2014 4:17 AM Result s for this ([facility]) EDT procedure are i n the results [...] 420 ms MUSE SYSTEM (Bezet) Calculated P Isabella 70 degrees MUSE SYSTEM Calculated R Isabella 75 degrees MUSE SYSTEM Calculated T Isabella 73 degrees MUSE SYSTEM INTERPRETATION Normal sinus rhythm MUSE SYSTEM Right bundle branch block Abnormal ECG When compared with ECG of 29-MAR-2014 11:23, No significant change was found Confirmed by MD ANTHONY, TOMÁS ([id number]) on 04/24/2014 9:25:13 PM Specimen Anatomical Collection Method Collection Time Receive d Time (Source) Location / / Volume Laterality 04/24/2014 1:47 PM 4 9:25 EDT PM EDT Pa Morejon MD [...] Morejon MD IMG DX ORDERABLES SCAN DOC: INTERVENTIONAL RADIOLOGY RN (04/04/2014 12:45 PM EDT) Narrative 04/04/2014 1:11 PM EDT Procedure Note Provider, Scanning - 04/04/2014 12:45 PM EDT Scanning Provider MEDIA MGR SCAN EXT ORDR/RSLT SCAN DOC: LAB (04/04/2014 12:45 PM EDT) Narrative 04/04/2014 12:45 PM EDT Procedure Note Provider, Scanning - 04/04/2014 12:45 PM EDT Scanning Provider MEDIA MGR SCAN EXT ORDR/RSLT (ABNORMAL) Urinalysis with microscopic (04/03/2014 9:39 AM EDT) [facility] Method Time Signature Glucose UA Negative [...] UA Clear Clear CERNER MILLENNIU M Spec Forsan UA 1.024 1.002 - 1.030 CERNER MIL LENNIUM Color UA Yellow Yellow CERNER MILLENNIUM RBC UA 1 0 - 3 /HPF CERNER MILLENNIUM WBC UA 1 0 - 3 /HPF CERNER MILLENNIUM Squam Epith UA <1 <=4 /HPF JOCYNER MILLENNI UM Specimen Anatomical Collection Method Collection Time Receive d Time (Source) Location / / Volume Laterality Urine specimen 04/03/2014 9:39 AM 014 (specimen) EDT 10:04 AM EDT Resulting Agency Comment Spec In Lab Pa Morejon MD URINE ORDERABLES Performing Organization Address City/State/[place] [address] IMANI MICHELLEUSAMAIUM Urine culture Clean Catch Urine (04/03/2014 9:38 AM EDT) [facility] Method Time Signature Urine Culture CERNER ? Patient Name: TRAV HAWKINS ? O rdered By: PA MOREJON ? MR#: [id number] ?LOC: ??[facility] ? /Sex: ??1950 (63 years), [...] Comment Spec In Lab Pa Morejon MD MICROBIOLOGY - GENERAL ORDER SCOTT Performing Organization Address City/[facility]/ZIP Code Phon e Number [address] CERNER MILLENNIUM Potassium (04/03/2014 [...] Morejon MD CHEMISTRY ORDERABLES Performing Organization Address City/[facility]/ZIP Code Phon e Number [address] CERNER MILLENNIUM POCT Glucose [...] CARE TEST ORDERABLE S Performing Organization Address City/[facility]/ZIP Code Phon e Number [address] CERNER MILLENNIUM POCT Glucose (04/02/2014 4:59 PM EDT) athologist Signature POC Glucose 124 60 - 199 CERNER mg/dL MILLENNIUM Comment: Supplemental ranges: <140 mg/dL before meals <180 mg/dL all other times of the day Specimen Anatomical Collection Method Collection Time Receive d Time (Source) Location / / Volume Laterality Blood specimen 04/02/2014 4:59 PM 014 4:59 (specimen) EDT PM EDT Pa Morejon MD POINT OF CARE TEST ORDERABLE S Performing Organization Address City/[facility] Phon e Number [address] CERNER MILLENNIUM POCT Glucose (04/02/2014 11:57 AM EDT) athologist Signature POC Glucose 162 60 - 199 CERNER mg/dL [facility] Comment: Supplemental ranges: <140 mg/dL before meals <180 mg/dL all other times of the day Specimen Anatomical Collection Method Collection Time Receive d Time (Source) Location / / Volume Laterality Blood specimen 04/02/2014 11:57 4 (specimen) AM EDT 11:57 AM EDT Pa Morejon MD POINT OF CARE TEST ORDERABLE S Performing Organization Address [facility] Phon e Number [address] CERNER MILLENNIUM (ABNORMAL) Potassium (04/02/2014 8:34 AM EDT) athologist Signature Potassium 3.4 (L) 3.5 - 5.0 CERNER mmol/L [facility] Comment: Please note: ??Patients with WBC >100,00 [...] Organization Address City/State/[place] [address] CERNER MILLENNIUM POCT Glucose (04/02/2014 8:08 AM EDT) P athologist Signature POC Glucose 129 60 - [...] Organization Address City/State/ZIP Code Phon e Number [address] CERNER MILLENNIUM POCT Glucose [...] Organization Address City/State/[place] [address] CERNER MILLENNIUM POCT Glucose [...] Address City/State/Z[place] [address] CERNER MILLENNIUM POCT Glucose [...] CARE TEST ORDERABLE S Performing Organization Address City/[facility]/ZIP Code Phon e Number [place] [address] CERNER MILLENNIUM POCT Glucose [...] Address City/State/ZIP Code Phon e Number [place] [address] CERNER MILLENNIUM POCT Glucose (04/01/2014 11:20 AM EDT) athologist Signature POC Glucose 153 60 - 199 CERNER mg/dL MILLENNIUM Comment: [...] Organization Address City/State/[place] [address] CERNER MILLPrimordial GeneticsIUM POCT Glucose (04/01/2014 7:13 AM EDT) P athologist Signature POC Glucose 160 60 - 199 CERNER mg/dL [facility] Comment: Supplemental ranges: <140 mg/dL before meals <180 mg/dL all other times of the day Specimen Anatomical Collection Method Collection Time Receive d Time (Source) Location / / Volume Laterality Blood specimen 04/01/2014 7:13 AM 014 7:13 (specimen) EDT AM EDT Pa Morejon MD POINT OF CARE TEST ORDERABLE S Performing Organization Address City/State/ZIP Code Phon e Number [address] CERROSY [employer] XR chest routine PA & lateral (04/01/2014 [...] (ABNORMAL) Differential, Automated (04/01/2014 5:16 AM EDT) Patholo gist Method Time Signature Neutrophils % 77.5 (H) [...] Organization Address City/State/[place] [address] CERNER MILLENNIUM (ABNORMAL) Hemogram (04/01/2014 5:16 AM EDT) P athologist Signature WBC 13.5 (H) 4.0 - [...] Organization Address City/State/[place] [address] CERNER MILLENNIUM (ABNORMAL) Basic [...] intervals supplied above were not validated at [facility]. Results from pediatri c patients should be [...] the following links into your internet browser. [email or web address] Specimen Anatomical Collection Method Collection Time Receive d Time (Source) Location / / Volume Laterality Blood specimen 04/01/2014 5:16 AM 014 5:43 (specimen) EDT AM EDT Resulting Agency Comment Spec In Lab Pa Morejon MD CHEMISTRY ORDERABLES Performing Organization Address City/[facility]/[place] [address] CERROSY MILLENNIUM POCT Glucose (04/01/2014 3:59 AM EDT) [...] Organization Address City/State/[place] [address] CERNER MILLENNIUM POCT Glucose (03/31/2014 11:17 PM EDT) P athologist Signature POC Glucose 117 60 - [...] Address City/State/ZIP Code Phon e Number [place] [address] CERNER MILLENNIUM POCT Glucose [...] Address City/State/ZIP Code Phon e Number [place] [address] CERNER MILLENNIUM POCT Glucose [...] Address City/State/ZIP [place] [address] CERNER MILLENNIUM POCT Glucose (03/31/2014 11:13 AM EDT) athologist Signature POC Glucose 132 60 - 199 CERNER mg/dL [facility] Comment: Supplemental ranges: <140 mg/dL before meals <180 mg/dL all other times of the day Specimen Anatomical Collection Method Collection Time Receive d Time (Source) Location / / Volume Laterality Blood specimen 03/31/2014 11:13 4 (specimen) AM EDT 11:13 AM EDT Pa Morejon MD POINT OF CARE TEST ORDERABLE S Performing Organization Address City/[facility]/ZIP Code Phon e Number [address] CERNER MILLENNIUM Potassium (03/31/2014 9:48 AM EDT) athologist Signature Potassium 3.8 3.5 - 5.0 CERNER mmol/L [facility] Comment: Please note: ??Patients with WBC >100,00 [...] Address City/State/ZIP Code Phon e Number [place] [address] CERNER MILLENNIUM (ABNORMAL) Albumin Level (03/31/2014 9:48 AM EDT) athologist Signature Albumin 2.9 (L) 3.2 - 5.2 CERNER gm/dL [facility] Specimen Anatomical Collection Method Collection Time Receive d Time (Source) Location / / Volume Laterality Blood specimen 03/31/2014 9:48 AM 014 (specimen) EDT 10:05 AM EDT Resulting Agency Comment Spec In Lab Pa Morejon MD CHEMISTRY ORDERABLES Performing Organization Address City/State/ZIP Code Phon e Number [place] [address] CERNER MILLENNIUM Calcium (03/31/2014 9:48 AM EDT) P athologist Signature Calcium 8.8 8.5 - 10.5 CERNER mg/dL MILLENNIUM Specimen Anatomical Collection Method Collection Time Receive d Time (Source) Location / / Volume Laterality Blood specimen 03/31/2014 9:48 AM 014 (specimen) EDT 10:05 AM EDT Resulting Agency Comment Spec In Lab Pa Morejon MD CHEMISTRY ORDERABLES Performing Organization Address City/[facility]/ZIP Code Phon e Number [address] CERNER MILLENNIUM POCT Glucose [...] CARE TEST ORDERABLE S Performing Organization Address City/[facility]/ZIP Code Phon e Number [address] CERNER MILLENNIUM POCT Glucose [...] Address City/State/ZIP [place] [address] CERNER MILLENNIUM POCT Glucose (03/30/2014 11:51 PM EDT) athologist Signature POC Glucose 125 60 - 199 CERNER mg/dL MILL[facility]UM Comment: Supplemental ranges: <140 mg/dL before meals <180 mg/dL all other times of the day Specimen Anatomical Collection Method Collection Time Receive d Time (Source) Location / / Volume Laterality Blood specimen 03/30/2014 11:51 4 (specimen) PM EDT 11:51 PM EDT Pa Morejon MD POINT OF CARE TEST ORDERABLE S Performing Organization Address City/[facility]/ZIP Code Phon e Number [place] [address] CERNER MILLENNIUM POCT Glucose (03/30/2014 7:42 PM EDT) athologist Signature POC Glucose 159 60 - 199 CERNER mg/dL MILLENNIUM Comment: Supplemental ranges: <140 mg/dL before meals <180 mg/dL all other times of the day Specimen Anatomical Collection Method Collection Time Receive d Time (Source) Location / / Volume Laterality Blood specimen 03/30/2014 7:42 PM 014 7:42 (specimen) EDT PM EDT Pa Morejon MD POINT OF CARE TEST ORDERABLE S Performing Organization Address City/[facility]/ZIP Code Phon e Number [place] [address] CERNER MILLENNIUM POCT Glucose [...] Address City/State/ZIP Code Phon e Number [place] [address] CERNER MILLENNIUM POCT Glucose (03/30/2014 10:48 AM EDT) athologist Signature POC Glucose 158 60 - 199 CERNER mg/dL [facility] Comment: [...] Address City/State/ZIP Code Phon e Number [place] [address] CERNER MILLENNIUM POCT Glucose (03/30/2014 9:02 AM EDT) athologist Signature POC Glucose 139 60 - 199 CERNER mg/dL MILLENNIUM Comment: Supplemental ranges: <140 mg/dL before meals <180 mg/dL all other times of the day Specimen Anatomical Collection Method Collection Time Receive d Time (Source) Location / / Volume Laterality Blood specimen 03/30/2014 9:02 AM 014 9:02 (specimen) EDT AM EDT Pa Morejon MD POINT OF CARE TEST ORDERABLE S Performing Organization Address City/State/ZIP Code Phon e Number GABBI [address] CERNER MILLENNIUM POCT Glucose [...] Organization Address City/State/ZIP Code Phon e Number [place] [id number] [facility] [address] CERNER MILLENNIUM POCT Glucose (03/30/2014 6:00 AM EDT) P athologist Signature POC Glucose 112 60 - [...] Organization Address City/State/ZIP Code Phon e Number [address] CERNER MILLENNIUM (ABNORMAL) Differential, Automated (03/30/2014 4:17 AM EDT) Patholo gist Method Time Signature Neutrophils % 84.5 [...] Address City/State/ZIP [place] [address] CERNER MILLENNIUM (ABNORMAL) Hemogram [...] Platelets 193 145 - 370 CERNER x10(3)/mcL MILLENNIUM RDWSD 42.4 35.0 - CERNER 46.0 fL MILLENNIUM RDWCV 13.2 10.9 - CERNER 14.4 % MILLENNIUM MPV 10.8 9.0 - 12.0 CERNER fL MILLENNIUM Specimen Anatomical Collection Method Collection Time Receive d Time (Source) Location / / Volume Laterality Blood specimen 03/30/2014 4:17 AM 014 4:26 (specimen) EDT AM EDT Resulting Agency Comment Spec In Lab Pa Morejon MD HEMATOLOGY ORDERABLES Performing Organization Address City/State/ZIP Code Phon e Number [address] CERNER MILLENNIUM POCT Glucose (03/30/2014 4:17 AM EDT) athologist Signature POC Glucose 121 60 - 199 CERNER mg/dL [facility] Comment: Supplemental ranges: <140 mg/dL before meals <180 mg/dL all other times of the day Specimen Anatomical Collection Method Collection Time Receive d Time (Source) Location / / Volume Laterality Blood specimen 03/30/2014 4:17 AM 014 4:17 (specimen) EDT AM EDT Pa Morejon MD POINT OF CARE TEST ORDERABLE S Performing Organization Address City/State/ZIP Code Phon e Number [address] CERNER MILLENNIUM (ABNORMAL) Cardiac Enzymes (03/30/2014 4:17 AM EDT) athologist Signature Troponin-T 0.08 (H) <=0.03 CERNER ng/mL [facility] Comment: 0.03 ng/mL: Represents the 99th percenti [...] consensus document of the Joint Society of Cardiology/[employer] f [employer] Committee for the redefinition of myocardial infarction. ? ?Journal of the [place] of [employer] 2000; 36: 959-969] CK, Total 275 (H) 0 - 200 unit/L CERNER MILLENNI UM Specimen Anatomical Collection Method Collection Time Receive d Time (Source) Location / / Volume Laterality Blood specimen 03/30/2014 4:17 AM 014 4:26 (specimen) EDT AM EDT Resulting Agency Comment Spec In Lab Pa Morejon MD CHEMISTRY ORDERABLES Performing Organization Address City/[facility]/[place] [address] CERNER MILLENNIUM Potassium (03/30/2014 4:17 AM EDT) athologist Signature Potassium 4.7 3.5 - 5.0 CERNER mmol/L [facility] Comment: Please note: ??Patients with WBC >100,00 [...] Morejon MD CHEMISTRY ORDERABLES Performing Organization Address City/[facility]/[place] [address] CERNER MILLENNIUM (ABNORMAL) Glucose, fasting (03/30/2014 4:17 AM EDT) athologist Signature Glucose 133 (H) 65 - 99 CERNER Fasting mg/dL [facility] Comment: ?Fasting* Glucose Interpretive C riteria Normal [...] of Diabetes Mellitus, Position Statement from the [place] [employer]. ??Diabete s Care, Volume 33, Supplement 1, Jul 2009 Specimen Anatomical Collection Method Collection Time Receive d Time (Source) Location / / Volume Laterality Blood specimen 03/30/2014 4:17 AM 014 4:26 (specimen) EDT AM EDT Resulting Agency Comment Spec In Lab Pa Morejon MD CHEMISTRY ORDERABLES Performing Organization Address City/[facility]/ZIP Code Phon e Number [address] CERNER MILLENNIUM Creatinine (03/30/2014 4:17 AM EDT) athologist Signature Creatinine 1.00 0.80 - 1.50 CERNER mg/dL MILLENNIUM Comment: Please note that the pediatric reference intervals supplied above were not validated at [facility]. Results from pediatri c patients should be interpreted in conjunction to the patient's age, height and muscle mass. Estimated GFR >60 >=60 CERNER MILLENNIU M [...] the following links into your internet browser. [email or web address] Specimen Anatomical Collection Method Collection Time Receive d Time (Source) Location / / Volume Laterality Blood specimen 03/30/2014 4:17 AM 014 4:26 (specimen) EDT AM EDT Resulting Agency Comment Spec In Lab Pa Morejon MD CHEMISTRY ORDERABLES Performing Organization Address City/State/ZIP Code Phon e Number [address] CERNER MILLENNIUM BUN (03/30/2014 4:17 AM EDT) athologist Signature BUN 16 10 - 20 CERNER mg/dL MILLENNIUM Specimen Anatomical Collection Method Collection Time Receive d Time (Source) Location / / Volume Laterality Blood specimen 03/30/2014 4:17 AM 014 4:26 (specimen) EDT AM EDT Resulting Agency Comment Spec In Lab Pa Morejon MD CHEMISTRY ORDERABLES Performing Organization Address City/[facility]/ZIP Code Phon e Number [address] CERNER MILLENNIUM POCT Glucose [...] CARE TEST ORDERABLE S Performing Organization Address City/[facility]/ZIP Code Phon e Number [address] CERNER MILLENNIUM POCT Glucose [...] Organization Address City/State/ZIP Code Phon e Number [address] CERNER MILLENNIUM POCT Glucose (03/29/2014 11:02 PM EDT) P athologist Signature POC Glucose 123 60 - [...] CARE TEST ORDERABLE S Performing Organization Address City/[facility]/ZIP Code Phon e Number [address] CERNER MILLENNIUM POCT Glucose [...] Organization Address City/State/[place] [address] CERNER MILLENNIUM POCT Glucose (03/29/2014 [...] Organization Address City/State/ZIP Code Phon e Number [address] CERNER MILLENNIUM POCT Glucose [...] CARE TEST ORDERABLE S Performing Organization Address [facility] [place] [address] CERNER MILLENNIUM (ABNORMAL) Hemoglobin (03/29/2014 4:00 PM EDT) athologist Signature Hemoglobin 13.4 (L) 13.7 - CERNER 17.5 gm/dL MILLENNIUM Specimen Anatomical Collection Method Collection Time Receive d Time (Source) Location / / Volume Laterality Blood specimen 03/29/2014 4:00 PM 014 4:15 (specimen) EDT PM EDT Resulting Agency Comment Spec In Lab Pa Morejon MD HEMATOLOGY ORDERABLES Performing Organization Address [facility] Phon e Number [address] CERNER MILLENNIUM Potassium (03/29/2014 4:00 [...] Morejon MD CHEMISTRY ORDERABLES Performing Organization Address [facility] [place] [address] CERNER MILLENNIUM (ABNORMAL) BLOOD [...] Whole Blood 3.9 3.5 - 5.0 mmol/L [facility] LLENNIUM Comment: Please note: Patients with [...] 108 (H) 98 - 107 mmol/L CERNER [place] LLENNIUM Gluc Whole Bld 150 60 - 199 mg/dL [facility] MIL LENNIUM Comment: Diabetes: >=200 mg/dL plus symp toms. FIO2 Art 40 % CERNER MILLENNIUM PF Ratio Art 435 CERNER MILLENNIUM Specimen Anatomical Collection Method Collection Time Receive d Time (Source) Location / / Volume Laterality Blood specimen 03/29/2014 2:25 PM 014 2:25 (specimen) EDT PM EDT Pa Morejon MD CHEMISTRY ORDERABLES Performing Organization Address City/State/[place] [address] CERNER MILLENNIUM (ABNORMAL) BLOOD [...] Whole Blood 4.0 3.5 - 5.0 mmol/L [facility] [place] [facility] Comment: Please note: Patients with WBC >100,000 may have falsely elevated Potassium levels. Contact the Clinical Chemistry L aboratory if there are any questions. ICa Whole Blood 1.09 (L) 1.15 - 1.33 mmol/L CERNE R MILLENNIUM Comment: Note: ??Total bilirubin higher than 20 m g/dL may lead to falsely low ionized calcium. CL Whole Blood 108 (H) 98 - 107 mmol/L CERNER [place] LLENNIUM Gluc Whole Bld 130 60 - 199 mg/dL [facility] MIL LENNIUM Comment: Diabetes: >=200 mg/dL plus symp toms. FIO2 Art 100 % CERNER MILLENNIUM PF Ratio Art 568 CERNER MILLENNIUM Temp Art 35.[address] [facility] MILLENNIUM Specimen Anatomical Collection Method Collection Time Receive d Time (Source) Location / / Volume Laterality Blood specimen 03/29/2014 11:39 4 (specimen) AM EDT 11:39 AM EDT Pa Morejon MD CHEMISTRY ORDERABLES Performing Organization Address City/State/[place] [address] [facility] MILLENNIUM EKG 12 Lead (03/29/2014 11:23 AM EDT) Component Value Ref Range Test Analysis Performed Pathologis t Method Time At Signature Ventricular rate 55 BPM MUSE SYSTEM Atrial Rate 55 BPM MUSE SYSTEM P-R Interval 152 ms MUSE SYSTEM QRS Duration 128 ms MUSE SYSTEM Q-T Interval 456 ms MUSE SYSTEM QTC Calculated 436 ms MUSE SYSTEM (Bezet) Calculated P Isabella 73 degrees MUSE SYSTEM Calculated R Isabella 90 degrees MUSE SYSTEM Calculated T Isabella 62 degrees MUSE SYSTEM INTERPRETATION Sinus bradycardia [...] Examination CHEST ONE VIEW/XPORT Clinical History ETT, [place] placement *tn Comparison None Technique Portable AP [...] Examination CHEST ONE VIEW/XPORT Clinical History ETT, [place] placement *tn Comparison None Technique Portable AP [...] Prepare Platelets, Apheresis (03/29/2014 10:20 AM EDT) athologist Signature Dispensed? Yes [email or web address] Specimen Anatomical Collection Method Collection Time Receive d Time (Source) Location / / Volume Laterality Blood specimen 03/29/2014 10:20 4 (specimen) AM EDT 10:17 AM EDT Pa Morejon MD BLOOD BANK ORDERABLES Performing Organization Address City/State/ZIP Code Phon e Number [place] [phone] [facility]OSPITAL LAB[address] Drive [email or web address] Thrombin time (03/29/2014 9:58 AM EDT) athologist Signature Thrombin Time 19 15 - 20 CERNER sec MILLENNIUM Specimen Anatomical Collection Method Collection Time Receive d Time (Source) Location / / Volume Laterality Blood specimen 03/29/2014 9:58 AM 014 9:59 (specimen) EDT AM EDT Resulting Agency Comment Spec In Lab Pa Morejon MD HEMATOLOGY ORDERABLES Performing Organization Address City/[facility]/[place] [address] CERNER MILLENNIUM (ABNORMAL) Fibrinogen (03/29/2014 9:58 AM EDT) athologist Signature Fibrinogen 159 (L) 175 - 450 CERNER mg/dL MILLENNIUM Comment: Called by: CEDRIC, Read back by: Violette Ramirez, Date/Time:03/29/14 10:25. Specimen Anatomical Collection Method Collection Time Receive d Time (Source) Location / / Volume Laterality Blood specimen 03/29/2014 9:58 AM 014 9:59 (specimen) EDT AM EDT Resulting Agency Comment Spec In Lab Pa Morejon MD HEMATOLOGY ORDERABLES Performing Organization Address City/[facility]/[place] [address] CERNER MILLENNIUM (ABNORMAL) APTT (03/29/2014 9:58 AM EDT) athologist Signature PTT 39 (H) 25 - [...] Morejon MD HEMATOLOGY ORDERABLES Performing Organization Address City/[facility]/[place] [address] CERNER MILLENNIUM (ABNORMAL) Prothrombin Time (03/29/2014 9:58 AM EDT) P athologist Signature PT 19.8 (H) 12.5 - 15.5 CERNER sec MILLENNIUM Comment: [facility] Transfusion Committee Guidelines: I NR less [...] Organization Address City/State/[place] [address] CERNER MILLENNIUM (ABNORMAL) Differential, Automated (03/29/2014 9:58 AM EDT) [facility] gist Method Time Signature Neutrophils % 79.0 [...] Organization Address City/State/ZIP Code Phon e Number [place] [phone] [address]OS[address]ITAL [address] CERNER MILLENNIUM (ABNORMAL) Hemogram [...] Address City/State/ZIP [place] [address] CERNER MILLENNIUM (ABNORMAL) BLOOD [...] 5.4 (H) 3.5 - 5.0 mmol/L CERNER [place] LLENNIUM Comment: Please note: Patients with WBC >100,000 may have falsely elevated Potassium levels. Contact the Clinical Chemistry L aboratory if there are any questions. ICa Whole Blood 1.08 (L) 1.15 - 1.33 mmol/L CERNE R MILLENNIUM Comment: Note: ??Total bilirubin higher than 20 m g/dL may lead to falsely low ionized calcium. CL Whole Blood 101 98 - 107 mmol/L CERNER [place] LLENNIUM Gluc Whole Bld 190 60 - 199 mg/dL CERNER MIL LENNIUM Comment: Diabetes: >=200 mg/dL plus symp toms. Specimen Anatomical Collection Method Collection Time Receive d Time (Source) Location / / Volume Laterality Blood specimen 03/29/2014 9:54 AM 014 9:54 (specimen) EDT AM EDT Pa Morejon MD CHEMISTRY ORDERABLES Performing Organization Address City/[facility]/[place] [address] CERNER MILLENNIUM (ABNORMAL) Fibrinogen (03/29/2014 9:29 AM EDT) athologist Signature Fibrinogen 165 (L) 175 - 450 CERNER mg/dL [facility] Comment: Called by: CEDRIC, Read back by: Violette Ramirez, Date/Time:03/29/14 09:47. Specimen Anatomical Collection Method Collection Time Receive d Time (Source) Location / / Volume Laterality Blood specimen 03/29/2014 9:29 AM 014 9:30 (specimen) EDT AM EDT Resulting Agency Comment Spec In Lab Pa Morejon MD HEMATOLOGY ORDERABLES Performing Organization Address City/[facility]/ZIP Code Phon e Number [address] CERNER MILLENNIUM (ABNORMAL) Platelet count (03/29/2014 9:29 AM EDT) athologist Signature Platelets 119 (L) 145 - 370 CERNER x10(3)/mcL MILLENNIUM Specimen Anatomical Collection Method Collection Time Receive d Time (Source) Location / / Volume Laterality Blood specimen 03/29/2014 9:29 AM 014 9:29 (specimen) EDT AM EDT Resulting Agency Comment Spec In Lab Pa Morejon MD HEMATOLOGY ORDERABLES Performing Organization Address City/[facility]/[place] [address] CERNER MILLENNIUM (ABNORMAL) Hematocrit (03/29/2014 9:29 AM EDT) athologist Signature Hematocrit 25.2 (L) 40.0 - CERNER 51.0 % MILLENNIUM Specimen Anatomical Collection Method Collection Time Receive d Time (Source) Location / / Volume Laterality Blood specimen 03/29/2014 9:29 AM 014 9:29 (specimen) EDT AM EDT Resulting Agency Comment Spec In Lab Pa Morejon MD HEMATOLOGY ORDERABLES Performing Organization Address City/[facility]/ZIP Code Phon e Number [address] CERNER MILLENNIUM (ABNORMAL) Hemoglobin (03/29/2014 9:29 AM EDT) P athologist Signature Hemoglobin 8.6 (L) 13.7 - 17.5 CERNER gm/dL MILLENNIUM Specimen Anatomical Collection Method Collection Time Receive d Time (Source) Location / / Volume Laterality Blood specimen 03/29/2014 9:29 AM 014 9:29 (specimen) EDT AM EDT Resulting Agency Comment Spec In Lab Pa Morejon MD HEMATOLOGY ORDERABLES Performing Organization Address City/State/ZIP Code Phon e Number [address] CERNER MILLENNIUM (ABNORMAL) BLOOD [...] Blood 128 (L) 135 - 145 mmol/L CERNER M ILLENNIUM K Whole Blood 5.7 (H) 3.5 - 5.0 mmol/L CERNER [place] LLENNIUM Comment: Please note: Patients with WBC >100,000 may have falsely elevated Potassium levels. Contact the Clinical Chemistry L aboratory if there are any questions. ICa Whole Blood 0.75 (Critical) 1.15 - 1.33 mmol/L CERNER MILLENNIUM Comment: Note: ??Total bilirubin higher than 20 m g/dL may lead to falsely low ionized calcium. CL Whole Blood 98 98 - 107 mmol/L CERNER [place] LLENNIUM Gluc Whole Bld 203 (H) 60 - 199 mg/dL CERNER MIL LENNIUM Comment: Diabetes: >=200 mg/dL plus symp toms. Specimen Anatomical Collection Method Collection Time Receive d Time (Source) Location / / Volume Laterality Blood specimen 03/29/2014 9:21 AM 014 9:21 (specimen) EDT AM EDT Pa Morejon MD CHEMISTRY ORDERABLES Performing Organization Address City/State/[place] [address] CERNER MILLENNIUM (ABNORMAL) BLOOD [...] Whole Blood 3.8 3.5 - 5.0 mmol/L [facility] [place] L[facility] Comment: Please note: Patients with WBC >100,000 may have falsely elevated Potassium levels. Contact the Clinical Chemistry L aboratory if there are any questions. ICa Whole Blood 1.12 (L) 1.15 - 1.33 mmol/L LAYLA R MILLENNIUM Comment: Note: ??Total bilirubin higher than 20 m g/dL may lead to falsely low ionized calcium. CL Whole Blood 106 98 - 107 mmol/L IMANI STEPHENSON LLENNIUM Gluc Whole Bld 89 60 - 199 mg/dL IMANI ROPER Comment: Diabetes: >=200 mg/dL plus symp toms. Specimen Anatomical Collection Method Collection Time Receive d Time (Source) Location / / Volume Laterality Blood specimen 03/29/2014 8:12 AM 014 8:12 (specimen) EDT AM EDT Pa Morejon MD CHEMISTRY ORDERABLES Performing Organization Address [facility] Phon e Number [address] IMANI MONTEZIUM Prepare RBC (03/29/2014 6:40 AM EDT) athologist Signature Dispensed? Yes IMANI SIMMONS Specimen Anatomical Collection Method Collection Time Receive d Time (Source) Location / / Volume Laterality Blood specimen 03/29/2014 6:40 AM 014 6:36 (specimen) EDT AM EDT Pa Morejon MD BLOOD BANK ORDERABLES Performing Organization Address [facility] Phon e Number [address] IMANI SIMMONS documented in this encounter Visit Diagnoses Diagnosis CAD (coronary artery disease) Coronary atherosclerosis of unspecified type of vessel, [place] or graft S/P CABG x 1 Postsurgical aortocoronary bypass status CAD (coronary artery disease) Coronary atherosclerosis of unspecified type of vessel, [place] or graft S/P CABG x 1 Postsurgical aortocoronary bypass status documented in this encounter Administered Medications Inactive Administered Medications - up to 3 most recent administrations Medication Order MAR Action Action Date Dose Rate Site calcium chloride injection Given 03/29/2014 9:49 AM EDT 1 g ONCE PRN, Starting on [place] 03/29/14 at 0949, Until [place] 03/29/14 at 1059, Intra-Operative (Intra-Procedure) cardioplegic solution (PLEGISOL) induction Given 03/29/2014 9:50 AM EDT 300 mLs solution ONCE PRN, Starting on [place] 03/29/14 at 0950, Until [place] 03/29/14 at 1059, Intra-Operative (Intra-Procedure) cardioplegic solution (PLEGISOL) maintenance Given 9:52 AM EDT 10 mLs solution ONCE PRN, Starting on [place] 03/29/14 at 0952, Until [place] 03/29/14 at 1059, Intra-Operative (Intra-Procedure) cardioplegic solution (PLEGISOL) reperfusion Given 9:52 AM EDT 140 mLs solution ONCE PRN, Starting on [place] 03/29/14 at 0952, Until [place] 03/29/14 at 1059, Intra-Operative (Intra-Procedure) ceFURoxime (ZINACEF) injection 1.5 g Given 03/29/2014 9:52 AM EDT 1.5 g ONCE PRN, Starting on [place] 03/29/14 at 0952, Until [place] 03/29/14 at 1059, Intra-Operative (Intra-Procedure), Routine electrolyte-R (PH 7.4)(PLASMA-LYTE) inje ction Given 03/29/2014 9:52 AM EDT 2 L ONCE PRN, Starting on [place] 03/29/14 at 0952, Until [place] 03/29/14 at 1059, Intra-Operative (Intra-Procedure) gentamicin (GARAMYCIN) injection Given 03/29/2014 8:41 AM EDT 160 mg ONCE PRN, Starting on [place] 03/29/14 at 0841, Until [place] 03/29/14 at 1059, Intra-Operative (Intra-Procedure), Routine heparin (porcine) injection Given 03/29/2014 9:52 AM EDT 90,000 Units ONCE PRN, Starting on [place] 03/29/14 at 0952, Until [place] 03/29/14 at 1059, Intra-Operative (Intra-Procedure), Routine Lidocaine (PF) (XYLOCAINE) 20 mg/mL (2 %) Given 03/29/2014 9:53 AM EDT 200 mg injection ONCE PRN, Starting on [place] 03/29/14 at 0953, Until [place] 03/29/14 at 1059, Intra-Operative (Intra-Procedure), Routine magnesium sulfate 4 mEq/mL (50 %) inject ion Given 03/29/2014 9:53 AM EDT 16 mEq ONCE PRN, Starting on [place] 03/29/14 at 0953, Until [place] 03/29/14 at 1059, Intra-Operative (Intra-Procedure), Routine mannitol (50 grams and over) 100 g/500 mL Given 03/29/2014 9:53 AM EDT 100 g (20%) infusion ONCE PRN, Starting on [place] 03/29/14 at 0953, Until [place] 03/29/14 at 1059, Intra-Operative (Intra-Procedure) verapamil (ISOPTIN) injection Given 03/29/2014 8:42 AM EDT 5 mg ONCE PRN, Starting on [place] 03/29/14 at 0842, Until [place] 03/29/14 at 1059, Administer over 2 Minutes, Intra-Operative (Intra-Procedure) documented in this encounter Active and Recently [...] Routine atorvastatin (LIPITOR) tablet 80 mg (CANCELED) 1748 (G iven - Provider: Sariah Sapp RN) 162 (Given - Provider: Fawn Valdez, ANDERS) 80 mg, Oral, EVERY EVENING, First dose o n Wed03/29/14 at 1700, Until Discontinued, Routine chlorhexidine (PERIDEX) [...] (2 times per day), First dose on Wed03/29/14 at 1200, Until Discontinued, [place] teeth., Routine esomeprazole (NexIUM) capsule 40 mg (CANCELED) 08 (G iven - Provider: Laurent Doyle RN) 09 (Given - Provider: Fawn Valdez RN) 09 (Given - Provider: Lloyd Agarwal RN) 40 mg, Oral, DAILY, First dose on Wed at 1200, Until Discontinued, If unable to take PO, may give IV, Routine furosemide (LASIX) injection 20 mg (CANCELED) 08 (Gi tasha - Provider: Laurent Doyle RN)174 (Given - Provider: Sariah Sapp RN) 09 (Given - Provider: Fawn Valdez RN)162 (Given - Provider: Fawn Valdez RN) 20 mg, Intravenous, 2 TIMES DAILY, First dose on Wed03/30/14 at 1230, Until Discontinued, Routine LORazepam (ATIVAN) injection 0.5 mg (COMPLETED) 1030 ( Given - Provider: Laurent Doyle RN) 0.5 mg, Intravenous, ONCE, 1 dose, 04/01/14 at 1030, Routine magnesium hydroxide (MILK OF MAGNESIA) oral suspension 10 mL (CANCELED) 08 (Given - Provider: Laurent Doyle RN) 0918 (Given - Provider: Fawn Valedz RN) 09 (Not Given - Provider: Lloyd hart RN - Reason: Patient/family refused) 10 mL, Oral, DAILY, First dose on Wed at 0900, Until Discontinued, Post- op day 2. Do not use with renal insufficiency., Routine metoprolol tartrate (LOPRESSOR) tablet 25 mg (CANCELED ) 811 (Given - Provider: Laurent Doyle RN)2123 (Given - Provider: Sariah Sapp RN) 917 (Given - Provider: Fawn Valdez RN)2041 (Given - Provider: Sariah Sapp RN) 0909 (Given - Provider: Lloyd Agarwal RN) 25 mg, Oral, 2 TIMES DAILY, First dose o n Wed03/30/14 at 1230, Until Discontinued, Routine potassium chloride (K-DUR/KLOR-CON) extended release tablet 20 mEq (CANCELED) 161 (Given - Provider: Fawn Valdez RN)2041 (Given [...] Sariah Sapp RN) 2041 (Given - Provider: Sariha Sapp RN) 2 tablet, Oral, DAILY, First dose on Wed03/30/14 at 2100, Until Discontinued, Post-op day 1, Routine ticagrelor (BRILINTA) tablet 90 mg (CANCELED) 0900 (Not Given - Provider: Fawn Valdez RN - Reason: Medication not available - Comment: updated)1618 (Given - Provider: Fawn Valdez RN)2100 (Not Given - Provider: Sariah Sapp RN - Reason: Contraindicated) 0910 (Given - Provider: Lloyd Agarwal , ANDERS) 90 mg, Oral, 2 TIMES DAILY, First dose o n 04/02/14 at 0900, Until Discontinued, After initial loading dose of aspirin (usually 325 mg), use ticagrelor with daily maintenance dose of aspirin of 81 mg, Routine PRN Medication Order 04/01/2014 04/02/2014 04/03/2014 bisacodyl (DULCOLAX) suppository 10 mg (CANCELED) 0959 (Given - Provider: Fawn Valdez RN) 10 mg, Rectal, DAILY PRN, Starting Sun at 0000, Until Wed04/03/14 at 1343, Constipation, Starting post-op day 3., Routine ondansetron (ZOFRAN) injection 4 mg (CANCELED) 1622 (Given - Provider: Fawn Valdez RN - Comment: nausea when taking pills) 4 mg, Intravenous, EVERY 8 HOURS PRN, [facility] 03/29/14 at 1059, Until Tu04/03/14 at 1343, Nausea, Routine oxyCODONE (ROXICODONE) immediate release tablet 5-10 mg 5-10 mg, Oral, EVERY 4 HOURS PRN, [facility] 03/29/14 at 1059, Until Wed04/03/14 at 1343, Pain, For pain when taking by mouth., Routine documented in this encounter Care Teams Shop Mechanic Relationship Specialty Start Date End Date Rupert Russell Jr., MD PCP - General 06/03/10 07/21/[address] [facility] [address] [facility] [place] [facility] [place] [address] documented as of this encounter
--- OUTSIDE RECORDS SUMMARY | 2022-05-21 09:03 | XMS_ITS | Encounter Summary ---
:1950 [place] [address] Care Team Providers Name Role Phone Yvonne Nolen MD, Rupert Davy Primary Care Provider Encounter Details Date Type Department Care Team Description 03/29/2014 Anesthesia Event Main Operating Room Jason Velez MD [facility] [place] [address] [facility] Timur Nava MD [facility] [place] [address] [place] [address] Anesthesia Record Procedure Summary Procedure Name Responsible Anesthesia Start Anesthesia Stop Time Anesthesiologist Time @CABG, USING Jason Quiñones MD 03/29/14 0719 03/29/14 10 53 ARTERIAL GRAFT;SINGLE ARTERIAL GRAFT (WRVU 33.75) (N/A Chest) Events Date Time Event Comment 03/29/2014 0658 0719 Start 0723 AN Verify 0726 An Start Data 0740 An Induction 0743 An Intubation 0747 CHRISTI PROBE ONLY 0758 Anesthesia Ready 0838 Sternotomy 0913 CV Bypass init 0914 An Clamp start 0931 Rewarming 0934 Slps 0936 An Clamp Remove 0942 CP Bypass Ended 1015 Chest Closed 1042 an stop data 1053 Stop Name Total Midazolam 2 mg fentaNYL 750 mcg Propofol 150 mg PHENYLephrine INF 9,550 mcg Vecuronium 10 mg Heparin 23,000 Units Protamine 250 mg Tranexamic Acid 740 mg Tranexamic Acid INF 218.05 mg Insulin Regular Human 5 Units Insulin Regular INF 2.92 Units ceFURoxime 3 g Agents Name Isoflurane (et) Blood No blood administrations on file. Lines, Drains, and Airways Type Details Placement Removal Urethral Catheter 03/29/14; indwelling 03/29/14 0000 by 03/31/14 1152 by catheter with core Jesenia Ramirez RN Dionne, Kelly L, LNA temperature probe; 100% silicone; 16; inserted at this facility (Inserted with ease by Mar Ramirez RN); 1; 5; 10; none; Circumcised male; 03/31/14; 1152 Incision 03/29/14; chest; 03/09/22 03/29/14 0000 by 03/09 1715 by (LDA cleanup utility Jesenia Ramirez RN Mulle r, Dierdre L RA#[id number]); 1715 (LDA cleanup utility RA#[id number]) Chest Tube 03/29/14; Left (28 FR 03/29/14 0000 by 03/30/14 0930 by Angled); posterior Jesenia Ramirez RN Hasting s, Veronica (Pericardium); 03/30/14; ANDERS Bray 0930 Chest Tube 03/29/14; Right; anterior 03/29/14 0000 by 03/30 0930 by (28 FR Straight); Jesenia Ramirez RN Hastings Ana María mediastinal; 03/30/14; ANDERS Bray 0930 PIV 03/29/14; 0719; 03/29/14 0719 by 04/03/14 1118 b y metacarpal vein right Sherlyn Miller RN Gil es, Vivian J, LNA (top of hand); [id number] catheter system; 16 gauge, 1 in length; Sherlyn Miller RN; distraction, intradermal injection, tolerated well, appears comfortable; 04/03/14; 1118 PIV cephalic vein left 03/29/14 0810 by 04/03/14 111 7 by (lateral side of arm); 14 Francie John LNA gauge; 04/03/14; 1117 Arterial Line radial artery; 20 gauge; 03/29/14 0810 by 1100 by erica; Sterile Prep, Cherelle Mcintyre Sterile Gloves; 03/30/14; Asa, RN 1100 CVC 3 Lumen internal jugular vein, 03/29/14 0810 by 03/30/14 1110 by right; Ultrasound Margy Mcintyre Guidance; Yes; 8.5 Fr; ANDERS Bray erica; CHRISTI; 03/30/14; 1110 ETT Mask Ventilation: Easy 03/29/14 0812 by 03/29/14 1430 by (1); ETT Type: Cuffed, Egner, Re richie, MACHINE CLOTH EXAMINER Oral; ETT Size: 8 mm; Mac Blade: 4; Notes: Asleep, Pre-O2; Attempts: 1; Laryngoscopy Grade: 1; ETT Placement Verified By: Auscultation, Capnometry, Visual; Secured at Teeth: 23 cm; Inserted by: Erica documented in this encounter Social History Tobacco Use Types Packs/Day Years [...] on file documented as of this encounter OR Notes Anesthesia Postprocedure Evaluation - Jason Quiñones MD - 03/29/2014 2:41 PM EDT Patient: Blayne Zapata Procedure(s) Performed: Procedure(s): @CABG, USING ARTERIAL GRAFT;SINGLE ARTERIAL GRAFT Actual Anesthetic: general Patient location: ICU Post-op pain: Adequate analgesia Post-op nausea: no nausea or vomiting Last Vitals: Filed Vitals: 03/29/14 1430 BP: Pulse: 68 Temp: 36 ??C (96.8 ??F) Resp: 14 Post-op cardiovascular and respiratory status: is stable on nitroglycerine to lower BP. Pt extubateduneventfully earlier this afternoon. Level of consciousness: awake, alert and oriented Complications: no apparent complications and tolerated the procedure well Fluid Status: normal Anesthesia Preprocedure Evaluation - Timur Nava - 03/28/2014 4:44 PM EDT Pre-Anesthesia Evaluation for: Blayne Zapata a 63 y.o. male. Procedure(s): @CABG, USING ARTERIAL GRAFT;SINGLE ARTERIAL GRAFT Patient Active Problem List Diagnosis ??? Health maintenance examination ??? Hypertension ??? RBBB ??? Dry eyes ??? Hyperopia with astigmatism and presbyopia ??? Amblyopia of right eye ??? PVD (posterior vitreous detachment) Past Medical History Diagnosis Date ??? Hyperlipidemia ??? Hypertension ??? Amblyopia OD w/ h/o patching Past Surgical History Procedure Date ??? Created by interface COLONOSCOPY (ENDO) Procedure Date: 02/08/2006 History Substance Use Topics ??? Smoking status: Never Smoker ??? Smokeless tobacco: Never Used ??? Alcohol Use: 1.8 oz/week 3 Glasses of wine per week Comment: social History Drug Use No Known Allergies Medications: MAR and/or home medications have been reviewed. Physical Exam: There were no vitals filed for this visit. There is no height or weight on file to calculate BMI. Airway Assessment: Mallampati: II TM distance: >3 FB Neck ROM: full Cardiovascular Assessment: cardiovascular exam normal Pulmonary Assessment: pulmonary exam normal Dental Assessment: - normal exam Misc Assessment: IV access: Peripheral line Anesthesia Plan: ASA 4 general, with a(n) intravenous induction Patient is a 63 yo male presenting for SETHI to LAD for CAD. He has a history significant for cath inJuly with stenting w/ BMS to RCA for 90% lesion and an 80% LAD that was not amenable to stenting. Decision was made to plan to SETHI to LAD for treatement. His ECHO showed no significant valve lesions and normal EF (65%). He otherwise has a history of HLD and htn. His ticagrelor was stopped on 03/24/14.Plan for GA w/ ETT, CVC, CHRISTI, swan, and a-line. Region - Other Informed Consent: Anesthetic plan and risks discussed with patient and spouse. Use of blood products discussed with patient and spouse whom consented to blood products. Misc. Assessment: documented in this encounter Miscellaneous Notes Addendum Note - Timur Nava - 04/03/2014 10:09 AM EDT Addendum created 04/03/14 1009 by Timur Nava MD Modules edited:Anesthesia LDA Addendum Note - Timur Nava - 04/03/2014 10:08 AM EDT Addendum Note - Timur Nava - 03/30/2014 3:58 AM EDT Addendum Note - Timur Nava - 03/30/2014 3:58 AM EDT documented in this encounter Plan of Treatment Not on filedocumented as of this encounter Visit Diagnoses Not on filedocumented in this encounter Administered Medications Inactive Administered Medications - up to 3 most recent administrations Medication Order MAR Action Action Date Dose Rate Site ceFURoxime (ZINACEF) injection 1.5 Given 03/29/2014 9:48 AM EDT 1.5 g g PRN, Starting on Lindsey 03/29/14 at 0948, Until Lindsey 03/29/14 at 1053, Anesthesia Intra-op, Routine Given 03/29/2014 7:52 AM EDT 1.5 g fentaNYL 50mcg/mL injection Given 03/29/2014 8:28 AM EDT 250 mcg PRN, Starting on Lindsey 03/29/14 at 0740, Until [place] 03/29/14 at 1053, Pain, Anesthesia Intra-op, Routine Given 03/29/2014 7:40 AM EDT 500 mcg heparin (porcine) injection Given 03/29/2014 8:55 AM EDT 18,000 Units PRN, Starting on Lindsey 03/29/14 at 0847, Until [place] 03/29/14 at 1053, Anesthesia Intra-op, Routine Given 03/29/2014 8:47 AM EDT 5,000 Units insulin regular human Rate/Dose Change 03/29/2014 9:48 AM 1 Units/hr 1 mL/hr (HumuLIN;NovoLIN) 1unit/mL EDT 150 Units in sodium chloride 0.9% 150 mL infusion CONTINUOUS PRN, Starting on Lindsey 03/29/14 at 0926, Until [place] 03/29/14 at 1053, Anesthesia Intra-op, Routine New Bag 03/29/2014 9:26 AM EDT 5 Units/hr 5 mL/hr insulin regular human (HumuLIN;NovoLIN) VIAL Given 9:26 AM EDT 5 Units injection PRN, Starting on Lindsey 03/29/14 at 0926, Until [place] 03/29/14 at 1053, Anesthesia Intra-op, Routine midazolam (PF) (VERSED) 1 mg/mL injectio n Given 03/29/2014 7:19 AM EDT 2 mg PRN, Starting on Lindsey 03/29/14 at 0719, Until [place] 03/29/14 at 1053, Sleep, Anesthesia Intra-op, Routine PHENYLephrine Rate/Dose Change 03/29/2014 9:40 100 mcg/min 75 mL/hr (NELLI-SYNEPHRINE) 20 mg in AM EDT sodium chloride 250 mL infusion CONTINUOUS PRN, Starting on Lindsey 03/29/14 at 0802, Until [place] 03/29/14 at 1053, Anesthesia Intra-op, Routine Rate/Dose Change 03/29/2014 9:37 AM EDT 80 mcg/min 60 mL/hr Restarted 03/29/2014 9:36 AM EDT 60 mcg/min 45 mL/hr propofol (DIPRIVAN) 10 mg/mL bolus injection Given 7:40 AM EDT 150 mg (Anesthesia) PRN, Starting on Lindsey 03/29/14 at 0740, Until [place] 03/29/14 at 1053, Anesthesia Intra-op protamine injection Given 03/29/2014 9:50 AM EDT 250 mg PRN, Starting on Lindsey 03/29/14 at 0950, Until [place] 03/29/14 at 1053, Anesthesia Intra-op, Routine tranexamic acid (CYKLOKAPRON) 100 mg/mL bolus Given 7:55 AM EDT 740 mg injection (Anesthesia) PRN, Starting on Lindsey 03/29/14 at 0755, Until [place] 03/29/14 at 1053, Anesthesia Intra-op, Routine tranexamic acid (CYKLOKAPRON) New Bag 03/29/2014 7:55 AM 1 mg/kg/h r 0.7 mL/hr injection EDT CONTINUOUS PRN, Starting on Lindsey 03/29/14 at 0755, Until [place] 03/29/14 at 1053, Anesthesia Intra-op, Routine vecuronium (NORCURON) injection Given 03/29/2014 7:40 AM EDT 10 mg PRN, Starting on Lindsey 03/29/14 at 0740, Until Lindsey 03/29/14 at 1053, Anesthesia Intra-op, Routine documented in this encounter Care Teams Area Field Worker Relationship Specialty Start Date End Date Rupert Russell Jr., MD PCP - General 06/03/10 07/21/[address] [facility] [address] [facility] [place] [address] documented as of this encounter
--- OUTSIDE RECORDS SUMMARY | 2022-05-21 09:03 | XMS_ITS | Encounter Summary ---
:1950 [place] [address] Care Team Providers Name Role Phone Yvonne Nolen MD, Rupert Bhatti Primary Care Provider Encounter Details Date Type Department Care Team Description 01/18/2014 Hospital Encounter Non-Invasive Cardiology [place]ert[place] [address] Social History Tobacco Use Types Packs/Day Years Used Date Never Smoker Smokeless Tobacco: Never Used Alcohol Use Standard Drinks/Week Comments Yes 3 (1 standard drink = 0.6 oz pure alcoho l) Sex Assigned at Date Recorded Not on file documented as of this encounter Medications at Time of Discharge Medication Sig Dispensed Refills Start Date End Date nitroGLYcerin (NITROSTAT) Place 1 tablet 25 tablet 1 2013 0.4 mg SL tablet under the tongue every 5 minutes as needed for Chest pain. X 3. aspirin 81 mg EC tablet Take 81 mg by 0 mouth daily. lovastatin (MEVACOR) 20 mg Take 1 tablet by 90 tablet 4 01/22/2014 tablet mouth nightly. amLODIPine (NORVASC) 5 mg Take 1 tablet by 90 tablet 4 08/1301/30/2014 tablet mouth daily. hydrochlorothiazide Take 1 capsule 90 capsule 4 06/23/2012 0 01/22/2014 (MICROZIDE) 12.5 mg capsule by mouth every morning. documented as of this encounter Plan of Treatment Not on filedocumented as of this encounter Procedures Procedure Name Priority Date/Time Associated Comments Diagnosis ECHOCARDIOGRAM STRESS Routine 01/18/2014 2:05 PM Exertional ch est Results for this TEST (TREADMILL) EDT pain procedure a re in the results section. documented in this encounter Results Echocardiogram Stress (Treadmill) (01/18/2014 2:05 PM EDT) athologist Signature EF 65 HEARTLAB SYSTEM Anatomical Region Laterality Modality Other Specimen (Source) Anatomical Location Collection Method / Collectio n Time Received Time / Laterality Volume 01/18/2014 Narrative 01/18/2014 2:41 PM EDT Procedure: ? Stress Echocardiogram Patient: ? ROSS RAVI P ?(Age): 1950(63) Med Rec#: ?[id number] ? Sex: ?M ? Site Loc: ?[facility] ? Ht / Wt: ??175.3(cm)/72.3( Pt. Loc: ? Echo Lab ? BSA: ?1.88 Study Date: ?01/18/2014 ? Pt. Type: Outpatient Tape: ? Referring: Rupert Russell Referring: YVONNE JEAN BAPTISTE Fire Watchman: Oumou Tee Fire Watchman: OSCAR Senior Advisor: Bruno Vickers Diagnosis:CPT Code(s): ??Doppler LTD (81 321), ??ECG Interpretation (19350), ??Stress Echo (18826), ??Color Doppler (23271), Indication(s): ??Chest Pain Medication(s): ?? Rhythm: Sinus Stage ?HR ?BP Rest ? 63 ?160/90 ?? Peak ? 100 ? 170/90 ?? Recovery ? 60 ?142/88 ?? SUMMARY: 1. BASELINE: Normal global and segmental biventricular systolic function with an estimated left ventricular eject ion fraction of 65%. 2. STRESS: Patient followed a Luis prot ocol. The patient exercised into stage 3. The total exercise duration was :7:01. The study was terminated because of arrhythmia. The study was ter minated because of chest pain. Maximum heart rate achieved was 100, whi ch is 64% of the maximum(157 beats/min). The target heart rate was no t achieved. The patient expressed feelings of chest discomfort. The blood pressure response was normal. Exercise capacity was average. T here were occasional atrial premature contractions. There were occas ional ventricular premature beats. There was a run of ventricular ta chycardia.9-beat run at approximately 150 bpm. There were ventri cular couplets. There was ST segment depression noted.1.[address] depression in leads II, V3, V4, and V5. The electrocardiographic res ponse is indeterminate for ischemia: failed to achieve target heart rate. 3. ECHOCARDIOGRAPHIC FINDINGS: There are no left ventricular segmental wall motion abnormalities. 4. IMPRESSION: Indeterminate exercise ec hocardiogram, target heart rate was not achieved. ??Test stopped prematu rely for 9 beat run of NSVT which was self terminating. ??The patient repo rted chest discomfort during the arrythmia. There is no echocardiographic evidence of ischemia at this level of stress. 5. Other echo and stress findings as not ed in report. FINDINGS: Rest Left Ventricle ?Left ventricular chamber size, wal l thickness, global and segmental systolic function are within normal limi ts. Ejection fraction is estimated to be 65%. Left Atrium ?The left atrium is probably normal in size. Right Ventricle ?Right ventricular chamber size, wa ll thickness, and systolic function are within normal limits. Right Atrium ?The right atrium is probably elías l in size. Aortic Valve ?The aortic valve is trileaflet. Th e leaflets are thin with normal excursion. There is no aortic stenosis o r regurgitation present. Mitral Valve ?The mitral valve appears normal in structure and function. ?There is trace mitral regurgitatio n present. Tricuspid Valve ?The tricuspid valve appears normal in structure and function. ?There is no evidence of tricuspid valve regurgitation present. Pericardium ?The pericardium appears normal and there is no evidence of a pericardial effusion. Stress ?EKG: normal sinus rhythm. ?EKG: Premature atrial contractions noted. ?EKG: right bundle branch block. ?The patient's oxygen saturation wa s 98% ?The patient is taking a lipid lowe ring agent. ?The patient is taking a nitrate. p rn. ?The patient is taking a calcium ch tia joni. ?The patient is taking aspirin. Misc ?Other echo and stress findings as noted in report. ?Stress echo, limited spectral Dopp ler, color Doppler and ECG interpretation performed. FINDINGS: Peak Left Ventricle ?There are no left ventricular segm ental wall motion abnormalities. Stress ?Patient followed a Luis protocol. ?The patient exercised into stage 3 . ?The total exercise duration was:7: 01. ?The study was terminated because o f arrhythmia. ?The study was terminated because o f chest pain. ?Maximum heart rate achieved was 10 0, which is 64% of the maximum(157 beats/min). ?The target heart rate was not achi eved. ?The patient expressed feelings of chest discomfort. ?The blood pressure response was no rmal. ?Exercise capacity was average. ?There were occasional atrial juan pablo ture contractions. ?There were occasional ventricular premature beats. ?There was a run of ventricular tac hycardia.9-beat run at approximately 150 bpm. ?There were ventricular couplets. ?There was ST segment depression no ben.1.[address] depression in leads II, V3, V4, and V5. ?The electrocardiographic response is indeterminate for ischemia: failed to achieve target heart rate. ?The echocardiographic response verona ws no evidence of ischemia, however at insufficient stress. ?There is no echocardiographic evid ence of myocardial ischemia at this level of stress. ?The patient's oxygen saturation wa s 95%. FINDINGS: Recovery Stress ?EKG: normal sinus rhythm. ?EKG: Premature atrial contractions noted. ?EKG: Premature ventricular contrac tions noted. ?EKG: right bundle branch block. ?EKG: ??ventricular couplets. Wall Motion: Segment Name ?Rest ?Peak ? Base-Anteroseptal ?? Normal ?Normal ? Base-Anterior ? Normal ?Normal ? Base-Anterolateral ??Normal ?Normal ? Base-Posterolateral Normal ?Normal ? Base-Inferior ? Normal ?Normal ? Base-Inferoseptal ?? Normal ?Normal ? Mid-Anteroseptal ?Normal ?Normal ? Mid-Anterior ?Normal ?Normal ? Mid-Anterolateral ?? Normal ?Normal ? Mid-Posterolateral ??Normal ?Normal ? Mid-Inferior ?Normal ?Normal ? Mid-Inferoseptal ?Normal ?Normal ? Phillips-Septal ? Normal ?Normal ? Phillips-Anterior ? Normal ?Normal ? Phillips-Lateral ?Normal ?Normal ? Phillips-Inferior ? Normal ?Normal ? Phillips-Tip ?Normal ?Normal ? Chambers ?Value ?Units (Range) ? LV EF Est ? 65 ? % (55 to 80) ? This report has been electronically sign ed by: _ Gopi Martin M.D. ? 01/18/2014 14:40:41 Images reviewed and interpretation tylor monteiro [facility] Cardiac Ultrasound Laboratory Procedure Note Gopi Martin MD - 01/18/2014Format ting of this note might be different from the original. Procedure: Stress Echocardiogram Patient: ROSS Yao (Age): [birth year]) Med Rec#: [id number] Sex: M Site Loc: [facility] Ht / Wt: 175.3(cm)/72.3( Pt. Loc: Echo Lab BSA: 1.88 Study Date: 01/18/2014 Pt. Type: Outpati ent Tape: Referring: Rupert Russell Referring: YVONNE JEAN BAPTISTE Fire Watchman: Oumou Tee Fire Watchman: OSCAR Senior Advisor: Bruno Vickers Diagnosis:CPT Code(s): Doppler LTD (9332 1), ECG Interpretation (26695), Stress Echo (63789), Color Dopp ler (58514), Indication(s): Chest Pain Medication(s): Rhythm: Sinus Stage HR BP Rest 63 160/90 Peak 100 170/90 Recovery 60 142/88 SUMMARY: 1. BASELINE: Normal global and segmental biventricular systolic function with an estimated left ventricular eject ion fraction of 65%. 2. STRESS: Patient followed a Luis prot ocol. The patient exercised into stage 3. The total exercise duration was :7:01. The study was terminated because of arrhythmia. The study was ter minated because of chest pain. Maximum heart rate achieved was 100, whi ch is 64% of the maximum(157 beats/min). The target heart rate was no t achieved. The patient expressed feelings of chest discomfort. The blood pressure response was normal. Exercise capacity was average. T here were occasional atrial premature contractions. There were occas ional ventricular premature beats. There was a run of ventricular ta chycardia.9-beat run at approximately 150 bpm. There were ventri cular couplets. There was ST segment depression noted.1.[address] depression in leads II, V3, V4, and V5. The electrocardiographic res ponse is indeterminate for ischemia: failed to achieve target heart rate. 3. ECHOCARDIOGRAPHIC FINDINGS: There are no left ventricular segmental wall motion abnormalities. 4. IMPRESSION: Indeterminate exercise ec hocardiogram, target heart rate was not achieved. Test stopped premature ly for 9 beat run of NSVT which was self terminating. The patient report ed chest discomfort during the arrythmia. There is no echocardiographic evidence of ischemia at this level of stress. 5. Other echo and stress findings as not ed in report. FINDINGS: Rest Left Ventricle Left ventricular chamber size, wall thi ckness, global and segmental systolic function are within normal limi ts. Ejection fraction is estimated to be 65%. Left Atrium The left atrium is probably normal in s ize. Right Ventricle Right ventricular chamber size, wall th ickness, and systolic function are within normal limits. Right Atrium The right atrium is probably normal in size. Aortic Valve The aortic valve is trileaflet. The newton flets are thin with normal excursion. There is no aortic stenosis o r regurgitation present. Mitral Valve The mitral valve appears normal in stru cture and function. There is trace mitral regurgitation pre sent. Tricuspid Valve The tricuspid valve appears normal in s tructure and function. There is no evidence of tricuspid valve regurgitation present. Pericardium The pericardium appears normal and ther e is no evidence of a pericardial effusion. Stress EKG: normal sinus rhythm. EKG: Premature atrial contractions note d. EKG: right bundle branch block. The patient's oxygen saturation was 98% The patient is taking a lipid lowering agent. The patient is taking a nitrate. prn. The patient is taking a calcium channel joni. The patient is taking aspirin. Misc Other echo and stress findings as noted in report. Stress echo, limited spectral Doppler, color Doppler and ECG interpretation performed. FINDINGS: Peak Left Ventricle There are no left ventricular segmental wall motion abnormalities. Stress Patient followed a Luis protocol. The patient exercised into stage 3. The total exercise duration was:7:01. The study was terminated because of arr hythmia. The study was terminated because of karolyn st pain. Maximum heart rate achieved was 100, wh ich is 64% of the maximum(157 beats/min). The target heart rate was not achieved. The patient expressed feelings of chest discomfort. The blood pressure response was normal. Exercise capacity was average. There were occasional atrial premature contractions. There were occasional ventricular juan pablo ture beats. There was a run of ventricular tachycar noel.9-beat run at approximately 150 bpm. There were ventricular couplets. There was ST segment depression noted.1 .[address] depression in leads II, V3, V4, and V5. The electrocardiographic response is in determinate for ischemia: failed to achieve target heart rate. The echocardiographic response shows no evidence of ischemia, however at insufficient stress. There is no echocardiographic evidence of myocardial ischemia at this level of stress. The patient's oxygen saturation was 95% . FINDINGS: Recovery Stress EKG: normal sinus rhythm. EKG: Premature atrial contractions note d. EKG: Premature ventricular contractions noted. EKG: right bundle branch block. EKG: ventricular couplets. Wall Motion: Segment Name Rest Peak Base-Anteroseptal Normal Normal Base-Anterior Normal Normal Base-Anterolateral Normal Normal Base-Posterolateral Normal Normal Base-Inferior Normal Normal Base-Inferoseptal Normal Normal Mid-Anteroseptal Normal Normal Mid-Anterior Normal Normal Mid-Anterolateral Normal Normal Mid-Posterolateral Normal Normal Mid-Inferior Normal Normal Mid-Inferoseptal Normal Normal Phillips-Septal Normal Normal Phillips-Anterior Normal Normal Phillips-Lateral Normal Normal Phillips-Inferior Normal Normal Phillips-Tip Normal Normal Chambers Value Units (Range) LV EF Est 65 % (55 to 80) This report has been electronically sign ed by: _ Gopi Martin M.D. 01/18/2014 14:40: 41 Images [facility] Cardiac Ultrasound Laboratory Rupert Russell Jr., MD ECHO ORDERABLES documented in this encounter Visit Diagnoses Diagnosis Exertional chest pain Chest pain, unspecified documented in this encounter Care Teams School Bus Dispatcher Relationship Specialty Start Date End Date Rupert Russell Jr., MD PCP - General 06/03/10 07/21/[address] [facility] [address] [facility] [address] documented as of this encounter
--- OUTSIDE RECORDS SUMMARY | 2022-05-21 09:03 | XMS_ITS | Encounter Summary ---
:1950 Author Organization [facility] [place] [address] Care Team Providers Name Role Phone Yvonne Nolen MD, Rupert Bhatti Primary Care Provider Encounter Details Date Type Department Care Team Description 01/25/2014 Orders Only Cardiology Garret Moe, Chest pain (Primary [facility] MD Dx) [place] [address] [address] [phone] CARDIOLOGY DEPT [place] [id number] Social History Tobacco Use Types Packs/Day Years Used Date Never Smoker Smokeless Tobacco: Never Used Alcohol Use Standard Drinks/Week Comments Yes 3 (1 standard drink = 0.6 oz pure alcoho l) Sex Assigned at Date Recorded Not on file documented as of this encounter Plan of Treatment Not on filedocumented as of this encounter Procedures Procedure Name Priority Date/Time Associated Diagnosis Comme nts TRANSESOPHAGEAL Routine 03/29/2014 Results for this ECHOCARDIOGRAM (SEGUNDO) procedu re are in the results section. documented in this encounter Results Transesophageal Echocardiogram (SEGUNDO) (03/29/2014) Anatomical Region Laterality Modality Other Specimen (Source) Anatomical Location Collection Method / Collectio n Time Received Time / Laterality Volume 03/29/2014 Narrative 03/29/2014 1:57 PM EDT Procedure: ? Transesophageal Echocardiogram Patient: ? ROSS RAVI ?(Age): () ? Med Rec#: ?[id number] ? Sex: ? Site Loc: ? Ht / Wt: ??(cm)/(kg) ? Pt. Loc: ?BSA: ? Study Date: ?03/29/2014 ? Pt. Type: Tape: ? Reading: Jason Quiñones ??([id number]) Performance Improvement Manager: HATTIE Firewood Cutter: Onesimo Dooley Firewood Cutter: Aide Momin Interpreting Fellow: Aide Momin Interpreting Fellow: Onesimo Dooley Diagnosis:CPT Code(s): Indication(s):Rhythm: SUMMARY: 1. Intraoperative SEGUNDO was performed at t he request of Dr. Briscoe to confirm and quantify cardiovascular cond itions and diagnoses, assess the need for additional or alternative surgi reny procedures, assess appropriateness of cannulation sites and to facilitate their placement, evaluate for the presence of intra-cardi ac shunts and thrombi, to facilitate separation from cardiopulmona ry bypass. and to evaluate cardiac structure and function and asses s the surgical intervention post cardiopulmonary bypass. ??Following deco mpression of the stomach via an orogastric tube the SEGUNDO probe was passed atraumatically under indirect vision. Diagnostic and monitoring functi ons were performed. 2. Prebypass: There is normal global biv entricular systolic function. LV Ejection fraction is estimated to be 65%. ??Mild concentric left ventricular hypertrophy is observed. ??T race MR and TR noted, without evidence of aortic stenosis or other reginaldo vular pathology. 3. Postbypass: There is normal global bi ventricular systolic function without wall motion abnormalities. ??The re is no evidence of aortic dissection. Remainder of exam unchaged f rom prior. FINDINGS: Left Ventricle ?The left ventricular chamber size is normal. ?Mild concentric left ventricular h ypertrophy is observed. ?There is normal global left ventri cular systolic function. ??Ejection fraction is estimated to be 65%. ?The visually estimated left ventri cular ejection fraction is Left Atrium ?The left atrium is normal in size. Right Ventricle ?The right ventricle is normal in s ize. ?Right ventricular global systolic function is normal. Right Atrium ?The right atrium appears normal. Aortic Valve ?The aortic valve is trileaflet. Th e leaflets are thin with normal excursion. There is no aortic stenosis o r regurgitation present. Mitral Valve ?There is trace mitral regurgitatio n present. Tricuspid Valve ?The tricuspid valve leaflets are m orphologically normal. ?There is trace tricuspid regurgita tion present. Pulmonic Valve ?The pulmonic valve appears normal in structure and function. ?There is no evidence of pulmonic r egurgitation. Aorta ?There is evidence of grade 2 (exte nsive intimal thickening) atheromatous disease of the ascending ao rta. ?There is evidence of grade 2 (exte nsive intimal thickening) atheromatous disease of the aortic arch. ?There is evidence of grade 2 (exte nsive intimal thickening) atheromatous disease of the descending t horacic aorta. Segundo Procedures ?The SEGUNDO probe was passed in the op erating room by the anesthesiologist after the patient was s edated with general anesthesia. ?There were no complications during the procedure. Wall Motion: Segment Name ?Rest ? Base-Anteroseptal ?? Normal ? Base-Anterior ? Normal ? Base-Anterolateral ??Normal ? Base-Posterolateral Normal ? Base-Inferior ? Normal ? Base-Inferoseptal ?? Normal ? Mid-Anteroseptal ?Normal ? Mid-Anterior ?Normal ? Mid-Anterolateral ?? Normal ? Mid-Posterolateral ??Normal ? Mid-Inferior ?Normal ? Mid-Inferoseptal ?Normal ? [place]-Septal ? Normal ? [place]-Anterior ? Normal ? [place]-Lateral ?Normal ? [place]-Inferior ? Normal ? [place]-Tip ?Normal ? Chambers ?Value ?Units (Range) ? LVIDd 2D ?4.9 ?cm ? LVIDs 2D ?2.8 ?cm ? LVFS 2D ? 43 ? % ? Aortic Valve ?Value ?Units (Range) ? AV grad P ? 5 ?mmHg ? AV grad M ? 3 ?mmHg ? DEACON(jerri) ?2.3 ?cm2 (2 to 4) ? Mitral Valve ?Value ?Units (Range) ? E/A ratio ? 1.4 ?ratio ? S/D ratio ? 0.8 ?ratio ? This report has been electronically sign ed by: _ Jason Quiñones MD ? 03/29/2014 13 :57:25 Images reviewed and interpretation verif ied [facility] Cardiac Ultrasound Laboratory Procedure Note Jason Quiñones MD - 03/29/2014Formatt ing of this note might be different from the original. Procedure: Transesophageal Echocardiogra m Patient: ROSS RAVI DOB(Age): () Med Rec#: [id number] Sex: Site Loc: Ht / Wt: (cm)/(kg) Pt. Loc: BSA: Study Date: 03/29/2014 Pt. Type: Tape: Reading: Jason Quiñones ([id number]) Performance Improvement Manager: HATTIE Firewood Cutter: Onesimo Dooley Firewood Cutter: Aide Momin Interpreting Fellow: Aide Momin Interpreting Fellow: Onesimo Dooley Diagnosis:CPT Code(s): Indication(s):Rhythm: SUMMARY: 1. Intraoperative SEGUNDO was performed at t he request of Dr. Briscoe to confirm and quantify cardiovascular cond itions and diagnoses, assess the need for additional or alternative surgi reny procedures, assess appropriateness of cannulation sites and to facilitate their placement, evaluate for the presence of intra-cardi ac shunts and thrombi, to facilitate separation from cardiopulmona ry bypass. and to evaluate cardiac structure and function and asses s the surgical intervention post cardiopulmonary bypass. Following decomp ression of the stomach via an orogastric tube the SEGUNDO probe was passed atraumatically under indirect vision. Diagnostic and monitoring functi ons were performed. 2. Prebypass: There is normal global biv entricular systolic function. LV Ejection fraction is estimated to be 65%. Mild concentric left ventricular hypertrophy is observed. Tra ce MR and TR noted, without evidence of aortic stenosis or other reginaldo vular pathology. 3. Postbypass: There is normal global bi ventricular systolic function without wall motion abnormalities. There is no evidence of aortic dissection. Remainder of exam unchaged f rom prior. FINDINGS: Left Ventricle The left ventricular chamber size is no rmal. Mild concentric left ventricular hypert rophy is observed. There is normal global left ventricular systolic function. Ejection fraction is estimated to be 65%. The visually estimated left ventricular ejection fraction is Left Atrium The left atrium is normal in size. Right Ventricle The right ventricle is normal in size. Right ventricular global systolic funct ion is normal. Right Atrium The right atrium appears normal. Aortic Valve The aortic valve is trileaflet. The newton flets are thin with normal excursion. There is no aortic stenosis o r regurgitation present. Mitral Valve There is trace mitral regurgitation pre sent. Tricuspid Valve The tricuspid valve leaflets are morpho logically normal. There is trace tricuspid regurgitation present. Pulmonic Valve The pulmonic valve appears normal in st ructure and function. There is no evidence of pulmonic regurg itation. Aorta There is evidence of grade 2 (extensive intimal thickening) atheromatous disease of the ascending ao rta. There is evidence of grade 2 (extensive intimal thickening) atheromatous disease of the aortic arch. There is evidence of grade 2 (extensive intimal thickening) atheromatous disease of the descending t horacic aorta. Segundo Procedures The SEGUNDO probe was passed in the operati ng room by the anesthesiologist after the patient was s edated with general anesthesia. There were no complications during the procedure. Wall Motion: Segment Name Rest Base-Anteroseptal Normal Base-Anterior Normal Base-Anterolateral Normal Base-Posterolateral Normal Base-Inferior Normal Base-Inferoseptal Normal Mid-Anteroseptal Normal Mid-Anterior Normal Mid-Anterolateral Normal Mid-Posterolateral Normal Mid-Inferior Normal Mid-Inferoseptal Normal [place]-Septal Normal [place]-Anterior Normal [place]-Lateral Normal [place]-Inferior Normal [place]-Tip Normal Chambers Value Units (Range) LVIDd 2D 4.9 cm LVIDs 2D 2.8 cm LVFS 2D 43 % Aortic Valve Value Units (Range) AV grad P 5 mmHg AV grad M 3 mmHg DEACON(jerri) 2.3 cm2 (2 to 4) Mitral Valve Value Units (Range) E/A ratio 1.4 ratio S/D ratio 0.8 ratio This report has been electronically sign ed by: _ Jason Quiñones MD 03/29/2014 13:57:25 Images reviewed and interpretation verif ied [facility] Cardiac Ultrasound Laboratory Unknown ECHO ORDERABLES Basic Metabolic Panel (non-fasting) (01/29/2014 8:36 AM EDT) P athologist Signature Glucose Lvl 101 60 - 199 CERNER mg/dL MILLENNIUM Comment: Diabetes: >=200 mg/dL plus symp toms BUN 16 10 - 20 mg/dL CERNER MILLENNIU M Creatinine 1.04 0.80 - 1.50 mg/dL CERNER MILL ENNIUM Comment: Please note that the pediatric reference intervals supplied above were not validated at [facility]. Results from pediatri c patients should be [...] the following links into your internet browser. [email or web address]/DHnkdep [email or web address] Specimen Anatomical Collection Method Collection Time Receive d Time (Source) Location / / Volume Laterality Blood specimen 01/29/2014 8:36 AM 014 8:43 (specimen) EDT AM EDT Resulting Agency Comment Spec In Lab Elías Zendejas MD CHEMISTRY ORDERABLES Performing Organization Address City/State/[place] [address] [facility] MILLENNIUM documented in this encounter Visit Diagnoses Diagnosis Chest pain - Primary Chest pain, unspecified documented in this encounter Care Teams Cable Splicing Technician Relationship Specialty Start Date End Date Rupert Russell Jr., MD PCP - General 06/03/10 07/21/[address] [facility] [place] [address] documented as of this encounter
--- OUTSIDE RECORDS SUMMARY | 2022-05-21 09:03 | XMS_ITS | Encounter Summary ---
:1950 [place] [address] Care Team Providers Name Role Phone Yvonne Nolen MD, Rupert Bhatti Primary Care Provider Encounter Details Date Type Department Care Team Description 01/18/2014 Hospital Encounter Non-Invasive Cardiology CLINIC, Rupert Smith Jr., MD [facility] [place] [address] [place] [address] Social History Tobacco Use Types Packs/Day [...] on filedocumented in this encounter Care Teams Dial Mounter Relationship Specialty Start Date End Date Rupert Russell Jr., MD PCP - General 06/03/10 07/21/[address] [facility] [address] [facility] [place] [address] documented as of this encounter
--- OUTSIDE RECORDS SUMMARY | 2022-05-21 09:03 | XMS_ITS | Encounter Summary ---
:1950 Author Organization [facility] Address [address] [place] [address] Care Team Providers Name Role Phone Yvonne Nolen MD, Rupert Bhatti Primary Care Provider Reason for Visit Reason Onset Date Comments Triage 01/15/2014 Encounter Details Date Type Department Care Team Description 01/15/2014 Telephone Family Medicine at [facility] Rupert Russell Jr., MD [address] [facility] [address] Nancy Araiza [facility] [place] [address] [place] [address] [phone] (Wo rk) Social History Tobacco Use Types Packs/Day Years Used Date Never Smoker Smokeless Tobacco: Never Used Alcohol Use Standard Drinks/Week Comments Yes 3 (1 standard drink = 0.6 oz pure alcoho l) Sex Assigned at Date Recorded Not on file documented as of this encounter Miscellaneous Notes Telephone Encounter - Monica De Leon LPN - 01/15/2014 10:57 AM EDT Discussed pt reported sx with PCP. Per PCP plan of care: Pt requests to have stress echo performed in the next 2-3 days (order pended to PCP to sign) Pt agrees to not come in for office visit at clinic regarding reported sx and will f/u with results from stress echo with us. Pt states that he has been taking a 325 mg aspirin everyday the past week. Pt is instructed to not exercise (as that creates chest pain sx) and to continue taking aspirin daily. If pt begins to experience chest pain that does not resolve (over a matter of 1 minute/as it has been) he is instructed to call ambulance/911, take nitrostat as prescribed and 1 tablet of aspirin. Ptagrees with plan and verbalizes understanding. Nitrostat called into pt's local pharmacy VO per Dr. Russell. Telephone Encounter - Monica De Leon LPN - 01/15/2014 10:16 AM EDT Spoke with pt. Pt reported that he has been experiencing intermittent chest pain est past 3 weeks. However, in the past 3 days the chest pain has increased in frequency. Chest pain occurs only upon moderate exercise (ie. Hiking, mowing the lawn, etc.), tightness, general discomfort. Pt has been feeling dizzy and li ghtheaded the past several months. Pt reports no other symptoms. Pt has been taking care of his parents the past 3 months. 1 week ago they were admitted into a correction after living in their own home for 68 yrs. Pt communicates that under the surface this has been pretty emotional for him. Pt DENIES: SOB, left arm pain, numbness/tingling, N/V. documented in this encounter Plan of Treatment Not on filedocumented as of this encounter Results Echocardiogram Stress (Treadmill) (01/18/2014 2:05 PM EDT) P athologist Signature EF 65 [facility] Anatomical Region Laterality Modality Other Specimen (Source) Anatomical Location Collection Method / Collectio n Time Received Time / Laterality Volume 01/18/2014 Narrative 01/18/2014 2:41 PM EDT Procedure: ? Stress Echocardiogram Patient: ? ROSS RAVI P ?(Age): 1950(63) Med Rec#: ?[id number] ? Sex: ?M ? Site Loc: ?[facility] ? Ht / Wt: ??175.3(cm)/72.3( Pt. Loc: ? Echo Lab ? BSA: ?1.88 Study Date: ?01/18/2014 ? Pt. Type: Outpatient Tape: ? Referring: Rupert Russell Referring: YVONNE JEAN BAPTISTE Clinical Laboratory Technologist: Oumou Tee Clinical Laboratory Technologist: OSCAR Cooker Syrup: Bruno Vickers Diagnosis:CPT Code(s): ??Doppler LTD (93 321), ??ECG Interpretation (60253), ??Stress Echo (37895), ??Color Doppler (54666), Indication(s): ??Chest Pain Medication(s): ?? Rhythm: Sinus [...] ?Normal ?Normal ? Mid-Inferoseptal ?Normal ?Normal ? [place]-Septal ? Normal ?Normal ? [place]-Anterior ? Normal ?Normal ? [place]-Lateral ?Normal ?Normal ? [place]-Inferior ? Normal ?Normal ? [place]-Tip ?Normal ?Normal ? Chambers ?Value ?Units (Range) ? LV EF Est ? 65 ? % (55 to 80) ? This report has been electronically sign ed by: _ Gopi Martin M.D. ? 01/18/2014 14:40:41 Images reviewed and interpretation [facility] Cardiac Ultrasound Laboratory Procedure Note Gopi Martin MD - 01/18/2014Format ting of this note might be different from the original. Procedure: Stress Echocardiogram Patient: ROSS Yao (Age): [birth year]) Med Rec#: [id number] Sex: M Site Loc: [facility] Ht / Wt: 175.3(cm)/72.3( Pt. Loc: Echo Lab BSA: 1.88 Study Date: 01/18/2014 Pt. Type: Outpati ent Tape: Referring: Rupert Russell Referring: YVONNE JEAN BAPTISTE Clinical Laboratory Technologist: Oumou Tee Clinical Laboratory Technologist: R Cooker Syrup: Bruno Vickers Diagnosis:CPT Code(s): Doppler LTD (9332 1), ECG Interpretation (66800), Stress Echo (25407), Color Dopp ler (31223), Indication(s): Chest Pain Medication(s): Rhythm: Sinus Stage [...] Normal Mid-Inferior Normal Normal Mid-Inferoseptal Normal Normal [place]-Septal Normal Normal [place]-Anterior Normal Normal [place]-Lateral Normal Normal [place]-Inferior Normal Normal [place]-Tip Normal Normal Chambers Value Units (Range) LV EF Est 65 % (55 to 80) This report has been electronically sign ed by: _ Gopi Martin M.D. 01/18/2014 14:40: 41 Images reviewed and interpretation verif ieoni [facility] Cardiac Ultrasound Laboratory Rupert Russell Jr., MD ECHO ORDERABLES documented in this encounter Visit Diagnoses Diagnosis Exertional chest pain - Primary Chest pain, unspecified Exertional chest pain Chest pain, unspecified documented in this encounter Care Teams Veterinary Assistant Relationship Specialty Start Date End Date Rupert Russell Jr., MD PCP - General 06/03/10 07/21/[address] [facility] [address] [facility] [address] documented as of this encounter
--- OUTSIDE RECORDS SUMMARY | 2022-05-21 09:03 | XMS_ITS | Encounter Summary ---
:1950 Author Organization [facility] [place] [address] Care Team Providers Name Role Phone Yvonne Nolen MD, Rupert Bhatti Primary Care Provider Reason for Referral Consultation (Routine) - Closed Specialty Diagnoses / Procedures Referred By Contact Refer red To Contact Cardiology Diagnoses Exertional angina Rupert Russell Jr., MD [facility] Cardiology [address] [facility] [place] [address] [place] [address] Referral ID Status Reason Start Date Expiration Date Visits V isits Requested Authorized [id number] Closed Consult, 01/19/2014 07/18/2014 1 1 Test & Treat Encounter Details Date Type Department Care Team Description 01/19/2014 Orders Only Family Medicine at Rupert Russell Jr., Ex ertional angina [facility] [address] [place] [address] [place], [place] [address] (Wo rk) Social History Tobacco Use Types Packs/Day Years Used Date Never Smoker Smokeless Tobacco: Never Used Alcohol Use Standard Drinks/Week Comments Yes 3 (1 standard drink = 0.6 oz pure alcoho l) Sex Assigned at Date Recorded Not on file documented as of this encounter Plan of Treatment Scheduled Referrals Name Type Priority Associated Order Schedule Diagnoses Referral to Outpatient Referral Routine Exertional angina Ord ered: Cardiology 01/19/2014 documented as of this encounter Visit Diagnoses Diagnosis Exertional angina Other and unspecified angina pectoris documented in this encounter Care Teams Shirt Finisher Relationship Specialty Start Date End Date Rupert Russell Jr., MD PCP - General 06/03/10 07/21/[address] [facility] [address] [facility] [place] [address] documented as of this encounter
--- OUTSIDE RECORDS SUMMARY | 2022-05-21 09:03 | XMS_ITS | Encounter Summary ---
:1950 Author Organization [facility] Address [facility] [place] [address] Care Team Providers Name Role Phone Yvonne Nolen MD, Rupert Bhatti Primary Care Provider Encounter Details Date Type Department Care Team Description 01/15/2014 Telephone Family Medicine at [facility] Rupert Russell Jr., MD [facility] [place] [address] [place] [address] [phone] (Wo rk) Social History Tobacco Use Types Packs/Day Years Used Date Never Smoker Smokeless Tobacco: Never Used Alcohol Use Standard Drinks/Week Comments Yes 3 (1 standard drink = 0.6 oz pure alcoho l) Sex Assigned at Date Recorded Not on file documented as of this encounter Miscellaneous Notes Telephone Encounter - Rupert Russell Jr., MD - 01/15/2014 1:34 PM EDT Called pt to f/u. Pt comfortable with plan. Has low suspicion for true angina. A lot of family stress the past couple months. P- As outlined in previous note. F/u sooner as needed. documented in this encounter Plan of Treatment Not on filedocumented as of this encounter Visit Diagnoses Not on filedocumented in this encounter Care Teams Collections Agent Relationship Specialty Start Date End Date Rupert Russell Jr., MD PCP - General 06/03/10 07/21/17 [facility] [place] [address] documented as of this encounter
--- OUTSIDE RECORDS SUMMARY | 2022-05-21 09:03 | XMS_ITS | Encounter Summary ---
:1950 [place] [address] Care Team Providers Name Role Phone Yvonne Nolen MD, Rupert Bhatti Primary Care Provider Encounter Details Date Type Department Care Team Description 01/29/2014 Surgery Industrial Coffee Grinder Martha Rayo MD CARDIAC CATHETERIZATION [facility] [address] [address] [place] [address] [phone] (Wo rk) Social History Tobacco Use Types [...] Sign Reading Time Taken Comments Blood Pressure 139/88 01/29/2014 8:50 AM EDT Pulse 53 01/29/2014 8:50 AM EDT Temperature 36.3 ??C (97.3 ??F) 01/29/2014 8:50 AM EDT Respiratory Rate 16 01/29/2014 8:50 AM EDT Oxygen Saturation 99% 01/29/2014 8:50 AM EDT Inhaled Oxygen Concentration - - Weight 75.3 kg (166 lb) 01/29/2014 8:50 AM EDT Height 175.3 cm (5' 9) 01/29/2014 8:50 AM EDT Body Mass Index 24.51 01/29/2014 8:50 AM EDT documented in this encounter Discharge Instructions AttachmentsThe following attachments cannot be sent through Care Everywhere. CORONARY ANGIOGRAM : POSTOP (NEPALESE)documented in this encounter Medications at Time of [...] he has normalLVEF, has not had an SD and his SBP is marginal. NINO MOE MD 01/30/2014 Alicia Gomez RN - 01/30/2014 10:45 AM EDT Care Management(OCM)/Clinical Painter Decorator(CRC) CRC Service: Cardiology, Cardiothoracic and Thoracic Surgery QUYNH Her RN Pager # [phone] SS11: CRC notifed by Dr. Moe that pt may need assistance with Brilinta; CRC obtained Brilinta Coupon from [employer] and gave it to the pt. CRC called pt's Pharmacy [facility], they have Brilinta in stock and will honor the coupon. [facility] will call pt to update him on his co-pay, and will page CRCif PA or other barriers arise. [facility]: [phone] Liv Cotter RN - 01/30/2014 7:16 AM [...] or PCI with AVE to LAD. RHONDA OROSOC MD Diane Garcia RN - 01/29/2014 4:16 [...] Pre-Procedural H&P Patient Name: Blayne Zapata : [id number] 63 y.o. MR#: [id number] Chief Complaint: Fatigue and exertional chest discomfort [...] a consent which was reviewed and signed. NNIO MOE MD 01/29/2014 documented in this encounter Procedure Notes Provider, Scanning - 01/30/2014 10:48 PM EDTAssociated Order(s): SCAN DOC: HISTORICAL RECORDS ADMINISTRATOR Provider, Scanning - 01/29/2014 1:17 PM EDTAssociated Order(s): CARDIAC CATHETERIZATION documented in this encounter Miscellaneous Notes Miscellaneous - Provider, Scanning - 01/30/2014 10:36 PM EDT Discharge Summary - Nino Moe MD - 01/30/2014 1:38 PM EDT Discharge Summary Patient Name: Blayne Zapata Patient Age: 63 y.o. Language: Barbadian Race: White Ethnicity: Not nor Admit date: 01/29/2014 Discharge date and time: 01/30/14 Attending Physician: Rhonda Orosco MD Discharge Physician: Nino Moe MD Follow-up Recommendations for Providers: Follow up with CT surgery, patient will receive call from CT surgery office with appointment date. Inpatient Provider Contact Information: [phone] Discharge Diagnoses (Hospital Problems) and Secondary Diagnoses [...] appointments: During 8am-5pm Wednesday through Wednesday call [phone] to speak with a nurse in the cardiology clinic All other times call [phone] and ask to speak to the cardiology technician fashion stylist. Return to work: One week Driving: No driving for 48 hours after catheterization. Follow up Appointments: PCP Call for appointment in 1-2 weeks. Manager Estate: You should be seen in 3-4 weeks for follow up. Please call for appointment after you are seen by CT surgery. Nino Moe MD Supervisor [employer]. Consult Note - Angelic Nunez RN - 01/30/2014 8:54 AM EDT Blayne Maximilian Benny was seen today by Cardiac Rehabilitation for: [...] to the outpatient cardiac rehabilitation program at [facility] was discussed. A referral will be sent to the program and the patient will be contacted within 2 weeks. Miscellaneous - Provider, Félix - 01/29/2014 3:02 PM EDT documented in this encounter Plan of Treatment Scheduled Referrals Name Type Priority Associated Diagnoses Order S chedule Referral to Outpatient Referral Routine Chest pain Ordered: Cardiac Rehab 01/30/2014 documented as of this encounter Procedures Procedure Name Priority Date/Time Associated Comments Diagnosis HISTORICAL RECORDS ADMINISTRATOR SCAN 01/30/2014 10:48 Res ults for this [...] Routine 01/30/2014 4:19 Results f or this ([facility] AM EDT procedure are i n the [...] ENZYMES STAT 01/29/2014 12:30 Results for this ([facility] PM EDT procedure are i n the results section. documented in this encounter Results SCAN DOC: HISTORICAL RECORDS ADMINISTRATOR (01/30/2014 10:48 PM EDT) Narrative 01/30/2014 11:05 PM EDT Procedure Note Provider, Scanning - 01/30/2014 10:48 PM EDT Scanning Provider MEDIA MGR SCAN EXT ORDR/RSLT EKG 12 Lead (01/30/2014 1:36 PM EDT) Component Value Ref Range Test Analysis Performed Patholog t Method Time At Signature Ventricular rate 59 BPM MUSE SYSTEM Atrial Rate 59 BPM MUSE SYSTEM P-R Interval 152 ms MUSE SYSTEM QRS Duration 134 ms MUSE SYSTEM Q-T Interval 420 ms MUSE SYSTEM QTC Calculated 415 ms MUSE SYSTEM (Bezet) Calculated P [place] 60 degrees MUSE SYSTEM Calculated R [place] 61 degrees MUSE SYSTEM Calculated T [place] 34 degrees MUSE SYSTEM INTERPRETATION Sinus bradycardia [...] (ABNORMAL) Differential, Automated (01/30/2014 4:19 AM EDT) [facility] gist Method Time Signature Neutrophils % 70.3 [...] Organization Address City/State/[place] [address] CERNER MILLENNIUM (ABNORMAL) Hemogram [...] % MILLENNIUM MPV 10.2 9.0 - 12.0 [facility] Specimen Anatomical Collection Method Collection Time Receive d Time (Source) Location / / Volume Laterality Blood specimen 01/30/2014 4:19 AM 014 4:19 (specimen) EDT AM EDT Resulting Agency Comment Spec In Lab Rhonda Orosco MD HEMATOLOGY ORDERABLES Performing Organization Address City/State/ZIP Code [place] [address] [facility] Hemoglobin A1c (01/30/2014 4:19 AM EDT) athologist Signature Hemoglobin A1C 5.5 <=5.6 % [facility] Comment: Reference Range: 4.3 ? 5.6% 5.7 [...] Mellitus, Diabetes Care 2013; 36: Suppl. 1, S67- Est Avg Gluc 111 mg/dL [facility] Comment: eAG equivalents for HbA1c percentages: HbA1c(%) ?eAG(mg/dL) 6.0 ?126 6.5 ?140 7.0 ?154 7.5 ?169 8.0 ?183 8.5 ?197 9.0 ?212 9.5 ?226 10.0 ? 240 Limitations: The eAG calculation has not been validated on women, individuals below 18 years old and above 70 years old, and individuals with hemoglobinopathies. Additional resources are available on [facility] website: [email or web address] Kiko DEE, Ivis J, Santhosh R, et al. ??Tr anslating the A1C assay into estimated average glucose values. ??Diabetes Care 2008:31(8):5450-9301. Specimen Anatomical Collection Method Collection Time Receive d Time (Source) Location / / Volume Laterality Blood specimen 01/30/2014 4:19 AM 014 4:19 (specimen) EDT AM EDT Resulting Agency Comment Spec In Lab Rhonda Orosco MD CHEMISTRY ORDERABLES Performing Organization Address City/State/[place] [address] [facility] (ABNORMAL) Lipid panel (fasting) (01/30/2014 4:19 AM EDT) athologist Signature Chol, Total 144 <=199 mg/dL [facility] Comment: Recommendations of the NCEP Adult Treatm ent Panel for the following risk cutoff thresholds for the [place] populatio n: Desirable: <200 mg/dL Borderline High: 200-239 mg/dL High: > or = 240 mg/dL Triglycerides 80 <=149 mg/dL [facility] Comment: Reference Range: Normal triglycerides: ??<150 mg/dL Borderline high: ??150-199 mg/dL High: ??200-499 mg/dL Very high: ??>np=054 mg/dL KEITH 2001; 285(19):8132-3379 HDL 36 (L) >=40 mg/dL [facility] Comment: Reference range: ??Low HDL: ?? < 40 mg/dL ??Normal: ?40-60 mg/dL ??Desirable: > 60 mg/dL KEITH 2001; 285(19):7625-4904 LDL Cholesterol 92 <=99 mg/dL [facility] Comment: Reference range: ?? Optimal: ?<100 mg/dL ?? Near Optimal/Above Optimal: ?? 100-1 29 mg/dL ?? Borderline high: ?130-159 mg/dL ?? High: ? 160-189 mg/dL ?? Very high: ?>cp=180 mg/dL KEITH 2001: 285(19):1691-2551 Chol/HDL Ratio 4.0 ratio [facility] UM Comment: A Cholesterol to HDL ratio below 4:1 is desirable. ??Studies suggest that increased CAD risk occurs at ratios abov e 5 for females and above 6 for men. ? [place] Heart Association ??(htt p://www.americanheart.org) ? Blossom Int Med, 1994; 121:641 ? AM J Med, 1998; 105(1A):48S Specimen Anatomical Collection Method Collection Time Receive d Time (Source) Location / / Volume Laterality Blood specimen 01/30/2014 4:19 AM 014 4:19 (specimen) EDT AM EDT Resulting Agency Comment Spec In Lab Rhonda Orosco MD CHEMISTRY ORDERABLES Performing Organization Address City/State/[place] [address] [facility] BMP w/fasting Glucose (01/30/2014 4:19 AM EDT) athologist Signature Glucose 96 65 - 99 [facility] Fasting mg/dL [facility] Comment: ?Fasting* Glucose Interpretive C riteria Normal [...] of Diabetes Mellitus, Position Statement from the [place] Diabetes Association. ??Diabete s Care, Volume 33, Supplement 1, Jul 2009 BUN 19 10 - 20 mg/dL CERNER MILLENNIU M Creatinine 0.95 0.80 - 1.50 mg/dL CERNER MILL ENNIUM Comment: Please note that the pediatric reference intervals supplied above were not validated at [facility]. Results from pediatri c patients should be [...] the following links into your internet browser. [email or web address] Specimen Anatomical Collection Method Collection Time Receive d Time (Source) Location / / Volume Laterality Blood specimen 01/30/2014 4:19 AM 014 4:19 (specimen) EDT AM EDT Resulting Agency Comment Spec In Lab Rhonda Orosco MD CHEMISTRY ORDERABLES Performing Organization Address City/State/ZIP Code Phon e Number [place] [phone] CERNER Give[facility]NI[facility] Cardiac Enzymes (01/30/2014 4:19 AM EDT) P athologist Signature Troponin-T <0.03 <=0.03 CERNER ng/mL [facility] Comment: 0.03 ng/mL: Represents the 99th percenti [...] consensus document of the Joint Society of Cardiology/[place] College o f Cardiology Committee for the redefinition of myocardial infarction. ? ?Journal of the [place] College of Cardiology 2000; 36: 959-969] CK, Total 46 0 - 200 unit/L CodexisNER [facility] Specimen Anatomical Collection Method Collection Time Receive d Time (Source) Location / / Volume Laterality Blood specimen 01/30/2014 4:19 AM 014 4:19 (specimen) EDT AM EDT Resulting Agency Comment Spec In Lab Rhonda Orosco MD CHEMISTRY ORDERABLES Performing Organization Address City/State/ZIP Code Phon e Number CORTNEY MONTANO [place] [phone] [facility] [address] CERNER [facility] EKG 12 Lead (01/29/2014 3:32 PM EDT) Component Value Ref Range Test Analysis Performed Pathologis t Method Time At Signature Ventricular rate 51 BPM MUSE SYSTEM Atrial Rate 51 BPM MUSE SYSTEM P-R Interval 170 ms MUSE SYSTEM QRS Duration 132 ms MUSE SYSTEM Q-T Interval 432 ms MUSE SYSTEM QTC Calculated 398 ms MUSE SYSTEM (Bezet) Calculated P [place] 78 degrees MUSE SYSTEM Calculated R [place] 60 degrees MUSE SYSTEM Calculated T [place] 27 degrees MUSE SYSTEM INTERPRETATION Sinus bradycardia [...] Procedure Note Rhonda Orosco MD - 01/29/2014 [facility] Cardiac Catheterization/Intervention Re port Patient Name: Blayne Zapata Procedure Date: 01/29/2014 A #: [id number] Primary Physician: Rhonda Orosco Case #: [id number] File Name: [id number] Catheterization Order Number: [id number] [facility] Industrial Coffee Grinder [facility] Final Report [place], [place] Patient Name: Blayne Zapata ID#: [...] s a history of ventricular tachycardia/ventricular fibrillation. H e also has a history of an abnormal stress test. Prior to the init iation of this procedure, the patient was designated as ASA Class IV. Patient Status at Catheterization: The patient presented with: unstable an ros. [place] Cardiovascular Society angina class was III. This [...] stenosis. Distal caty w was via the tuscarora vessel and collaterals from the LCX. Indication for Intervention: Coronary intervention was indicated for treatment of unstable angina. Left ventricular Ejection Fraction was estimated at 65 percent. The priority for the procedure was Elective . The [facility] indication for the procedure was PCI for high risk Non-JESUS SD or unstable angina. Intervention Summary: Right Coronary Artery Proximal 90% Stent insertion was performed on the 90 % stenosis in the proximal segment of the RCA. This was a de janae lesion. According to the ACC/AHA classification system, this lesion was a type B2 moderate risk lesion. [facility] prevention of restenosis was the indication [...] 180 mg PO a dministered in the mill labor supervisor. Continue ASA 81 mg po daily, ticagrelor 90 mg po twice daily x 1-3 mo. The attending physician was present for the entire procedure. Dr. Rhonda Orosco M.D. performed the c oronary angiography, left heart catheterization and stent insertion-cor onary. Rhonda Orosco M.D. Electronically Signed by: Rhonda Orosco M.D. Report Finalized: 01/29/2014 13:01 Transcriptions Provider, Scanning - 01/29/2014 1:17 PM EDT Rhonda Orosco MD CARDIAC CATH ORDERABLES Cardiac Enzymes (01/29/2014 12:30 PM EDT) athologist Signature Troponin-T <0.03 <=0.03 JOCYNER ng/mL [facility] Comment: 0.03 ng/mL: Represents the 99th [...] consensus document of the Joint Society of Cardiology/[place] College o f Cardiology Committee for the redefinition of myocardial infarction. ? ?Journal of the [place] College of Cardiology 2000; 36: 959-969] CK, Total 47 0 - 200 unit/L IMANI MONTEZI UM Specimen Anatomical Collection Method Collection Time Receive d Time (Source) Location / / Volume Laterality Blood specimen 01/29/2014 12:30 4 (specimen) PM EDT 12:53 PM EDT Resulting Agency Comment Spec In Lab Rhonda Orosco MD CHEMISTRY ORDERABLES Performing Organization Address City/State/ZIP Code Phon [place] [facility] [address] IMANI SIMMONS documented in this encounter Visit Diagnoses Not on filedocumented [...] at 0930, Cath (Day of Procedure), Routine fentaNYL 50mcg/mL injection Given 01/29/2014 11:12 AM EDT 25 mcg ONCE PRN, Starting on Wed01/29/14 at 1112, Until Wed01/29/14 at 1244, Pain, Cath (Intra-Procedure), Routine heparin (porcine) injection Given 01/29/2014 12:15 PM EDT 3,500 Units ONCE PRN, Starting on Wed01/29/14 at 1134, Until Wed01/29/14 at 1244, Cath (Intra-Procedure), Routine Given 01/29/2014 11:34 AM EDT 4,500 Units iohexol (OMNIPAQUE) 350 mg iodine/mL Given 01/29/2014 12:38 PM E DT 105 mLs injection ONCE PRN, Starting on Wed01/29/14 at 1238, Until Wed01/29/14 at 1244, Per Protocol, Cath (Intra-Procedure), Routine lidocaine (XYLOCAINE) 10 mg/mL (1 %) Given 01/29/2014 11:27 AM E DT 100 mg injection ONCE PRN, Starting on Wed01/29/14 at 1127, Until Wed01/29/14 at 1244, Cath (Intra-Procedure), Routine metoprolol tartrate (LOPRESSOR) tablet 2 5 mg Given 01/30/2014 9:13 AM EDT 25 mg 25 mg, Oral, 2 TIMES DAILY, First dose on Wed01/29/14 at 2100, Until Discontinued, Routine Given 01/29/2014 8:30 PM EDT 25 mg midazolam (PF) (VERSED) 1 mg/mL injectio n Given 01/29/2014 11:12 AM EDT 1 mg ONCE PRN, Starting on Wed01/29/14 at 1112, Until Wed01/29/14 at 1244, Sleep, Cath (Intra-Procedure), Routine nitroGLYCerin 100 mcg/mL intracoronary Given 01/29/2014 11:30 AM EDT 250 mcg dilution ONCE PRN, Starting on Wed01/29/14 at 1130, Until Wed01/29/14 at 1244, Cath (Intra-Procedure), Routine sodium chloride 0.9% infusion New Bag 01/29/2014 9:24 AM EDT 200 mL/hr 200 mL/hr 200 mL/hr, Intravenous, CONTINUOUS, Starting on Wed01/29/14 at 0930, Until Wed01/29/14 at 1302, Cath (Day of Procedure) sodium chloride 0.9% infusion New Bag 01/29/2014 12:07 PM 1,000 mL/hr 1000 mL/hr CONTINUOUS PRN, Starting on Wed EDT 01/29/14 at 1207, Until Wed01/29/14 at 1531, Cath (Intra-Procedure) sodium chloride 0.9% infusion New Bag 01/29/2014 [...] Given 01/29/2014 8:49 PM EDT 90 mg ticagrelor (BRILINTA) tablet Given 01/29/2014 12:12 PM EDT 180 mg ONCE PRN, Starting on Wed01/29/14 at 1212, Until Wed01/29/14 at 1244, Cath (Intra-Procedure), Routine verapamil (ISOPTIN) injection Given 01/29/2014 11:30 AM EDT 2.5 mg ONCE PRN, Starting on Wed01/29/14 at 1130, Until Wed01/29/14 at 1244, Administer over 2 Minutes, Cath (Intra-Procedure) documented in this encounter Active and Recently Administered Medications Times are shown in EDT. Scheduled Medication Order 01/28/2014 01/29/2014 01/30/2014 amLODIPine (NORVASC) tablet 5 mg (CANCELED) 1751 (Given - Provider: Diane Garcia RN) 0913 (Given - Provider: Liv Cotter , NADERS) 5 mg, Oral, DAILY, First dose on 01/10 at 1800, Until Discontinued, Routine aspirin EC tablet 81 mg (CANCELED) 1751 (Given - Provider: Diane Garcia RN) 0913 (Given - Provider: Liv Cotter , ANDERS) 81 mg, Oral, DAILY, First dose on Wed at 1800, Until Discontinued, Routine atorvastatin (LIPITOR) tablet 80 mg 1750 (Given - Provider: Diane Garcia RN) 80 mg, Oral, EVERY EVENING, First dose o n Wed01/29/14 at 1700, Until Discontinued, Routine diaZEPam (VALIUM) tablet 5 mg (COMPLETED) 0930 (Given - Provider: Uvaldo Nelson RN) 5 mg, Oral, ONCE, 1 dose, Wed01/29/14 at 0930, Cath (D ay of Procedure), Routine diphenhydrAMINE (BENADRYL) capsule 25 mg (COMPLETED) 0930 (Given - Provider: Uvaldo Nelson RN) 25 mg, Oral, ONCE, 1 dose, Wed01/29/14 a t 0930, Cath (Day of Procedure), Routine metoprolol tartrate (LOPRESSOR) tablet 25 mg (CANCELED) 2029 (Given - Provider: Corine Marc, ANDERS) 912 (Given - Provider: Liv Cotter , ANDERS) 25 mg, Oral, 2 TIMES DAILY, First dose o n Wed01/29/14 at 2100, Until Discontinued, Routine ticagrelor (BRILINTA) tablet 90 mg 2048 (Given - Provider: Corine Marc RN) 913 (Given - Provider: Liv Cotter , ANDERS) 90 mg, Oral, 2 TIMES DAILY, First dose o n Wed01/29/14 at 2100, Until Discontinued, After initial loading dose of aspirin (usually 325 mg), use ticagrelor with daily maintenance dose of aspirin of 81 mg, Routine Continuous Medication Order 01/28/2014 01/29/2014 01/30/2014 sodium chloride 0.9% infusion (CANCELED) 0924 (New Bag - Provider: Rosi Monzon RN) 200 mL/hr, at 200 mL/hr, Intravenous, CO NTINUOUS, Starting Wed01/29/14 at 0930, Until Wed01/29/14 at 1302, Cath (Day of Procedure) PRN Medication Order 01/28/2014 01/29/2014 01/30/2014 fentaNYL 50mcg/mL injection (CANCELED) 1 112 (Given - Provider: Cahndler Carter, ANDERS) ONCE PRN, Starting Wed01/29/14 at 1112, Until Wed01/29/14 at 1244, Pain, Cath (Intra-Procedure), Routine heparin (porcine) injection (CANCELED) 1 134 (Given - Provider: Chandler Carter RN)1215 (Given - Provider: Chandler Carter, ANDERS) ONCE PRN, Starting Wed01/29/14 at 1134, Until [...] (Intra-Procedure) documented in this encounter Care Teams Sports Book Board Attendant Relationship Specialty Start Date End Date Rupert Russell Jr., MD PCP - General 06/03/10 07/21/[address] [facility] [address] [facility] [place] [phone] documented as of this encounter
--- OUTSIDE RECORDS SUMMARY | 2022-05-21 09:04 | XMS_ITS | Encounter Summary ---
:1950 Author Organization [facility] [place] [address] Care Team Providers Name Role Phone Yvonne Nolen MD, Rupert Bhatti Primary Care Provider Encounter Details Date Type Department Care Team Description 09/28/2012 Abstract Ophthalmology at [facility] C Telma Murray, KARL [facility] D [facility] [place] [address] OPHTHALMOLOGY DEPT. [phone] [place], [place] [address] (Wo rk) Social History Tobacco [...] on filedocumented in this encounter Care Teams Park Aide Relationship Specialty Start Date End Date Rupert Russell Jr., MD PCP - General 06/03/10 07/21/[address] [facility] [address] [facility] [place] [address] documented as of this encounter
--- OUTSIDE RECORDS SUMMARY | 2022-05-21 09:04 | XMS_ITS | Encounter Summary ---
:1950 Author Organization [facility] [place] [address] Care Team Providers Name Role Phone Yvonne Nolen MD, Rupert Bhatti Primary Care Provider Reason for Visit Reason Comments Follow-up Pt reports no recent changes in eyes or VA, he does have occasional flashes OS>OD, Hx of PVD-OU, no new floaters Encounter Details Date Type Department Care Team Description 05/20/2011 Follow-Up Ophthalmology at [facility] Mushtaq Ranegl Hyperopia (Primary Dx); Av Thomas, OD Astigmatism; [facility] Presbyopia; [place] [address] DR Amblyopia of right eye; [phone] OPHTHALMOLOGY PVD (posterior vitreous detachment) DEPT. [place] [id number] Social History Tobacco Use Types Packs/Day Years Used Date Never Smoker Smokeless Tobacco: Never Used Alcohol Use Standard Drinks/Week Comments Yes 3 (1 standard drink = 0.6 oz pure alcoho l) Sex Assigned at Date Recorded Not on file documented as of this encounter Progress Notes Mushtaq Rangel Martha, OD - 05/20/2011 9:37 AM EST Blayne Zapata is a 60 y.o. male who had a chief complaint of Follow-up . Slight Rx change. Stable PVDs. Assessment: Encounter Diagnoses Code Name Primary? 367.0B Hyperopia Yes ??? 367.20A Astigmatism ??? 367.4 Presbyopia ??? 368.00AP Amblyopia of right eye ??? 379.21Q PVD (posterior vitreous detachment) Plan: 1)Refractive Error - MRx given to patient. 2)PVD - pt ed to RTC FAUZIA if increase in floaters; flashes; and/or VF loss Follow up: CEE 2 years. Eyeglass Final Rx Sphere Cylinder [place] Add Right +3.00 Sphere +2.50 Left +1.00 +0.50 115 +2.50 Type: PAL Expiration Date: 05/20/2013 documented in this encounter Nursing Notes 05/20/2011 8:45 AM EST >> MUSHTAQ RANGEL, KARL WedMay 20, 2011 9:38 AM FATOU 02/17. Time for an exam. No major concerns. Dry eye at times in winter. Recently retired. >> MJ MADRID, MARY WedMay 20, 2011 9:10 AM Description:Patient presents with: Follow-up - Pt reports no recent changes in eyes or VA, he does have occasional flashes OS>OD, Hx of PVD-OU, no new floaters Location: both eye Duration: 8 years(PVD-OU) Rapidity of Onset:sudden Severity: 2 Condition:No Change Pain:none Modifying Factors: Associated Symptoms: Art. Tears in winter if dry documented in this encounter Plan of Treatment Not on filedocumented as of this encounter Visit Diagnoses Diagnosis Hyperopia - Primary Hypermetropia Astigmatism Astigmatism, unspecified Presbyopia Amblyopia of right eye Amblyopia, unspecified PVD (posterior vitreous detachment) Vitreous degeneration documented in this encounter Care Teams Steel Chipper Relationship Specialty Start Date End Date Rupert Russell Jr., MD PCP - General 06/03/10 07/21/17 [facility] [place] [address] documented as of this encounter
--- OUTSIDE RECORDS SUMMARY | 2022-05-21 09:04 | XMS_ITS | Encounter Summary ---
:1950 Author Organization [facility] [place] [address] Care Team Providers Name Role Phone Yvonne Nolen MD, Rupert Bhatti Primary Care Provider Encounter Details Date Type Department Care Team Description 07/01/2012 Telephone Family Medicine at [facility] Rupert Russell Jr., MD [facility] DR Nancy Araiza [facility] [place] [address] [place] [address] [phone] (Wo rk) Social History Tobacco Use Types Packs/Day Years Used Date Never Smoker Smokeless Tobacco: Never Used Alcohol Use Standard Drinks/Week Comments Yes 3 (1 standard drink = 0.6 oz pure alcoho l) Sex Assigned at Date Recorded Not on file documented as of this encounter Miscellaneous Notes Telephone Encounter - Telma Champagne - 07/01/2012 3:36 PM EST ----- Message from Lilibeth Lange LPN sent at 06/23/2012 4:47 PM ----- RUPERT RUSSELL JR, MD 06/23/2012 4:39 PM Signed C- should see him in Jul or Aug for an annual and htn Spoke annette/ Blay[place]. He's in [place] right now and then he and his will be going to [place] for a while. He'll call when he returns to schedule appt for Annual PE. documented in this encounter Plan of Treatment Not on filedocumented as of this encounter Visit Diagnoses Not on filedocumented in this encounter Care Teams Weaving Supervisor Relationship Specialty Start Date End Date Rupert Russell Jr., MD PCP - General 06/03/10 07/21/[address] [facility] [place] [address] documented as of this encounter
--- OUTSIDE RECORDS SUMMARY | 2022-05-21 09:04 | XMS_ITS | Encounter Summary ---
:1950 Author Organization [facility] [place] [address] Care Team Providers Name Role Phone Yvonne Nolen MD, Rupert Bhatti Primary Care Provider Encounter Details Date Type Department Care Team Description 05/05/2011 Abstract Ophthalmology at [facility] Telma Murray, KAR[place] [facility] [place] [address] OPHTHALMOLOGY DEPT. [phone] [place], [place] [address] (Wo rk) Social History Tobacco Use Types Packs/Day Years Used Date Never Assessed Sex Assigned at Date Recorded Not on file documented as of this encounter Plan of Treatment Not on filedocumented as of this encounter Visit Diagnoses Not on filedocumented in this encounter Care Teams Editor At Large Relationship Specialty Start Date End Date Rupert Russell Jr., MD PCP - General 06/03/10 07/21/[address] [facility] [address] [facility] [facility] [place] [address] documented as of this encounter
--- OUTSIDE RECORDS SUMMARY | 2022-05-21 09:04 | XMS_ITS | Encounter Summary ---
:1950 Author Organization [facility] [place] [address] Care Team Providers Name Role Phone Yvonne Nolen MD, Rupert Bhatti Primary Care Provider Encounter Details Date Type Department Care Team Description 09/14/2011 Hospital Encounter Laboratory Rupert Russell Hypercholesteremia; [facility] MD Callum Medication monitoring encounter [address] [place], [place] CENTER [address] [phone] [place] [address] Social History Tobacco Use Types Packs/Day Years Used Date Never Smoker Smokeless Tobacco: Never Used Alcohol Use Standard Drinks/Week Comments Yes 3 (1 standard drink = 0.6 oz pure alcoho l) Sex Assigned at Date Recorded Not on file documented as of this encounter Medications at Time of Discharge Medication Sig Dispensed Refills Start Date End Date aspirin 81 mg EC tablet Take 81 mg by 0 mouth daily. hydrochlorothiazide Take 1 capsule 90 capsule 4 06/05/2011 1 08/24/2011 (MICROZIDE) 12.5 mg capsule by mouth every morning. lovastatin (MEVACOR) 20 mg Take 1 tablet by 90 tablet 4 06/23/2012 tablet mouth nightly. documented as of this encounter Plan of Treatment Not on filedocumented as of this encounter Procedures Procedure Name Priority Date/Time Associated Diagnosis Comme nts ALANINE Routine 09/14/2011 8:07 Hypercholesterem ia Results for AMINOTRANSFERASE AM EST Medication monitoring th is procedure encounter are in the results section. LIPID PANEL (REFLEX Routine 09/14/2011 8:07 Hypercholesteremia Results for DIRECT LDL) AM EST this procedure are in the results section. documented in this encounter Results Alanine Aminotransferase (09/14/2011 8:07 AM EST) athologist Signature ALT 19 0 - 55 CERNER unit/L MILLENNIUM Specimen Anatomical Collection Method Collection Time Receive d Time (Source) Location / / Volume Laterality Blood specimen 09/14/2011 8:07 AM 012 (specimen) EST 12:31 PM EST Resulting Agency Comment Spec In Lab Rupert Russell Jr., MD CHEMISTRY ORDERABLES Performing Organization Address City/State/[place] [address] CERNER MILLENNIUM (ABNORMAL) Lipid panel (fasting) (09/14/2011 8:07 AM EST) athologist Signature Chol, Total 176 <=199 mg/dL CERNER MILLENNIUM Comment: Recommendations of the NCEP Adult Treatm ent Panel for the following risk cutoff thresholds for the [place] populatio n: Desirable: <200 mg/dL Borderline High: 200-239 mg/dL High: > or = 240 mg/dL Triglycerides 72 <=149 mg/dL CERNER MILLENN IUM Comment: Reference Range: Normal triglycerides: ??<150 mg/dL Borderline high: ??150-199 mg/dL High: ??200-499 mg/dL Very high: ??>wc=549 mg/dL KEITH 2001; 285(19):[phone] HDL 50 >=40 mg/dL CERNER MILLENNIUM Comment: Reference range: ??Low HDL: ?? < 40 mg/dL ??Normal: ?40-60 mg/dL ??Desirable: > 60 mg/dL KEITH 2001; 285(19):3098-1300 LDL Cholesterol 112 (H) <=99 mg/dL CERNER EDWARD NIUM Comment: Reference range: ?? Optimal: ?<100 mg/dL ?? Near Optimal/Above Optimal: ?? 100-1 29 mg/dL ?? Borderline high: ?130-159 mg/dL ?? High: ? 160-189 mg/dL ?? Very high: ?>um=162 mg/dL KEITH 2001: 285(19):5656-4010 Chol/HDL Ratio 3.5 ratio IMANI CEBALLOS UM Comment: A Cholesterol to HDL ratio below 4:1 is desirable. ??Studies suggest that increased CAD risk occurs at ratios abov e 5 for females and above 6 for men. ? [place] [employer] Association ??(htt p://www.americanheart.org) ? Blossom Int Med, 1994; 121:641 ? AM J Med, 1998; 105(1A):48S Specimen Anatomical Collection Method Collection Time Receive d Time (Source) Location / / Volume Laterality Blood specimen 09/14/2011 8:07 AM 012 (specimen) EST 12:31 PM EST Resulting Agency Comment Spec In Lab Rupert Russell Jr., MD CHEMISTRY ORDERABLES Performing Organization Address City/State/[facility] [place] [address] IMANI SIMMONS documented in this encounter Visit Diagnoses Diagnosis Hypercholesteremia Pure hypercholesterolemia Medication monitoring encounter Encounter for therapeutic drug monitorin g documented in this encounter Care Teams Roller Repairer Relationship Specialty Start Date End Date Rupert Russell Jr., MD PCP - General 06/03/10 07/21/[address] [facility] [address] [facility] [address] documented as of this encounter
--- OUTSIDE RECORDS SUMMARY | 2022-05-21 09:04 | XMS_ITS | Encounter Summary ---
:1950 Author Organization [facility] Address [address] [place] [address] Care Team Providers Name Role Phone Unavailable Primary Care Provider Unavailable Encounter Details Date Type Department Care Team Description 12/06/2005 - Hospital Encounter [facility] Gopi Mauricio MD [address] [place] [phone] 12/08/2005 Cardiac/Telemetry Marquis Judge MD [address] [facility], Level 1 [place] [phone] [address] [place], [place] [id number] Social History Tobacco Use Types Packs/Day Years Used Date Smoking Tobacco: Never Assessed Sex Assigned at Date Recorded Not on file documented as of this encounter Discharge Summaries Gopi Mauricio MD - 12/08/2005 0000 EDT INPATIENT DISCHARGE SUMMARY Admission Date: 12/06/2005 Discharge Date: 12/08/2005 HISTORY OF PRESENT ILLNESS: Blayne Zapata was in [place] running the [employer] and it was a hot day, and upon crossing the finish line he collapsed due to dehydration. He received medical care but was complaining of chest pain and he was havingsome vomiting and was then taken over to [facility] where he was admitted to the Cardiology Service. He had a mild increase in his troponin levels, but no other overt changes on his electrocardiogram. He was pain free in the emergencydepartment and had no further episodes. HOSPITAL COURSE: Given the elevated troponin and his risk factors for coronary disease, we elected to proceed with coronary angiography. This showed a mild stenosis in the ostium of the circumflex as it bifurcated off the left main artery. I estimated as approximately stenosis. He also had some 20-30%lesions in the mid left anterior descending artery. Nothing was obstructive and we did not place anystents or do any further intervention at that time. He tolerated the procedure well. DISCHARGE MEDICATIONS: 1. Lipitor 20 mg a day. 2. Aspirin 325 mg a day. Both are new medications for him. I have advised Mr. Zapata to lay off running for two weeks. I think what happened to him was that it was a combination of dehydration, high metabolic demand, and mild coronary disease resulting in a demand myocardial infarction. do think the Lipitor and aspirin will be important components of his therapy in the future. I do think he can start running again in several weeks, but I have advised him to discontinue marathon running. I would suspect that a exercise nuclear study would be an excellent way to assess his exercise tolerance for the future. However, since he lives close to [facility], I thought that that could be better performed back home. If I can provide further details of his hospitalization, please do not hesitate to contact me. FINAL DIAGNOSIS: Non ST elevation myocardial infarction. 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 CREATININE Routine 12/08/2005 6:00 Results for this EDT procedure are i n the results section. COMPLETE BLOOD COUNT Routine 12/08/2005 6:00 Resu lts for this EDT procedure are i n the results section. BUN Routine 12/08/2005 6:00 Results for this EDT procedure are i n the results section. ELECTROLYTES Routine 12/08/2005 6:00 Results for this EDT procedure are i n the results section. CREATININE Routine 12/07/2005 5:24 Results for this EDT procedure are i n the results section. COMPLETE BLOOD COUNT Routine 12/07/2005 5:24 Resu lts for this EDT procedure are i n the results section. BUN Routine 12/07/2005 5:24 Results for this EDT procedure are i n the results section. CK MB WITH TOTAL CK Routine 12/07/2005 5:24 Resul ts for this EDT procedure are i n the results section. ELECTROLYTES Routine 12/07/2005 5:24 Results for this EDT procedure are i n the results section. TROPONIN I Routine 12/06/2005 21:05 Results for this EDT procedure are i n the results section. CK MB WITH TOTAL CK Routine 12/06/2005 21:05 Resu lts for this EDT procedure are i n the results section. PROFILE ED CARDIAC Routine 12/06/2005 12:53 Resul ts for this PACK EDT procedure are i n the results section. documented in this encounter Results REELING AND TUBING MACHINE OPERATOR PROCEDURE (12/08/2005 10:42 EDT) Anatomical Region Laterality Modality Other Specimen (Source) Anatomical Collection Method Collection Time Re ceived Time Location / / Volume Laterality 12/08/2005 10:42 EDT Narrative 12/14/2005 8:05 EDT ?[facility] ? [address] ?? [place], [place] [address] ? [phone] ?Fax: ?? [email or web address] ?Final Diagnostic Cardi ovascular Catheterization Report ?- -- SUMMARY OF RESULTS --- > The ventriculogram revealed normal LV function. >No significant angiographic coronary di sease(mild luminal irregularities present) > Diagnostic cardiac catheterization was performed without any significant complications. > The LV end diastolic pressure was norm al. ? --- PLAN --- > It is recommended that the patient hav e medical therapy for mild coronary disease. ? --- PATIENT PRESENTATION --- The patient is a 55 year old male with t he following indications: ??chest pain . The patient has the following Comorbidit ies/Risk Factors: : 1950 ?Sex: male ?Heig ht: 175.3cm ?Weight: 65.9kg ?BSA: 1.8 Allergies: ??nkda Pre-Wood Processing Worker Values: ??HCT: 39.9 ?Pl atelets: 198.0 ?Creatinine: 1.0 ? --- PROCEDURE --- DIAGNOSTIC CARDIAC PROCEDURE Under local anesthesia, the right femora l artery was accessed with a 6F sheath using modified Seldinger technique. ??A 6F JL4 catheter was introduced and positioned in the ascending aorta. Left heart cath was performed according to standard procedure. ??A 6F Pigtail was used to cross the aortic valve and m easure pressures in the left ventricle. Selective coronary arteriography was the n performed using a 6F JL4 catheter to engage the left coronary artery and a 6F JR4 catheter to engage the right coronary artery. ??Right and left mccormack ry arteriography were performed in multiple views. Using standard procedures, left ventricu lography was performed. A 6F Pigtail was used to cross the aortic valve and m easure pressures in the left ventricle. An injection of Isovue contrast was used for left ventriculography in the 30 degree AGUILAR projection. The Access location was: ?? > Right Femo ral Artery The Largest Arterial Sheath/Cath placed was ??6F The Hemostasis method used was: ?> O ther > Starclose SELECTED MEDICATION ADMINISTERED DURING THE PROCEDURE: ??FENTANYL, VERSED ? (Please see PhysioLog report for complete list of medications used.) ?--- RESULTS --- HEMODYNAMICS ??Pressures: ?Site ?Systolic ??Cohen to ??Mean ?lic ?AoA ? 155 ? 80 ?112 ?LV ?148 ? 1 2 ?PBA ? 152 ? 79 ?107 ?PBV ? 150 ? 97 There was no gradient detected across th e aortic valve. The left ventricular end diastolic press ure was normal. LEFT VENTRICULOGRAPHY The left ventricular function was normal . ??There was no mitral regurgitation. FEMORAL ANGIOGRAPHIC FINDINGS The right common femoral artery was norm al in size and had no significant angiographic lesions. The femoral artery sheath was placed wit hin the common femoral artery. CORONARY ANGIOGRAPHIC FINDINGS Left Main Artery: The left main coronary artery is normal in size and has no significant angiographic lesions. Left Anterior Descending Artery: The LAD was normal in size and had mild luminal irregularities. Circumflex Artery: The circumflex artery was normal in size and had mild luminal irregularities. Right Coronary Artery: The RCA is domina nt. The RCA was normal in size and had mild luminal irregularities. Diagnostic Attending: Kam Bourne MD Diagnostic Fellow: Cm Larose MD As the attending, supervising cardiologi st, I was present for the entire procedure. Signature date/time: 12/14/2005 8:06:02 AM Procedure Note 12/25/2009 [facility] [address] [place] [address] [phone] [email or web address] Final Diagnostic Cardiovascular Cathete rization Report --- SUMMARY OF RESULTS --- > The ventriculogram revealed normal LV function. >No significant angiographic coronary di sease(mild luminal irregularities present) > Diagnostic cardiac catheterization was performed without any significant complications. > The LV end diastolic pressure was norm al. --- PLAN --- > It is recommended that the patient hav e medical therapy for mild coronary disease. --- PATIENT PRESENTATION --- The patient is a 55 year old male with t he following indications: chest pain . The patient has the following Comorbidit ies/Risk Factors: : 1950 Sex: male Height: 175.3c m Weight: 65.9kg BSA: 1.8 Allergies: nkda Pre-Wood Processing Worker Values: HCT: 39.9 Platelets : 198.0 Creatinine: 1.0 --- PROCEDURE --- DIAGNOSTIC CARDIAC PROCEDURE Under local anesthesia, the right femora l artery was accessed with a 6F sheath using modified Seldinger technique. A 6F JL4 catheter was introduced and positioned in the ascending aorta. Left heart cath was performed according to standard procedure. A 6F Pigtail was used to cross the aortic valve and m easure pressures in the left ventricle. Selective coronary arteriography was the n performed using a 6F JL4 catheter to engage the left coronary artery and a 6F JR4 catheter to engage the right coronary artery. Right and left coronary arteriography were performed in multiple views. Using standard procedures, left ventricu lography was performed. A 6F Pigtail was used to cross the aortic valve and m easure pressures in the left ventricle. An injection of Isovue contrast was used for left ventriculography in the 30 degree AGUILAR projection. The Access location was: > Right Femoral Artery The Largest Arterial Sheath/Cath placed was 6F The Hemostasis method used was: > Other > Starclose SELECTED MEDICATION ADMINISTERED DURING THE PROCEDURE: FENTANYL, VERSED (Please see PhysioLog report for comple te list of medications used.) --- RESULTS --- HEMODYNAMICS Pressures: Site Systolic Diasto Mean lic AoA 155 80 112 LV 148 12 PBA 152 79 107 PBV 150 97 There was no gradient detected across th e aortic valve. The left ventricular end diastolic press ure was normal. LEFT VENTRICULOGRAPHY The left ventricular function was normal . There was no mitral regurgitation. FEMORAL ANGIOGRAPHIC FINDINGS The right common femoral artery was norm al in size and had no significant angiographic lesions. The femoral artery sheath was placed wit hin the common femoral artery. CORONARY ANGIOGRAPHIC FINDINGS Left Main Artery: The left main coronary artery is normal in size and has no significant angiographic lesions. Left Anterior Descending Artery: The LAD was normal in size and had mild luminal irregularities. Circumflex Artery: The circumflex artery was normal in size and had mild luminal irregularities. Right Coronary Artery: The RCA is domina nt. The RCA was normal in size and had mild luminal irregularities. Diagnostic Attending: Kam Bourne MD Diagnostic Fellow: Sarnoski MD, Christop her As the attending, supervising cardiologi st I was present for the entire procedure. Signature date/time: 12/14/2005 8:06:02 AM [place] Provider [id number] CARDIAC CATH ORDERABL ES ELECTROLYTES (12/08/2005 6:00 EDT) athologist Signature Sodium 138 136 - 145 [facility] mEq/L LAB Potassium 4.4 3.5 - 5.0 [facility] mEq/L LAB Chloride 102 96 - 110 [facility] mEq/L LAB CO2 30 24 - 32 [facility] mEq/L LAB Specimen Anatomical Collection Method Collection Time Receive d Time (Source) Location / / Volume Laterality 12/08/2005 6:00 12/08/2005 5 :42 EDT EDT Gopi Mauricio MD CHEMISTRY & BLOOD GAS ORDERA BLES Performing Organization Address City/State/ZIP Code Phon e Number [facility] [address] [place] [address] SERVICES [facility] [address] [place] [address] CREATININE (12/08/2005 6:00 EDT) athologist Signature Creatinine 1.0 0.7 - 1.5 [facility] mg/dl LAB Specimen Anatomical Collection Method Collection Time Receive d Time (Source) Location / / Volume Laterality 12/08/2005 6:00 12/08/2005 5 :42 EDT EDT Gopi Mauricio MD HISTORICAL LAB FOR SQ LOAD Performing Organization Address City/[facility]/ZIP Code Phon e Number [facility] [address] [place] [address] SERVICES [facility] [address] [place] [address] (ABNORMAL) HEMAGRAM (12/08/2005 6:00 EDT) athologist Signature WBC 9.35 4.0 - 10.4 [facility] K/cmm LAB RBC 4.46 4.36 - 5.78 [facility] M/cmm LAB Hemoglobin 13.4 (L) 13.8 - 17.3 [facility] gm/dl LAB HCT 39.9 39.5 - 50.2 [facility] % LAB MCV 89 81 - 95 fl [facility] MCH 30.0 27.6 - 33.0 [facility] pg LAB MCHC 33.6 32.8 - 36.4 [facility] gm/dl LAB PLT 198 141 - 320 [facility] K/cmm LAB RDW-CV 12.2 11.8 - 14.1 [facility] % LAB Specimen Anatomical Collection Method Collection Time Receive d Time (Source) Location / / Volume Laterality 12/08/2005 6:00 12/08/2005 5 :42 EDT EDT Gopi Mauricio MD HEMATOLOGY & PF4 ORDERABLES Performing Organization Address City/[facility]/ZIP Code Phon e Number [facility] [address] [place] [address] SERVICES [facility] [address] [place] [address] BUN (12/08/2005 6:00 EDT) athologist Signature BUN 22 10 - 26 [facility] mg/dl LAB Specimen Anatomical Collection Method Collection Time Receive d Time (Source) Location / / Volume Laterality 12/08/2005 6:00 12/08/2005 5 :42 EDT EDT Gopi Mauricio MD CHEMISTRY & BLOOD GAS ORDERA BLES Performing Organization Address City/[facility]/ZIP [facility] Phon e Number [facility] [address] [place] [address] SERVICES [facility] [address] [place] [address] (ABNORMAL) ELECTROLYTES (12/07/2005 5:24 EDT) athologist Signature Sodium 135 (L) 136 - 145 [facility] mEq/L LAB Potassium 4.0 3.5 - 5.0 [facility] mEq/L LAB Chloride 104 96 - 110 [facility] mEq/L LAB CO2 27 24 - 32 [facility] mEq/L LAB Specimen Anatomical Collection Method Collection Time Receive d Time (Source) Location / / Volume Laterality 12/07/2005 5:24 12/07/2005 5 :47 EDT EDT Gopi Mauricio MD CHEMISTRY & BLOOD GAS ORDERA BLES Performing Organization Address City/[facility]/ZIP Code Phon e Number [facility] [address] [place] [address] SERVICES [facility] [address] [place] [address] CREATININE (12/07/2005 5:24 EDT) athologist Signature Creatinine 1.2 0.7 - 1.5 [facility] mg/dl LAB Specimen Anatomical Collection Method Collection Time Receive d Time (Source) Location / / Volume Laterality 12/07/2005 5:24 12/07/2005 5 :47 EDT EDT Gopi Mauricio MD HISTORICAL LAB FOR SQ LOAD Performing Organization Address City/[facility]/ZIP Code Phon e Number [facility] [address] [place] [address] SERVICES [facility] [address] [place] [address] (ABNORMAL) CK MB WITH TOTAL CK (12/07/2005 5:24 EDT) athologist Signature CK 1186 (H) 0 - 250 [facility] U/L LAB MB 35.3 (H) 0 - 5.0 [facility] ng/ml LAB CK-MB Index 3.0 (H) 0 - 2.5 [facility] LAB Specimen Anatomical Collection Method Collection Time Receive d Time (Source) Location / / Volume Laterality 12/07/2005 5:24 12/07/2005 5 :47 EDT EDT Gopi Mauricio MD CHEMISTRY & BLOOD GAS ORDERA BLES Performing Organization Address City/[facility]/ZIP Code Phon e Number [facility] [address] [place] [address] SERVICES [facility] [address] [place] [address] (ABNORMAL) HEMAGRAM (12/07/2005 5:24 EDT) athologist Signature WBC 16.28 (H) 4.0 - 10.4 [facility] K/cmm LAB RBC 4.23 (L) 4.36 - [facility] 5.78 M/cmm LAB Hemoglobin 13.1 (L) 13.8 - [facility] 17.3 gm/dl LAB HCT 37.6 (L) 39.5 - [facility] 50.2 % LAB MCV 89 81 - 95 fl [facility] LAB MCH 30.9 27.6 - [facility] 33.0 pg LAB MCHC 34.7 32.8 - [facility] 36.4 gm/dl LAB PLT 198 141 - 320 [facility] K/cmm LAB RDW-CV 12.4 11.8 - [facility] 14.1 % LAB Specimen Anatomical Collection Method Collection Time Receive d Time (Source) Location / / Volume Laterality 12/07/2005 5:24 12/07/2005 5 :47 EDT EDT Gopi Mauricio MD HEMATOLOGY & PF4 ORDERABLES Performing Organization Address City/State/ZIP Code Phon e Number [facility] [address] [place] [address] SERVICES [facility] [address] [place] [address] (ABNORMAL) BUN (12/07/2005 5:24 EDT) P athologist Signature BUN 34 (H) 10 - 26 [facility] mg/dl LAB Specimen Anatomical Collection Method Collection Time Receive d Time (Source) Location / / Volume Laterality 12/07/2005 5:24 12/07/2005 5 :47 EDT EDT Gopi Mauricio MD CHEMISTRY & BLOOD GAS ORDERA BLES Performing Organization Address City/[facility]/ZIP Code Phon e Number [facility] [address] [place] [address] SERVICES [facility] [address] [place] [address] TROPONIN I (12/06/2005 21:05 EDT) P athologist Signature Troponin I pre 0.16 ng/ml [facility] [address] LAB Comment: normal: less than 0.15 indeterminate: 0.15-1.50 positive: greater than 1.50 Specimen Anatomical Collection Method Collection Time Receive d Time (Source) Location / / Volume Laterality 12/06/2005 21:05 12/06/2005 EDT 21:15 EDT Gopi Mauricio MD CHEMISTRY & BLOOD GAS ORDERA BLES Performing Organization Address City/State/ZIP Code Phon e Number [facility] [address] [place] [address] SERVICES [facility] [address] [place] [address] (ABNORMAL) CK MB WITH TOTAL CK (12/06/2005 21:05 EDT) P athologist Signature CK 957 (H) 0 - 250 [facility] U/L LAB MB 34.2 (H) 0 - 5.0 [facility] ng/ml LAB CK-MB Index 3.6 (H) 0 - 2.5 [facility] Specimen Anatomical Collection Method Collection Time Receive d Time (Source) Location / / Volume Laterality 12/06/2005 21:05 12/06/2005 EDT 21:15 EDT Gopi Mauricio MD CHEMISTRY & BLOOD GAS ORDERA BLES Performing Organization Address City/State/ZIP Code Phon e Number [facility] [address] [place] [address] SERVICES [facility] [address] [place] [address] (ABNORMAL) PROFILE ED CARDIAC PACK (12/06/2005 12:53 EDT) Component Value Ref Test Analysis Performed At Patholo gist Range Method Time Signature BUN 18 10 - 26 [facility] mg/dl [facility] WBC 19.86 (H) 4.0 - [facility] 10.4 [facility] K/cmm RBC 5.08 4.36 - [facility] 5.78 [facility] M/cmm Hemoglobin 15.1 13.8 - [facility] 17.3 [facility] gm/dl HCT 45.5 39.5 - [facility] 50.2 % [facility] MCV 90 81 - 95 [facility] fl [facility] MCH 29.8 27.6 - [facility] 33.0 pg [facility] MCHC 33.2 32.8 - [facility] 36.4 [facility] gm/dl PLT 252 141 - [facility] 320 [facility] K/cmm RDW-CV 12.2 11.8 - [facility] 14.1 % [facility] CK 178 0 - 250 [facility] U/L [facility] MB 6.6 (H) 0 - 5.0 [facility] ng/ml [facility] CK-MB Index 3.7 (H) 0 - 2.5 [facility] Creatinine 1.5 0.7 - [facility] 1.5 [facility] mg/dl Neutrophils 90.0 (H) 45.5 - [facility] 79.7 % [facility] Lymphocytes 3.0 (L) 15.0 - [facility] 46.8 % [facility] Monocytes 6.0 1.8 - [facility] 12.0 % [facility] Eosinophils 1.0 0.6 - [facility] 6.9 % [facility] ABS Neutrophils 17.87 (H) 2.20 - [facility] 8.85 [facility] K/cmm ABS Lymphs 0.60 (L) 1.09 - [facility] 3.30 [facility] K/cmm ABS Monocytes 1.19 (H) 0.1 - [facility] 0.8 [facility] K/cmm ABS Eosinophils 0.20 0.03 - [facility] 0.61 [facility] K/cmm RBC Morphology NRMA [facility] WBC Morphology 1+ Toxic granulation FLET GAURAV 1+ Vacuolization [facility] Type of Diff: Manual [facility] Sodium 139 136 - [facility] 145 [facility] mEq/L Potassium 4.4 3.5 - [facility] 5.0 [facility] mEq/L Chloride 103 96 - 110 [facility] mEq/L [facility] CO2 25 24 - 32 [facility] mEq/L [facility] Magnesium 1.3 (L) 1.7 - [facility] 2.8 [facility] mg/dl Pro Time 14.3 12.0 - [facility] 15.0 [facility] secs I.N.R. 1.1 0.9 - [facility] 1.1 [facility] Ratio Comment: Moderate Intensity Coumadin INR = 2.0-3. 0 Adjustments in anticoagulant therapy dos e should be based upon the INR and NOT the Pro Ti me. PTT 23 20 - 35 secs [facility] Comment: Therapeutic Heparin range: 70-1 05 seconds Troponin I pre 2011 <0.15 ng/ml [facility] Comment: normal: less than 0.15 indeterminate: 0.15-1.50 positive: greater than 1.50 Specimen Anatomical Collection Method Collection Time Receive d Time (Source) Location / / Volume Laterality 12/06/2005 12:53 12/06/2005 EDT 12:54 EDT Default Emergency MD PACKAGES & DNA PROBE ORDERAB LES Performing Organization Address City/State/ZIP Code Phon e Number [facility] [address] [place] [address] SERVICES [facility] [address] [place] [address] documented in this encounter Visit Diagnoses Not on filedocumented in this encounter
--- OUTSIDE RECORDS SUMMARY | 2022-05-21 09:04 | XMS_ITS | Encounter Summary ---
:1950 Author Organization [facility] Address [address] [place] [address] Care Team Providers Name Role Phone Yvonne Nolen MD, [place] Bhatti Primary Care Provider Reason for Visit Reason Onset Date Comments Medication Refill 06/23/2012 Encounter Details Date Type Department Care Team Description 06/23/2012 Refill Family Medicine at [facility] [place] Jr., MD [facility] [place] [address] [place] [address] [phone] (Wo rk) Social History Tobacco Use Types Packs/Day Years Used Date Never Smoker Smokeless Tobacco: Never Used Alcohol Use Standard Drinks/Week Comments Yes 3 (1 standard drink = 0.6 oz pure alcoho l) Sex Assigned at Date Recorded Not on file documented as of this encounter Miscellaneous Notes Telephone Encounter - [place] Jr., MD - 06/23/2012 4:38 PM EST C- should see him in Jul or Aug for an annual and htn documented in this encounter Plan of Treatment Not on filedocumented as of this encounter Visit Diagnoses Not on filedocumented in this encounter Care Teams Weights And Measures Sealer Relationship Specialty Start Date End Date [place] Jr., MD PCP - General 06/03/10 07/21/17 [facility] [place] [address] documented as of this encounter
--- OUTSIDE RECORDS SUMMARY | 2022-05-21 09:04 | XMS_ITS | Encounter Summary ---
:1950 Author Organization [facility] Address [address] [place] [address] Care Team Providers Name Role Phone Yvonne Nolen MD, Rupert Bhatti Primary Care Provider Reason for Visit Reason Comments Immunizations Encounter Details Date Type Department Care Team Description 09/07/2013 Clinical Support Internal Medicine at [facility], DR Neymar ellis for [facility] immunization (Primary [address] Dx) [place] [address] Social History Tobacco Use Types Packs/Day Years Used Date Never Smoker Smokeless Tobacco: Never Used Alcohol Use Standard Drinks/Week Comments Yes 3 (1 standard drink = 0.6 oz pure alcoho l) Sex Assigned at Date Recorded Not on file documented as of this encounter Progress Notes Mady Sauceda RN - 09/07/2013 10:53 AM EST Blayne is here to receive a vaccination he did not receive at his last office visit. This kind gentleman received Tdap Vaccine 0.5 cc/mL IM left deltoid x once and tolerated this well. See Immunization section of chart for specific details of vaccine. Pt was given CDC information handout which I reviewed with pt prior to his departure. documented in this encounter Plan of Treatment Not on filedocumented as of this encounter Visit Diagnoses Diagnosis Encounter for immunization - Primary Need for other specified prophylactic va ccination against single bacterial disease documented in this encounter Care Teams Electrician Chief Relationship Specialty Start Date End Date Rupert Russell Jr., MD PCP - General 06/03/10 07/21/[address] [facility] [place] [address] documented as of this encounter
--- OUTSIDE RECORDS SUMMARY | 2022-05-21 09:04 | XMS_ITS | Clinical Summary ---
:1950 Author Organization [facility] Address [address] [place] [address] Care Team Providers Name Role Phone Unknown, Provider Primary Care Provider Social History Tobacco Use Types Packs/Day Years Used Date Smoking Tobacco: Never Assessed Sex Assigned at Date Recorded Not on file Plan of Treatment Health Maintenance Due Date Last Done Comments Fall Risk Screening 09/11/2015 Care Teams Patternmaker Apprentice Metal Relationship Specialty Start Date End Date Unknown, Provider, PCP - General 05/20/15
--- OUTSIDE RECORDS SUMMARY | 2022-05-21 09:04 | XMS_ITS | Encounter Summary ---
:1950 Author Organization [facility] Address [address] [place] [address] Care Team Providers Name Role Phone Yvonne Nolen MD, Louis A Primary Care Provider Reason for Visit Reason Comments Annual Exam Encounter Details Date Type Department Care Team Description 09/05/2013 Office Visit Family Medicine at Rupert Russell Health maintenance examination; Arnold Grimm Jr., MD Hypertension; [address] [facility] Light headedness; [place], [place] DR Orthostatic hypotension [id number] [phone] [facility] [place], [place] [address] Social History Tobacco Use Types Packs/Day Years Used Date Never Smoker Smokeless Tobacco: Never Used Alcohol Use Standard Drinks/Week Comments Yes 3 (1 standard drink = 0.6 oz pure alcoho l) Sex Assigned at Date Recorded Not on file documented as of this encounter Last Filed Vital Signs Vital Sign Reading Time Taken Comments Blood Pressure 133/79 09/05/2013 12:54 PM EST Pulse 58 09/05/2013 12:54 PM EST Temperature 36.2 ??C (97.2 ??F) 09/05/2013 12:54 PM EST Respiratory Rate 16 09/05/2013 12:54 PM EST Oxygen Saturation 100% 09/05/2013 12:54 PM EST Inhaled Oxygen Concentration - - Weight 73 kg (161 lb) 09/05/2013 12:54 PM EST Height 174.6 cm (5' 8.75) 09/05/2013 12:54 PM EST Body Mass Index 23.95 09/05/2013 12:54 PM EST documented in this encounter Progress Notes Rupert Russell Jr., MD - 09/04/2013 2:53 PM EST S: Mr. Zapata is a 62 year old who comes in for an annual exam. For past medical, family, and social history see exams of 05/07/11, 02/05/09, 03/11/07, 01/19/06 and 04/24/02 in [facility] and [facility]. Interval update: No new medical problems. 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 No complaint of chest pain, shortness of breath, etc. Colonoscopy duein 2016. In the last few months he has noticed some dizziness at times when he changes position. If he is lying down and stands up too quickly or gets up from a chair too quickly he might have some transient lightheadedness. When he thinks about it, it may be more common if he is dehydrated. Is on hydrochlorothiazide. More likely to occur if he has exercised. Also, has been under a lot of stress. His parents'health has been a bit of a challenge for him. They live on his property and he is the most availableof his siblings. His mother's memory is starting to fail. Also, he has been trying to rehabilitate their apple orchard and is putting in a lot of time. He has general aches and pains that he attributesto getting older and cuts back on his running and once he feels better he increases his mileage again and then his knees might begin to ache and he cuts back again. He considers an easy day four miles. O: Appears well and younger than stated age. BP 133/79 Pulse 58 Temp 36.2 ??C (97.2 ??F) (Oral) Resp 16 Ht 174.6 cm (5' 8.75) Wt 73.029 kg (161 lb) BMI 23.96 kg/m2 SpO2 100%. HEENT; PERRLA. EOMI. TMS clear. Throat benign. Neck supple without adenopathy. Thyroid not enlarged, nontender no nodules. Lungs clear. Heart regular rate and rhythm without murmur, split S1, no S3 or S4. Carotidswithout bruits. Abdomen soft, no hepatosplenomegaly or masses appreciated; nontender. normal circumcised male. Testes without nodules. Changes consistent with vasectomy noted. Nontender. Inguinal canals free of mass or defect. Rectal normal tone. No mass felt. Prostate not enlarged. Normal landmarks. Symmetric. No nodules. Extremities no clubbing, cyanosis or edema. SBP lying down is 151, standing 134. DBP remained normal. Pulse increased from 53 to 60. Asymptomatic. A: Well 62 year old with: 1. Hypertension, grade I. 2. Mild hypercholesterolemia. 3. RBBB. 4. Mild orthostasis. Plan: Long discussion regarding hypercholesterolemia and hypertension. Will discontinue hydrochlorothiazide and try amlodipine. He will keep track of his BP and follow up through [facility]. He will initially use 2.5 mg the first month. He will also monitor whether his lightheadedness resolves. Additionally, he will continue on statin at current dose but plans to do some reading and see if he can make further adjustments in his diet and activities to lower his cholesterol and reduce the amount of statin he takes. Currently he is on 10 mg of Mevacor a day. He is not interested in prostate cancer screening at this time. Has had low PSAs. He will return for a lipid profile. documented in this encounter Plan of Treatment Not on filedocumented as of this encounter Results BMP w/fasting Glucose (09/07/2013 10:34 AM EST) athologist Signature Glucose 91 65 - 99 CERNER Fasting mg/dL MILLENNIUM [...] of Diabetes Mellitus, Position Statement from the [place] Diabetes Association. ??Diabete s Care, Volume 33, Supplement 1, Jul 2009 BUN 16 10 - 20 mg/dL CERNER MILLENNIU M Creatinine 0.97 0.80 - 1.50 mg/dL CERNER MILL ENNIUM Comment: Please note that the pediatric reference intervals supplied above were not validated at [facility]. Results from pediatri c patients should be interpreted in conjunction to the patient's age, height and muscle mass. Sodium 141 135 - 145 mmol/L CERNER EDWARD NIUM Potassium 4.3 3.5 - 5.0 mmol/L CERNER EDWARD NIUM Comment: Please note: ??Patients with WBC >100,00 0 may have falsely elevated Potassium levels. ??For accurate Potassium quantif ication in these patients send serum separator tube (gold top) for subsequent determinations. ??Contact the Clinical Chemistry Laboratory if there are any qu estions. Chloride 103 98 - 107 mmol/L CERNER MILLENN IUM CO2 28 22 - 31 mmol/L CERNER MILLENNI UM Anion Gap 10 5 - 15 mmol/L CERNER MILLENNIU M [...] the following links into your internet browser. http://www.nkdep.nih.gov/lab-evaluation. shtml http://www.kidney.org/professionals/ Specimen Anatomical Collection Method Collection Time Receive d Time (Source) Location / / Volume Laterality Blood specimen 09/07/2013 10:34 4 (specimen) AM EST 12:38 PM EST Resulting Agency Comment Spec In Lab Rupert Russell Jr., MD CHEMISTRY ORDERABLES Performing Organization Address City/State/ZIP Code Phon e Number [place] [id number] CERNER MILLENNIUM Testosterone, total and free (09/07/2013 10:34 AM EST) athologist Signature Testo Total 379 250 - 1100 CERNER ng/dL [facility] Comment: Men with clinically significant hypogona aniya symptoms and testosterone values repeate dly in the range of the 200-300 ng/dL or less, may benefit from testosterone treatment afte r adequate risk and benefits counseling. For more information on this test, go to http://education.Taxi 24/7/fa q/ TotalTestosteroneLCMSMS Testo Free 85.7 35.0 - 155.0 pg/mL CERNER MIL LENNIUM Comment: Test Performed by [email or web address], [facility], [address] [place], [place] [address] Mike Blount M.D., Ph.D., Director of Laboratories , [place] [id number] Specimen Anatomical Collection Method Collection Time Receive d Time (Source) Location / / Volume Laterality Blood specimen 09/07/2013 10:34 4 1:18 (specimen) AM EST PM EST Resulting Agency Comment Spec In Lab Rupert Russell Jr., MD CHEMISTRY ORDERABLES Performing Organization Address City/State/[place]IP [place] [address] CERNER [facility] VIT D Total Evaluation (09/07/2013 10:34 AM EST) athologist Signature 25-OH Vit D 47 30 - 100 CERNER Total ng/mL [facility] Comment: Deficient <10 ng/mL Insufficient 10 to 29 ng/mL Sufficient 30 to 100 ng/mL Potential Intoxication >100 ng/mL According to the [place] National Osteoporosi s Foundation, Vitamin D concentrations >30 ng/mL are sufficient to protect bone health. ??The National Kidney Foundation has similarly stated that pat ients with Vitamin D concentrations <30ng/mL should be considered to be insu fficient or deficient. http://www.kidney.org/professionals/KDOQ I/guidelines_bone/Guide7.htm http://www.nof.org/professionals/clinica l-guidelines The IDS iSYS Vitamin D Immunoassay detec ts both 25-OH Vitamin D2 and 25-OH Vitamin D3, but only a total Vitamin D c oncentration is reported. Specimen Anatomical Collection Method Collection Time Receive d Time (Source) Location / / Volume Laterality Blood specimen 09/07/2013 10:34 4 (specimen) AM EST 12:39 PM EST Resulting Agency Comment Spec In Lab Rupert Russell Jr., MD CHEMISTRY ORDERABLES Performing Organization Address City/State/[place] [address] IMANI MONTEZIUM (ABNORMAL) Lipid panel (fasting) (09/07/2013 10:34 AM EST) P athologist Signature Chol, Total 162 <=199 mg/dL [facility] Comment: Recommendations of the NCEP Adult Treatm ent Panel for the following risk cutoff thresholds for the [place] populatio n: Desirable: <200 mg/dL Borderline High: 200-239 mg/dL High: > or = 240 mg/dL Triglycerides 75 <=149 mg/dL [facility] Comment: Reference Range: Normal triglycerides: ??<150 mg/dL Borderline high: ??150-199 mg/dL High: ??200-499 mg/dL Very high: ??>uv=359 mg/dL KEITH 2001; 285(19):6850-6581 HDL 46 >=40 mg/dL [facility] Comment: Reference range: ??Low HDL: ?? < 40 mg/dL ??Normal: ?40-60 mg/dL ??Desirable: > 60 mg/dL KEITH 2001; 285(19):8100-1469 LDL Cholesterol 101 (H) <=99 mg/dL [facility] NI Comment: Reference range: ?? Optimal: ?<100 mg/dL ?? Near Optimal/Above Optimal: ?? 100-1 29 mg/dL ?? Borderline high: ?130-159 mg/dL ?? High: ? 160-189 mg/dL ?? Very high: ?>id=600 mg/dL KEITH 2001: 285(19):9111-3887 Chol/HDL Ratio 3.5 ratio IMANI CEBALLOS UM Comment: A Cholesterol to HDL ratio below 4:1 is desirable. ??Studies suggest that increased CAD risk occurs at ratios abov e 5 for females and above 6 for men. ? [place] Heart Association ??(htt p://www.americanheart.org) ? Blossom Int Med, 1994; 121:641 ? AM J Med, 1998; 105(1A):48S Specimen Anatomical Collection Method Collection Time Receive d Time (Source) Location / / Volume Laterality Blood specimen 09/07/2013 10:34 4 (specimen) AM EST 12:38 PM EST Resulting Agency Comment Spec In Lab Rupert Russell Jr., MD CHEMISTRY ORDERABLES Performing Organization Address City/State/ZIP [place] [address] IMANI SIMMONS documented in this encounter Visit Diagnoses Diagnosis Health maintenance examination Unspecified general medical examination Hypertension Unspecified essential hypertension Light headedness Dizziness and giddiness Orthostatic hypotension documented in this encounter Care Teams Oceanographer Geological Relationship Specialty Start Date End Date Rupert Russell Jr., MD PCP - General 06/03/10 07/21/17 [facility] [address] [facility] [place] [address] documented as of this encounter
--- OUTSIDE RECORDS SUMMARY | 2022-05-21 09:04 | XMS_ITS | Encounter Summary ---
:1950 Author Organization [facility] [place] [address] Care Team Providers Name Role Phone Yvonne Nolen MD, Louis A Primary Care Provider Encounter Details Date Type Department Care Team Description 05/08/2011 Hospital Encounter Laboratory Rupert Russell HTN (hypertension); [facility] MD Callum Hypercholesteremia; [facility] Medication monitoring encoun [place], [place] [address] Prostate cancer screening [phone] [phone] [place] [address] Social History Tobacco Use Types Packs/Day Years Used Date Never Smoker Sex Assigned at Date Recorded Not on file documented as of this encounter Medications at Time of Discharge Medication Sig Dispensed Refills Start Date End Date aspirin 81 mg EC tablet Take 81 mg by 0 mouth daily. lovastatin (MEVACOR) 20 mg Take 1 tablet by 90 tablet 4 06/23/2012 tablet mouth nightly. hydrochlorothiazide 12.5 MG = 1 0 05/06/2010 11/2 11/2010 (MICROZIDE) 12.5 mg capsule Capsule(s) PO QAM atorvastatin (LIPITOR) 10 mg 10MG = 1 0 010 05/20/2011 tablet Tablet(s), PO, Once daily documented as of this encounter Plan of Treatment Not on filedocumented as of this encounter Procedures Procedure Name Priority Date/Time Associated Diagnosis Comme nts BMP W/FASTING Routine 05/08/2011 7:44 AM HTN (hyperten nikolas) Results for this GLUCOSE EDT Medication procedure are i n monitoring encounter the res ults section. PSA Routine 05/08/2011 7:44 AM Prostate cancer Result s for this (ULTRASENSITIVE) EDT screening procedure a re in the results section. LIPID PANEL (REFLEX Routine 05/08/2011 7:44 AM HTN (hype rtension) Results for this DIRECT LDL) EDT Hypercholesteremia procedure are in the results section. documented in this encounter Results PSA (05/08/2011 7:44 AM EDT) P athologist Signature PSA Total 0.50 0.00 - CERNER (Ultrasensitiv 4.00 ng/mL MILLENNIUM e) Specimen Anatomical Collection Method Collection Time Receive d Time (Source) Location / / Volume Laterality Blood specimen 05/08/2011 7:44 AM 011 (specimen) EDT 12:21 PM EDT Rupert Russell Jr., MD CHEMISTRY ORDERABLES Performing Organization Address City/State/[place] [address] CERNER MILLENNIUM BMP w/fasting Glucose (05/08/2011 7:44 AM EDT) athologist Signature Glucose 96 65 [...] of Diabetes Mellitus, Position Statement from the [place] Diabetes Association. ??Diabete s Care, Volume 33, Supplement 1, Jul 2009 BUN 20 10 - 20 mg/dL CERNER MILLENNIU M Creatinine 0.95 0.80 - 1.50 mg/dL CERNER MILL ENNIUM Sodium 139 135 - 145 mmol/L CERNER EDWARD NIUM Potassium 4.0 3.5 - 5.0 mmol/L CERNER EDWARD NIUM Comment: Please note: ??Patients with WBC >100,00 0 may have falsely elevated Potassium levels. ??For accurate Potassium quantif ication in these patients send serum separator tube (gold top) for subsequent determinations. ??Contact the Clinical Chemistry Laboratory if there are any qu estions. Chloride 104 98 - 107 mmol/L CERNER MILLENN IUM CO2 29 22 - 31 mmol/L CERNER MILLENNI UM Anion Gap 6 5 - 15 mmol/L CERNER MILLENNIU M Calcium 9.1 8.5 - 10.5 mg/dL CERNER EDWARD NIUM Estimated GFR >60 >=60 CERNER MILLENNIU M Comment: The National Kidney Disease Education Pr ogram (NKDEP) has recommended all laboratories report estimated GFR (eGFR) along with plasma creatinine measurements to assist you with recognit ion of early kidney disease. Caveats: ??Plasma creatinine should be a t steady-state (unchanged within the past week). For patient s multiply eGFR by 1.2.MDRD equation has not been validated for pediatric pat ients and is only valid for patients with age >= 18 years. At present, NKDEP does NOT recommend usi ng the MDRD equation for drug dosing purposes and pharmacists should continue to use their current dosing methods. In addition, numerical eGFR values great er than 60 ml/min/1.73 square meters should be treated as > 60, and not an ex act number due to greater inaccuracies at these higher values. Per NKDEP, they classify normal renal function as any GFR >60ml/min/1.73 square meters; chronic kidney disease wh en GFR <60, and renal failure when GFR <15. ??This calculation may not be valid for patients with atypical muscle mass (very lean or obese), acute renal failur e, and in patients with diabetic kidney disease. References: http://nkdep.nih.gov/resources/NKDEP_Sug gestn4Labs_0606_508.pdf http://www.kidney.org/professionals/kls/ pdf/faq_gfr.pdf Specimen Anatomical Collection Method Collection Time Receive d Time (Source) Location / / Volume Laterality Blood specimen 05/08/2011 7:44 AM 011 (specimen) EDT 12:21 PM EDT Rupert Russell Jr., MD CHEMISTRY ORDERABLES Performing Organization Address City/State/ZIP Code [place] [address] CERNER MILLENNIUM (ABNORMAL) Lipid panel (fasting) (05/08/2011 7:44 AM EDT) P athologist Signature Chol, Total 200 (H) <=199 CERNER mg/dL MILLENNIUM Comment: Recommendations of the NCEP Adult Treatm ent Panel for the following risk cutoff thresholds for the [place] populatio n: Desirable: <200 mg/dL Borderline High: 200-239 mg/dL High: > or = 240 mg/dL Triglycerides 64 <=149 mg/dL CERNER MILLENN IUM Comment: Reference Range: Normal triglycerides: ??<150 mg/dL Borderline high: ??150-199 mg/dL High: ??200-499 mg/dL Very high: ??>vi=756 mg/dL KEITH 2001; 285(19):7187-3480 HDL 51 >=40 mg/dL CERNER MILLENNIUM Comment: Reference range: ??Low HDL: ?? < 40 mg/dL ??Normal: ?40-60 mg/dL ??Desirable: > 60 mg/dL KEITH 2001; 285(19):5435-8558 LDL Cholesterol 136 (H) <=99 mg/dL IMANI EDWARD NIVIJAY Comment: Reference range: ?? Optimal: ?<100 mg/dL ?? Near Optimal/Above Optimal: ?? 100-1 29 mg/dL ?? Borderline high: ?130-159 mg/dL ?? High: ? 160-189 mg/dL ?? Very high: ?>sy=063 mg/dL KEITH 2001: 285(19):9900-7217 Chol/HDL Ratio 3.9 ratio CERNER MILLENNI UM Comment: A Cholesterol to HDL ratio below 4:1 is desirable. ??Studies suggest that increased CAD risk occurs at ratios abov e 5 for females and above 6 for men. ? [place] Heart Association ??(htt p://www.americanheart.org) ? Blossom Int Med, 1994; 121:641 ? AM J Med, 1998; 105(1A):48S Specimen Anatomical Collection Method Collection Time Receive d Time (Source) Location / / Volume Laterality Blood specimen 05/08/2011 7:44 AM 011 (specimen) EDT 12:21 PM EDT Rupert Russell Jr., MD CHEMISTRY ORDERABLES Performing Organization Address City/State/[place] [address] [facility] documented in this encounter Visit Diagnoses Diagnosis HTN (hypertension) Unspecified essential hypertension Hypercholesteremia Pure hypercholesterolemia Medication monitoring encounter Encounter for therapeutic drug monitorin g Prostate cancer screening Special screening for malignant neoplasm of prostate documented in this encounter Care Teams Guest Laundry Attendant Relationship Specialty Start Date End Date Rupert Russell Jr., MD PCP - General 06/03/10 07/21/[address] [facility] [address] [facility] [place] [address] documented as of this encounter
--- OUTSIDE RECORDS SUMMARY | 2022-05-21 09:04 | XMS_ITS | Encounter Summary ---
:1950 Author Organization [facility] Address [address] [place] [address] Care Team Providers Name Role Phone Yvonne Nolen MD, Louis A Primary Care Provider Encounter Details Date Type Department Care Team Description 05/07/2011 Office Visit Family Medicine at [facility] Annual physical exam (Primary Dx); Raphael Grimm Jr., MD HTN (hypertension); [facility] Medicatio n monitoring encounter; Dr. JANICE JORDAN Prostate cancer screening; [address] Hypercholesteremia [phone] [place] [address] Social History Tobacco Use Types Packs/Day Years Used Date Never Smoker Sex Assigned at Date Recorded Not on file documented as of this encounter Last Filed Vital Signs Vital Sign Reading Time Taken Comments Blood Pressure 140/82 05/07/2011 8:39 AM EDT Pulse 44 05/07/2011 8:39 AM EDT Temperature 35.8 ??C (96.4 ??F) 05/07/2011 8:39 AM EDT Respiratory Rate 14 05/07/2011 8:39 AM EDT Oxygen Saturation - - Inhaled Oxygen Concentration - - Weight 70.5 kg (155 lb 8 oz) 05/07/2011 8:39 AM EDT Height 175 cm (5' 8.9) 05/07/2011 8:39 AM EDT Body Mass Index 23.03 05/07/2011 8:39 AM EDT documented in this encounter Progress Notes [facility] Jr., MD - 05/06/2011 10:10 AM EDT S: Mr. Zapata is a 60 year old who comes in for an annual exam. For past medical, family, and social history see exams of 02/05/09, 03/11/07, 01/19/06 and 04/24/02 in [facility]. Interval update: No new medical problems. 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 No complaint of chest pain, shortness of breath, etc. Colonoscopy duein 2016. Continues on HCTZ for hypertension. BP remaining same around 130/80 as an average. Wonders about restarting a statin. Asks when Lipitor will be generic. 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 O: Appears well and younger than stated age. BP 140/82. HEENT; PERRLA. EOMI. TMS clear. Throat benign. Neck supple without adenopathy. Thyroid not enlarged, nontender no nodules. Lungs clear. Heart regular rate and rhythm without murmur, split S1, no S3 or S4. Carotids without bruits. Abdomen soft, no hepatosplenomegaly or masses appreciated; nontender. normal circumcised male. Testes without nodules. Changes consistent with vasectomy noted. Nontender. Inguinal canals free of mass or defect. Rectal normal tone. No mass felt. Prostate not enlarged. Normal landmarks. Symmetric. No nodules. Extremities no clubbing, cyanosis or edema. A: Well 60 year old with: 1. Hypertension, grade I. 2. Mild hypercholesterolemia. 3. RBBB. P: Findings reviewed. BMP, lipid profile and PSA. Follow up depending upon results. Start [id number] mg qHS after discussion. Repeat lipids and get ALT in 3 months. Annual exam in 2 years as long as BP stable. E-visit 2011 for BP and lipid management Follow up per routine. documented in this encounter Plan of Treatment Not on filedocumented as of this encounter Results PSA (05/08/2011 7:44 AM EDT) P athologist Signature PSA Total 0.50 0.00 - CERNER (Ultrasensitiv 4.00 ng/mL MILLENNIUM e) Specimen Anatomical Collection Method Collection Time Receive d Time (Source) Location / / Volume Laterality Blood specimen 05/08/2011 7:44 AM 011 (specimen) EDT 12:21 PM EDT [facility] Jr., MD CHEMISTRY ORDERABLES Performing Organization Address City/State/[place] [address] CERNER MILLENNIUM BMP w/fasting Glucose (05/08/2011 7:44 AM EDT) P athologist Signature Glucose 96 [...] of Diabetes Mellitus, Position Statement from the [place] Diabetes Association. ??Diabete s Care, Volume 33, [...] M Calcium 9.1 8.5 - 10.5 mg/dL IMANI LEON NIUM Estimated GFR >60 >=60 IMANI CEBALLOSU Benito Comment: The National Kidney Disease Education Pr [...] Organization Address City/State/ZIP Code Phon e Number [place] [id number] CERNER MILLENNIUM (ABNORMAL) Lipid panel (fasting) (05/08/2011 7:44 AM EDT) P athologist Signature Chol, Total 200 (H) <=199 CERNER mg/dL [facility] Comment: Recommendations of the NCEP Adult Treatm ent Panel for the following risk cutoff thresholds for the [place] populatio n: Desirable: <200 mg/dL Borderline High: 200-239 mg/dL High: > or = 240 mg/dL Triglycerides 64 <=149 mg/dL IMANI MONTEZ IUM Comment: Reference Range: Normal triglycerides: ??<150 mg/dL Borderline high: ??150-199 mg/dL High: ??200-499 mg/dL Very high: ??>fo=271 mg/dL KEITH 2001; 285(19):3947-6947 HDL 51 >=40 mg/dL IMANI MIGUEL ANGELUSAMAIUM Comment: Reference range: ??Low HDL: ?? < 40 mg/dL ??Normal: ?40-60 mg/dL ??Desirable: > 60 mg/dL KEITH 2001; 285(19):3994-3137 LDL Cholesterol 136 (H) <=99 mg/dL IMANI LEON NIUM Comment: Reference range: ?? Optimal: ?<100 mg/dL ?? Near Optimal/Above Optimal: ?? 100-1 29 mg/dL ?? Borderline high: ?130-159 mg/dL ?? High: ? 160-189 mg/dL ?? Very high: ?>cq=579 mg/dL KEITH 2001: 285(19):6029-6437 Chol/HDL Ratio 3.9 ratio IMANI MIGUEL ANGELUSAMAI UM Comment: A Cholesterol to HDL ratio below 4:1 is desirable. ??Studies suggest that increased CAD risk occurs at ratios abov e 5 for females and above 6 for men. ? [place] Heart Association ??(htt p://www.americanheart.org) ? Blossom Int Med, 1994; 121:641 ? AM J Med, 1998; 105(1A):48S Specimen Anatomical Collection Method Collection Time Receive d Time (Source) Location / / Volume Laterality Blood specimen 05/08/2011 7:44 AM 011 (specimen) EDT 12:21 PM EDT [facility] Jr., MD CHEMISTRY ORDERABLES Performing Organization Address City/State/[place] [address] [facility] documented in this encounter Visit Diagnoses Diagnosis Annual physical exam - Primary Routine general medical examination at a health care facility HTN (hypertension) Unspecified essential hypertension Medication monitoring encounter Encounter for therapeutic drug monitorin g Prostate cancer screening Special screening for malignant neoplasm of prostate Hypercholesteremia Pure hypercholesterolemia documented in this encounter Care Teams Events Director Relationship Specialty Start Date End Date [facility] Jr., MD PCP - General 06/03/10 07/21/[address] [facility] [address] [facility] [place] [address] documented as of this encounter
--- OUTSIDE RECORDS SUMMARY | 2022-05-21 09:04 | XMS_ITS | Encounter Summary ---
:1950 Author Organization [facility] [place] [address] Care Team Providers Name Role Phone Yvonne Nolen MD, Rupert Bhatti Primary Care Provider Reason for Visit Reason Onset Date Comments Labs Only 09/08/2011 Encounter Details Date Type Department Care Team Description 09/08/2011 Telephone Family Medicine [facility] Jr., MD Labs Only [facility] [address] [place] [address] PRIMARY CARE [phone] [place] [address] (Wo rk) Social History Tobacco Use Types Packs/Day Years Used Date Never Smoker Smokeless Tobacco: Never Used Alcohol Use Standard Drinks/Week Comments Yes 3 (1 standard drink = 0.6 oz pure alcoho l) Sex Assigned at Date Recorded Not on file documented as of this encounter Miscellaneous Notes Telephone Encounter - Josefina Beltran - 09/11/2011 2:50 PM EST Left message for pt lab order in. Apologized for the delay and advised pt he needs to fast for lab. Telephone Encounter - [facility] Jr., MD - 09/09/2011 5:13 PM EST Juan Miguel, it's in there now. Please let him know and apologize for me that he had to call twice. Dr.K Shalini Telephone Encounter - Juan Miguel Elizondo - 09/09/2011 8:05 AM EST Patient called back, wondering if labs were ordered yet. Advised patient they are not ordered yet, patient wanted me to send another note. Thanks Juan Miguel Floyd Telephone Encounter - Josefina Beltran - 09/08/2011 5:15 PM EST Please order labs that you wanted pt to have repeated from 04/2011. Please advise when done so I cancall pt to advise when ready. Thanks documented in this encounter Plan of Treatment Not on filedocumented as of this encounter Visit Diagnoses Not on filedocumented in this encounter Care Teams Fisheries Manager Relationship Specialty Start Date End Date [facility] Jr., MD PCP - General 06/03/10 07/21/[address] [facility] [address] [facility] [place] [address] documented as of this encounter
--- OUTSIDE RECORDS SUMMARY | 2022-05-21 09:04 | XMS_ITS | Encounter Summary ---
:1950 Author Organization [facility] Address [address] [place] [address] Care Team Providers Name Role Phone Unavailable Primary Care Provider Unavailable Encounter Details Date Type Department Care Team Description 12/06/2005 Office Visit [facility] - Anil Judge MD [employer] [address] [address] [address], [place] [address] (Wo rk) Social History Tobacco Use Types Packs/Day Years Used Date Smoking Tobacco: Never Assessed Sex Assigned at Date Recorded Not on file documented as of this encounter Progress Notes Marquis Judge MD - 09/04/2009 180 EST Department - Physician Summary Registration Date/Time: 12/06/2005 12:32 Arrived- By ambulance. Historian - patient and EMS personnel. HISTORY OF PRESENT ILLNESS Chief Complaint: CHEST DISCOMFORT. WEAKNESS vomiting. This started just prior to arrival and is still present but is better now. Onset during after marathon (Patient had just finished full marathon without problem, was in food line and had onset of tingly parasthesias in hands, weakness, nausea, and central chest pressure). It is described as pressure and it is described as located in the central chest and left chest area. No radiation. At its maximum, severity described as mild. When seen in the E.D., it was almost gone. He has had nausea. The patient has had vomiting. The vomiting has occurred several times. No blood- tinged emesis or coffee-grounds emesis. Patient has not had similar symptoms previously. Not recently seen/assessed. REVIEW OF SYSTEMS No fever, chills, cough, pedal edema or calf pain. No fainting episodes, headache, blurred vision, abdominal pain or black stools. No difficulty with urination, skin rash, enlarged lymph nodes, joint pain or bloody stools. All systems otherwise negative, except as recorded above. PAST HISTORY Negative. No history of hypertension, hyperlipidemia or diabetes mellitus. Medications: None. Allergies: No known drug allergies. SOCIAL HISTORY Nonsmoker. Residence: [place], [place]. FAMILY HISTORY No history of heart disease. ADDITIONAL NOTES The nursing notes have been reviewed. PHYSICAL EXAM Appearance: Alert. Oriented X3. Vital Signs: Have been reviewed - Eyes: Pupils equal, round and reactive to light. No scleral icterus or pale conjunctivae. ENT: Pharynx normal. Neck: Normal inspection. Neck supple. No lymphadenopathy or thyromegaly. CVS: Normal heart rate and rhythm. Heart sounds normal. Pulses normal. No cardiac murmur or extra heart sounds. Respiratory: No respiratory distress. Breathsounds normal. Chest nontender. No chest pain reproducedon physical exam, rales, rhonchi or wheezes. Abdomen: Abdomen soft and nontender. No guarding, rebound tenderness or abdominal distention. Back: Normal external inspection. Skin: No rash. Cool, moist skin. Extremities: Extremities exhibit normal ROM. No lower extremity edema. Neuro: Oriented X 3. No motor deficit. No sensory deficit. Reflexes normal. LABS, X-RAYS, AND EKG EKG: Normal sinus rhythm. Rate: 69. Normal P waves. Normal TITI. Incomplete RBBB. No ST elevation or depression. Prior EKG unavailable. The EKG has been interpreted contemporaneously by me. The EKG appears to be a good tracing. CBC: WBC 19.86 -. HCT 45.5 %. Platelets 252 - Chemistries: Na - 139. K - 4.4. Cl - 103. HCO3 - 25. BUN - 18. Mg - 1.3. Cardiac Labs: CK 178. CK-MB 6.6 (3.7 %). Troponin I < 0.15. Coagulation Studies: PT 14.3. INR 1.1. PTT23. PROGRESS AND PROCEDURES Disposition: Admitted to Inpatient Observation and Cardiology. CLINICAL IMPRESSION Atypical chest pain . Rule out myocardial infarction . (Electronically signed by Marquis Judge M.D. 12/06/2005 16:18) Department - Nursing Summary Registration Date/Time: 12/06/2005 12:32 TRIAGE Initial Assessment Triage time 12:40 Dec 06 2005 . Acuity: LEVEL 2. BP: 146 / 77. HR: 68. RR: 20. Temp: 36.9 C (oral). O2 saturation: 100% room air. Alert. --1244 Lorie Morse Medications None. --1244 Diane Moraes R.N. Allergies No known drug allergies. --1244 Diane Moraes R.N. History Chief Complaint: ( vomiting, chills). This started just prior to arrival. ( Finished marathon and became ill. Also complains of localized right mid chest pain.). PAST HX: Negative. Arrived by EMS. Historian: patient. --1244 Diane Moraes R.N. Pain level now: 1/10. At maximum, pain level described as 3/10. --1250 Diane Moraes R.N. NURSING PROGRESS NOTES Progress 12-lead EKG was performed by a kiran and shown to the ED physician. --1244 Diane Moraes R.N. IV started: #1 site,right antecubital space, fluid - 1000 mL bag NS infusing. --1244 Diane Moraes R.N. IV started. 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 --1245 Diane Moraes R.N. IV started prior to arrival. --1245 Diane Moraes R.N. BP: 119 / 68. HR: 70. RR: 17. O2 saturation: 99% room air. Patient reports current pain level as 1/10. --1250 Diane Moraes R.N. BP: 126 / 58. HR: 66 regular. RR: 16. O2 saturation: 97 % room air. --1326 Yris Snider R.N. ( States intermittant nausea without further vomiting. 0.5-1/10 pain in chest when he notes nausea.). --1328 Yris Snider R.N. BP: 119 / 63. HR: 66. RR: 20. O2 saturation: 98% room air. Cardiac rhythm: normal sinus rhythm. --1349 Diane Moraes R.N. ASA 162 mg chewed. . --1354 Diane Moraes R.N. NITROGLYCERIN 1 inch paste left chest. . --1354 Diane Moraes R.N. Seen by cards. --1507 Pascual Estrella R.N. IV / I&O Flowsheet IV fluid started - #2 bag NS 1000 mL. Rate - TKO (Re fastened IV catheter and added saline lock goodblood return noted and flushed with 5 cc NS IV patent). --1502 Jeannie Perrin.M.TKamila OUTPUT: 300 mL urine. --1507 Pascual Estrella R.N. DISPOSITION / DISCHARGE Report was given (to M5 RN). --1520 Lorie Fonseca R.N., R.N. Peter Clark E.M.TKamila Estrella R.N. Locked/Released at 12/07/2005 6:28 by Kathi Mejia R.N. documented in this encounter Plan of Treatment Not on filedocumented as of this encounter Visit Diagnoses Not on filedocumented in this encounter
--- OUTSIDE RECORDS SUMMARY | 2022-05-21 09:04 | XMS_ITS | Encounter Summary ---
:1950 Author Organization [facility] Address [facility] [place] [address] Care Team Providers Name Role Phone Yvonne Nolen MD, Rupert Bhatti Primary Care Provider Encounter Details Date Type Department Care Team Description 09/09/2011 Orders Only [facility] [address] Hypercholesteremia; [facility] Mar momin Jr., MD Medication monitoring encounter [address] [phone] [address] [facility] [place] [address] Social History Tobacco Use Types Packs/Day Years Used Date Never Smoker Smokeless Tobacco: Never Used Alcohol Use Standard Drinks/Week Comments Yes 3 (1 standard drink = 0.6 oz pure alcoho l) Sex Assigned at Date Recorded Not on file documented as of this encounter Plan of Treatment Not on filedocumented as of this encounter Results Alanine Aminotransferase (09/14/2011 8:07 [...] Organization Address City/State/[place] [address] [facility] [employer] (ABNORMAL) Lipid panel (fasting) (09/14/2011 8:07 AM EST) P athologist Signature Chol, Total 176 <=199 mg/dL CERNER MILLENNIUM Comment: Recommendations of the NCEP Adult Treatm ent Panel for the following risk cutoff thresholds for the [place] populatio n: Desirable: <200 mg/dL Borderline High: 200-239 mg/dL High: > or = 240 mg/dL Triglycerides 72 <=149 mg/dL CERNER MILLENN IUM Comment: Reference Range: Normal triglycerides: ??<150 mg/dL Borderline high: ??150-199 mg/dL High: ??200-499 mg/dL Very high: ??>wg=130 mg/dL KEITH 2001; 285(19):4773-8364 HDL 50 >=40 mg/dL CERNER MILLENNIUM Comment: Reference range: ??Low HDL: ?? < 40 mg/dL ??Normal: ?40-60 mg/dL ??Desirable: > 60 mg/dL KEITH 2001; 285(19):6455-4368 LDL Cholesterol 112 (H) <=99 mg/dL IMANI EDWARD NIUM Comment: Reference range: ?? Optimal: ?<100 mg/dL ?? Near Optimal/Above Optimal: ?? 100-1 29 mg/dL ?? Borderline high: ?130-159 mg/dL ?? High: ? 160-189 mg/dL ?? Very high: ?>uw=265 mg/dL KEITH 2001: 285(19):9323-6889 Chol/HDL Ratio 3.5 ratio CERNER MILLENNI UM Comment: A Cholesterol to HDL ratio below 4:1 is desirable. ??Studies suggest that increased CAD risk occurs at ratios abov e 5 for females and above 6 for men. ? [place] Heart Association ??(htt p://www.americanheart.org) ? Blossom Int Med, 1994; 121:641 ? AM J Med, 1998; 105(1A):48S Specimen Anatomical Collection Method Collection Time Receive d Time (Source) Location / / Volume Laterality Blood specimen 09/14/2011 8:07 AM 012 (specimen) EST 12:31 PM EST Resulting Agency Comment Spec In Lab [facility] Jr., MD CHEMISTRY ORDERABLES Performing Organization Address City/State/[place] [address] [facility] documented in this encounter Visit Diagnoses Diagnosis Hypercholesteremia Pure hypercholesterolemia Medication monitoring encounter Encounter for therapeutic drug monitorin g documented in this encounter Care Teams Ict Developer Relationship Specialty Start Date End Date Rupert [facility] Jr., MD PCP - General 06/03/10 07/21/[address] [facility] [address] [facility] [address] documented as of this encounter
== END 2022-05-21 08:51 | disposition home or self-care (01) ==
LOC: LBO 09:01
PROVIDERS: PCP Nurse Practitioner Family; Visit Provider Nurse Practitioner Family
DX: E78.5 Hyperlipidemia, unspecified (principal); Z51.81 Encounter for therapeutic drug level monitoring; I10 Essential (primary) hypertension; Z13.1 Encounter for screening for diabetes mellitus
CPT/HCPCS: 36415; 80048; 80061; 85025

== ENCOUNTER 2022-12-10 09:09 | Outpatient (CLI) | payer MEDICARE, SELFPAY ==
--- NOTE | 2022-12-10 09:00 | RT.EKG_ITS ---
APPROVED REPORT Exam: Resting ECG Reason for Exam: CAD Patient Location: O HR:63 bpm ECG Measurements Heart Rate 63 AXIS MS 152 P 75 QRSd 137 QRS 38 QT 407 T 43 QTc 417 Conclusion Sinus rhythm...normal P axis, V-rate 50- 99 Right bundle branch block...QRSd>120, terminal axis(90,270)
== END 2022-12-10 09:10 | disposition home or self-care (01) ==
LOC: DI.CARD 09:10
PROVIDERS: PCP Nurse Practitioner Family; Visit Provider Internal Medicine Cardiovascular Disease
DX: I25.729 Atherosclerosis of autologous artery coronary artery bypass graft(s) with unspecified angina pectoris (principal)
CPT/HCPCS: 93010

== ENCOUNTER → 2022-12-10 09:55 | Outpatient (BNVA) | payer MEDICARE, SELFPAY | PROVIDERS: PCP Nurse Practitioner Family; Visit Provider Internal Medicine Cardiovascular Disease | DX: I25.10 Atherosclerotic heart disease of native coronary artery without angina pectoris (principal); I45.10 Unspecified right bundle-branch block; I10 Essential (primary) hypertension; E78.5 Hyperlipidemia, unspecified | CPT/HCPCS: 93005; 99214 ==

== ENCOUNTER 2023-01-07 11:30 | Outpatient (CLI) | payer MEDICARE, SELFPAY ==
[2023-01-07 12:13] LABS: TSH (W/Ref FT4) 1.53 uIU/mL (0.36-3.74)
[2023-01-07 12:35] LABS: Vitamin D 25 Total 35.8 ng/mL (30-100)
[2023-01-07 12:58] LABS: Vitamin B12 322 pg/mL (193-986)
== END 2023-01-07 11:31 | disposition home or self-care (01) ==
LOC: LBO 11:31
PROVIDERS: PCP Nurse Practitioner Family; Visit Provider Nurse Practitioner Family
DX: E55.9 Vitamin D deficiency, unspecified (principal); E03.9 Hypothyroidism, unspecified; R41.3 Other amnesia
CPT/HCPCS: 36415; 82306; 82607; 84443

== ENCOUNTER → 2023-12-16 09:49 | Outpatient (BNVA) | payer MEDICARE, SELFPAY | PROVIDERS: PCP Nurse Practitioner Family; Visit Provider Internal Medicine Cardiovascular Disease | DX: I25.10 Atherosclerotic heart disease of native coronary artery without angina pectoris (principal); I45.10 Unspecified right bundle-branch block | CPT/HCPCS: 99213 ==

== ENCOUNTER 2024-12-14 09:10 | Outpatient (CLI) | payer MEDICARE, SELFPAY ==
--- NOTE | 2024-12-14 09:00 | RT.EKG_ITS ---
APPROVED REPORT Exam: Resting ECG Reason for Exam: CAD Patient Location: O HR:72 bpm ECG Measurements Heart Rate [address] 159 P 77 QRSd 137 QRS 28 QT 405 T 65 QTc 444 Conclusion Sinus rhythm...normal P axis, V-rate 50- 99 Right bundle branch block...QRSd>120, terminal axis(90,270)
== END 2024-12-14 09:11 | disposition home or self-care (01) ==
LOC: DI.CARD 09:12
PROVIDERS: PCP Family Medicine; Visit Provider Internal Medicine Cardiovascular Disease
DX: I45.10 Unspecified right bundle-branch block (principal); I25.10 Atherosclerotic heart disease of native coronary artery without angina pectoris
CPT/HCPCS: 93010

== ENCOUNTER → 2024-12-14 09:33 | Outpatient (BNVA) | payer MEDICARE, SELFPAY | PROVIDERS: PCP Nurse Practitioner Family; Referring Provider Nurse Practitioner Family; Visit Provider Internal Medicine Cardiovascular Disease | DX: I45.10 Unspecified right bundle-branch block (principal); I25.10 Atherosclerotic heart disease of native coronary artery without angina pectoris; Z79.02 Long term (current) use of antithrombotics/antiplatelets | CPT/HCPCS: 99214; 93005 ==

== ENCOUNTER 2025-03-21 04:26 | Outpatient (CLI) | payer MEDICARE, SELFPAY ==
[2025-03-21 10:07] LABS: HCT 42.8 % (40.0-50.0); HGB 14.4 g/dL (13.5-17.5); MCH 28.9 pg (27.0-33.0); MCHC 33.6 % (32.0-36.0); MCV 86 fL (80-95); MPV 9.4 fL (8.0-11.0); Platelet Count 235 10^3/uL (130-400); RBC 4.98 10^6/uL (4.36-5.78); RDW 12.2 % (11.8-14.1); RDW-SD 38.5 fL; WBC 8.18 10^3/uL (4.4-10.8)
[2025-03-21 12:17] LABS: TSH (W/Ref FT4) 1.65 uIU/mL (0.36-3.74); Vitamin B12 726 pg/mL (193-986)
== END 2025-03-21 04:27 | disposition home or self-care (01) ==
PROVIDERS: PCP Nurse Practitioner Family; Referring Provider Nurse Practitioner Family; Visit Provider Nurse Practitioner Family
DX: R41.3 Other amnesia (principal)
CPT/HCPCS: 36415; 85027; 82607; 84443